=== PATIENT | female | born 1950 | race Caucasian/White ===

== ENCOUNTER → 2024-01-16 15:49 | Outpatient (REF) | payer OTHER, SELFPAY | LOC: WDC 15:49 | PROVIDERS: ATTENDING PHYSICIAN Family Medicine | DX: Z12.31 Encounter for screening mammogram for malignant neoplasm of breast (principal) | CPT/HCPCS: 77063; 77067 ==

== ENCOUNTER 2024-03-21 15:11 | Emergency (ER) | payer OTHER, SELFPAY ==
[2024-03-21 15:13] VITALS: BP 143/97
[2024-03-21 15:42] LABS: % Basophils 0.6 % (0-2); % Eosinophils 0.6 % (0-6); % Immature Granulocytes 0.9 % (0-0.5); % Lymphocytes 12.4 % (20.5-51.1); % Monocytes 6.4 % (1.7-9.3); % Neutrophils 79.1 % (42.2-75.2); Absolute Basophils 0.1 10^3/uL (0-0.2); Absolute Eosinophils 0.1 10^3/uL (0-0.7); Absolute Immature Granulocytes 0.1 10^3/uL (0-0.05); Absolute Lymphocytes 1.3 10^3/uL (1.2-3.4); Absolute Monocytes 0.7 10^3/uL (0.1-0.6); Absolute Neutrophils 8.6 10^3/uL (1.4-6.5); Hematocrit 37.9 % (37.0-47.0); Hemoglobin 12.9 g/dL (12.0-16.0); Mean Corpuscular Hgb 30.5 pg (27.0-31.0); Mean Corpuscular Volume 89.6 fL (81.0-99.0); Nucleated Red Blood Cells % 0 %; Platelet Count 239 10^3/uL (130-400); Red Blood Cell Count 4.23 10^6/uL (4.20-5.40); Red Cell Dist. Width 13.4 % (11.5-14.5); White Blood Cell Count 10.9 10^3/uL (4.8-10.8)
[2024-03-21 16:02] LABS: ALT (SGPT) 34 U/L (0-35); AST (SGOT) 37 U/L (14-36); Albumin 4.3 g/dl (3.5-5.0); Alkaline Phosphatase 62 U/L (38-126); Blood Urea Nitrogen 31 mg/dl (7-17); Calcium 10.5 mg/dl (8.4-10.2); Carbon Dioxide 31 mmol/L (22-30); Chloride 100 mmol/L (98-107); Glucose 126 mg/dl (70-99); Potassium 4.2 mmol/L (3.5-5.1); Sodium 139 mmol/L (135-145); Total Bilirubin 0.4 mg/dl (0.2-1.3); Total Protein 6.5 g/dl (6.3-8.2); eGFR > 60.00
[2024-03-21 16:05] LABS: Troponin I < 0.012 ng/ml
--- NOTE | 2024-03-21 21:06 | ED.GENMED ---
History of Present Illness
General
Chief Complaint: Abdominal Pain
Source: patient
Exam Limitations: none
Time Seen by Provider: 03/21/24 20:48
Nursing documentation reviewed up to this point in time: agreed with
Travel History
Have you had any contact with someone who has COVID-19?: No
Do you have any symptoms of coronavirus? Fever > 100 degrees, chills, cough, shortness of breath, sore throat, loss of taste or smell, muscle aches, or headache?: No
History of Present Illness
History of Present Illness:
73-year-old female presents emergency department due to bilateral epigastric pain. No aggravating relieving factors. Symptoms ongoing for 3 to 4 days.
Past History
Past History
ED Past Medical History: COPD and HTN
ED Past Surgical History: None
Social History
Tobacco: Former smoker
Alcohol: None
Personal:
Living: with family
Employment: Employed
Review of Systems
Review of Systems
Allergies reviewed?: Yes
All Other Systems: Not applicable
Constitutional: Reports no symptoms
EENT: Reports no symptoms
Respiratory: Reports no symptoms
Cardiac: Reports no symptoms
ABD/GI: Reports abdominal pain
: Reports no symptoms
Musculoskeletal: Reports no symptoms
Skin: Reports no symptoms
Neurological: Reports headache
Endocrine: Reports no symptoms
Hematologic/Lymphatic: Reports no symptoms
Psychiatric: Reports no symptoms
Phy Exam
Physical Exam
Physical Exam:
Physical Exam
Afebrile, on 4 L nasal cannula
Neck: supple. no meningeal signs. normal posterior pharynx
Heart: s1/s2 regular rate and rhythm, no murmur. equal radial
pulses.
HEENT: Pupils equal round reactive to light, EOMI
Lungs: no acute respiratory distress. clear bilaterally
Abdomen: normal bowel sounds. Bilateral epigastric tenderness no CVAT
Neuro: alert and oriented. no focal neurological deficits cranial nerves II through XII intact
Skin: no rash
Psychiatric: well kept. interactive and cooperative
Extremities: no edema. no calf tenderness. negative homans. good distal pulses
Course
Orders/Labs/Results
Orders:
Orders
03/21/24 15:15
Electrocardiogram (*1) Urgent
Reason for Study: Abdominal Pain
EKG- Treatment ONCE
03/21/24 15:22
Complete Blood Count/With Diff Urgent
Comprehensive Metabolic Panel Urgent
Lipase Urgent
Comment: ADD ON
Troponin I Urgent
03/21/24 21:05
CT Abd/pelvis W Iv Cont Urgent
Comment:
Reason For Exam: bilateral upper abdominal pain
03/21/24 21:47
Add On- LAB Urgent
Tests Added?: lipase
Acetaminophen [Tylenol] 650 mg PO NOW STA
03/21/24 23:01
Magnesium Citrate [Citroma] 300 ml PO ONCE ONE
Abnormal Lab Results
03/21/24
15:22
WBC 10.9 H 10^3/uL
(4.8-10.8)
Abs Immat Gran (auto) 0.1 H 10^3/uL
(0-0.05)
Absolute Neuts (auto) 8.6 H 10^3/uL
(1.4-6.5)
Absolute Monos (auto) 0.7 H 10^3/uL
(0.1-0.6)
Immature Gran % 0.9 H %
(0-0.5)
Neutrophils % 79.1 H %
(42.2-75.2)
Lymphocytes % 12.4 L %
(20.5-51.1)
Carbon Dioxide 31 H mmol/L
(22-30)
BUN 31 H mg/dl
(7-17)
Glucose 126 H mg/dl
(70-99)
Calcium 10.5 H mg/dl
(8.4-10.2)
AST 37 H U/L
(14-36)
03/21/24 15:22
03/21/24 15:22
Vital Signs
Initial and Last Documented VS:
Initial Vital Signs
Temp Pulse Resp BP Pulse Ox
99.1 F 115 18 143/97 92
03/21/24 15:13 03/21/24 15:13 03/21/24 15:13 03/21/24 15:13 03/21/24 15:13
Last Documented Vital Signs
Temp Pulse Resp BP Pulse Ox
99.1 F 94 18 156/79 98
03/21/24 15:13 03/21/24 21:53 03/21/24 21:53 03/21/24 22:00 03/21/24 22:15
MDM/Problems Addressed
Differential Diagnosis Includes:
Diverticulitis, pancreatitis
MDM/Problems Addressed:
73-year-old female with constipation and abdominal pain. CT scan no acute findings, stool burden. Patient stable for discharge.
*Radiology
Radiology exam reviewed: radiology read reviewed (CT abdomen pelvis no acute findings)
*Pulse Oximetry
Patient hypoxic: no
*EKG
Interpreted by ED Provider?: Yes
EKG Intrepretation Date: 03/22/24
EKG Intrepretation Time: 15:19
Interpretation: abnormal
Comparison EKG: no changes
Heart Rate: 107
Rate: tachycardiac
Rhythm: sinus tachycardia
Lisman: normal axis
Interval: normal interval
QRS Pattern: normal QRS
Ischemia: no ischemia
*Software Tools Build Engineer Interpretation
Rate: Software Tools Build Engineer- N/A
*Critical Care Note
Total Time (30-74mins, 75-104mins- exclusive of procedures): Not Applicable
Patient Management
Social determinants of health affecting care: Living situation
Escalation/DeEscalation of care consider admission/obs:
admit not indicated
ED Attending Note
-
Portions of this chart may have been created with voice recognition software.� Occasional wrong word or��sound alike� substitutions may have occurred due to the inherent limitations of voice recognition software.
Discharge Plan
Departure
Patient Disposition: Home (Routine Discharge)
Date of Disposition: 03/21/24
Time of Disposition: 23:02
Patient with high blood pressure during this ER visit?: Yes
Condition: Good
Discharge Problem:
Abdominal pain, Acute constipation
Instructions: Constipation, Adult (DC), Abdominal Pain, BLOOD PRESSURE
Prescriptions:
No Action
quixvlxxhk-qhhgjczadmygt-trdt 1 EACH tablet
1 tab PO Q4HPRN PRN (Reason: migraine)
Patient Comments:
12/26/2022: last filled 12/14/22, 30 tabs for 7 days from [id number]
ascorbic acid (vitamin C) [Vitamin C] 500 MG tablet
1,000 mg PO BID
diazepam 5 MG tablet
5 mg PO DAILYPRN PRN (Reason: anxiety)
Patient Comments:
12/26/2022: last filled 12/13/22, 30 tabs for 30 days from [id number]
Spiriva Respimat 1 PUFF mist
2 puff inhalation R DAILY@1200
sumatriptan succinate 50 MG tablet
25 mg PO DAILYPRN PRN (Reason: migraine)
fluticasone propionate 1 SPRAY spray,suspension
1 spray intranasal DAILYPRN PRN (Reason: allergies)
Refresh Classic (PF) 10 DROPS dropperette
1 drops BOTH EYES BID
calcium carbonate-vitamin D3 [Oyster Shell Calcium-Vit D3] 500 MG tablet
1 tab PO DAILY
albuterol sulfate 2.5 mg /3 mL (0.083 %) Solution For Nebulization
2.5 mg INHALATION R Q4HPRN PRN (Reason: chest tightness)
budesonide-formoterol [Symbicort] 160-4.5 mcg/actuation Hfa Aerosol Inhaler
2 puff INHALATION R BID
benzonatate 200 mg Capsule
200 mg PO BID
sodium chloride 3 % Solution For Nebulization
4 ml INHALATION R BID
sertraline 25 mg Tablet
12.5 mg PO Q48H
budesonide 0.5 mg/2 mL Suspension For Nebulization
0.5 mg INHALATION R BID
vitamin B complex Tablet
1 tab PO DAILY
diltiazem HCl 360 mg Tablet Extended Release 24 Hr
360 mg PO DAILY
rosuvastatin 10 mg Tablet
10 mg PO DAILY
hydrochlorothiazide 12.5 mg Tablet
12.5 mg PO DAILY
prednisone 10 MG tablet
10 mg PO DAILY
Hold Instructions: Please note to first take steroid taper as prescribed on discharge, then continue home regimen of prednisone.
guaifenesin [Mucus Relief ER] 600 MG tablet extended release 12hr
1,200 mg PO BID
pantoprazole 40 mg Tablet,Delayed Release (Dr/Ec)
40 mg PO DAILY 30 Days Qty: 30 0RF
prednisone 10 mg Tablet
See Rx Instructions .ROUTE .COMPLEX Qty: 30 0RF
Rx Instructions:
Take By Mouth:
40 mg daily x3 days, 30 mg daily x3 days,
20 mg daily x3 days, 10 mg daily x3 days.
Referrals:
UNKNOWN - PT DOES,NOT KNOW [Unknown Provider] -
Interventions
Interventions:
*Risk Screen - Suicide Last Done: 03/21/24 15:13
*General Assessment Last Done: 03/21/24 15:13
*Neglect/Abuse Screening Last Done: 03/21/24 15:13
ED- Fall Risk Assessment Last Done: 03/21/24 22:12
*ED COVID-19 Vaccine History Last Done: 03/21/24 15:13
*Nursing Disposition Last Done: 03/21/24 23:15
QG-Bqfsnt-Gvlvmiauqq Assessment Last Done: 03/21/24 22:10
Discharge Date and Time
Discharge Date/Time: 03/21/24 23:33
Print Language: SUDANESE
[2024-03-21 21:17] VITALS: BMI 25.6
[2024-03-21] MEDS: TYLENOL 650 MG PO (21:51)
[2024-03-21 21:53] VITALS: BP 171/81
[2024-03-21 22:00] VITALS: BP 156/79
[2024-03-21 22:20] LABS: Lipase 51 U/L (23-300)
[2024-03-21] MEDS: CITROMA 300 ML PO (23:07)
== END 2024-03-21 23:33 | disposition home or self-care (01) ==
LOC: EMR 15:11
PROVIDERS: EMERGENCY PHYSICIAN Emergency Medicine; FAMILY PHYSICIAN Family Medicine
DX: R10.13 Epigastric pain (principal); K59.00 Constipation, unspecified
CPT/HCPCS: 99285; 74177; 80053; 83690; 84484; 85025; 93005; Q9967

== ENCOUNTER 2024-03-24 16:24 | Emergency (ER) | payer OTHER, SELFPAY ==
[2024-03-24 16:32] VITALS: BP 132/82
--- NOTE | 2024-03-24 17:59 | ED.GENMED ---
History of Present Illness
General
Chief Complaint: Back Pain
Source: patient
Exam Limitations: none
Time Seen by Provider: 03/24/24 17:50
Nursing documentation reviewed up to this point in time: agreed with
Travel History
Have you had any contact with someone who has COVID-19?: No
Do you have any symptoms of coronavirus? Fever > 100 degrees, chills, cough, shortness of breath, sore throat, loss of taste or smell, muscle aches, or headache?: No
History of Present Illness
History of Present Illness:
Patient to ED wt complaint of bilateral chest pain and back pain. States she was seen in ED 3 days ago for abd. pain. Dx constipation. States she was prescribed mag citrate which she took. States she passed 'a fair amt' of liquid. Tried to
give self a fleets enema. States she passed more liquid. States she now has bilateral lateral chest pain. States it comes in waves. Brought to ED by sig/other for eval. No n/v.
Past History
Past History
ED Past Medical History: COPD and HTN
ED Past Surgical History: None
Social History
Tobacco: Former smoker
Alcohol: None
Personal:
Living: with family
Employment: Employed
Review of Systems
Review of Systems
Allergies reviewed?: Yes
All Other Systems: ROS reviewed and negative except as documented in HPI and ROS
Constitutional: Reports no symptoms
EENT: Reports no symptoms
Respiratory: Reports no symptoms
Cardiac: Reports no symptoms
ABD/GI: Reports no symptoms
: Reports no symptoms
Musculoskeletal: Reports other (Bilateral lateral chest pain. Worse with movement.)
Skin: Reports no symptoms
Neurological: Reports no symptoms
Psychiatric: Reports no symptoms
Phy Exam
General Physical Exam
General Presentation: well appearing and no apparent distress
General age: appears stated age
General Skin: warm and dry
General Habitus: normal
Cardiovascular Exam
Cardiovascular Exam: regular rate/rhythm and no edema
Pulmonary Exam
Pulmonary Exam: lungs clear, no respiratory distress and chest non tender
Gastrointestinal Exam
Gastrointestinal Exam: normal bowel sounds, non tender, soft, no organomegaly and non distended
Musculoskeletal Exam
Musculoskeletal Exam: full ROM and neuro vasc intact
Skin Exam
Skin Exam: normal color, warm/dry and no rash
Psychiatric Exam
Psychiatric Exam: normal mood/affect
Course
Orders/Labs/Results
Orders:
Orders
03/24/24 17:58
Obstruct Series W/PA Chest [CR Obstruct Series W/pa Chest] Urgent
Comment:
Reason For Exam: pain
03/24/24 17:59
Hydrocodone 5/APAP 325 [Mission 5/325] 1 tablet PO NOW STA
03/24/24 19:54
Magnesium Citrate [Citroma] 300 ml PO ONCE ONE
Sennosides [Senokot] 8.6 mg PO NOW STA
Vital Signs
Initial and Last Documented VS:
Initial Vital Signs
Temp Pulse Resp BP Pulse Ox
98.4 F 95 18 132/82 94
03/24/24 16:32 03/24/24 16:32 03/24/24 16:32 03/24/24 16:32 03/24/24 16:32
Last Documented Vital Signs
Temp Pulse Resp BP Pulse Ox
98.4 F 95 18 132/82 94
03/24/24 16:32 03/24/24 16:32 03/24/24 16:32 03/24/24 16:32 03/24/24 16:32
*Radiology
Radiology exam reviewed: radiology read reviewed
*Pulse Oximetry
Patient hypoxic: no
*Critical Care Note
Total Time (30-74mins, 75-104mins- exclusive of procedures): Not Applicable
ED Attending Note
-
Portions of this chart may have been created with voice recognition software.� Occasional wrong word or��sound alike� substitutions may have occurred due to the inherent limitations of voice recognition software.
Discharge Plan
Departure
Patient Disposition: Home (Routine Discharge)
Date of Disposition: 03/24/24
Time of Disposition: 19:55
Patient with high blood pressure during this ER visit?: No
Condition: Good
Covid-19: Not Applicable
Discharge Problem:
Constipation
Instructions: Constipation in adults
Prescriptions:
No Action
aanqsdxipp-ffjnznemswhvx-btuz 1 EACH tablet
1 tab PO Q4HPRN PRN (Reason: migraine)
Patient Comments:
12/26/2022: last filled 12/14/22, 30 tabs for 7 days from [id number]
ascorbic acid (vitamin C) [Vitamin C] 500 MG tablet
1,000 mg PO BID
diazepam 5 MG tablet
5 mg PO DAILYPRN PRN (Reason: anxiety)
Patient Comments:
12/26/2022: last filled 12/13/22, 30 tabs for 30 days from [id number]
Spiriva Respimat 1 PUFF mist
2 puff inhalation R DAILY@1200
sumatriptan succinate 50 MG tablet
25 mg PO DAILYPRN PRN (Reason: migraine)
fluticasone propionate 1 SPRAY spray,suspension
1 spray intranasal DAILYPRN PRN (Reason: allergies)
Refresh Classic (PF) 10 DROPS dropperette
1 drops BOTH EYES BID
calcium carbonate-vitamin D3 [Oyster Shell Calcium-Vit D3] 500 MG tablet
1 tab PO DAILY
albuterol sulfate 2.5 mg /3 mL (0.083 %) Solution For Nebulization
2.5 mg INHALATION R Q4HPRN PRN (Reason: chest tightness)
budesonide-formoterol [Symbicort] 160-4.5 mcg/actuation Hfa Aerosol Inhaler
2 puff INHALATION R BID
benzonatate 200 mg Capsule
200 mg PO BID
sodium chloride 3 % Solution For Nebulization
4 ml INHALATION R BID
sertraline 25 mg Tablet
12.5 mg PO Q48H
budesonide 0.5 mg/2 mL Suspension For Nebulization
0.5 mg INHALATION R BID
vitamin B complex Tablet
1 tab PO DAILY
diltiazem HCl 360 mg Tablet Extended Release 24 Hr
360 mg PO DAILY
rosuvastatin 10 mg Tablet
10 mg PO DAILY
hydrochlorothiazide 12.5 mg Tablet
12.5 mg PO DAILY
prednisone 10 MG tablet
10 mg PO DAILY
Hold Instructions: Please note to first take steroid taper as prescribed on discharge, then continue home regimen of prednisone.
guaifenesin [Mucus Relief ER] 600 MG tablet extended release 12hr
1,200 mg PO BID
pantoprazole 40 mg Tablet,Delayed Release (Dr/Ec)
40 mg PO DAILY 30 Days Qty: 30 0RF
prednisone 10 mg Tablet
See Rx Instructions .ROUTE .COMPLEX Qty: 30 0RF
Rx Instructions:
Take By Mouth:
40 mg daily x3 days, 30 mg daily x3 days,
20 mg daily x3 days, 10 mg daily x3 days.
Referrals:
Avel Soto MD [Family Provider] - Tomorrow
Interventions
Interventions:
*Risk Screen - Suicide Last Done: 03/24/24 16:32
*General Assessment Last Done: 03/24/24 16:32
*Neglect/Abuse Screening Last Done: 03/24/24 16:32
ED- Fall Risk Assessment Last Done: 03/24/24 18:03
*ED COVID-19 Vaccine History Last Done: 03/24/24 16:32
*Nursing Disposition Last Done: 03/24/24 20:33
ED-Musculoskeletal Assessment Last Done: 03/24/24 18:04
Discharge Date and Time
Discharge Date/Time: 03/24/24 20:34
Print Language: ICELANDIC
[2024-03-24] MEDS: NORCO 5/325 1 TABLET PO (18:02)
[2024-03-24] MEDS: SENOKOT 8.59999999999999964 MG PO (20:06)
[2024-03-24] MEDS: CITROMA 300 ML PO (20:06)
== END 2024-03-24 20:34 | disposition home or self-care (01) ==
LOC: EMR 16:24
PROVIDERS: EMERGENCY PHYSICIAN Emergency Medicine; FAMILY PHYSICIAN Family Medicine
DX: K59.00 Constipation, unspecified (principal); M54.9 Dorsalgia, unspecified; J44.9 Chronic obstructive pulmonary disease, unspecified; I10 Essential (primary) hypertension
CPT/HCPCS: 99283; 74022

== ENCOUNTER 2024-03-28 19:02 | Emergency (ER) | payer OTHER, SELFPAY ==
[2024-03-28 19:13] VITALS: BP 159/93; BMI 25.0
[2024-03-28 19:41] LABS: % Basophils 0.7 % (0-2); % Eosinophils 1.6 % (0-6); % Monocytes 10.6 % (1.7-9.3); % Neutrophils 60.1 % (42.2-75.2); Absolute Basophils 0.1 10^3/uL (0-0.2); Absolute Eosinophils 0.2 10^3/uL (0-0.7); Absolute Immature Granulocytes 0.1 10^3/uL (0-0.05); Absolute Lymphocytes 2.9 10^3/uL (1.2-3.4); Absolute Monocytes 1.2 10^3/uL (0.1-0.6); Absolute Neutrophils 6.6 10^3/uL (1.4-6.5); Hematocrit 38.5 % (37.0-47.0); Hemoglobin 13.1 g/dL (12.0-16.0); Mean Corpuscular Hgb 30.3 pg (27.0-31.0); Mean Corpuscular Volume 88.9 fL (81.0-99.0); Mean Platelet Volume 8.8 fL (7.4-10.4); Nucleated Red Blood Cells % 0 %; Platelet Count 213 10^3/uL (130-400); Red Blood Cell Count 4.33 10^6/uL (4.20-5.40); Red Cell Dist. Width 13.3 % (11.5-14.5)
[2024-03-28 19:46] LABS: ALT (SGPT) 38 U/L (0-35); AST (SGOT) 42 U/L (14-36); Albumin 4.4 g/dl (3.5-5.0); Alkaline Phosphatase 60 U/L (38-126); Blood Urea Nitrogen 21 mg/dl (7-17); Calcium 10.2 mg/dl (8.4-10.2); Carbon Dioxide 30 mmol/L (22-30); Chloride 98 mmol/L (98-107); Estimated Creatinine Clearance 65 ml/min; Glucose 111 mg/dl (70-99); Potassium 3.6 mmol/L (3.5-5.1); Sodium 136 mmol/L (135-145); Total Bilirubin 0.4 mg/dl (0.2-1.3); Total Protein 6.5 g/dl (6.3-8.2); eGFR > 60.00
[2024-03-28 19:54] LABS: Lipase 52 U/L (23-300)
[2024-03-28 22:12] VITALS: BP 153/88
[2024-03-29] MEDS: TORADOL 30 MG IV (01:30)
[2024-03-29] MEDS: OFIRMEV 100 IV (01:31)
[2024-03-29 01:33] VITALS: BP 184/98
--- NOTE | 2024-03-29 02:18 | ED.GENMED ---
History of Present Illness
General
Chief Complaint: Flank Pain
Source: patient
Exam Limitations: none
Time Seen by Provider: 03/29/24 00:54
Travel History
Have you had any contact with someone who has COVID-19?: No
Do you have any symptoms of coronavirus? Fever > 100 degrees, chills, cough, shortness of breath, sore throat, loss of taste or smell, muscle aches, or headache?: No
History of Present Illness
History of Present Illness:
This is a 73 year old female that comes in with c/o right and left sided abd pain. States that this started over a week ago. Patient was seen here on Monday and told that she was constipated. State that she was given Magnesium Citrate which she
took. Then on next day she had a second bottle as this was not working. States that she had a couple loose stools and on Monday she use a third bottle of Magnesium citrate as she was till having this abd pain. This did not help so the PCP told her
to use a fleets enema and again this did not help. States that the pain wraps around on both sided and this causes her to feel more SOB due to the pain. States that she was also nauseated and had a headache. Denies any fever, chills, chest pain,
vomiting, dizziness, urinary burning.
Past History
Past History
ED Past Medical History: Asthma, Cancer (Skin Cancer), COPD, HTN and Other (Headache/ Migraines)
ED Past Surgical History: Other (Cataracts)
Social History
Tobacco: Former smoker
Alcohol: Occasional
Personal: Single (Significant other)
Living: with family
Employment: Employed
Review of Systems
Review of Systems
All Other Systems: ROS reviewed and negative except as documented in HPI and ROS
Constitutional: Reports no symptoms; Denies fever or chills
EENT: Reports no symptoms
Respiratory: Reports trouble breathing; Denies cough
Cardiac: Reports no symptoms; Denies chest pain
ABD/GI: Reports abdominal pain, nausea and diarrhea (after magnesium Citrate); Denies vomiting
: Reports no symptoms; Denies dysuria, frequency or urgency
Musculoskeletal: Reports no symptoms
Skin: Reports no symptoms
Neurological: Reports headache; Denies dizzy
Psychiatric: Reports no symptoms
Phy Exam
General Physical Exam
General Presentation: no apparent distress
General age: appears stated age
General Skin: warm and dry
General Habitus: elderly
General Mental: alert
General Hydration: appears well hydrated
ENT Exam
ENT Exam: TM's normal, pharynx normal and neck supple
Eye Exam
Eye Exam: EOMI
Cardiovascular Exam
Cardiovascular Exam: regular rate/rhythm and normal peripheral pulses
Pulmonary Exam
Pulmonary Exam: no respiratory distress, no rales, chest non tender, no crackles, no rhonchi, no wheezing, no cough and decreased breath sounds
Gastrointestinal Exam
Gastrointestinal Exam: normal bowel sounds, non tender, soft, no organomegaly, no pulsatile mass and non distended
Musculoskeletal Exam
Musculoskeletal Exam: full ROM and no edema
Skin Exam
Skin Exam: normal color, warm/dry, no rash and no petechia
Psychiatric Exam
Psychiatric Exam: normal mood/affect
Course
Orders/Labs/Results
Orders:
Orders
03/28/24 19:16
Obstruct Series W/PA Chest [CR Obstruct Series W/pa Chest] Urgent
Comment:
Reason For Exam: constipation
03/28/24 19:23
Complete Blood Count/With Diff Urgent
Comprehensive Metabolic Panel Urgent
Lipase Urgent
03/28/24 23:08
Enema As Directed
Type: Milk and molasses
Amount: once
03/29/24 01:17
Acetaminophen 1000MG/100Ml [Ofirmev] 1,000 mg in 100 ml IV ONCE
Acetaminophen IV Indication:: ED Narcotic Naive Pt-ONCE
Ketorolac [Toradol] 30 mg IV NOW STA
Abnormal Lab Results
03/28/24
19:23
WBC 11.0 H 10^3/uL
(4.8-10.8)
Abs Immat Gran (auto) 0.1 H 10^3/uL
(0-0.05)
Absolute Neuts (auto) 6.6 H 10^3/uL
(1.4-6.5)
Absolute Monos (auto) 1.2 H 10^3/uL
(0.1-0.6)
Immature Gran % 1.0 H %
(0-0.5)
Monocytes % 10.6 H %
(1.7-9.3)
BUN 21 H mg/dl
(7-17)
Glucose 111 H mg/dl
(70-99)
AST 42 H U/L
(14-36)
ALT 38 H U/L
(0-35)
03/28/24 19:23
03/28/24 19:23
WBC slightly elevated. Dehydration. Glucose nonfasting. AST/ALT elevation. Lipase normal at 52
Vital Signs
Initial and Last Documented VS:
Initial Vital Signs
Temp Pulse Resp BP Pulse Ox
98.2 F 92 16 159/93 94
03/28/24 19:13 03/28/24 19:13 03/28/24 19:13 03/28/24 19:13 03/28/24 19:13
Last Documented Vital Signs
Temp Pulse Resp BP Pulse Ox
97.9 F 56 16 184/98 96
03/29/24 01:33 03/28/24 22:12 03/28/24 19:13 03/29/24 01:33 03/29/24 01:33
MDM/Problems Addressed
Differential Diagnosis Includes:
abd pain due to DDD, Constipation
MDM/Problems Addressed:
This is a 73 year old female that comes in with c/o abd pain that wraps around on both sided. States that she had been sick and was vomiting just before this started. States that she as her on Monday and told that she was constipated. State that she
has done 3 bottles of magnesium Citrate and Fleets enema and had some diarrhea. State that she is still having abd pain.
Will check labs and medication for pain.
Explained to patient that this may all be coming from her back as the nerves wrap around to the abd. Patient had been vomiting before this started and this may have irritated her back. Explained that her blood work shows slight Dehydration and that
the X-ray is negative for signs of constipation. Encouraged patient to try and eat a diet that is easily digested such as chicken, rice and potatoes. Will have patient use Tylenol 1000mg every 6 hour and Ibuprofen 600ng every 6 hours with food. Will
also give Low dose Flexeril which she has taken in the past to help relax the muscle as she feels she can't breath when she gets this spasm. Will have patient follow up with the PCP. Return with any concerns.
Chronic conditions affecting care:
NA
Acute Exacerbation and/or Progression of Chronic Illness:
NA
*Radiology
Radiology exam reviewed: radiology read reviewed (Obstruction series-NO evidence of acute cardiopulmonary disease. NO evidence for bowel obstruction or free intraperitoneal air. )
*Pulse Oximetry
Patient hypoxic: no
Comment: Wears Oxygen at 2-4 liters as needed
*EKG
Interpreted by ED Provider?: NA
*Plating Equipment Tender Interpretation
Rate: Plating Equipment Tender- N/A
*Critical Care Note
Total Time (30-74mins, 75-104mins- exclusive of procedures): Not Applicable
ED Attending Note
-
Portions of this chart may have been created with voice recognition software.� Occasional wrong word or��sound alike� substitutions may have occurred due to the inherent limitations of voice recognition software.
Discharge Plan
Departure
Patient Disposition: Home (Routine Discharge)
Date of Disposition: 03/29/24
Time of Disposition: 02:29
Patient with high blood pressure during this ER visit?: Yes
Condition: Good
Covid-19: Not Applicable
Discharge Problem:
Muscle spasm of back, Abdominal pain
Instructions: Muscle Spasm ED, Abdominal Pain, BLOOD PRESSURE
Prescriptions:
New
cyclobenzaprine 5 mg tablet
5 mg PO HS PRN (Reason: Muscle spasm) Qty: 7 0RF
No Action
pvfqbadrpi-thdxjjgbkfmrr-zizb 1 EACH tablet
1 tab PO Q4HPRN PRN (Reason: migraine)
Patient Comments:
12/26/2022: last filled 12/14/22, 30 tabs for [address] [id number]
ascorbic acid (vitamin C) [Vitamin C] 500 MG tablet
1,000 mg PO BID
diazepam 5 MG tablet
5 mg PO DAILYPRN PRN (Reason: anxiety)
Patient Comments:
12/26/2022: last filled 12/13/22, 30 tabs for 30 days from [id number]
Spiriva Respimat 1 PUFF mist
2 puff inhalation R DAILY@1200
sumatriptan succinate 50 MG tablet
25 mg PO DAILYPRN PRN (Reason: migraine)
fluticasone propionate 1 SPRAY spray,suspension
1 spray intranasal DAILYPRN PRN (Reason: allergies)
Refresh Classic (PF) 10 DROPS dropperette
1 drops BOTH EYES BID
calcium carbonate-vitamin D3 [Oyster Shell Calcium-Vit D3] 500 MG tablet
1 tab PO DAILY
albuterol sulfate 2.5 mg /3 mL (0.083 %) Solution For Nebulization
2.5 mg INHALATION R Q4HPRN PRN (Reason: chest tightness)
budesonide-formoterol [Symbicort] 160-4.5 mcg/actuation Hfa Aerosol Inhaler
2 puff INHALATION R BID
benzonatate 200 mg Capsule
200 mg PO BID
sodium chloride 3 % Solution For Nebulization
4 ml INHALATION R BID
sertraline 25 mg Tablet
12.5 mg PO Q48H
budesonide 0.5 mg/2 mL Suspension For Nebulization
0.5 mg INHALATION R BID
vitamin B complex Tablet
1 tab PO DAILY
diltiazem HCl 360 mg Tablet Extended Release 24 Hr
360 mg PO DAILY
rosuvastatin 10 mg Tablet
10 mg PO DAILY
hydrochlorothiazide 12.5 mg Tablet
12.5 mg PO DAILY
prednisone 10 MG tablet
10 mg PO DAILY
Hold Instructions: Resume on 10/03/23.
guaifenesin [Mucus Relief ER] 600 MG tablet extended release 12hr
1,200 mg PO BID
pantoprazole 40 mg Tablet,Delayed Release (Dr/Ec)
40 mg PO DAILY 30 Days Qty: 30 0RF
prednisone 10 mg Tablet
See Rx Instructions .ROUTE .COMPLEX Qty: 30 0RF
Rx Instructions:
Take By Mouth:
40 mg daily x3 days, 30 mg daily x3 days,
20 mg daily x3 days, 10 mg daily x3 days.
Referrals:
Avel Soto MD [Family Provider] - Follow up in 2-3 days
Activity Restrictions/Additional Instructions:
As discussed, your blood work shows slight dehydration. Your Liver enzymes are slightly elevated. Your X-ray is negative for sign of constipation. This is most likely coming from your back as the nerves wrap around to the abd and is causing your
pain. Please use Tylenol 1000mg every 6 hours for pain and Ibuprofen 600mg every 6 hours with food for pain. You have also been given a prescription for Flexeril that will help relax the muscles so you can breath. Your prescription has been sent to
your Pharmacy. Follow up with the family doctor for recheck. Try eating simple foods such as chicken, rice and potatoes that easily digested. IF YOU HAVE INCREASED OR CHANGING PAIN, OR YOU HAVE ANY OTHER CONCERNS PLEASE RETURN TO THE EMERGENCY
ROOM.
Interventions
Interventions:
*Risk Screen - Suicide Last Done: 03/28/24 19:13
*General Assessment Last Done: 03/28/24 22:15
*Neglect/Abuse Screening Last Done: 03/28/24 19:13
*ED COVID-19 Vaccine History Last Done: 03/28/24 22:15
DK-Yrgrkr-Lbyfjwupmp Assessment Last Done: 03/28/24 23:07
Discharge Date and Time
Print Language: CITIZEN OF [place]
[2024-03-29] MEDS: FLEXERIL 5 MG PO (02:33)
[2024-03-29 02:35] VITALS: BP 150/100
== END 2024-03-29 02:58 | disposition home or self-care (01) ==
LOC: EMR 19:02
PROVIDERS: Emergency Medicine; EMERGENCY PHYSICIAN Student in an Organized Health Care Education/Training Program; FAMILY PHYSICIAN Family Medicine
DX: M62.830 Muscle spasm of back (principal); E86.0 Dehydration; R10.9 Unspecified abdominal pain; I10 Essential (primary) hypertension; Z87.891 Personal history of nicotine dependence
CPT/HCPCS: 99284; 96374; 96375; 74022; 80053; 83690; 85025

== ENCOUNTER → 2024-04-02 17:56 | Outpatient (REF) | payer OTHER, SELFPAY | LOC: RAD 17:56 | PROVIDERS: ATTENDING PHYSICIAN Physician Assistant | DX: M54.6 Pain in thoracic spine (principal); R10.9 Unspecified abdominal pain; R07.81 Pleurodynia; M54.50 Low back pain, unspecified | CPT/HCPCS: 71111; 72072; 72110 ==

== ENCOUNTER → 2024-04-23 13:49 | Outpatient (REF) | payer OTHER, SELFPAY | LOC: RAD 13:49 | PROVIDERS: ATTENDING PHYSICIAN Student in an Organized Health Care Education/Training Program; FAMILY PHYSICIAN Family Medicine; OTHER PHYSICIAN Family Medicine; OTHER PHYSICIAN Internal Medicine Endocrinology, Diabetes & Metabolism; OTHER PHYSICIAN Orthopaedic Surgery | DX: E27.49 Other adrenocortical insufficiency (principal); Z79.52 Long term (current) use of systemic steroids; Z78.0 Asymptomatic menopausal state; E24.2 Drug-induced Cushing's syndrome; S22.060A Wedge compression fracture of T7-T8 vertebra, initial encounter for closed fracture | CPT/HCPCS: 77080 ==

== ENCOUNTER → 2024-06-06 14:47 | Outpatient (REF) | payer OTHER, SELFPAY | LOC: MRI 3T 14:47 | PROVIDERS: ATTENDING PHYSICIAN Orthopaedic Surgery | DX: S22.060A Wedge compression fracture of T7-T8 vertebra, initial encounter for closed fracture (principal) | CPT/HCPCS: 72146 ==

== ENCOUNTER 2024-06-24 12:11 | Outpatient (RCR) | payer OTHER, SELFPAY | END 2024-06-24 23:59 | disposition home or self-care (01) | LOC: RPT 12:11 | PROVIDERS: ATTENDING PHYSICIAN Orthopaedic Surgery; FAMILY PHYSICIAN Family Medicine | DX: S22.060A Wedge compression fracture of T7-T8 vertebra, initial encounter for closed fracture (principal); Z73.6 Limitation of activities due to disability | CPT/HCPCS: 97110; 97162 ==

== ENCOUNTER → 2024-07-05 11:05 | Outpatient (REF) | payer OTHER, SELFPAY | LOC: RAD 11:05 | PROVIDERS: ATTENDING PHYSICIAN Physician Assistant | DX: R74.8 Abnormal levels of other serum enzymes (principal) | CPT/HCPCS: 76700 ==

== ENCOUNTER → 2024-11-01 13:39 | Outpatient (REF) | payer OTHER, SELFPAY | LOC: RAD 13:39 | PROVIDERS: ATTENDING PHYSICIAN Family Medicine | DX: S22.068S Other fracture of T7-T8 thoracic vertebra, sequela (principal) | CPT/HCPCS: 72072 ==

== ENCOUNTER → 2024-11-07 14:48 | Outpatient (REF) | payer OTHER, SELFPAY | LOC: DHVS 14:48 | PROVIDERS: ATTENDING PHYSICIAN Physician Assistant; FAMILY PHYSICIAN Surgery Vascular Surgery | DX: I73.9 Peripheral vascular disease, unspecified (principal) | CPT/HCPCS: 93923; 93930 ==

== ENCOUNTER 2024-11-27 23:08 | Inpatient (IN) | payer OTHER, SELFPAY ==
[2024-11-27] VITALS (8 sets, daily range): BP systolic 121–172; BP diastolic 68–115
--- NOTE | 2024-11-27 15:30 | ED.GENMED ---
ED Provider Triage
<Chung Lin PA-C - Last Filed: 11/27/24 15:31>
-
Patient seen by provider in Triage?: Seen in Triage
74-year-old female with history of COPD follows with Dr. Wayne presents with increased work of breathing shortness of breath and increased oxygen demand. She is typically on 2 to 4 L of oxygen but now steadily on 4 L and still short of breath.
No fever at triage. She is 88% on her 4 L at triage and tachypneic.
EKG labs troponin chest x-ray pending.
Patient seen by healthcare provider at triage but would warrant further assessment. Notified triage nurse that patient should be placed in room
History of Present Illness
<Chung Lin PA-C - Last Filed: 11/27/24 15:31>
General
Chief Complaint: Breathing Problem
Time Seen by Provider: 11/27/24 16:10
<Dalia Dee PA-C - Last Filed: 11/27/24 22:31>
General
Source: patient
Exam Limitations: none
Nursing documentation reviewed up to this point in time: agreed with
History of Present Illness
History of Present Illness:
74-year-old female past medical history of asthma, COPD, presents to the emergency department today with concerns of shortness of breath for the past few days. Patient reports that she thought she had a virus and thought she was getting over it but
states that she has been increasingly shortness of breath especially with exertion, and she is also developed significant wheezing that does not resolve with her inhalers at home. She is also had a persistent cough. She denies any chest pain she
denies any fevers or chills. She denies any nausea or vomiting, diarrhea, abdominal pain. She denies any syncopal episodes. She states that she uses 4 L of oxygen at baseline. Patient states that she has a history of SVT and her recent syndromes
have thrown her into SVT 3 times this past week, and she has gotten herself out of it with vagal manuevers.
Past History
<Chung Lin PA-C - Last Filed: 11/27/24 15:31>
Past History
ED Past Medical History: Asthma, Cancer (Skin Cancer), COPD, HTN and Other (Headache/ Migraines)
ED Past Surgical History: Other (Cataracts)
Social History
Tobacco: Former smoker
Alcohol: Occasional
Personal: Single (Significant other)
Living: with family
Employment: Employed
Review of Systems
<Dalia Dee PA-C - Last Filed: 11/27/24 22:31>
Review of Systems
All Other Systems: ROS reviewed and negative except as documented in HPI and ROS
Phy Exam
<Dalia Dee PA-C - Last Filed: 11/27/24 22:31>
Physical Exam
Physical Exam:
General: Patient is well appearing and in no acute distress; non-toxic
Skin: Warm and dry, no rashes or lesions
Head: Normocephalic, atraumatic
Eyes: Sclera non-icteric. EOMs intact. PERRLA.
Cardiac: Patient tachycardic otherwise regular rhythm no murmurs
Peripheral Vascular: No lower extremity swelling or edema
Pulm: Increased respiratory rate, conversational dyspnea, tripoding noted, diffuse wheezing
Neuro: CN II-XII intact, no focal neurologic deficits.
Psychiatric: Appropriate mood and affect.
Scores
<Dalia Dee PA-C - Last Filed: 11/27/24 22:31>
Heart Failure Risk
Heart Failure Risk Score: Yes
History of Stroke or TIA: No
History of intubation for respiratory distress: No
Heart rate on ED arrival >/= 110: Yes
SaO2 <90% on arrival on room air: Yes
HR >/=110 during 3min walk test (or too ill to perform test): No
ECG has acute ischemic changes: No
Urea >/=12mmol/L (BUN 33.6mg/dL): No
Serum CO2>/=35mmol/L: No
Troponin I or T elevated to VT Level (0.4mg/dL): No
NT-proBNP >/=5,000ng/L (5,000pg/ml): No
HF Risk Score: 1
Admission Status: MEDIUM RISK 5.1% Consider observation or discharge to home with homecare & f/u visit to PCP/Crop Insurance Claims Adjuster, or SNF for treatment
<Farooq Hook MD - Last Filed: 11/27/24 23:22>
Heart Failure Risk
HF Risk Score: 1
Admission Status: MEDIUM RISK 5.1% Consider observation or discharge to home with homecare & f/u visit to PCP/Crop Insurance Claims Adjuster, or SNF for treatment
Course
<Chung Lin PA-C - Last Filed: 11/27/24 15:31>
Orders/Labs/Results
Orders:
Orders
11/27/24 Lunch
Cholesterol Lowering
Cholesterol Lowering: Sodium, 2 Gram
11/27/24 15:28
CR Chest - 2 Views Urgent
Comment:
Reason For Exam: sob
11/27/24 15:29
Electrocardiogram (*1) Urgent
Reason for Study: Shortness of Breath
EKG- Treatment ONCE
11/27/24 16:18
Dexamethasone Sod Phosphate [Decadron] 10 mg IV NOW STA
Ipratropium/Albuterol Sulfate [Duoneb] 3 ml INH R NOW STA
11/27/24 16:20
Complete Blood Count/With Diff Urgent
Comprehensive Metabolic Panel Urgent
NT-proBNP Urgent
Troponin I Urgent
Ipratropium/Albuterol Sulfate [Duoneb] 3 ml INH R NOW STA
Ipratropium/Albuterol Sulfate [Duoneb] 3 ml INH R NOW STA
11/27/24 16:59
COVID-19 Antigen Urgent
Source: Nasal Swab
Lactate Level [Lactic Acid] Urgent
Venous Blood Gas Urgent
%Oxygen/Room Air: 95
Blood Culture Q30M
CHRISSY Source: Blood/Venous
Specimen Description:
Blood Culture Q30M
CHRISSY Source: Blood/Venous
Specimen Description:
Influenza A+B Rapid Molecular Urgent
CHRISSY Source: Nasal Swab
Specimen Description:
11/27/24 18:01
Oseltamivir Phosphate [Tamiflu] 75 mg PO NOW STA
11/27/24 19:28
Admit/Transfer Patient As Directed
Co-Sign Provider:
Level of Care: Observation services
Assign to:: Telemetry
Physician / Group: Faye/Hospitalist
Diagnosis: COPD exac/Flu A
Reason for Telemetry: Arrhythmia
Date to Stop Telemetry: 11/30/24
Time to Stop Telemetry: 11:00
PRN Pain Medication Management As Directed
May give lesser potent ordered pain med per pt: Yes
preference::
Protocol:: Medication orders for pain may be administered in a
manner that supports deferring to patient preference
when the pt is:
- Requesting an ordered lesser potent pain medication.
Least to most potent pain medications are defined
as: acetaminophen < NSAID < tramadol < opioids
(morphine, oxycodone, hydromorphone).
- Requesting a lesser dose of the same medication IF
ORDERED.
- Requesting a less intrusive route of administration
if both routes are prescribed by the provider (PO <
IV).
11/27/24 19:31
Code Status As Directed
Resuscitation Status: Full Code
11/27/24 23:00
Benzonatate [Tessalon Perles] 200 mg PO BID
11/27/24 23:08
0.9% Sodium Chloride 1000 ml [Nss] 1,000 ml IV 80 mls/hr
Acetaminophen [Tylenol] 650 mg PO Q4HPRN PRN
Artificial Tears (Pf) [Refresh Eye Drops (Pf)] 1 drops BOTH EYES BID
Budesonide [Pulmicort] 0.5 mg INH R BID
Diazepam [Valium] 5 mg PO DAILYPRN PRN
Guaifenesin [Mucinex] 1,200 mg PO BID
Ipratropium/Albuterol Sulfate [Duoneb] 3 ml INH R Q4HPRN PRN
Ipratropium/Albuterol Sulfate [Duoneb] 3 ml INH R QID
Oseltamivir Phosphate [Tamiflu] 75 mg PO BID
Sertraline HCl [Zoloft] 12.5 mg PO Q48H
11/27/24 23:08
Level of Care Change As Directed
Level of Care: Inpatient admission
Reason for Hospitalization: COPD exacerbation, Influenza A
Expected length of stay greater than two midnights?: Yes
ELOS- Estimated Length of Stay in days: 4
I certify the patient meets the requirements for IP care: Yes
Respiratory Culture/Gram Stain Routine
CHRISSY Source: Sputum
Specimen Description:
Activity As Directed
Activity Level: As Tolerated
Intake/ Output As Directed
Frequency: Per unit guidelines
Precautions As Directed
Type of Precautions: Droplet
Comment: Influenza A
Vital Signs As Directed
Frequency: Per unit guidelines
Copd Education [RESP] Routine
O2 Therapy [RESP] Routine
Nasal Cannula Liter Flow: 4 LPM
Titrate/Wean O2 to maintain O2 sat greater than (%): 92
Special Instructions: adjust, if necessary, to avoid hyperoxia in CO2 retainers.
Use High Flow O2 if necessary
DX Deep Vein Thrombosis Video Routine
11/28/24 00:00
Dexamethasone Sod Phosphate [Decadron] 4 mg IV Q8H
11/28/24 06:00
Basic Metabolic Panel IN AM
11/28/24 08:00
Azithromycin [Zithromax] 250 mg PO DAILY
Diltiazem Extended Release [Cardizem Cd] 360 mg PO DAILY
Hydrochlorothiazide [Oretic] 25 mg PO DAILY
Pantoprazole [Protonix] 40 mg PO DAILY
Rosuvastatin Calcium [Crestor] 20 mg PO DAILY
oxybutynin chloride 5 mg PO DAILY
vitamin B complex 1 tablet PO DAILY
11/28/24 12:00
Tiotropium Limestone 2.5 Mcg [Spiriva Respimat 2.5 Mcg] DOSE puff INH R DAILY@1200
11/28/24 18:00
Enoxaparin Sodium [Lovenox] 40 mg SC QPM
11/30/24 11:00
DC Protocol for Telemetry ONCE
Abnormal Lab Results
11/27/24 11/27/24
16:20 16:59
WBC 14.7 H 10^3/uL
(4.8-10.8)
Abs Immat Gran (auto) 0.2 H 10^3/uL
(0-0.05)
Absolute Neuts (auto) 12.2 H 10^3/uL
(1.4-6.5)
Absolute Monos (auto) 0.9 H 10^3/uL
(0.1-0.6)
Immature Gran % 1.4 H %
(0-0.5)
Neutrophils % 82.9 H %
(42.2-75.2)
Lymphocytes % 9.0 L %
(20.5-51.1)
VBG pH 7.49 H
(7.32-7.43)
VBG pO2 147 H mmHg
(30-50)
VBG HCO3 36.6 H mmol/L
(22-27)
Chloride 94 L mmol/L
(98-107)
Carbon Dioxide 38 H mmol/L
(22-30)
BUN 26 H mg/dl
(7-17)
Glucose 129 H mg/dl
(70-99)
11/27/24 16:20
11/27/24 16:20
Vital Signs
Initial and Last Documented VS:
Initial Vital Signs
Temp Pulse Resp BP Pulse Ox
36.9 C 98 18 141/78 88
11/27/24 15:24 11/27/24 15:24 11/27/24 15:24 11/27/24 15:24 11/27/24 15:24
Last Documented Vital Signs
Temp Pulse Resp BP Pulse Ox
36.9 C 88 21 161/68 97
11/27/24 15:24 11/27/24 22:30 11/27/24 21:00 11/27/24 20:00 11/27/24 22:45
Sofialt;Dalia Dee PA-C - Last Filed: 11/27/24 22:31>
Orders/Labs/Results
Orders:
Orders
11/27/24 Lunch
Cholesterol Lowering
Cholesterol Lowering: Sodium, 2 Gram
11/27/24 15:28
CR Chest - 2 Views Urgent
Comment:
Reason For Exam: sob
11/27/24 15:29
Electrocardiogram (*1) Urgent
Reason for Study: Shortness of Breath
EKG- Treatment ONCE
11/27/24 16:18
Dexamethasone Sod Phosphate [Decadron] 10 mg IV NOW STA
Ipratropium/Albuterol Sulfate [Duoneb] 3 ml INH R NOW STA
11/27/24 16:20
Complete Blood Count/With Diff Urgent
Comprehensive Metabolic Panel Urgent
NT-proBNP Urgent
Troponin I Urgent
Ipratropium/Albuterol Sulfate [Duoneb] 3 ml INH R NOW STA
Ipratropium/Albuterol Sulfate [Duoneb] 3 ml INH R NOW STA
11/27/24 16:59
COVID-19 Antigen Urgent
Source: Nasal Swab
Lactate Level [Lactic Acid] Urgent
Venous Blood Gas Urgent
%Oxygen/Room Air: 95
Blood Culture Q30M
CHRISSY Source: Blood/Venous
Specimen Description:
Blood Culture Q30M
CHRISSY Source: Blood/Venous
Specimen Description:
Influenza A+B Rapid Molecular Urgent
CHRISSY Source: Nasal Swab
Specimen Description:
11/27/24 18:01
Oseltamivir Phosphate [Tamiflu] 75 mg PO NOW STA
11/27/24 19:28
Admit/Transfer Patient As Directed
Co-Sign Provider:
Level of Care: Observation services
Assign to:: Telemetry
Physician / Group: Faye/Hospitalist
Diagnosis: COPD exac/Flu A
Reason for Telemetry: Arrhythmia
Date to Stop Telemetry: 11/30/24
Time to Stop Telemetry: 11:00
PRN Pain Medication Management As Directed
May give lesser potent ordered pain med per pt: Yes
preference::
Protocol:: Medication orders for pain may be administered in a
manner that supports deferring to patient preference
when the pt is:
- Requesting an ordered lesser potent pain medication.
Least to most potent pain medications are defined
as: acetaminophen < NSAID < tramadol < opioids
(morphine, oxycodone, hydromorphone).
- Requesting a lesser dose of the same medication IF
ORDERED.
- Requesting a less intrusive route of administration
if both routes are prescribed by the provider (PO <
IV).
11/27/24 19:31
Code Status As Directed
Resuscitation Status: Full Code
11/27/24 23:00
Benzonatate [Tessalon Perles] 200 mg PO BID
11/27/24 23:08
0.9% Sodium Chloride 1000 ml [Nss] 1,000 ml IV 80 mls/hr
Acetaminophen [Tylenol] 650 mg PO Q4HPRN PRN
Artificial Tears (Pf) [Refresh Eye Drops (Pf)] 1 drops BOTH EYES BID
Budesonide [Pulmicort] 0.5 mg INH R BID
Diazepam [Valium] 5 mg PO DAILYPRN PRN
Guaifenesin [Mucinex] 1,200 mg PO BID
Ipratropium/Albuterol Sulfate [Duoneb] 3 ml INH R Q4HPRN PRN
Ipratropium/Albuterol Sulfate [Duoneb] 3 ml INH R QID
Oseltamivir Phosphate [Tamiflu] 75 mg PO BID
Sertraline HCl [Zoloft] 12.5 mg PO Q48H
11/27/24 23:08
Level of Care Change As Directed
Level of Care: Inpatient admission
Reason for Hospitalization: COPD exacerbation, Influenza A
Expected length of stay greater than two midnights?: Yes
ELOS- Estimated Length of Stay in days: 4
I certify the patient meets the requirements for IP care: Yes
Respiratory Culture/Gram Stain Routine
CHRISSY Source: Sputum
Specimen Description:
Activity As Directed
Activity Level: As Tolerated
Intake/ Output As Directed
Frequency: Per unit guidelines
Precautions As Directed
Type of Precautions: Droplet
Comment: Influenza A
Vital Signs As Directed
Frequency: Per unit guidelines
Copd Education [RESP] Routine
O2 Therapy [RESP] Routine
Nasal Cannula Liter Flow: 4 LPM
Titrate/Wean O2 to maintain O2 sat greater than (%): 92
Special Instructions: adjust, if necessary, to avoid hyperoxia in CO2 retainers.
Use High Flow O2 if necessary
DX Deep Vein Thrombosis Video Routine
11/28/24 00:00
Dexamethasone Sod Phosphate [Decadron] 4 mg IV Q8H
11/28/24 06:00
Basic Metabolic Panel IN AM
11/28/24 08:00
Azithromycin [Zithromax] 250 mg PO DAILY
Diltiazem Extended Release [Cardizem Cd] 360 mg PO DAILY
Hydrochlorothiazide [Oretic] 25 mg PO DAILY
Pantoprazole [Protonix] 40 mg PO DAILY
Rosuvastatin Calcium [Crestor] 20 mg PO DAILY
oxybutynin chloride 5 mg PO DAILY
vitamin B complex 1 tablet PO DAILY
11/28/24 12:00
Tiotropium Limestone 2.5 Mcg [Spiriva Respimat 2.5 Mcg] DOSE puff INH R DAILY@1200
11/28/24 18:00
Enoxaparin Sodium [Lovenox] 40 mg SC QPM
11/30/24 11:00
DC Protocol for Telemetry ONCE
Abnormal Lab Results
11/27/24 11/27/24
16:20 16:59
WBC 14.7 H 10^3/uL
(4.8-10.8)
Abs Immat Gran (auto) 0.2 H 10^3/uL
(0-0.05)
Absolute Neuts (auto) 12.2 H 10^3/uL
(1.4-6.5)
Absolute Monos (auto) 0.9 H 10^3/uL
(0.1-0.6)
Immature Gran % 1.4 H %
(0-0.5)
Neutrophils % 82.9 H %
(42.2-75.2)
Lymphocytes % 9.0 L %
(20.5-51.1)
VBG pH 7.49 H
(7.32-7.43)
VBG pO2 147 H mmHg
(30-50)
VBG HCO3 36.6 H mmol/L
(22-27)
Chloride 94 L mmol/L
(98-107)
Carbon Dioxide 38 H mmol/L
(22-30)
BUN 26 H mg/dl
(7-17)
Glucose 129 H mg/dl
(70-99)
11/27/24 16:20
11/27/24 16:20
Vital Signs
Initial and Last Documented VS:
Initial Vital Signs
Temp Pulse Resp BP Pulse Ox
36.9 C 98 18 141/78 88
11/27/24 15:24 11/27/24 15:24 11/27/24 15:24 11/27/24 15:24 11/27/24 15:24
Last Documented Vital Signs
Temp Pulse Resp BP Pulse Ox
36.9 C 88 21 161/68 97
11/27/24 15:24 11/27/24 22:30 11/27/24 21:00 11/27/24 20:00 11/27/24 22:45
<Farooq Hook MD - Last Filed: 11/27/24 23:22>
Orders/Labs/Results
Orders:
Orders
11/27/24 Lunch
Cholesterol Lowering
Cholesterol Lowering: Sodium, 2 Gram
11/27/24 15:28
CR Chest - 2 Views Urgent
Comment:
Reason For Exam: sob
11/27/24 15:29
Electrocardiogram (*1) Urgent
Reason for Study: Shortness of Breath
EKG- Treatment ONCE
11/27/24 16:18
Dexamethasone Sod Phosphate [Decadron] 10 mg IV NOW STA
Ipratropium/Albuterol Sulfate [Duoneb] 3 ml INH R NOW STA
11/27/24 16:20
Complete Blood Count/With Diff Urgent
Comprehensive Metabolic Panel Urgent
NT-proBNP Urgent
Troponin I Urgent
Ipratropium/Albuterol Sulfate [Duoneb] 3 ml INH R NOW STA
Ipratropium/Albuterol Sulfate [Duoneb] 3 ml INH R NOW STA
11/27/24 16:59
COVID-19 Antigen Urgent
Source: Nasal Swab
Lactate Level [Lactic Acid] Urgent
Venous Blood Gas Urgent
%Oxygen/Room Air: 95
Blood Culture Q30M
CHRISSY Source: Blood/Venous
Specimen Description:
Blood Culture Q30M
CHRISSY Source: Blood/Venous
Specimen Description:
Influenza A+B Rapid Molecular Urgent
CHRISSY Source: Nasal Swab
Specimen Description:
11/27/24 18:01
Oseltamivir Phosphate [Tamiflu] 75 mg PO NOW STA
11/27/24 19:28
Admit/Transfer Patient As Directed
Co-Sign Provider:
Level of Care: Observation services
Assign to:: Telemetry
Physician / Group: Faye/Hospitalist
Diagnosis: COPD exac/Flu A
Reason for Telemetry: Arrhythmia
Date to Stop Telemetry: 11/30/24
Time to Stop Telemetry: 11:00
PRN Pain Medication Management As Directed
May give lesser potent ordered pain med per pt: Yes
preference::
Protocol:: Medication orders for pain may be administered in a
manner that supports deferring to patient preference
when the pt is:
- Requesting an ordered lesser potent pain medication.
Least to most potent pain medications are defined
as: acetaminophen < NSAID < tramadol < opioids
(morphine, oxycodone, hydromorphone).
- Requesting a lesser dose of the same medication IF
ORDERED.
- Requesting a less intrusive route of administration
if both routes are prescribed by the provider (PO <
IV).
11/27/24 19:31
Code Status As Directed
Resuscitation Status: Full Code
11/27/24 23:00
Benzonatate [Tessalon Perles] 200 mg PO BID
11/27/24 23:08
0.9% Sodium Chloride 1000 ml [Nss] 1,000 ml IV 80 mls/hr
Acetaminophen [Tylenol] 650 mg PO Q4HPRN PRN
Artificial Tears (Pf) [Refresh Eye Drops (Pf)] 1 drops BOTH EYES BID
Budesonide [Pulmicort] 0.5 mg INH R BID
Diazepam [Valium] 5 mg PO DAILYPRN PRN
Guaifenesin [Mucinex] 1,200 mg PO BID
Ipratropium/Albuterol Sulfate [Duoneb] 3 ml INH R Q4HPRN PRN
Ipratropium/Albuterol Sulfate [Duoneb] 3 ml INH R QID
Oseltamivir Phosphate [Tamiflu] 75 mg PO BID
Sertraline HCl [Zoloft] 12.5 mg PO Q48H
11/27/24 23:08
Level of Care Change As Directed
Level of Care: Inpatient admission
Reason for Hospitalization: COPD exacerbation, Influenza A
Expected length of stay greater than two midnights?: Yes
ELOS- Estimated Length of Stay in days: 4
I certify the patient meets the requirements for IP care: Yes
Respiratory Culture/Gram Stain Routine
CHRISSY Source: Sputum
Specimen Description:
Activity As Directed
Activity Level: As Tolerated
Intake/ Output As Directed
Frequency: Per unit guidelines
Precautions As Directed
Type of Precautions: Droplet
Comment: Influenza A
Vital Signs As Directed
Frequency: Per unit guidelines
Copd Education [RESP] Routine
O2 Therapy [RESP] Routine
Nasal Cannula Liter Flow: 4 LPM
Titrate/Wean O2 to maintain O2 sat greater than (%): 92
Special Instructions: adjust, if necessary, to avoid hyperoxia in CO2 retainers.
Use High Flow O2 if necessary
DX Deep Vein Thrombosis Video Routine
11/28/24 00:00
Dexamethasone Sod Phosphate [Decadron] 4 mg IV Q8H
11/28/24 06:00
Basic Metabolic Panel IN AM
11/28/24 08:00
Azithromycin [Zithromax] 250 mg PO DAILY
Diltiazem Extended Release [Cardizem Cd] 360 mg PO DAILY
Hydrochlorothiazide [Oretic] 25 mg PO DAILY
Pantoprazole [Protonix] 40 mg PO DAILY
Rosuvastatin Calcium [Crestor] 20 mg PO DAILY
oxybutynin chloride 5 mg PO DAILY
vitamin B complex 1 tablet PO DAILY
11/28/24 12:00
Tiotropium Limestone 2.5 Mcg [Spiriva Respimat 2.5 Mcg] DOSE puff INH R DAILY@1200
11/28/24 18:00
Enoxaparin Sodium [Lovenox] 40 mg SC QPM
11/30/24 11:00
DC Protocol for Telemetry ONCE
Abnormal Lab Results
11/27/24 11/27/24
16:20 16:59
WBC 14.7 H 10^3/uL
(4.8-10.8)
Abs Immat Gran (auto) 0.2 H 10^3/uL
(0-0.05)
Absolute Neuts (auto) 12.2 H 10^3/uL
(1.4-6.5)
Absolute Monos (auto) 0.9 H 10^3/uL
(0.1-0.6)
Immature Gran % 1.4 H %
(0-0.5)
Neutrophils % 82.9 H %
(42.2-75.2)
Lymphocytes % 9.0 L %
(20.5-51.1)
VBG pH 7.49 H
(7.32-7.43)
VBG pO2 147 H mmHg
(30-50)
VBG HCO3 36.6 H mmol/L
(22-27)
Chloride 94 L mmol/L
(98-107)
Carbon Dioxide 38 H mmol/L
(22-30)
BUN 26 H mg/dl
(7-17)
Glucose 129 H mg/dl
(70-99)
11/27/24 16:20
11/27/24 16:20
Vital Signs
Initial and Last Documented VS:
Initial Vital Signs
Temp Pulse Resp BP Pulse Ox
36.9 C 98 18 141/78 88
11/27/24 15:24 11/27/24 15:24 11/27/24 15:24 11/27/24 15:24 11/27/24 15:24
Last Documented Vital Signs
Temp Pulse Resp BP Pulse Ox
36.9 C 88 21 161/68 97
11/27/24 15:24 11/27/24 22:30 11/27/24 21:00 11/27/24 20:00 11/27/24 22:45
<Dalia Dee PA-C - Last Filed: 11/27/24 22:31>
MDM/Problems Addressed
Differential Diagnosis Includes:
see below
MDM/Problems Addressed:
NUMBER AND COMPLEXITY OF PROBLEMS ADDRESSED AT THE ENCOUNTER
� Chronic conditions affecting care: COPD, HTN, anxiety
� Acute Exacerbation and/or Progression of Chronic Illness: n/a
� Differential Diagnosis includes: COPD exacerbation, viral syndrome, acute heart failure, pneumonia
AMOUNT AND/OR COMPLEXITY OF DATA TO BE REVIEWED AND ANALYZED
� I performed an independent evaluation of and my interpretation is:
EKG: Sinus tachycardia noted rate 102, no evidence of ischemic changes
X-rays: no evidence of pneumonia
Laboratory Studies: Leukocytosis noted with immature granulocytes 1.4%
Other:
� Review of other/old records: reviewed ER physician documentation from 03/29/24, patient seen for abdominal pain and discharged after unremarkable workup
� Clinical information was obtained by an independent historian: n/a
� Prescriptions/Medications Considered but not given: n/a
� Further testing considered but not performed: n/a
RISK OF COMPLICATIONS AND/OR MORBIDITY OR MORTALITY OF PATIENT MANAGEMENT
� Social determinants of health affecting care: none
� Discussion with other providers: ER attending
� Escalation of care including admission/observation vs risk of discharge considered:
74-year-old female with past medical history of COPD chronically on 4 L presents emergency department today with increasing shortness of breath. Patient states that she has been having upper respiratory symptoms recently which she feels triggered
her symptoms. Patient states that about the point where today, she had difficulty speaking without feeling very short of breath. She has been using inhalers at home without relief. She states that she gets some intermittent chest discomfort as
well. On exam, she has a lot of conversational dyspnea and she is tachypneic, she has diffuse wheezing, she is given multiple DuoNeb treatments and a dose of Decadron here in the emergency department. She tested positive for influenza. Will give
dose of Tamiflu. will admit to hospitalist for acute COPD exacerbation, case discussed.
<Dalia Dee PA-C - Last Filed: 11/27/24 22:31>
*Pulse Oximetry
Patient hypoxic: yes
*Critical Care Note
Total Time (30-74mins, 75-104mins- exclusive of procedures): Not Applicable
ED Attending Note
<Chung Lin PA-C - Last Filed: 11/27/24 15:31>
-
Portions of this chart may have been created with voice recognition software.� Occasional wrong word or��sound alike� substitutions may have occurred due to the inherent limitations of voice recognition software.
<Farooq Hook MD - Last Filed: 11/27/24 23:22>
ED Attending Note
Patient seen and examined by attending physician: Yes
ED Attending Note:
I have seen and evaluated the patient with a [id number] encounter. I have spoken to the advance practicer provider and involved in the medical history, the physical exam, medical decision making.
Evaluation and management service: agree unless noted differently below.
Results interpretation: agree unless noted differently below.
Focused HPI: 74-year-old female with history as documented presents for evaluation of increasing cough and shortness of breath. She has been sick with URI symptoms for a week, reports increasing shortness of breath over the past few days. Also
reports generalized bodyaches. No fever. No edema. No chest pain.
Physical exam: Awake alert, oriented. Mild tachypnea, saturating appropriately on 4 L nasal cannula. She has wheezing throughout all lung ferrara. No edema in extremities.
Medical Decision Makin-year-old female presents for progressive shortness of breath and cough in the setting of recent URI symptoms. She does have slight leukocytosis on CBC. CMP no clinically significant abnormalities. VBG no significant
CO2 retention. Chest x-ray showed no pneumonia. She is positive for influenza. Clinical suspicion is for acute COPD exacerbation likely triggered by influenza. Treat with steroids, nebs, Tamiflu. Admitted to hospitalist.
Discharge Plan
Departure
Patient Disposition: Admit
Date of Disposition: 11/27/24
Time of Disposition: 18:04
Admit to: Med/Surg
Presentation/result/management discussed w/ accepting MD/DO: Hospitalist
Patient with high blood pressure during this ER visit?: Yes
Condition: Fair
Discharge Problem:
COPD exacerbation, Influenza
Interventions
Interventions:
*Risk Screen - Suicide Last Done: 11/27/24 15:27
*General Assessment Last Done: 11/27/24 16:20
*Neglect/Abuse Screening Last Done: 11/27/24 15:27
*ED COVID-19 Vaccine History Last Done: 11/27/24 16:20
ED- Cardiac Assessment Last Done: 11/27/24 16:36
ED- Pulmonary Assessment Last Done: 11/27/24 16:36
[2024-11-27] MEDS: DECADRON 10 MG IV (16:23)
[2024-11-27] MEDS: DUONEB 3 ML INH ×2 (16:23)
[2024-11-27 16:47] LABS: % Basophils 0.3 % (0-2); % Eosinophils 0.1 % (0-6); % Immature Granulocytes 1.4 % (0-0.5); % Monocytes 6.3 % (1.7-9.3); % Neutrophils 82.9 % (42.2-75.2); Absolute Basophils 0.1 10^3/uL (0-0.2); Absolute Immature Granulocytes 0.2 10^3/uL (0-0.05); Absolute Lymphocytes 1.3 10^3/uL (1.2-3.4); Absolute Monocytes 0.9 10^3/uL (0.1-0.6); Absolute Neutrophils 12.2 10^3/uL (1.4-6.5); Hematocrit 42.4 % (37.0-47.0); Mean Corpuscular Hgb 30.6 pg (27.0-31.0); Mean Corpuscular Volume 92.8 fL (81.0-99.0); Mean Platelet Volume 8.7 fL (7.4-10.4); Nucleated Red Blood Cells % 0 %; Platelet Count 296 10^3/uL (130-400); Red Blood Cell Count 4.57 10^6/uL (4.20-5.40); Red Cell Dist. Width 12.7 % (11.5-14.5); White Blood Cell Count 14.7 10^3/uL (4.8-10.8)
[2024-11-27 17:08] LABS: ALT (SGPT) 32 U/L (0-35); AST (SGOT) 34 U/L (14-36); Albumin 4.3 g/dl (3.5-5.0); Alkaline Phosphatase 42 U/L (38-126); Blood Urea Nitrogen 26 mg/dl (7-17); Calcium 9.7 mg/dl (8.4-10.2); Carbon Dioxide 38 mmol/L (22-30); Chloride 94 mmol/L (98-107); Glucose 129 mg/dl (70-99); Potassium 4.1 mmol/L (3.5-5.1); Sodium 136 mmol/L (135-145); Total Bilirubin 0.4 mg/dl (0.2-1.3); Total Protein 6.6 g/dl (6.3-8.2); eGFR > 60.00
[2024-11-27 17:14] LABS: Venous Blood Gas B.E. 11.5 mmol/L (-4 to +4); Venous Blood Gas HCO3 36.6 mmol/L (22-27); Venous Blood Gas pCO2 48 mmHg (35-48); Venous Blood Gas pH 7.49 (7.32-7.43); Venous Blood Gas pO2 147 mmHg (30-50)
[2024-11-27 17:14] LABS: NT-proBNP 121 pg/ml; Troponin I < 0.012 ng/ml
[2024-11-27 17:16] LABS: Venous Blood Gas O2 Sat % 99.4 %
[2024-11-27 17:26] LABS: Lactic Acid 1.1 mmol/L (0.7-2.0)
[2024-11-27] MEDS: TAMIFLU 75 MG PO (18:10)
[2024-11-27 18:18] LABS: COVID-19 Antigen Negative (Negative)
--- NOTE | 2024-11-27 19:06 | HPS.HSE ---
Family Physician
-
Family Physician: Kun Chatterjee
Chief Complaint
-
SOB
History of Present Illness
The patient is a 74 yo woman with PMH significant for asthma, COPD, HTN, migraine headaches, who presents to the ED due to increased dyspnea on exertion and increased oxygen requirements. She is on 2-3 liters of home oxygen, and now is requiring 4
liters and still with dyspnea. Oxygen saturation is 88% on 4 liters and tachypneic in the ED. She is positive for Flu A, with URI symptoms for a weak, and has been significantly fatigued, COLLINS. She takes daily Azithromycin for the past year rx by her
PCP. She's been on daily prednisone as well, trying to wean to 5 mg twice a week, and 10 mg the other days. She's developed [place]'s from chronic prednisone. No active CP, no palpitation, no fever, no current n/v/d, no dysuria.
ED txt:
Dexa 10 IV, Duo-Neb, Tamiflu
Medical History
Past Medical History
Past Medical History: Reports Asthma, COPD, HTN, Psychiatric and Other (migraine headaches)
Past Surgical History: Reports None
Social History
Tobacco: Former Smoker
Alcohol: Occasional
Living: With Family
Family History
Family History: Not pertinent
Allergies / Home Medications
Allergies reflects when Allergies were last updated in [facility].
Home Medications with original date entered in [facility]
Allergy/Medication List:
Allergies
Allergy/AdvReac Type Severity Reaction Status Date / Time
No Known Allergies Allergy Verified 03/28/24 19:12
Home Medications
ascorbic acid (vitamin C) 500 mg tablet (Vitamin C) 1,000 mg PO BID Supplement 08/10/18
jowaihszsv-atqrczfahvrmw-famjwuvg 50 mg-325 mg-40 mg tablet 1 tab PO Q4HPRN PRN migraine 08/10/18
diazepam 5 mg tablet 5 mg PO DAILYPRN PRN anxiety 08/10/18
calcium 500 mg (as carbonate)-vitamin D3 5 mcg (200 unit) tablet (Oyster Shell Calcium-Vitamin D3) 1 tab PO DAILY Supplement 09/19/19
fluticasone propionate 50 mcg/actuation nasal spray,suspension 1 spray intranasal DAILYPRN PRN allergies 09/19/19
polyvinyl alcohol-povidone (PF) 1.4 %-0.6 % eye drops in a dropperette (Refresh Classic (PF)) 1 drops BOTH EYES BID Eye condition 09/19/19
albuterol sulfate 2.5 mg/3 mL (0.083 %) solution for nebulization 2.5 mg inhalation R Q4HPRN PRN chest tightness 08/17/22
benzonatate 200 mg capsule 200 mg PO BID Cough 08/17/22
budesonide 0.5 mg/2 mL suspension for nebulization 0.5 mg inhalation R [id number] PRN sob 08/17/22
budesonide-formoterol HFA 160 mcg-4.5 mcg/actuation aerosol inhaler (Symbicort) 2 puff inhalation R BID Lung/breathing issues 08/17/22
diltiazem HCl 360 mg tablet,extended release 24 hr 360 mg PO DAILY Blood pressure 08/17/22
guaifenesin 600 mg tablet, extended release 12 hr (Mucus Relief ER) 1,200 mg PO BID Congestion 08/17/22
prednisone 10 mg tablet 10 mg PO DAILY Lung/breathing issues 08/17/22
sertraline 25 mg tablet 12.5 mg PO Q48H Depression 08/17/22
sodium chloride 3 % for nebulization 4 ml inhalation R BID Lung/breathing issues 08/17/22
vitamin B complex 1 tab PO DAILY Supplement 08/17/22
pantoprazole 40 mg tablet,delayed release 40 mg PO DAILY 30 days #30 tabs 01/03/23
alendronate 70 mg tablet 70 mg PO FR 11/27/24
azithromycin 250 mg tablet 250 mg PO DAILY 11/27/24
hydrochlorothiazide 25 mg tablet 25 mg PO DAILY 11/27/24
ondansetron HCl 4 mg tablet 4 mg PO Q8HPRN PRN nausea 11/27/24
oxybutynin chloride 5 mg tablet,extended release 24 hr 5 mg PO DAILY 11/27/24
rosuvastatin 20 mg tablet 20 mg PO DAILY 11/27/24
sumatriptan succinate 25 mg tablet 25 mg PO DAILYPRN PRN migraine 11/27/24
tiotropium bromide 2.5 mcg/actuation mist for inhalation (Spiriva Respimat) 2 inh inhalation R DAILY@1200 11/27/24
Review of Systems
-
A 12 point ROS was completed and negative except as noted: Yes
Physical Exam
Vital Signs
Vital Signs
Temp Pulse Resp BP Pulse Ox
98.4 F 130 18 136/115 96
11/27/24 15:24 11/27/24 18:15 11/27/24 18:00 11/27/24 18:00 11/27/24 17:45
Physical Exam
General: Well Developed, Well Nourished, No Apparent Distress and Comfortable
HEENT: NormoCephalic, Anicteric and Moist mucous membranes
Respiratory: Wheezes
Cardiac: S1/S2, Regular Rhythm and Tachycardia
GI: Soft, Non Tender and Non Distended
Musculoskeletal: No Clubbing, No Cyanosis and No Edema
Skin: Warm and Dry
Neuro: AO x 3 and No Motor Deficits
Psych: Calm
Laboratory Results
-
11/27/24 16:20
11/27/24 16:20
Laboratory Results
Lactic Acid 1.1 mmol/L (0.7-2.0) 11/27/24 16:59
Total Bilirubin 0.4 mg/dl (0.2-1.3) 11/27/24 16:20
AST 34 U/L (14-36) 11/27/24 16:20
ALT 32 U/L (0-35) 11/27/24 16:20
Alkaline Phosphatase 42 U/L (38-126) 11/27/24 16:20
Troponin I < 0.012 ng/ml 11/27/24 16:20
Impression/Plan
-
IMPRESSION:The patient is a 74 yo woman with PMH significant for asthma, COPD, HTN, migraine headaches, who presents to the ED due to increased dyspnea on exertion and increased oxygen requirements. She is on 2-3 liters of home oxygen, and now is
requiring 4 liters and still with dyspnea. Oxygen saturation is 88% on 4 liters and tachypneic in the ED. She is positive for Flu A, with URI symptoms for a weak, and has been significantly fatigued, COLLINS. She takes daily Azithromycin for the past
year rx by her PCP. She's been on daily prednisone as well, trying to wean to 5 mg twice a week, and 10 mg the other days. She's developed [place]'s from chronic prednisone. No active CP, no palpitation, no fever, no current n/v/d, no dysuria.
ED txt:
Dexa 10 IV, Duo-Neb, Tamiflu
#Acute hypoxic respiratory insufficiency due to COPD exacerbation triggered by Influenza A
-droplet precautions
-O2 4 L and wean as able to baseline (home 2-3 L)
-Tamiflu 75 BID
-supportive care, scheduled Duo-Nebs, scheduled IV steroids with taper
-Pulmicort
-Pulm Cx
#Essential HTN
-home BP meds with hold parameters -diltiazem, HCTZ
#HLD
-statin Crestor
#Cont home psych meds
-Zoloft
DVT proph-SQ Lovenox
Full Code
[2024-11-28] VITALS (10 sets, daily range): BP systolic 122–164; BP diastolic 67–124; BMI 24.6; BMI 24.5
[2024-11-28] MEDS: REFRESH EYE DROPS (PF) 1 DROPS BOTH EYES ×3 (00:01→20:54)
[2024-11-28] MEDS: DECADRON 4 MG IV ×4 (00:01→23:38)
[2024-11-28] MEDS: MUCINEX 1200 MG PO ×3 (00:01→20:55)
[2024-11-28] MEDS: TESSALON PERLES 200 MG PO ×3 (00:01→20:55)
[2024-11-28] MEDS: NSS 1000 IV (00:21)
[2024-11-28] MEDS: PULMICORT 0.5 MG INH ×3 (00:42→19:30)
[2024-11-28] MEDS: DUONEB 3 ML INH ×5 (00:42→19:30)
--- NOTE | 2024-11-28 01:09 | PTCARENOTE ---
Pt received as tele hold in [facility]. AAOx3, pleasant. Telemetry = ST. Admission and assessment completed (refer to worklist). Oriented to surroundings and plan of care discussed. 96% on 4L, COLLINS, tacypneic, SOB, harsh occ prod cough. Instructed to
ring for assist when OOB, demonstrates understanding. #20 LFA w/NSS at 80 mL/hr, infusing w/o complication. Call ram w/in reach.
[2024-11-28] MEDS: TYLENOL 650 MG PO (05:26)
[2024-11-28 05:39] LABS: Blood Urea Nitrogen 23 mg/dl (7-17); Calcium 8.9 mg/dl (8.4-10.2); Carbon Dioxide 37 mmol/L (22-30); Chloride 96 mmol/L (98-107); Estimated Creatinine Clearance 55 ml/min; Glucose 154 mg/dl (70-99); Potassium 4.5 mmol/L (3.5-5.1); Sodium 138 mmol/L (135-145); eGFR > 60.00
[2024-11-28] MEDS: TAMIFLU 30 MG PO (09:23)
[2024-11-28] MEDS: CARDIZEM CD 360 MG PO (09:23)
[2024-11-28] MEDS: B COMPLEX w/VITAMIN C 1 CAPLET PO (09:23)
[2024-11-28] MEDS: ZOLOFT 12.5 MG PO (09:23)
[2024-11-28] MEDS: DITROPAN 2.5 MG PO ×2 (09:25→21:06)
[2024-11-28] MEDS: ORETIC 25 MG PO (09:28)
[2024-11-28] MEDS: PROTONIX 40 MG PO (09:28)
[2024-11-28] MEDS: CRESTOR 20 MG PO (09:28)
[2024-11-28] MEDS: ZITHROMAX 250 MG PO (09:28)
--- NOTE | 2024-11-28 11:25 | W.PN.HOSP.TC ---
Today's Communication/Plan
-
Mucinex, Acapella
Tamiflu
Continue steroids, inhalers
Assessment / Plan
Assessment / Plan
Gen-AAOx3, NAD
HEENT-NC, AT, anicteric, clear oral mm
Neck-supple
CV-reg, no M, +S1/S2
Lungs-decreased breath sounds bilaterally
Abd-soft, NT, ND
Ext-no edema
Musculoskeletal-no cyanosis, clubbing
Skin-warm and dry
Neuro-grossly non-focal
Psych-calm, cooperative
Acute on chronic hypoxic respiratory failure -due to acute COPD exacerbation due to acute influenza bronchitis. Currently on 4 L nasal cannula oxygen. Uses oxygen at home at 2 to 4 L depending on her activity.
Acute COPD exacerbation -due to acute influenza infection. Continue inhalers, steroids, add Mucinex, Acapella. On chronic azithromycin, prednisone
Sepsis due to acute influenza A bronchitis -chest x-ray clear, no evidence of pneumonia. Continue Tamiflu. Presentation with tachycardia, leukocytosis.
Essential hypertension with hypertensive urgency -resume home meds. Blood pressure improving.
Migraine headaches -currently complaining of a migraine. Fioricet resumed.
Hyperlipidemia -rosuvastatin.
Osteoporosis
Full code
Anticipated Discharge: 24 - 48 hours
Subjective/Interval History
-
Date of Service: November 28, 2024
Patient seen and examined. Complaining of cough, chest tightness.
Objective Data
-
Labs:
Laboratory Results
11/28/24
04:58
Sodium 138
Potassium 4.5
Chloride 96 L
Carbon Dioxide 37 H
BUN 23 H
Creatinine 0.8
Glucose 154 H
Calcium 8.9
Vital Signs:
Vital Signs
Temp Pulse Resp BP Pulse Ox
97.8 F 100 21 155/72 92
11/28/24 11:25 11/28/24 09:15 11/28/24 09:15 11/28/24 09:00 11/28/24 09:15
I&O
11/27/24 11/28/24 11/29/24
06:59 06:59 06:59
Intake Total 1030 / 1030
Balance 1030 / 1030
Review of Systems
-
History Source: Patient
All other systems: Reviewed and negative
[2024-11-28] MEDS: FIORICET 1 TAB PO ×2 (11:27→16:42)
[2024-11-28] MEDS: LOVENOX 40 MG SC (16:33)
[2024-11-28 20:50] LABS: Hepatitis C Antibody Negative (Negative)
[2024-11-28] MEDS: TAMIFLU 75 MG PO (20:55)
--- NOTE | 2024-11-28 21:45 | PTCARENOTE ---
Pt arrived on unit from ED via wheelchair. A&Ox3. Pt ambulated into room. Pt on 4L of O2 and placed on telemetry monitoring. Pt oriented to unit and instructed to call to get OOB. Call light within reach. Care ongoing.
[2024-11-28] MEDS: VALIUM 5 MG PO (22:28)
[2024-11-29 03:00] VITALS: BP 120/66
[2024-11-29] MEDS: DUONEB 3 ML INH ×4 (07:10→20:52)
[2024-11-29] MEDS: PULMICORT 0.5 MG INH ×2 (07:10→20:52)
[2024-11-29 07:30] VITALS: BP 147/73
[2024-11-29] MEDS: CARDIZEM CD 360 MG PO (08:45)
[2024-11-29] MEDS: MUCINEX 1200 MG PO ×2 (08:45→22:13)
[2024-11-29] MEDS: CRESTOR 20 MG PO (08:45)
[2024-11-29] MEDS: PROTONIX 40 MG PO (08:46)
[2024-11-29] MEDS: B COMPLEX w/VITAMIN C 1 CAPLET PO (08:46)
[2024-11-29] MEDS: ZITHROMAX 250 MG PO (08:46)
[2024-11-29] MEDS: TESSALON PERLES 200 MG PO ×2 (08:46→22:13)
[2024-11-29] MEDS: TAMIFLU 75 MG PO ×2 (08:46→22:15)
[2024-11-29] MEDS: DITROPAN 2.5 MG PO ×2 (08:46→22:14)
[2024-11-29] MEDS: ORETIC 25 MG PO (08:47)
[2024-11-29] MEDS: REFRESH EYE DROPS (PF) 1 DROPS BOTH EYES ×2 (08:48→22:13)
[2024-11-29] MEDS: DECADRON 4 MG IV ×3 (08:48→23:55)
--- NOTE | 2024-11-29 09:11 | PN.CDI ---
CDI
- -
CDI:
Physician Documentation Request
Admit Date: 11/27/24 23:08
Dear Doctor Ben,
Clinical Indicators:
Patient admitted with sepsis due to acute influenza A bronchitis; PMH includes COPD.
1 H & P, 'She's developed [place]'s from chronic prednisone.'
Home medications include: Prednisone 10 mg tablet 10 mg PO DAILY
Based on the above, could you clarify in the progress notes, the appropriate diagnosis, if significant, that supports the above abnormalities and additional evaluation, monitoring and/or treatment rendered:
Immunosuppression
No evidence of immunosuppression
Other
Use of terms such as suspected, likely, concern for, or probable (associated with a specific diagnosis that is being evaluated, monitored, or treated as if it exists) are acceptable and can be coded in the inpatient setting, when documented at the
time of discharge.
Thank you,
Xochilt Huber RN BSN
CDI Specialist
available via tiger text
Please use your independent medical judgment in providing your response.
--- NOTE | 2024-11-29 10:23 | W.PN.HOSP.TC ---
Addendum entered and electronically signed by Brandon Contreras DO 11/29/24 15:33:
Presumably immunosuppressed due to chronic steroids.
Original Note:
Today's Communication/Plan
-
Acapella
Incentive spirometer
[place] nasal spray
Continue current care
Assessment / Plan
Assessment / Plan
Gen-AAOx3, NAD
HEENT-NC, AT, anicteric, clear oral mm
Neck-supple
CV-reg, no M, +S1/S2
Lungs-decreased breath sounds bilaterally
Abd-soft, NT, ND
Ext-no edema
Musculoskeletal-no cyanosis, clubbing
Skin-warm and dry
Neuro-grossly non-focal
Psych-calm, cooperative
Acute on chronic hypoxic respiratory failure -due to acute COPD exacerbation due to acute influenza bronchitis. Currently on 4 L nasal cannula oxygen. Uses oxygen at home at 2 to 4 L depending on her activity. Still with significant oxygen
desaturation on exertion, in the 80s on 4 L.
Acute COPD exacerbation -due to acute influenza infection. Continue inhalers, steroids, add Mucinex, Acapella. On chronic azithromycin, prednisone
Sepsis due to acute influenza A bronchitis -chest x-ray clear, no evidence of pneumonia. Continue Tamiflu. Presentation with tachycardia, leukocytosis.
Essential hypertension with hypertensive urgency -resume home meds. Blood pressure improving.
Migraine headaches - Fioricet resumed.
Hyperlipidemia -rosuvastatin.
Osteoporosis
Full code
Anticipated Discharge: > 48 hours
Subjective/Interval History
-
Date of Service: November 29, 2024
Patient seen and examined. Still complaining of shortness of breath, worse on exertion.
Objective Data
-
Vital Signs:
Vital Signs
Temp Pulse Resp BP Pulse Ox
97.8 F 77 17 147/73 95
11/29/24 07:30 11/29/24 08:47 11/29/24 07:30 11/29/24 08:47 11/29/24 07:30
I&O
11/28/24 11/29/24 11/30/24
06:59 06:59 06:59
Intake Total 1030 / 1030 480 / 480
Balance 1030 / 1030 480 / 480
Review of Systems
-
History Source: Patient
All other systems: Reviewed and negative
[2024-11-29] MEDS: FIORICET 1 TAB PO (10:33)
[2024-11-29 11:07] VITALS: BP 146/96
[2024-11-29] MEDS: OCEAN, SALINE MIST 2 SPRAYS NASAL (13:11)
[2024-11-29 15:11] VITALS: BP 124/74
--- NOTE | 2024-11-29 16:48 | CM ---
Met with patient to obtain information for assessment. Patient stated that she lives with her significant other in a one story house with one step to enter. She described herself as independent with dressing, bathing, all ADLs and personal care. 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 She drives and can get to her appointments and does her own shopping. 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
Patient does wear o2 and is normally on 2-4 liters. She has a portable and a concentrator at home with tanks. She denied any other DME except for a neb.
Patient has never had VN.
She has not been to a SNF.
Patient has a prescription plan and she uses the, [facility] in [place] for all of her medications.
Patient's PCP is, David Mas.
Patient stated that functionally she feels she is at baseline and is anxious to feel better. She would like to return home when medically cleared for discharge.
Plan: Case management will continue to follow and assist with discharge planning. Home when stable.
[2024-11-29] MEDS: LOVENOX 40 MG SC (18:14)
[2024-11-29 19:00] VITALS: BP 154/79
[2024-11-29] MEDS: VALIUM 5 MG PO (22:15)
[2024-11-29 23:00] VITALS: BP 137/90
[2024-11-30 03:00] VITALS: BP 127/96
[2024-11-30] MEDS: PULMICORT 0.5 MG INH ×2 (07:25→20:08)
[2024-11-30] MEDS: DUONEB 3 ML INH ×4 (07:25→20:08)
[2024-11-30 07:28] VITALS: BP 146/93
[2024-11-30 07:46] LABS: % Basophils 0.2 % (0-2); % Immature Granulocytes 1.4 % (0-0.5); % Lymphocytes 3.5 % (20.5-51.1); % Monocytes 4.3 % (1.7-9.3); % Neutrophils 90.6 % (42.2-75.2); Absolute Basophils 0.1 10^3/uL (0-0.2); Absolute Immature Granulocytes 0.3 10^3/uL (0-0.05); Absolute Lymphocytes 0.8 10^3/uL (1.2-3.4); Hemoglobin 13.5 g/dL (12.0-16.0); Mean Corp Hgb Conc. 33.8 g/dL (33.0-37.0); Mean Platelet Volume 9.1 fL (7.4-10.4); Nucleated Red Blood Cells % 0 %; Platelet Count 280 10^3/uL (130-400); Red Blood Cell Count 4.35 10^6/uL (4.20-5.40); Red Cell Dist. Width 12.5 % (11.5-14.5); White Blood Cell Count 22.1 10^3/uL (4.8-10.8)
[2024-11-30] MEDS: ZOLOFT 12.5 MG PO (08:51)
[2024-11-30] MEDS: MUCINEX 1200 MG PO ×2 (08:51→22:01)
[2024-11-30] MEDS: CARDIZEM CD 360 MG PO (08:51)
[2024-11-30] MEDS: DITROPAN 2.5 MG PO ×2 (08:51→22:02)
[2024-11-30] MEDS: B COMPLEX w/VITAMIN C 1 CAPLET PO (08:51)
[2024-11-30] MEDS: TESSALON PERLES 200 MG PO ×2 (08:52→22:03)
[2024-11-30] MEDS: REFRESH EYE DROPS (PF) 1 DROPS BOTH EYES ×2 (08:52→22:02)
[2024-11-30] MEDS: PROTONIX 40 MG PO (08:52)
[2024-11-30] MEDS: ZITHROMAX 250 MG PO (08:54)
[2024-11-30] MEDS: CRESTOR 20 MG PO (08:54)
[2024-11-30] MEDS: ORETIC 25 MG PO (08:54)
[2024-11-30] MEDS: TAMIFLU 75 MG PO ×2 (08:55→22:01)
[2024-11-30] MEDS: DECADRON 4 MG IV ×2 (08:55→16:54)
[2024-11-30] MEDS: FIORICET 1 TAB PO ×2 (09:04→16:54)
--- NOTE | 2024-11-30 09:35 | W.PN.HOSP.TC ---
Today's Communication/Plan
-
Chest vest therapy
Assessment / Plan
Assessment / Plan
Gen-AAOx3, NAD
HEENT-NC, AT, anicteric, clear oral mm
Neck-supple
CV-reg, no M, +S1/S2
Lungs-decreased breath sounds bilaterally but moving more air now
Abd-soft, NT, ND
Ext-no edema
Musculoskeletal-no cyanosis, clubbing
Skin-warm and dry
Neuro-grossly non-focal
Psych-calm, cooperative
Acute on chronic hypoxic respiratory failure -due to acute COPD exacerbation due to acute influenza bronchitis. Currently on 4 L nasal cannula oxygen. Uses oxygen at home at 2 to 4 L depending on her activity. Still with significant oxygen
desaturation on exertion, in the 80s on 4 L.
Acute COPD exacerbation -due to acute influenza infection. Continue inhalers, steroids, add Mucinex, Acapella. On chronic azithromycin, prednisone. Slowly improving, moving more air on exam. Can try chest vest therapy.
Sepsis due to acute influenza A bronchitis -chest x-ray clear, no evidence of pneumonia. Continue Tamiflu. Presentation with tachycardia, leukocytosis. Rising WBC count attributed to steroids most likely. Afebrile. Sputum culture not helpful as
it is contaminated with oropharyngeal david.
Essential hypertension with hypertensive urgency -resume home meds. Blood pressure improving.
Migraine headaches - Fioricet resumed.
Hyperlipidemia -rosuvastatin.
Osteoporosis
Full code
Anticipated Discharge: > 48 hours
Subjective/Interval History
-
Date of Service: November 30, 2024
Patient seen and examined. Slightly less short of breath.
Objective Data
-
Labs:
Laboratory Results
11/30/24
07:08
WBC 22.1 H
Hgb 13.5
Hct 40.0
Plt Count 280
Vital Signs:
Vital Signs
Temp Pulse Resp BP Pulse Ox
97.4 F 92 18 146/93 97
11/30/24 07:28 11/30/24 07:30 11/30/24 07:30 11/30/24 07:28 11/30/24 07:30
I&O
11/29/24 11/30/24 12/01/24
06:59 06:59 06:59
Intake Total 480 / 480 480 / 480
Balance 480 / 480 480 / 480
Review of Systems
-
History Source: Patient
All other systems: Reviewed and negative
[2024-11-30 11:11] VITALS: BP 135/75
[2024-11-30 15:35] VITALS: BP 148/79
[2024-11-30] MEDS: LOVENOX 40 MG SC (16:54)
[2024-11-30] MEDS: VALIUM 5 MG PO (22:07)
[2024-11-30 22:19] VITALS: BP 154/87
[2024-12-01] MEDS: DECADRON 4 MG IV ×4 (00:52→23:09)
[2024-12-01 07:00] VITALS: BP 146/78
[2024-12-01] MEDS: DUONEB 3 ML INH ×4 (07:21→19:38)
[2024-12-01] MEDS: PULMICORT 0.5 MG INH ×2 (07:21→19:38)
[2024-12-01] MEDS: TESSALON PERLES 200 MG PO ×2 (09:18→20:30)
[2024-12-01] MEDS: PROTONIX 40 MG PO (09:19)
[2024-12-01] MEDS: CRESTOR 20 MG PO (09:19)
[2024-12-01] MEDS: TAMIFLU 75 MG PO ×2 (09:19→20:30)
[2024-12-01] MEDS: MUCINEX 1200 MG PO ×2 (09:19→20:30)
[2024-12-01] MEDS: B COMPLEX w/VITAMIN C 1 CAPLET PO (09:19)
[2024-12-01] MEDS: ZITHROMAX 250 MG PO (09:19)
[2024-12-01] MEDS: CARDIZEM CD 360 MG PO (09:19)
[2024-12-01] MEDS: ORETIC 25 MG PO (09:20)
[2024-12-01] MEDS: DITROPAN 2.5 MG PO ×2 (09:20→20:30)
[2024-12-01] MEDS: REFRESH EYE DROPS (PF) 1 DROPS BOTH EYES ×2 (09:21→20:30)
[2024-12-01] MEDS: FLUSH (NSS) 2 FLUSH IV ×2 (09:22→17:06)
[2024-12-01] MEDS: FIORICET 1 TAB PO ×2 (09:26→15:49)
--- NOTE | 2024-12-01 10:51 | W.PN.HOSP.TC ---
Today's Communication/Plan
-
Add Compazine as needed nausea
Continue current care
Assessment / Plan
Assessment / Plan
Gen-AAOx3, NAD
HEENT-NC, AT, anicteric, clear oral mm
Neck-supple
CV-reg, no M, +S1/S2
Lungs-decreased breath sounds bilaterally but moving more air now
Abd-soft, NT, ND
Ext-no edema
Musculoskeletal-no cyanosis, clubbing
Skin-warm and dry
Neuro-grossly non-focal
Psych-calm, cooperative
Acute on chronic hypoxic respiratory failure -due to acute COPD exacerbation due to acute influenza bronchitis. Currently on 4 L nasal cannula oxygen. Uses oxygen at home at 2 to 4 L depending on her activity. Still with significant oxygen
desaturation on exertion, in the 80s on 4 L.
Chest x-ray on admission without active cardiopulmonary disease.
Acute COPD exacerbation -due to acute influenza infection. Continue inhalers, steroids, add Mucinex, Acapella. On chronic azithromycin, prednisone. Slowly improving, moving more air on exam. Continue chest vest therapy.
Sepsis due to acute influenza A bronchitis -chest x-ray clear, no evidence of pneumonia. Continue Tamiflu. Presentation with tachycardia, leukocytosis. Rising WBC count attributed to steroids most likely. Afebrile. Sputum culture not helpful as
it is contaminated with oropharyngeal david.
Essential hypertension with hypertensive urgency -resume home meds. Blood pressure improving.
Migraine headaches - Fioricet resumed. Uses Zofran as needed at home for nausea. Will use Compazine in the hospital due to risk of QT prolongation in the setting of chronic azithromycin use.
Hyperlipidemia -rosuvastatin.
Osteoporosis
Full code
Anticipated Discharge: 24 - 48 hours
Subjective/Interval History
-
Date of Service: December 01, 2024
Patient seen and examined. Still feels tight in her chest but overall slowly improving. Still not able to bring up much phlegm.
Objective Data
-
Vital Signs:
Vital Signs
Temp Pulse Resp BP Pulse Ox
98.4 F 100 20 146/78 97
12/01/24 07:00 12/01/24 07:25 12/01/24 07:25 12/01/24 09:20 12/01/24 07:25
I&O
11/30/24 12/01/24 12/02/24
06:59 06:59 06:59
Intake Total 480 / 480 900 / 900
Balance 480 / 480 900 / 900
Review of Systems
-
History Source: Patient
All other systems: Reviewed and negative
[2024-12-01 15:00] VITALS: BP 156/89
[2024-12-01 15:09] VITALS: O2SAT 95
[2024-12-01] MEDS: LOVENOX 40 MG SC (17:05)
[2024-12-01] MEDS: VALIUM 5 MG PO (20:37)
[2024-12-01 23:15] VITALS: BP 160/90
[2024-12-02] MEDS: PULMICORT 0.5 MG INH (07:31)
[2024-12-02] MEDS: DUONEB 3 ML INH ×3 (07:31→14:52)
[2024-12-02] MEDS: TESSALON PERLES 200 MG PO ×2 (08:41→20:07)
[2024-12-02] MEDS: TYLENOL PO (08:41)
[2024-12-02] MEDS: ZOLOFT 12.5 MG PO (08:42)
[2024-12-02] MEDS: B COMPLEX w/VITAMIN C 1 CAPLET PO (08:42)
[2024-12-02] MEDS: PROTONIX 40 MG PO (08:42)
[2024-12-02] MEDS: CRESTOR 20 MG PO (08:42)
[2024-12-02] MEDS: ZITHROMAX 250 MG PO (08:42)
[2024-12-02] MEDS: CARDIZEM CD 360 MG PO (08:42)
[2024-12-02] MEDS: MUCINEX 1200 MG PO ×2 (08:42→20:06)
[2024-12-02] MEDS: ORETIC 25 MG PO (08:43)
[2024-12-02] MEDS: DECADRON 4 MG IV ×2 (08:43→17:00)
[2024-12-02] MEDS: DITROPAN 2.5 MG PO ×2 (08:43→20:06)
[2024-12-02] MEDS: REFRESH EYE DROPS (PF) 1 DROPS BOTH EYES ×2 (08:43→20:06)
[2024-12-02] MEDS: TAMIFLU 75 MG PO (08:43)
[2024-12-02] MEDS: FIORICET 1 TAB PO (09:04)
--- NOTE | 2024-12-02 12:20 | W.PN.HOSP.TC ---
Today's Communication/Plan
-
Assessment / Plan
Assessment / Plan
Acute on chronic hypoxic respiratory failure -due to acute COPD exacerbation due to acute influenza bronchitis. Currently on 4 L nasal cannula oxygen. Uses oxygen at home at 2 to 4 L depending on her activity. Still with significant oxygen
desaturation on exertion, in the 80s on 4 L.
Chest x-ray on admission without active cardiopulmonary disease.
Acute COPD exacerbation -due to acute influenza infection. Continue inhalers, steroids, add Mucinex, Acapella. On chronic azithromycin, prednisone. Slowly improving, moving more air on exam. Continue chest vest therapy.
Sepsis due to acute influenza A bronchitis -chest x-ray clear, no evidence of pneumonia. Completed Tamiflu on 12/02/2024. Presentation with tachycardia, leukocytosis. Rising WBC count attributed to steroids most likely. Afebrile. Sputum culture
not helpful as it is contaminated with oropharyngeal david.
-- Will repeat CBC in the a.m. to assess leukocytosis trend
Essential hypertension with hypertensive urgency -resume home meds. Blood pressure improving.
Migraine headaches - Fioricet resumed. Uses Zofran as needed at home for nausea. Will use Compazine in the hospital due to risk of QT prolongation in the setting of chronic azithromycin use.
Hyperlipidemia -rosuvastatin.
Osteoporosis
Anticipated Discharge: 24 - 48 hours
Subjective/Interval History
-
Date of Service: December 02, 2024
Seen and examined. No new complaints. No acute overnight events.
Feeling a little better however still has a cough short of breath with conversational dyspnea. Maintained on 4 L.
Objective Data
-
Vital Signs:
Vital Signs
Temp Pulse Resp BP Pulse Ox
97.9 F 108 18 160/90 94
12/01/24 23:15 12/02/24 10:47 12/02/24 10:47 12/01/24 23:15 12/02/24 10:47
I&O
12/01/24 12/02/24 12/03/24
06:59 06:59 06:59
Intake Total 900 / 900 1919
Balance 900 / 900 1919
Physical Exam
-
General: No Apparent Distress and Conversant; Negative Pain, Fever, Chills, Sweats, Slurred Speech or Appears Chronically Ill
HEENT: Normocephalic and Atraumatic
Respiratory: Rhonchi, Non Labored Respirations and Decreased Breath Sounds
Cardiac: Regular Rhythm and S1/S2; Negative Murmur
GI: Soft, Nontender, Nondistended and Normal Bowel Sounds
Neuro: Awake, Alert, Oriented and AO x 3
Psych: Calm
[2024-12-02 15:00] VITALS: BP 141/70
[2024-12-02] MEDS: LOVENOX 40 MG SC (17:00)
[2024-12-02] MEDS: PULMICORT INH (19:19)
[2024-12-02] MEDS: DUONEB INH (19:19)
[2024-12-02 19:40] VITALS: BP 110/78
[2024-12-02] MEDS: CARDIZEM 5 MG IV (19:58)
[2024-12-02] MEDS: VALIUM 5 MG PO (20:05)
[2024-12-02] MEDS: ELIQUIS 5 MG PO (20:51)
[2024-12-02 20:55] VITALS: BP 101/79
[2024-12-02] MEDS: CARDIZEM 125 IV (20:58)
[2024-12-02 21:13] VITALS: BP 145/78
--- NOTE | 2024-12-02 21:23 | W.PN.UPDATE ---
Update Note
Progress Note Update
1944 RN reports respiratory therapist was about to give pt scheduled duoneb when it was noted pt HR was 140-150. EKG done confirming afib with RVR. Pt on cardizem 360mg po daily, which she did receive this am.
Reviewing chart, pt does not have hx of afib. Takes cardizem for HTN and SVT hx. PT admitted for COPD exac and flu.
On eval pt states she has followed with Dr torres for palpitations and SVT found on holter. She currerntly is pretty asymptomatic with the afib with rvr. She dose feel some palpitations. Attempted 5mg cardizem iv with no change in rate. TT sent to
Dr Hill notifiying her of new consult. Last EF april 2023 65-70% so starting on cardizem gtt is ok. Fady VAsc is 4 (gender,htn,pad, age). Will start on eliquis tonight.
Did speak to pt and explained POC. She is in agreement.
[2024-12-03] VITALS (9 sets, daily range): BP systolic 118–158; BP diastolic 66–96; PULSE 100; O2SAT 95
[2024-12-03] MEDS: DECADRON 4 MG IV ×3 (00:42→19:56)
--- NOTE | 2024-12-03 01:00 | PTCARENOTE ---
Patient found to be tachycardic at beginning of shift during nebulizer tx. EKG performed, patient in Atrial Fibrillation with RVR. Rate as high as the 160's. Patient placed on tele monitor. Patient symptomatic, c/o 'not feeling well' and feeling
anxious. PRN Valium given. GABE Santiago notified. Patient takes PO Cardizem 360mg, which she received this am. BP 110/78. Order for IV Cardizem 5mg given with little effect. Patient placed on Cardizem gtt at 10mg/hr. Eliquis started.
Education given to patient by this RN regarding A.Fib. and Eliquis. BP monitored s/p gtt initiation, no drop in BP noted. Care ongoing, will continue to monitor closely.
[2024-12-03] MEDS: VALIUM 5 MG PO ×2 (01:29→21:01)
--- NOTE | 2024-12-03 02:32 | PTCARENOTE ---
Patient reports she is having difficulty sleeping and is still feeling anxious. Patient not able to receive anymore Valium at this time. GABE Santiago notified, order recieved to give one time Valium. Will continue to monitor.
[2024-12-03] MEDS: FIORICET 1 TAB PO ×3 (05:50→18:11)
[2024-12-03 07:05] LABS: Hematocrit 43.4 % (37.0-47.0); Hemoglobin 14.5 g/dL (12.0-16.0); Mean Corp Hgb Conc. 33.4 g/dL (33.0-37.0); Mean Corpuscular Hgb 30.7 pg (27.0-31.0); Mean Corpuscular Volume 91.8 fL (81.0-99.0); Mean Platelet Volume 9.5 fL (7.4-10.4); Platelet Count 294 10^3/uL (130-400); Red Blood Cell Count 4.73 10^6/uL (4.20-5.40); Red Cell Dist. Width 12.5 % (11.5-14.5); White Blood Cell Count 27.8 10^3/uL (4.8-10.8)
[2024-12-03 08:03] LABS: Blood Urea Nitrogen 34 mg/dl (7-17); Calcium 9.1 mg/dl (8.4-10.2); Carbon Dioxide 35 mmol/L (22-30); Chloride 92 mmol/L (98-107); Estimated Creatinine Clearance 63 ml/min; Glucose 193 mg/dl (70-99); Potassium 4.1 mmol/L (3.5-5.1); Sodium 135 mmol/L (135-145); eGFR > 60.00
[2024-12-03] MEDS: CARDIZEM 125 IV ×2 (08:03→18:20)
[2024-12-03] MEDS: DUONEB INH (08:03)
[2024-12-03] MEDS: PULMICORT INH (08:03)
[2024-12-03] MEDS: TESSALON PERLES 200 MG PO ×2 (08:13→19:57)
[2024-12-03] MEDS: B COMPLEX w/VITAMIN C 1 CAPLET PO (08:13)
[2024-12-03] MEDS: MUCINEX 1200 MG PO ×2 (08:14→19:57)
[2024-12-03] MEDS: PROTONIX 40 MG PO (08:14)
[2024-12-03] MEDS: ELIQUIS 5 MG PO ×2 (08:14→19:57)
[2024-12-03] MEDS: REFRESH EYE DROPS (PF) 1 DROPS BOTH EYES ×2 (08:14→19:58)
[2024-12-03] MEDS: CRESTOR 20 MG PO (08:14)
[2024-12-03] MEDS: ORETIC 25 MG PO (08:14)
[2024-12-03] MEDS: ZITHROMAX 250 MG PO (08:14)
[2024-12-03] MEDS: DITROPAN 2.5 MG PO ×2 (08:15→19:57)
--- NOTE | 2024-12-03 08:43 | W.PN.HOSP.TC ---
Today's Communication/Plan
-
Assessment / Plan
Assessment / Plan
NAD
Scleral Anicteric
MMM
No JVD
Chest tightness throughout all lung ferrara with some air movement
Irregularly irregular rate, S1/S2
Soft, NT, ND, BS+
Warm, Dry
AAOx3
Calm
Acute new onset Afib RVR
-Per cardiology will initiate p.o. Cardizem 90 mg Q6
-Start on IV Cardizem, wean as tolerated
-CHADSVASc 4
-Eliquis initiated
-Cards consulted
-2D echo ordered
-TSH
-DVT study
Acute on chronic hypoxic respiratory failure -due to acute COPD exacerbation due to acute influenza bronchitis. Currently on 4 L nasal cannula oxygen. Uses oxygen at home at 2 to 4 L depending on her activity. Still with significant oxygen
desaturation on exertion, in the 80s on 4 L.
Chest x-ray on admission without active cardiopulmonary disease.
Acute COPD exacerbation -due to acute influenza infection. Continue inhalers, steroids, add Mucinex, Acapella. On chronic azithromycin, prednisone. Slowly improving, moving more air on exam. Continue chest vest therapy.
-Stop albuterol, start levbuterol for better HR control
-Dexamethasone 4 mg Q8 will make every 12, begin taper
Sepsis due to acute influenza A bronchitis -chest x-ray clear, no evidence of pneumonia. Completed Tamiflu on 12/02/2024. Presentation with tachycardia, leukocytosis. Rising WBC count attributed to steroids most likely. Afebrile. Sputum culture
not helpful as it is contaminated with oropharyngeal david.
-- Will repeat CBC in the a.m. to assess leukocytosis trend
Essential hypertension with hypertensive urgency -resume home meds. Blood pressure improving.
Migraine headaches - Fioricet resumed. Uses Zofran as needed at home for nausea. Will use Compazine in the hospital due to risk of QT prolongation in the setting of chronic azithromycin use.
Hyperlipidemia -rosuvastatin.
Osteoporosis
Anticipated Discharge: 24 - 48 hours
Subjective/Interval History
-
Date of Service: December 03, 2024
overnight afib rvr. asymptomatic, intermittent palpitations
Objective Data
-
Labs:
Laboratory Results
12/03/24
06:33
WBC 27.8 H
Hgb 14.5
Hct 43.4
Plt Count 294
Sodium 135
Potassium 4.1
Chloride 92 L
Carbon Dioxide 35 H
BUN 34 H
Creatinine 0.7
Glucose 193 H
Calcium 9.1
Vital Signs:
Vital Signs
Temp Pulse Resp BP Pulse Ox
97.4 F 118 20 120/66 97
12/03/24 07:00 12/03/24 08:14 12/03/24 07:00 12/03/24 08:14 12/03/24 07:00
I&O
12/02/24 12/03/24 12/04/24
06:59 06:59 06:59
Intake Total 1919 720 / 720
Balance 1919 720 / 720
[2024-12-03] MEDS: DECADRON IV (09:24)
--- NOTE | 2024-12-03 09:42 | CON.CAR ---
Addendum entered and electronically signed by Ron Hill MD 12/03/24 12:51:
I saw and examined the patient.
The PAINTER [employer]'s note was reviewed and I agree with the note.
Comment:
74-year-old female (known to Dr. Estrada), with paroxysmal SVT, hypertension, dyslipidemia, COPD/asthma on supplemental oxygen who presented to the emergency department with a chief complaint of shortness of breath, found to have influenza A and
COPD exacerbation. Yesterday she was found to be tachycardic into the 140s by RT. She was then placed on telemetry and found to be in atrial fibrillation with RVR. She was started on IV diltiazem with improvement in rates from 140s to 90s. She
is on diltiazem 360 mg ER daily and got a dose yesterday. She has some chest pressure when her rates are very elevated but no palpitations. ECG from yesterday evening shows atrial fibrillation with heart rate 148. Last echocardiogram in April 2023
showed LVEF 65-70% and mild aortic stenosis. She has been started on Eliquis for anticoagulation. For her atrial fibrillation with RVR, she should continue on diltiazem 360 mg daily, however I worry this will not be enough to rate control her
given that she was in RVR last night despite getting 360 mg diltiazem that morning. We will cross titrate her diltiazem drip with p.o. resuming diltiazem 90 mg every 6 hours. We will also start digoxin 125 mcg daily. She is not a good candidate
for beta-cayla or amiodarone given her reactive airway disease requiring supplemental oxygen. Once we have achieved rate control, I recommend that she be seen in the office in 2-4 weeks. If she is still in atrial fibrillation at that time we
should consider cardioversion. We will update an echocardiogram this admission.
Original Note:
Consultation
Consultation Request
Date/Time Consultation Requested: 12/02/2024 20:30
Date/Time Consultation Performed: 12/03/2024 09:40
Requesting Provider: GABE Santiago
Performing Provider: GABE Lazo for Dr. Hill
Reason for Consultation: Atrial fibrillation with right ventricular response
Medical History
-
Chief Complaint: Shortness of breath
History of Present Illness:
Tara Engel is a 74-year-old female (known to Dr. Estrada, her primary outreach educator), with PSVT, hypertension, dyslipidemia, COPD/asthma, on supplemental oxygen managed by pulmonary, migraines, and anxiety who presented to the emergency
department with a chief complaint of shortness of breath. She was experiencing shortness of breath and increased work of breathing for several days prior to arrival. She noticed her oxygen level was low at home and she had been increasing her
supplemental oxygen. She was found to be positive for influenza A. She has been treated for acute COPD exacerbation. She was found to be in atrial fibrillation with rapid ventricular response last evening. Initially, she was not on telemetry.
Heart rates have been over 100 bpm on vital signs since 12/01/2024. Onset timing unclear. She is currently on a diltiazem drip. She was started on apixaban last evening. She denies chest pain and dizziness. She endorses a moist nonproductive
cough
Past Medical History
Past Medical History: Arrhythmias (PSVT), Asthma, COPD, HTN, Psychiatric (Anxiety) and Other (Migraines)
Social History
Tobacco: Former Smoker
Alcohol: Occasional
Drug: None
Personal:
Living: With Family
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
Family History
Family History: Reviewed & Not Pertinent
Allergies / Home Medications
Allergy/AdvReac Type Severity Reaction Status Date / Time
No Known Allergies Allergy Verified 03/28/24 19:12
�Medication �Instructions �Recorded �Confirmed �Type
ascorbic acid (vitamin C) 500 mg 1,000 mg PO BID Supplement 08/10/18 11/27/24 History
tablet (Vitamin C)
gsgsdmsvqs-jmvevbcyppfsx-pqffdsii 1 tab PO Q4HPRN PRN migraine 08/10/18 11/27/24 History
50 mg-325 mg-40 mg tablet
diazepam 5 mg tablet 5 mg PO DAILYPRN PRN anxiety 08/10/18 11/27/24 History
calcium 500 mg (as 1 tab PO DAILY Supplement 09/19/19 11/27/24 History
carbonate)-vitamin D3 5 mcg (200
unit) tablet (Oyster Shell
Calcium-Vitamin D3)
fluticasone propionate 50 1 spray intranasal DAILYPRN PRN 09/19/19 11/27/24 History
mcg/actuation nasal allergies
spray,suspension
polyvinyl alcohol-povidone (PF) 1 drops BOTH EYES BID Eye condition 09/19/19 11/27/24 History
1.4 %-0.6 % eye drops in a
dropperette (Refresh Classic (PF))
albuterol sulfate 2.5 mg/3 mL 2.5 mg inhalation R Q4HPRN PRN 08/17/22 11/27/24 History
(0.083 %) solution for nebulization chest tightness
benzonatate 200 mg capsule 200 mg PO BID Cough 08/17/22 11/27/24 History
budesonide 0.5 mg/2 mL suspension 0.5 mg inhalation R [id number] PRN sob 08/17/22 11/27/24 History
for nebulization
budesonide-formoterol HFA 160 2 puff inhalation R BID 08/17/22 11/27/24 History
mcg-4.5 mcg/actuation aerosol Lung/breathing issues
inhaler (Symbicort)
diltiazem HCl 360 mg 360 mg PO DAILY Blood pressure 08/17/22 11/27/24 History
tablet,extended release 24 hr
guaifenesin 600 mg tablet, 1,200 mg PO BID Congestion 08/17/22 11/27/24 History
extended release 12 hr (Mucus
Relief ER)
prednisone 10 mg tablet 10 mg PO DAILY Lung/breathing 08/17/22 11/27/24 History
issues
sertraline 25 mg tablet 12.5 mg PO Q48H Depression 08/17/22 11/27/24 History
sodium chloride 3 % for 4 ml inhalation R BID 08/17/22 11/27/24 History
nebulization Lung/breathing issues
vitamin B complex 1 tab PO DAILY Supplement 08/17/22 11/27/24 History
pantoprazole 40 mg tablet,delayed 40 mg PO DAILY 30 days #30 tabs 01/03/23 11/27/24 Rx
release
alendronate 70 mg tablet 70 mg PO FR Osteoporosis 11/27/24 11/27/24 History
azithromycin 250 mg tablet 250 mg PO DAILY Infection 11/27/24 11/27/24 History
hydrochlorothiazide 25 mg tablet 25 mg PO DAILY Fluid 11/27/24 11/27/24 History
Retention/Swelling
ondansetron HCl 4 mg tablet 4 mg PO Q8HPRN PRN nausea 11/27/24 11/27/24 History
oxybutynin chloride 5 mg 5 mg PO DAILY Urinary Issue 11/27/24 11/27/24 History
tablet,extended release 24 hr
rosuvastatin 20 mg tablet 20 mg PO DAILY High Cholesterol 11/27/24 11/27/24 History
sumatriptan succinate 25 mg tablet 25 mg PO DAILYPRN PRN migraine 11/27/24 11/27/24 History
tiotropium bromide 2.5 2 inh inhalation R DAILY@1200 11/27/24 11/27/24 History
mcg/actuation mist for inhalation Lung/Breathing Issues
(Spiriva Respimat)
Review of Systems
-
History Source: Patient
All other systems: Negative unless noted
Constitutional: Fatigue and Chills
EENT: No Symptoms
Respiratory: Cough and Trouble Breathing
Cardiac: No Symptoms
Abdomen/GI: No Symptoms
: No Symptoms
Musculoskeletal: Muscle Pain
Skin: No Symptoms
Neurological: No Symptoms
Endocrine: No Symptoms
Hematologic/Lymphatic: No Symptoms
Physical Exam
Vital Signs
Temp Pulse Resp BP Pulse Ox
97.4 F 114 20 142/81 97
12/03/24 07:00 12/03/24 09:20 12/03/24 07:00 12/03/24 09:20 12/03/24 07:00
Lab Results
12/03/24 06:33
12/03/24 06:33
Troponin I < 0.012 ng/ml 11/27/24 16:20
Zwd-Q-Bzyfsribyry Pept 121 pg/ml 11/27/24 16:20
Physical Exam
General: Well Developed, Well Nourished, No Apparent Distress and Comfortable
HEENT: Normocephalic, Anicteric and Moist Mucous Membranes
Respiratory: Rhonchi and Non Labored Respirations
Cardiac: S1/S2 and Irregular Rhythm; Negative Peripheral Edema
Breast: Deferred by me
GI: Soft, Non Tender, Non Distended and Normal Bowel Sounds
Rectal: Deferred by Provider
Genito-urinary: No Costovertebral Tender
Musculoskeletal: No Clubbing and No Cyanosis
Skin: Warm and Dry
Neuro: AO x 3
Hematologic/Lymphatic: No Lymphadenopathy
Psych: Calm
Impression / Plan
-
IMPRESSION/PLAN: 74F with PSVT, hypertension, dyslipidemia, COPD/asthma, on supplemental oxygen managed by pulmonary, migraines, and anxiety who presented to the emergency department with a chief complaint of shortness of breath.
Primary Lawyer [employer] Estate: Dr. Estrada
Sepsis, in the setting of influenza A and bronchitis along with COPD exacerbation - per primary
Atrial fibrillation with ventricular response
-Onset unclear, not on telemetry, arrived to the emergency room in sinus
-Rates elevated, increase to 15mg/hour
-Would not pursue rhythm control in the setting of active illness
-Oral Anticoagulation: None prior to arrival, start apixaban 5 mg twice daily, case management to jordan
-[id number]: score at least 3 (Vascular disease, age 65-74, female gender)
SVT, diltiazem 360 mg transitioned to drip
Aortic stenosis, mild
Asthma/COPD, acute exacerbation
Dyslipidemia, on rosuvastatin
PAD, moderate but not significant subclavian stenosis, followed by Dr. Chatterjee
Data Reviewed
-
EKG: Report Reviewed by me
Medical Tests (Nuc Med, Echo etc): Report Reviewed by me
Labs: Labs Reviewed by me
Old Records: Reviewed
[2024-12-03] MEDS: CARDIZEM 90 MG PO ×3 (13:12→21:01)
[2024-12-03] MEDS: LANOXIN 125 MCG PO (13:12)
[2024-12-03] MEDS: ATROVENT NEBULES INH (13:25)
[2024-12-03] MEDS: XOPENEX 1.25 MG INHALANT SOLUTION INH ×2 (13:25→19:24)
--- NOTE | 2024-12-03 15:39 | CM ---
Patient still requiring acute care, she is independent in PT. No SNF is needed per PT. Patient will return home when medically discharged.
Plan: Case management will continue to follow and assist with discharge planning. Home when stable.
[2024-12-03] MEDS: ATROVENT NEBULES 0.5 MG INH (19:20)
[2024-12-03] MEDS: PULMICORT 0.5 MG INH (19:24)
[2024-12-04 03:29] VITALS: BP 127/88
[2024-12-04] MEDS: FIORICET 1 TAB PO ×2 (04:23→11:48)
[2024-12-04] MEDS: CARDIZEM 125 IV (05:14)
[2024-12-04 06:58] LABS: Blood Urea Nitrogen 39 mg/dl (7-17); Calcium 8.8 mg/dl (8.4-10.2); Carbon Dioxide 36 mmol/L (22-30); Chloride 91 mmol/L (98-107); Estimated Creatinine Clearance 63 ml/min; Glucose 265 mg/dl (70-99); Potassium 4.2 mmol/L (3.5-5.1); Sodium 134 mmol/L (135-145); eGFR > 60.00
[2024-12-04 07:02] LABS: Hematocrit 42.7 % (37.0-47.0); Hemoglobin 14.2 g/dL (12.0-16.0); Mean Corp Hgb Conc. 33.3 g/dL (33.0-37.0); Mean Corpuscular Hgb 30.4 pg (27.0-31.0); Mean Corpuscular Volume 91.4 fL (81.0-99.0); Mean Platelet Volume 9.6 fL (7.4-10.4); Platelet Count 285 10^3/uL (130-400); Red Blood Cell Count 4.67 10^6/uL (4.20-5.40); Red Cell Dist. Width 12.4 % (11.5-14.5); White Blood Cell Count 21.2 10^3/uL (4.8-10.8)
[2024-12-04 07:28] LABS: TSH Reflex To Free T4 0.02 uIU/ml (0.47-4.68)
[2024-12-04 07:55] LABS: Free T4 0.66 ng/dl (0.78-2.19)
[2024-12-04 08:01] VITALS: BP 129/73
[2024-12-04] MEDS: PULMICORT 0.5 MG INH (08:10)
[2024-12-04] MEDS: ATROVENT NEBULES 0.5 MG INH ×2 (08:10→13:26)
[2024-12-04] MEDS: XOPENEX 1.25 MG INHALANT SOLUTION INH ×2 (08:10→13:26)
[2024-12-04] MEDS: TESSALON PERLES 200 MG PO (08:50)
[2024-12-04] MEDS: ELIQUIS 5 MG PO (08:50)
[2024-12-04] MEDS: MUCINEX 1200 MG PO (08:50)
[2024-12-04] MEDS: CARDIZEM 90 MG PO (08:50)
[2024-12-04] MEDS: CRESTOR 20 MG PO (08:50)
[2024-12-04] MEDS: ORETIC 25 MG PO (08:50)
[2024-12-04] MEDS: ZOLOFT 12.5 MG PO (08:50)
[2024-12-04] MEDS: DITROPAN 2.5 MG PO (08:50)
[2024-12-04] MEDS: ZITHROMAX 250 MG PO (08:50)
[2024-12-04] MEDS: PROTONIX 40 MG PO (08:50)
[2024-12-04] MEDS: B COMPLEX w/VITAMIN C 1 CAPLET PO (08:50)
[2024-12-04] MEDS: DECADRON 4 MG IV (08:51)
[2024-12-04] MEDS: REFRESH EYE DROPS (PF) 1 DROPS BOTH EYES (08:51)
[2024-12-04 11:16] VITALS: BP 133/77
[2024-12-04] MEDS: DELTASONE 40 MG PO (11:48)
[2024-12-04] MEDS: LANOXIN 125 MCG PO (11:48)
--- NOTE | 2024-12-04 12:20 | W.PN.CD ---
Today's Communication / Plan
-
Safe for discharge from a CV perspective
Discharge meds: Diltiazem 360 mg daily, digoxin 125 mcg daily (new), Eliquis 5 mg twice daily (new), HCTZ 25 mg daily, rosuvastatin 20 mg daily
We will ask our office to schedule follow-up in 4 weeks
Impression / Plan
-
IMPRESSION/PLAN: 74F with PSVT, hypertension, dyslipidemia, COPD/asthma, on supplemental oxygen managed by pulmonary, migraines, and anxiety who presented to the emergency department with a chief complaint of shortness of breath.
Primary Station Engineer Chief: Dr. Estrada
Sepsis, in the setting of influenza A and bronchitis along with COPD exacerbation - per primary
Atrial fibrillation with rapid ventricular response
-Onset unclear, not on telemetry, arrived to the emergency room in sinus. Echo this admission with normal BiV function and aortic sclerosis
-Converted to sinus rhythm early this morning with diltiazem drip and digoxin on board
-Oral Anticoagulation: None prior to arrival, start apixaban 5 mg twice daily, case management to jordan
-[id number]: score at least 3 (Vascular disease, age 65-74, female gender)
-Continue diltiazem 360 mg daily (home med) and digoxin 125 mcg daily
-She is not a good candidate for beta-cayla or amiodarone given her reactive airway disease requiring supplemental oxygen.
SVT, diltiazem 360 mg daily
Aortic stenosis, mild
Asthma/COPD, acute exacerbation
Dyslipidemia, on rosuvastatin
PAD, moderate but not significant subclavian stenosis, followed by Dr. Chatterjee
Subjective: Patient feels well today. No CV complaints. Telemetry reveals that she converted to normal sinus rhythm around 5 AM.
Physical Exam
Vital Signs/Labs
Vital Signs
Temp Pulse Resp BP Pulse Ox
98 F 79 16 133/77 96
12/04/24 11:16 12/04/24 11:48 12/04/24 11:16 12/04/24 11:16 12/04/24 11:16
12/04/24 05:44
12/04/24 05:44
Free T4 0.66 ng/dl (0.78-2.19) L 12/04/24 05:44
11/27/24
16:20
Oya-M-Ulryptxahvs Pept 121
Physical Exam
Constitutional: No acute distress and Comfortable
Cardiovascular: Rhythm & rate is regular, Pedal edema is absent, S1S2 is normal and Murmur/rub/gallop absent
Respiratory: Respiratory effort normal and Lungs clear to auscul.
Neuro/Psych: AO x 3
Data Reviewed
-
Date of Service: December 04, 2024
Medical Decision Making: Reviewed Test Results, Independent Historian Assessment, Test Interpretation and Review of Case with other Provider
EKG: Tracing Personally Visualized and interpreted
Echo: Tracing Personally Visualized and interpreted
Labs: Labs Reviewed by me
--- NOTE | 2024-12-04 15:03 | W.PN.HOSP.TC ---
Today's Communication/Plan
-
Discharge home
More than 30 minutes spent in discharge including
Final examination of the patient
Summarizing hospital stay
Instructions for continuing care to all relevant caregivers
Preparation of discharge records, prescriptions, and referral forms
Total time spent (in minutes): 33mins
Assessment / Plan
Assessment / Plan
NAD
Scleral Anicteric
MMM
No JVD
Improved air movement throughout all lungs ferrara, mild wheezing
Regular rate rhythm, S1/S2
Soft, NT, ND, BS+
Warm, Dry
AAOx3
Calm
Acute new onset Afib RVR
-Per cardiology will initiate p.o. Cardizem 90 mg Q6
-Converted to p.o. Cardizem 360 mg
-Daily digoxin 125 mcg
-CHADSVASc 4
-Eliquis 5 mg twice a day
-Cards following
Acute on chronic hypoxic respiratory failure -due to acute COPD exacerbation due to acute influenza bronchitis. Currently on 4 L nasal cannula oxygen. Uses oxygen at home at 2 to 4 L depending on her activity. Still with significant oxygen
desaturation on exertion, in the 80s on 4 L.
Chest x-ray on admission without active cardiopulmonary disease.
Acute COPD exacerbation -due to acute influenza infection. Continue inhalers, steroids, add Mucinex, Acapella. On chronic azithromycin, prednisone. Slowly improving, moving more air on exam. Continue chest vest therapy.
-Stop albuterol, start levbuterol for better HR control
-Dexamethasone 4 mg Q8 will make every 12, begin taper
Sepsis due to acute influenza A bronchitis -chest x-ray clear, no evidence of pneumonia. Completed Tamiflu on 12/02/2024. Presentation with tachycardia, leukocytosis. Rising WBC count attributed to steroids most likely. Afebrile. Sputum culture
not helpful as it is contaminated with oropharyngeal david.
-- Will repeat CBC in the a.m. to assess leukocytosis trend
Essential hypertension with hypertensive urgency -resume home meds. Blood pressure improving.
Migraine headaches - Fioricet resumed. Uses Zofran as needed at home for nausea. Will use Compazine in the hospital due to risk of QT prolongation in the setting of chronic azithromycin use.
Hyperlipidemia -rosuvastatin.
Osteoporosis
Anticipated Discharge: Today
Subjective/Interval History
-
Date of Service: December 04, 2024
Seen and examined. Spoke with bedside nurse. For the sinus rhythm around 5 AM. Remains in sinus rhythm with rates in the 80s.
Objective Data
-
Labs:
Laboratory Results
12/04/24
05:44
WBC 21.2 H
Hgb 14.2
Hct 42.7
Plt Count 285
Sodium 134 L
Potassium 4.2
Chloride 91 L
Carbon Dioxide 36 H
BUN 39 H
Creatinine 0.7
Glucose 265 H
Calcium 8.8
Vital Signs:
Vital Signs
Temp Pulse Resp BP Pulse Ox
98 F 84 20 133/77 96
12/04/24 11:16 12/04/24 13:30 12/04/24 13:30 12/04/24 11:16 12/04/24 11:16
I&O
12/03/24 12/04/24 12/05/24
06:59 06:59 06:59
Intake Total 720 / 720 1080 / 1080
Balance 720 / 720 1080 / 1080
--- NOTE | 2024-12-04 15:05 | W.DCSUMMARY ---
Discharge Summary
Discharge Data
Date of Admission: 11/27/24
Date of Discharge: 12/04/24
-
Pending Results: No
Hospital Course
74 yo woman with PMH significant for asthma, COPD on home o2, HTN, migraine headaches,
Presented with complaints of increased shortness of breath worse with excoriation and increased oxygen requirements. Found to have influenza A positive along with acute COPD exacerbation. Started on Tamiflu that was completed on 12/02/2024 and
steroids along with incentive spirometer Acapella and vest therapy. Now on a tapering dose of prednisone.
Hospitalization was complicated by new onset atrial fibrillation now back in sinus rhythm however did require IV Cardizem drip and started on digoxin. IV Cardizem drip was transitioned to home dose Cardizem of 360 mg daily, initiated on 125 mcg
digoxin and started on Eliquis for a CHADSVASc score of 4.
Will need outpatient cardiology pulmonary and PCP follow-up
2d echo
CONCLUSIONS
Normal biventricular size and systolic function without regional wall motion
abnormality. LVEF 65-70%.
Aortic sclerosis without stenosis.
No significant valvular disease.
No change compared to prior study in April 2023.
DVT Study
IMPRESSION:
No sonographic evidence for lower extremity venous thrombosis.
CXR
IMPRESSION:
No active cardiopulmonary disease.
Discharge Plan
-
Patient Disposition: Home with Home Care
Discharge Diagnosis/Procedures: Acute on chronic hypoxemic respiratory failure secondary to influenza A on COPD exacerbation
Atrial fibrillation RVR new onset
Diet: As tolerated
Activity: As tolerated
Activity Restrictions/Additional Instructions:
Presented with complaints of increased shortness of breath worse with excoriation and increased oxygen requirements. Found to have influenza A positive along with acute COPD exacerbation. Started on Tamiflu that was completed on 12/02/2024 and
steroids along with incentive spirometer Acapella and vest therapy. Now on a tapering dose of prednisone.
Hospitalization was complicated by new onset atrial fibrillation now back in sinus rhythm however did require IV Cardizem drip and started on digoxin. IV Cardizem drip was transitioned to home dose Cardizem of 360 mg daily, initiated on 125 mcg
digoxin and started on Eliquis for a CHADSVASc score of 4.
Will need outpatient cardiology pulmonary and PCP follow-up
2d echo
CONCLUSIONS
Normal biventricular size and systolic function without regional wall motion
abnormality. LVEF 65-70%.
Aortic sclerosis without stenosis.
No significant valvular disease.
No change compared to prior study in April 2023.
DVT Study
IMPRESSION:
No sonographic evidence for lower extremity venous thrombosis.
CXR
IMPRESSION:
No active cardiopulmonary disease.
Referrals:
Ron Hill MD [Active] - in one to two weeks
Kun Chatterjee MD [Family Provider] -
Prescriptions:
New
Eliquis 5 mg Tablet
5 mg PO BID Qty: 60 0RF
digoxin 125 mcg (0.125 mg) Tablet
125 mcg PO NOON Qty: 30 0RF
prednisone 10 mg tablet
See Rx Instructions .ROUTE .COMPLEX Qty: 26 0RF
Taper: Prednisone DC Starting at 40 mg daily
40 mg Daily for 2 Days and 0 Hour
30 mg Daily for 3 Days and 0 Hour
20 mg Daily for 3 Days and 0 Hour
10 mg Daily for 3 Days and 0 Hour
Rx Instructions:
40mg qdx2D
30mg qdx3D
20mg qdx3D
10mg qdx3D
Continued
ialeiicvpx-ldtycbepsnbwd-hhms 1 EACH tablet
1 tab PO Q4HPRN PRN (Reason: migraine)
ascorbic acid (vitamin C) [Vitamin C] 500 MG tablet
1,000 mg PO BID
diazepam 5 MG tablet
5 mg PO DAILYPRN PRN (Reason: anxiety)
fluticasone propionate 1 SPRAY spray,suspension
1 spray intranasal DAILYPRN PRN (Reason: allergies)
Refresh Classic (PF) 10 DROPS dropperette
1 drops BOTH EYES BID
calcium carbonate-vitamin D3 [Oyster Shell Calcium-Vit D3] 500 MG tablet
1 tab PO DAILY
albuterol sulfate 2.5 mg /3 mL (0.083 %) Solution For Nebulization
2.5 mg INHALATION R Q4HPRN PRN (Reason: chest tightness)
budesonide-formoterol [Symbicort] 160-4.5 mcg/actuation Hfa Aerosol Inhaler
2 puff INHALATION R BID
benzonatate 200 mg Capsule
200 mg PO BID
sodium chloride 3 % Solution For Nebulization
4 ml INHALATION R BID
sertraline 25 mg Tablet
12.5 mg PO Q48H
budesonide 0.5 mg/2 mL Suspension For Nebulization
0.5 mg INHALATION R [id number] PRN (Reason: sob)
vitamin B complex Tablet
1 tab PO DAILY
diltiazem HCl 360 mg Tablet Extended Release 24 Hr
360 mg PO DAILY
guaifenesin [Mucus Relief ER] 600 MG tablet extended release 12hr
1,200 mg PO BID
pantoprazole 40 mg Tablet,Delayed Release (Dr/Ec)
40 mg PO DAILY 30 Days Qty: 30 0RF
sumatriptan succinate 25 mg Tablet
25 mg PO DAILYPRN PRN (Reason: migraine)
ondansetron HCl 4 mg Tablet
4 mg PO Q8HPRN PRN (Reason: nausea)
alendronate 70 mg Tablet
70 mg PO FR
oxybutynin chloride 5 mg Tablet Extended Release 24hr
5 mg PO DAILY
hydrochlorothiazide 25 mg Tablet
25 mg PO DAILY
rosuvastatin 20 mg Tablet
20 mg PO DAILY
Spiriva Respimat 2.5 mcg/actuation Mist
2 inh INHALATION R DAILY@1200
Discontinued
prednisone 10 MG tablet
10 mg PO DAILY
azithromycin 250 mg Tablet
250 mg PO DAILY
Discharge Orders:
Discharge Patient (As Directed); Ordered 12/04/24
Ordered By: Sanchez Atkins
Discharge Date and Time
Print Language: LUXEMBOURGISH
[2024-12-04] MEDS: CARDIZEM CD 360 MG PO (15:18)
[2024-12-04 15:26] VITALS: BP 128/66
--- NOTE | 2024-12-04 16:08 | CM ---
Received consult for VN services. Met with patient to determine which agency she would choose. Patient denied wanting VN. She was advised that it has been indicated by medical staff however she still declined. She stated that her spouse will be in
to drive her home.
Plan: Case management will continue to follow and assist with discharge planning. Home, spouse will p/u.
== END 2024-12-04 18:21 | disposition home health service (06) | DRG 871 ==
LOC: 3 WEST ACU 23:08
PROVIDERS: Hospitalist; Physician Assistant; ADMITTING PHYSICIAN Internal Medicine; ATTENDING PHYSICIAN Hospitalist; CONSULT PHYSICIAN Student in an Organized Health Care Education/Training Program; EMERGENCY PHYSICIAN Emergency Medicine; FAMILY PHYSICIAN Surgery Vascular Surgery
DX: A41.9 Sepsis, unspecified organism (principal); J09.X1 Influenza due to identified novel influenza A virus with pneumonia; J96.21 Acute and chronic respiratory failure with hypoxia; J44.1 Chronic obstructive pulmonary disease with (acute) exacerbation; I47.19 Other supraventricular tachycardia; D84.9 Immunodeficiency, unspecified; I48.91 Unspecified atrial fibrillation; I10 Essential (primary) hypertension; Z99.81 Dependence on supplemental oxygen; G43.909 Migraine, unspecified, not intractable, without status migrainosus; I70.0 Atherosclerosis of aorta; I70.8 Atherosclerosis of other arteries; Z79.52 Long term (current) use of systemic steroids; Z87.891 Personal history of nicotine dependence; F32.A Depression, unspecified; E78.00 Pure hypercholesterolemia, unspecified; Z79.899 Other long term (current) drug therapy; F41.9 Anxiety disorder, unspecified; M81.0 Age-related osteoporosis without current pathological fracture; Z79.83 Long term (current) use of bisphosphonates; I08.0 Rheumatic disorders of both mitral and aortic valves; Z11.52 Encounter for screening for COVID-19; Z79.51 Long term (current) use of inhaled steroids; Z85.828 Personal history of other malignant neoplasm of skin
CPT/HCPCS: 71046; 80048; 80053; 82805; 83605; 83880; 84439; 84443; 84484; 85025; 85027; 86803; 87040; 87205; 87502; 87811; 93005; 93306; 93970; 94640; 94668; 94669; 96374; 97161; 97530; 99285

== ENCOUNTER 2024-12-07 13:15 | Inpatient (IN) | payer OTHER, SELFPAY ==
[2024-12-07] VITALS (22 sets, daily range): BP systolic 111–163; BP diastolic 48–94; BMI 24.5; BMI 24.0
--- NOTE | 2024-12-07 07:13 | ED.GENMED ---
History of Present Illness
General
Chief Complaint: Heart Rate Problem
Source: patient
Time Seen by Provider: 12/07/24 07:05
History of Present Illness
History of Present Illness:
74-year-old female presents for evaluation of rapid heart rate and shortness of breath worsening this morning. She was discharged from this hospital 3 days ago after COPD flare with influenza and new onset atrial fibrillation. She was started on
Eliquis during her hospital stay. She had an echocardiogram which demonstrated an ejection fraction of 65 to 70%. She has been on diltiazem. She was unable to take any of her medications today. She is chronically on 4 L of oxygen and still is.
She notes slight shortness of breath. She also notes pain in her ankles some in her chest and in her shoulder blades.
Past History
Past History
ED Past Medical History: Asthma, Cancer (Skin Cancer), COPD, HTN and Other (Headache/ Migraines)
ED Past Surgical History: Other (Cataracts)
Social History
Tobacco: Former smoker
Alcohol: Occasional
Personal: Single (Significant other)
Living: with family
Employment: Employed
Phy Exam
Physical Exam
Physical Exam:
General: Well-developed female with increased work of breathing
HEENT: Normocephalic atraumatic
: Tachycardic and irregular
Lungs: Breath sounds distant prolonged expiratory phase
Abdomen is soft nontender nondistended
Extremities: No cyanosis or edema
Vascular: 2+ dorsalis pedis pulses bilateral feet and 2+ radial pulse bilateral wrist
Course
Orders/Labs/Results
Orders:
Orders
12/07/24 06:24
EKG [Electrocardiogram (*1)] Urgent
Reason for Study: Tachycardia
EKG- Treatment ONCE
12/07/24 06:58
CR Chest Portable - 1 View Urgent
Comment:
Reason For Exam: cough
Reason Study Needs to be Portable: Unable to Transport
12/07/24 07:12
Diltiazem HCl [Cardizem] 16 mg IV NOW STA
12/07/24 07:15
Ct Chest/Abd/Pel Angio W/Wo Iv Urgent
Reason For Exam: chest and shoulder blade pain
Diltiazem 125 mg/125 ml Nss [Cardizem] 125 mg in 125 ml IV PER PROTOCOL
Initial dose in mg/hr, then titrate:: 5
Titrate to keep:: Heart rate 80-100 bpm
Titrate by mg/hr:: 5 mg/hr
Frequency of titrations (minutes):: 15
Maximum dose in mg/hr:: 15
12/07/24 07:20
Complete Blood Count/With Diff Urgent
Comprehensive Metabolic Panel Urgent
NT-proBNP Urgent
TSH Reflex To Free T4 Urgent
12/07/24 08:03
Acetaminophen [Tylenol] 650 mg PO NOW STA
12/07/24 10:47
COVID-19 Antigen Stat
Source: Nasal Swab
Influenza A+B Rapid Molecular Urgent
CHRISSY Source: Nasal Swab
Specimen Description:
Abnormal Lab Results
12/07/24
07:20
WBC 21.3 H 10^3/uL
(4.8-10.8)
Abs Immat Gran (auto) 0.5 H 10^3/uL
(0-0.05)
Absolute Neuts (auto) 17.3 H 10^3/uL
(1.4-6.5)
Absolute Monos (auto) 1.5 H 10^3/uL
(0.1-0.6)
Immature Gran % 2.2 H %
(0-0.5)
Neutrophils % 81.2 H %
(42.2-75.2)
Lymphocytes % 8.4 L %
(20.5-51.1)
Chloride 92 L mmol/L
(98-107)
Carbon Dioxide 34 H mmol/L
(22-30)
BUN 26 H mg/dl
(7-17)
Creatinine 0.5 L mg/dL
(0.6-1.0)
AST 68 H U/L
(14-36)
ALT 170 H U/L
(0-35)
Total Protein 5.8 L g/dl
(6.3-8.2)
12/07/24 07:20
12/07/24 07:20
Vital Signs
Initial and Last Documented VS:
Initial Vital Signs
Temp Pulse Resp BP Pulse Ox
99.1 F 149 22 136/94 96
12/07/24 06:28 12/07/24 06:28 12/07/24 06:28 12/07/24 06:28 12/07/24 06:28
Last Documented Vital Signs
Temp Pulse Resp BP Pulse Ox
99.1 F 100 25 111/61 99
12/07/24 06:28 12/07/24 10:15 12/07/24 10:15 12/07/24 10:00 12/07/24 10:15
MDM/Problems Addressed
Differential Diagnosis Includes:
Shortness of breath rapid heart rate. Consider reoccurrence of atrial fibrillation. Also has chest discomfort shoulder blade discomfort that radiates into the hips. Could be a product of her increased rate of breathing heart rate but also that
her dissection. CT angio of the chest and abdomen ordered. EKG reviewed and demonstrates what looks like atrial flutter or fibrillation and heart rate within the 140s. Not a candidate for cardioversion at this time as she just recently started
Eliquis. Will attempt rate control with IV Cardizem bolus and drip. Blood pressure 136/94 she is 96% on 4 L of oxygen which is her baseline.
Labs pending otherwise including BNP. I reviewed echocardiogram performed while she was here in the hospital demonstrating ejection fraction 65-70
*Critical Care Note
Total Time (30-74mins, 75-104mins- exclusive of procedures): Not Applicable
Update Note
Update Note:
Patient reevaluated. Heart rate has improved slightly but still tachycardic. Patient still short of breath. She does have other medical comorbidities including COPD. Patient uncomfortable with discharge home. She is still symptomatic. CT angio
of the chest abdomen pelvis was negative for dissection or PE.
ED Attending Note
-
Portions of this chart may have been created with voice recognition software.� Occasional wrong word or��sound alike� substitutions may have occurred due to the inherent limitations of voice recognition software.
Discharge Plan
Departure
Patient Disposition: Admit
Date of Disposition: 12/07/24
Time of Disposition: 11:01
Presentation/result/management discussed w/ accepting MD/DO: Hospitalist
Discharge Problem:
Atrial fibrillation
Prescriptions:
No Action
dygyhfhpfo-mhsvwpybegpyn-vkka 1 EACH tablet
1 tab PO Q4HPRN PRN (Reason: migraine)
ascorbic acid (vitamin C) [Vitamin C] 500 MG tablet
1,000 mg PO BID
diazepam 5 MG tablet
5 mg PO DAILYPRN PRN (Reason: anxiety)
fluticasone propionate 1 SPRAY spray,suspension
1 spray intranasal DAILYPRN PRN (Reason: allergies)
Refresh Classic (PF) 10 DROPS dropperette
1 drops BOTH EYES BID
calcium carbonate-vitamin D3 [Oyster Shell Calcium-Vit D3] 500 MG tablet
1 tab PO DAILY
albuterol sulfate 2.5 mg /3 mL (0.083 %) Solution For Nebulization
2.5 mg INHALATION R Q4HPRN PRN (Reason: chest tightness)
budesonide-formoterol [Symbicort] 160-4.5 mcg/actuation Hfa Aerosol Inhaler
2 puff INHALATION R BID
benzonatate 200 mg Capsule
200 mg PO BID
sodium chloride 3 % Solution For Nebulization
4 ml INHALATION R BID
sertraline 25 mg Tablet
12.5 mg PO Q48H
budesonide 0.5 mg/2 mL Suspension For Nebulization
0.5 mg INHALATION R [id number] PRN (Reason: sob)
vitamin B complex Tablet
1 tab PO DAILY
diltiazem HCl 360 mg Tablet Extended Release 24 Hr
360 mg PO DAILY
guaifenesin [Mucus Relief ER] 600 MG tablet extended release 12hr
1,200 mg PO BID
pantoprazole 40 mg Tablet,Delayed Release (Dr/Ec)
40 mg PO DAILY 30 Days Qty: 30 0RF
sumatriptan succinate 25 mg Tablet
25 mg PO DAILYPRN PRN (Reason: migraine)
ondansetron HCl 4 mg Tablet
4 mg PO Q8HPRN PRN (Reason: nausea)
alendronate 70 mg Tablet
70 mg PO FR
oxybutynin chloride 5 mg Tablet Extended Release 24hr
5 mg PO DAILY
hydrochlorothiazide 25 mg Tablet
25 mg PO DAILY
rosuvastatin 20 mg Tablet
20 mg PO DAILY
Spiriva Respimat 2.5 mcg/actuation Mist
2 inh INHALATION R DAILY@1200
Eliquis 5 mg Tablet
5 mg PO BID Qty: 60 0RF
digoxin 125 mcg (0.125 mg) Tablet
125 mcg PO NOON Qty: 30 0RF
prednisone 10 mg tablet
See Rx Instructions .ROUTE .COMPLEX Qty: 26 0RF
Taper: Prednisone DC Starting at 40 mg daily
40 mg Daily for 2 Days and 0 Hour
30 mg Daily for 3 Days and 0 Hour
20 mg Daily for 3 Days and 0 Hour
10 mg Daily for 3 Days and 0 Hour
Rx Instructions:
40mg qdx2D
30mg qdx3D
20mg qdx3D
10mg qdx3D
tiotropium bromide 2.5 mcg/actuation Mist
2 inh INHALATION NOON
Referrals:
Avel Soto MD [Family Provider] -
Interventions
Interventions:
*Risk Screen - Suicide Last Done: 12/07/24 06:28
*General Assessment Last Done: 12/07/24 07:13
*Neglect/Abuse Screening Last Done: 12/07/24 07:19
ED- Fall Risk Assessment Last Done: 12/07/24 07:13
*ED COVID-19 Vaccine History Last Done: 12/07/24 07:13
ED- Cardiac Assessment Last Done: 12/07/24 07:13
ED- Pulmonary Assessment Last Done: 12/07/24 07:13
Discharge Date and Time
Print Language: URDU
[2024-12-07 07:29] LABS: % Basophils 0.3 % (0-2); % Eosinophils 0.8 % (0-6); % Immature Granulocytes 2.2 % (0-0.5); % Lymphocytes 8.4 % (20.5-51.1); % Monocytes 7.1 % (1.7-9.3); % Neutrophils 81.2 % (42.2-75.2); Absolute Basophils 0.1 10^3/uL (0-0.2); Absolute Eosinophils 0.2 10^3/uL (0-0.7); Absolute Immature Granulocytes 0.5 10^3/uL (0-0.05); Absolute Lymphocytes 1.8 10^3/uL (1.2-3.4); Absolute Monocytes 1.5 10^3/uL (0.1-0.6); Absolute Neutrophils 17.3 10^3/uL (1.4-6.5); Hematocrit 45.2 % (37.0-47.0); Hemoglobin 14.9 g/dL (12.0-16.0); Mean Corpuscular Hgb 30.7 pg (27.0-31.0); Mean Corpuscular Volume 93.2 fL (81.0-99.0); Mean Platelet Volume 9.5 fL (7.4-10.4); Nucleated Red Blood Cells % 0 %; Platelet Count 251 10^3/uL (130-400); Red Blood Cell Count 4.85 10^6/uL (4.20-5.40); Red Cell Dist. Width 12.6 % (11.5-14.5); White Blood Cell Count 21.3 10^3/uL (4.8-10.8)
[2024-12-07] MEDS: CARDIZEM 16 MG IV (07:31)
[2024-12-07] MEDS: CARDIZEM 125 IV ×2 (07:32→15:14)
[2024-12-07 07:48] LABS: ALT (SGPT) 170 U/L (0-35); AST (SGOT) 68 U/L (14-36); Albumin 3.5 g/dl (3.5-5.0); Alkaline Phosphatase 92 U/L (38-126); Blood Urea Nitrogen 26 mg/dl (7-17); Calcium 8.7 mg/dl (8.4-10.2); Chloride 92 mmol/L (98-107); Estimated Creatinine Clearance 75 ml/min; Glucose 86 mg/dl (70-99); Potassium 4.1 mmol/L (3.5-5.1); Sodium 137 mmol/L (135-145); Total Bilirubin 0.4 mg/dl (0.2-1.3); Total Protein 5.8 g/dl (6.3-8.2); eGFR > 60.00
[2024-12-07 07:56] LABS: NT-proBNP 331 pg/ml
[2024-12-07 08:10] LABS: Carbon Dioxide 34 mmol/L (22-30)
[2024-12-07] MEDS: TYLENOL 650 MG PO ×2 (08:12→12:01)
[2024-12-07 08:20] LABS: TSH Reflex To Free T4 1.35 uIU/ml (0.47-4.68)
[2024-12-07 11:18] LABS: COVID-19 Antigen Negative (Negative)
--- NOTE | 2024-12-07 13:58 | CON.CAR ---
Consultation
Consultation Request
Date/Time Consultation Requested: 12/07/2024 1300
Date/Time Consultation Performed: 12/07/2024 1400
Requesting Provider: Dr. Atkins
Performing Provider: Dr. Estrada
Reason for Consultation: A-fib
Medical History
-
History of Present Illness:
74-year-old woman with recent discharge from [facility] after hospitalization with influenza A as well as new sought onset atrial fibrillation. Past medical history also notable for PSVT, hypertension hypercholesterolemia COPD/asthma.
During the previous admission patient was placed oral anticoagulation with Eliquis. Eventually patient spontaneously converted to sinus rhythm on IV Cardizem echocardiogram 12/03/2024 with normal left ventricular function ejection fraction 65 to 70%
and aortic sclerosis without stenosis. Patient was discharged from the hospital on 12/04/2024 and now presents back to the hospital and also was noted to be in atrial flutter with accelerated ventricular response. Patient is a bit vague in her
description of her symptoms. She states that after her discharge from the hospital she still did not feel quite right and yesterday got cramps in her legs and back and shoulders which she also has today along this with this she has also had some
headache and some abdominal discomfort. This morning she noticed that her heart rate was elevated and beating all over the place she came to the ER and was noted to be in atrial flutter placed on IV Cardizem she has since converted back to sinus
rhythm despite this she still does not feel well. She has baseline shortness of breath which is a bit more than baseline no complaints of chest pain denies having fevers. Tmax in the ER 99 patient's had additional labs for COVID and flu which are
negative
Past Medical History
Past Medical History: Other (As noted above)
Social History
Personal:
Living: With Family
Family History
Family History: Reviewed & Not Pertinent
Allergies / Home Medications
Allergy/AdvReac Type Severity Reaction Status Date / Time
No Known Allergies Allergy Verified 12/07/24 06:37
�Medication �Instructions �Recorded �Confirmed �Type
ascorbic acid (vitamin C) 500 mg 1,000 mg PO BID Supplement 08/10/18 12/07/24 History
tablet (Vitamin C)
plkzahhylz-oxjffvfvqwdmb-eqedinrp 1 tab PO Q4HPRN PRN migraine 08/10/18 12/07/24 History
50 mg-325 mg-40 mg tablet
diazepam 5 mg tablet 5 mg PO DAILYPRN PRN anxiety 08/10/18 12/07/24 History
calcium 500 mg (as 1 tab PO DAILY Supplement 09/19/19 12/07/24 History
carbonate)-vitamin D3 5 mcg (200
unit) tablet (Oyster Shell
Calcium-Vitamin D3)
fluticasone propionate 50 1 spray intranasal DAILYPRN PRN 09/19/19 12/07/24 History
mcg/actuation nasal allergies
spray,suspension
polyvinyl alcohol-povidone (PF) 1 drops BOTH EYES BID Eye condition 09/19/19 12/07/24 History
1.4 %-0.6 % eye drops in a
dropperette (Refresh Classic (PF))
albuterol sulfate 2.5 mg/3 mL 2.5 mg inhalation R Q4HPRN PRN 08/17/22 12/07/24 History
(0.083 %) solution for nebulization chest tightness
benzonatate 200 mg capsule 200 mg PO BID Cough 08/17/22 12/07/24 History
budesonide 0.5 mg/2 mL suspension 0.5 mg inhalation R [id number] PRN sob 08/17/22 12/07/24 History
for nebulization
budesonide-formoterol HFA 160 2 puff inhalation R BID 08/17/22 12/07/24 History
mcg-4.5 mcg/actuation aerosol Lung/breathing issues
inhaler (Symbicort)
diltiazem HCl 360 mg 360 mg PO DAILY Blood pressure 08/17/22 12/07/24 History
tablet,extended release 24 hr
guaifenesin 600 mg tablet, 1,200 mg PO BID Congestion 08/17/22 12/07/24 History
extended release 12 hr (Mucus
Relief ER)
sertraline 25 mg tablet 12.5 mg PO Q48H Depression 08/17/22 12/07/24 History
sodium chloride 3 % for 4 ml inhalation R BID 08/17/22 12/07/24 History
nebulization Lung/breathing issues
vitamin B complex 1 tab PO DAILY Supplement 08/17/22 12/07/24 History
pantoprazole 40 mg tablet,delayed 40 mg PO DAILY 30 days #30 tabs 01/03/23 12/07/24 Rx
release
alendronate 70 mg tablet 70 mg PO FR Osteoporosis 11/27/24 12/07/24 History
hydrochlorothiazide 25 mg tablet 25 mg PO DAILY Fluid 11/27/24 12/07/24 History
Retention/Swelling
ondansetron HCl 4 mg tablet 4 mg PO Q8HPRN PRN nausea 11/27/24 12/07/24 History
oxybutynin chloride 5 mg 5 mg PO DAILY Urinary Issue 11/27/24 12/07/24 History
tablet,extended release 24 hr
rosuvastatin 20 mg tablet 20 mg PO DAILY High Cholesterol 11/27/24 12/07/24 History
sumatriptan succinate 25 mg tablet 25 mg PO DAILYPRN PRN migraine 11/27/24 12/07/24 History
tiotropium bromide 2.5 2 inh inhalation R DAILY@1200 11/27/24 12/07/24 History
mcg/actuation mist for inhalation Lung/Breathing Issues
(Spiriva Respimat)
apixaban 5 mg tablet (Eliquis) 5 mg PO BID #60 tabs 12/04/24 12/07/24 Rx
digoxin 125 mcg (0.125 mg) tablet 125 mcg PO NOON #30 tabs 12/04/24 12/07/24 Rx
prednisone 10 mg tablet See Rx Instructions .Route 12/04/24 12/07/24 Rx
.COMPLEX #26 tabs
tiotropium bromide 2.5 2 inh inhalation NOON 12/07/24 12/07/24 History
mcg/actuation mist for inhalation
Review of Systems
-
All other systems: Negative unless noted
Physical Exam
Vital Signs
Temp Pulse Resp BP Pulse Ox
99.1 F 102 13 133/69 96
12/07/24 06:28 12/07/24 12:30 12/07/24 12:30 12/07/24 11:00 12/07/24 12:30
Lab Results
12/07/24 07:20
12/07/24 07:20
Hjo-M-Tpokcnfctsi Pept 331 pg/ml 12/07/24 07:20
Physical Exam
General: No Apparent Distress and Other (Just states she does not feel great)
HEENT: Other ( extraocular was intact external ear and oral exam unremarkable)
Respiratory: Other (Decreased breath sounds bilaterally without wheezes or rhonchi)
Cardiac: Regular Rhythm
GI: Soft and Non Tender
Musculoskeletal: No Clubbing, No Cyanosis, No Edema and Other (No tenderness with palpation)
Skin: Warm and Other (No edema)
Neuro: Awake and Alert
Psych: Calm (Cooperative)
Impression / Plan
-
Atrial flutter. Patient with atrial fibrillation last admission. Now presents with atrial flutter spontaneously converted back to sinus rhythm
-Continue with IV Cardizem and if she remains in sinus rhythm convert back to oral in a.m.
-Continue anticoagulation with Eliquis
-Will continue to assess additional options for rhythm control
.
Patient with general sense of not feeling well with bodyaches. Patient recently had a hospitalization with influenza A. Additional follow-up testing for influenza and COVID-negative. Unclear if patient may have infection or other viral syndrome
contributing to symptoms.
-Urinalysis with reflex to culture
-CPK
-Monitor temps
.
SVT history of SVT continue Cardizem
Aortic stenosis mild
Asthma/COPD. Treatment as directed by primary team
PAD. Moderate but not significant subclavian stenosis. Patient follows up with vascular surgery/Dr. Chatterjee
Data Reviewed
-
EKG: Tracing Personally Visualized and interpreted and Report Reviewed by me
Radiology: Report Reviewed by me
CT Scan: Other (CT 12/07/24 No aortic aneurysm or dissection. No pulmonary embolism. COPD. Numerous predominantly the right lung pulmonary nodular parenchymal opacities with irregular margination, as described. Although likely infectious in
etiology (including atypical and/or fungal etiology), follow-up would be )
Medical Tests (Nuc Med, Echo etc): Report Reviewed by me
Labs: Labs Reviewed by me
[2024-12-07] MEDS: VALIUM 5 MG PO (15:21)
--- NOTE | 2024-12-07 16:04 | HPS.HSE ---
Family Physician
-
Family Physician: Avel Soto
Chief Complaint
-
sob and palpitations
History of Present Illness
74 female history of asthma COPD on home O2, hypertension, migraines presents after waking up with chest pressure palpitations and chest discomfort along with shortness of breath. Additionally, complaints of joint pains.
In the ED found to be in A-fib with RVR and was started on a Cardizem drip. When I evaluated her she was already back in sinus rhythm however sinus tach. On 15 of Cardizem drip. White count 21 point. AST 68, ALT 170, total protein 5.8. Flu
negative. Serology negative.
Medical History
Past Medical History
Past Medical History: Reports Arrhythmia, COPD, GERD, HTN and Hypercholesterolemia
Past Surgical History: Reports Other
Social History
Alcohol: None
Family History
Family History: Other
Allergies / Home Medications
Allergies reflects when Allergies were last updated in [employer].
Home Medications with original date entered in [employer]
Allergy/Medication List:
Allergies
Allergy/AdvReac Type Severity Reaction Status Date / Time
No Known Allergies Allergy Verified 12/07/24 06:37
Home Medications
ascorbic acid (vitamin C) 500 mg tablet (Vitamin C) 1,000 mg PO BID Supplement 08/10/18
ovupwblhwl-ihpbtzkmgkuuw-xviaahac 50 mg-325 mg-40 mg tablet 1 tab PO Q4HPRN PRN migraine 08/10/18
diazepam 5 mg tablet 5 mg PO DAILYPRN PRN anxiety 08/10/18
calcium 500 mg (as carbonate)-vitamin D3 5 mcg (200 unit) tablet (Oyster Shell Calcium-Vitamin D3) 1 tab PO DAILY Supplement 09/19/19
fluticasone propionate 50 mcg/actuation nasal spray,suspension 1 spray intranasal DAILYPRN PRN allergies 09/19/19
polyvinyl alcohol-povidone (PF) 1.4 %-0.6 % eye drops in a dropperette (Refresh Classic (PF)) 1 drops BOTH EYES BID Eye condition 09/19/19
albuterol sulfate 2.5 mg/3 mL (0.083 %) solution for nebulization 2.5 mg inhalation R Q4HPRN PRN chest tightness 08/17/22
benzonatate 200 mg capsule 200 mg PO BID Cough 08/17/22
budesonide 0.5 mg/2 mL suspension for nebulization 0.5 mg inhalation R [id number] PRN sob 08/17/22
budesonide-formoterol HFA 160 mcg-4.5 mcg/actuation aerosol inhaler (Symbicort) 2 puff inhalation R BID Lung/breathing issues 08/17/22
diltiazem HCl 360 mg tablet,extended release 24 hr 360 mg PO DAILY Blood pressure 08/17/22
guaifenesin 600 mg tablet, extended release 12 hr (Mucus Relief ER) 1,200 mg PO BID Congestion 08/17/22
sertraline 25 mg tablet 12.5 mg PO Q48H Depression 08/17/22
sodium chloride 3 % for nebulization 4 ml inhalation R BID Lung/breathing issues 08/17/22
vitamin B complex 1 tab PO DAILY Supplement 08/17/22
pantoprazole 40 mg tablet,delayed release 40 mg PO DAILY 30 days #30 tabs 01/03/23
alendronate 70 mg tablet 70 mg PO FR Osteoporosis 11/27/24
hydrochlorothiazide 25 mg tablet 25 mg PO DAILY Fluid Retention/Swelling 11/27/24
ondansetron HCl 4 mg tablet 4 mg PO Q8HPRN PRN nausea 11/27/24
oxybutynin chloride 5 mg tablet,extended release 24 hr 5 mg PO DAILY Urinary Issue 11/27/24
rosuvastatin 20 mg tablet 20 mg PO DAILY High Cholesterol 11/27/24
sumatriptan succinate 25 mg tablet 25 mg PO DAILYPRN PRN migraine 11/27/24
tiotropium bromide 2.5 mcg/actuation mist for inhalation (Spiriva Respimat) 2 inh inhalation R DAILY@1200 Lung/Breathing Issues 11/27/24
apixaban 5 mg tablet (Eliquis) 5 mg PO BID #60 tabs 12/04/24
digoxin 125 mcg (0.125 mg) tablet 125 mcg PO NOON #30 tabs 12/04/24
prednisone 10 mg tablet See Rx Instructions .Route .COMPLEX #26 tabs 12/04/24
tiotropium bromide 2.5 mcg/actuation mist for inhalation 2 inh inhalation NOON 12/07/24
Review of Systems
-
A 12 point ROS was completed and negative except as noted: Yes
Physical Exam
Vital Signs
Vital Signs
Temp Pulse Resp BP Pulse Ox
98.8 F 98 18 113/48 96
12/07/24 12:05 12/07/24 15:15 12/07/24 15:15 12/07/24 14:00 12/07/24 15:15
Physical Exam
HEENT: NormoCephalic
Laboratory Results
-
12/07/24 07:20
12/07/24 07:20
Laboratory Results
Total Bilirubin 0.4 mg/dl (0.2-1.3) 12/07/24 07:20
AST 68 U/L (14-36) H 12/07/24 07:20
ALT 170 U/L (0-35) H 12/07/24 07:20
Alkaline Phosphatase 92 U/L (38-126) 12/07/24 07:20
Impression/Plan
-
NAD
Scleral Anicteric
MMM
No JVD
CTABL
Tachycardic but regular, S1/S2
Soft, NT, ND, BS+
Warm, Dry, no joint swelling nor pain with movement
AAOx3
Calm
Sepsis with tachycardia and leukocytosis that continues. CT demonstrating pulmonary nodules which could be infectious etiology.
----Granted on a steroid taper
-Start IV antibiotics
-Sputum culture
-Blood culture
-ID consult
Atrial fibrillation with RVR, converted back to sinus on Cardizem drip
-Cardiology to eval
-Continue rate control
-Continue digoxin, can check level
COPD without evidence of wheezing
-Continue steroid taper, 30mg until 12/09 then start 20mg x3days and so on
-Continue MDIs
Hypertension
-Continue antihypertensives
Hyperlipidemia
-Continue statin
--- NOTE | 2024-12-07 16:35 | CON.ID ---
Consultation
-
Date/Time Consultation Requested: 12/07/2024 1246
Date/Time Consultation Performed: 12/07/2024 1519
Requesting Provider: Dr. Atkins
Performing Provider: Dr. Castillo
Reason for Consultation: Pulmonary infiltrates versus nodules
Chief Complaint / Past History
History of Present Illness
Tara Engel is a 74-year-old female being evaluated at the request of Dr. Atkins in regards to an abnormal CAT scan with noted nodular appearance. History is obtained from chart review, along with patient interview.
The patient recently was hospitalized here at [facility] from 11/27 through 12/04, during which time she was treated for exacerbation of COPD, along with influenza. During her hospitalization she developed atrial fibrillation and was
ultimately discharged on Cardizem and Eliquis. She reports that she was well until earlier today when she developed racing heart, along with increasing shortness of breath. She notes that she has had some cough, although she is only producing
clear sputum. She denies any fevers or chills. Workup in the emergency room revealed a leukocytosis, although it is approximately where it was at discharge. CT imaging was performed earlier today, revealing nodular parenchymal opacities of
unclear etiology. Infectious Diseases is asked to comment upon necessary further workup.
At this time she denies any fevers or chills, but does admit to feeling tired.
She reports that she resides in a home shared with her long-term life partner. She has dogs for pets. No recent travel.
Past History
Additional Past Medical History:
Asthma
COPD
HTN
Migraines
A-fib
Additional Past Surgical History:
Cataract surgery
Allergy History:
No Known Allergies Allergy (Verified 12/07/24 06:37)
Medications Reviewed: Yes
Current Antibiotics:
Cefepime and vancomycin ordered (not received yet)
Social History
Tobacco: Former Smoker
Alcohol: Occasional
Drug: None
Personal: Partner
Living: With Family
Employment: Employed
Review of Systems
Vital Signs
Temp Pulse Resp BP Pulse Ox
98.8 F 98 18 113/48 96
12/07/24 12:05 12/07/24 15:15 12/07/24 15:15 12/07/24 14:00 12/07/24 15:15
Physical Exam
Physical Exam
Constitutional: No Acute Distress, Comfortable, Chronically Ill and Non-toxic
Eyes: No Conjunctival Hemorrhage and Sclera Anicteric
Oral: No Thrush and No Ulcers
Cardiovascular: Regular Rate and S1/S2; Negative S3/S4
Pulmonary: Clear and Non Labored; Negative Wheezes, Rales or Rhonchi
Gastrointestinal: Soft, Non Tender, Non Distended and Normal Bowel Sounds
Extremities: Edema; Negative Cyanosis, Erythema or Venous Insufficiency
Skin: Warm and Dry; Negative Rash
Neurological: Awake and Alert
Psychological: Calm
.
Lab / Diagnostic Study Results
12/07/24 07:20
12/07/24 07:20
Abs Immat Gran (auto) 0.5 10^3/uL (0-0.05) H 12/07/24 07:20
Absolute Neuts (auto) 17.3 10^3/uL (1.4-6.5) H 12/07/24 07:20
Absolute Lymphs (auto) 1.8 10^3/uL (1.2-3.4) 12/07/24 07:20
Absolute Monos (auto) 1.5 10^3/uL (0.1-0.6) H 12/07/24 07:20
Absolute Basos (auto) 0.1 10^3/uL (0-0.2) 12/07/24 07:20
Immature Gran % 2.2 % (0-0.5) H 12/07/24 07:20
Neutrophils % 81.2 % (42.2-75.2) H 12/07/24 07:20
Lymphocytes % 8.4 % (20.5-51.1) L 12/07/24 07:20
Monocytes % 7.1 % (1.7-9.3) 12/07/24 07:20
Eosinophils % 0.8 % (0-6) 12/07/24 07:20
Basophils % 0.3 % (0-2) 12/07/24 07:20
Microbiology Results
Micro:
12/07/24 10:47 Influenza Types A & B (SHEELA) - Final
Nasal Swab Negative for Influenza A & B, NAAT
Negative results must be combined with clinical observations
and patient history.
Nucleic Acid Amplification test (NAAT)performed on the
[employer] platform.
Imaging:
12/07/2024 CTA (chest/abdomen/pelvis):Numerous predominantly the right lung pulmonary nodular parenchymal opacities with irregular margination, as described. Although likely infectious in etiology (including atypical and/or fungal etiology),
follow-up would be necessary to assess for resolution after conservative therapy, and to exclude the possibility of neoplasm. Otherwise, consider follow-up PET/CT. Mild confluent hilar lymphoid tissue and small mediastinal lymph nodes. However, no
enlarged adenopathy. Diverticulosis. Suspect subtle acute diverticulitis related to the distal descending colon. No bowel obstruction. No obstructive uropathy. Right renal cysts. The liver, gallbladder, pancreas, spleen, and adrenal glands are
unremarkable. No bile duct dilatation. No obstructive uropathy. 2.5 cm lateral right midpole renal cyst. Right upper pole parapelvic cyst measuring 1.5 cm. Age indeterminate, though chronic-appearing sclerotic moderate superior endplate compression
deformity of T7.
Assessment / Plan
Shortness of breath
A-fib with RVR; converted to sinus on Cardizem drip
Recent Hx of COPD exacerbation; on steroid taper
Leukocytosis; suspect secondary to steroids
Abnormal CXR/CT
Asthma
COPD
HTN
Migraines
Recommendations:
I reviewed the patient's CXR and chest CT. Unfortunately, no recent prior CT to compare to, but current CT does show some nodular infiltrates. CXR performed today and compared to 11/27 shows minimal change.
Patient currently with adequate oxygenation. No recorded fevers.
Would observe off of antibiotics for the present time. Check sputum culture for possible post influenza infection.
Would repeat CXR (AP/lateral) in a.m. for better comparison to the film of 11/27/2024.
Follow-up for the development of any fevers.
Will continue to follow clinically, and initiate antibiotics if necessary.
[2024-12-07] MEDS: FIORICET 1 TAB PO ×2 (17:51→23:10)
[2024-12-07] MEDS: VENTOLIN NEBULES 2.5 MG INH (19:00)
[2024-12-07] MEDS: ELIQUIS 5 MG PO (19:40)
--- NOTE | 2024-12-07 20:04 | EDRN ---
Per outgoing shift report, cardiology had requested for pt.'s cardizem dosage to be lowered to 10mg/hr, cardizem remains at 10mg/hr per cardiology orders.
[2024-12-07] MEDS: IMITREX 25 MG PO (20:55)
[2024-12-07] MEDS: SYMBICORT 160/4.5 MCG INHALER 2 PUFF INH (21:04)
--- NOTE | 2024-12-07 21:56 | PTCARENOTE ---
Patient received from ED via stretcher, patient ambulated to bed with x1 assist. Patient on 4L NC, oxygen saturation 95%. Patient appears dyspneic on exertion, harsh/strong cough noted. Diltiazem gtt infusing at 10mg/hr. Patient normal sinus rhythm
to sinus tachycardia on the monitor. Patient denies chest pain or palpitations. Patient oriented to room and unit. Call ram within reach. U/A and respiratory sample pending, patient verbalized understanding that these still need to be collected.
Patient reports generalized weakness but uses no assistive devices at baseline and denies falls within the past three months. Patient verbalized understanding to call for assistance when getting out of bed. Assessment ongoing.
[2024-12-08] VITALS (11 sets, daily range): BP systolic 118–158; BP diastolic 48–87; PULSE 101; O2SAT 93
[2024-12-08] MEDS: CARDIZEM 125 IV ×2 (02:16→02:30)
[2024-12-08] MEDS: FIORICET 1 TAB PO ×4 (03:13→19:29)
[2024-12-08 03:33] LABS: Urine Albumin 1+ (Neg - Trace); Urine Bilirubin Negative (Negative); Urine Character Clear (Clear); Urine Color Amber; Urine Glucose Negative (Negative); Urine Ketone Negative (Negative); Urine Leukocyte 2+ (Negative); Urine Nitrite Negative (Negative); Urine Occult Blood 2+ (Negative); Urine Urobilinogen 1+ (Neg - 1+)
[2024-12-08 04:22] LABS: Urine Squamous Cell 16-20 /LPF (Few)
[2024-12-08 04:23] LABS: Urine Bacteria Moderate (Negative)
[2024-12-08 04:24] LABS: Urine Mucus Few
[2024-12-08] MEDS: DELTASONE 30 MG PO (08:04)
[2024-12-08] MEDS: CARDIZEM CD 360 MG PO (08:04)
[2024-12-08] MEDS: ZOLOFT 12.5 MG PO (08:05)
[2024-12-08] MEDS: ELIQUIS 5 MG PO ×2 (08:05→19:29)
[2024-12-08] MEDS: CRESTOR 20 MG PO (08:05)
[2024-12-08] MEDS: ORETIC 25 MG PO (08:05)
[2024-12-08] MEDS: PROTONIX 40 MG PO (08:05)
--- NOTE | 2024-12-08 08:20 | W.PN.ID1 ---
Date of Service
Date of Service: December 08, 2024
Today's Communication
Follow-up antibiotics. Await repeat culture
Assessment / Plan
Shortness of breath
A-fib with RVR; converted to sinus on Cardizem drip
Recent Hx of COPD exacerbation; on steroid taper
Leukocytosis; suspect secondary to steroids
Abnormal CXR/CT
Asthma
COPD
HTN
Migraines
Recommendations:
I reviewed the patient's CXR and chest CT. Unfortunately, no recent prior CT to compare to, but current CT does show some nodular infiltrates. CXR performed 12/07 and compared to 11/27 shows minimal change although different techniques were used.
Patient currently with adequate oxygenation. No recorded fevers.
Would observe off of antibiotics for the present time. Check sputum culture for possible post influenza infection.
Repeat CXR (AP/lateral) today for better comparison to the film of 11/27/2024.
Follow for the development of any fevers.
Will continue to follow clinically, and initiate antibiotics if necessary.
����������������������������������������������������������
Chief Complaint
-: Other (Nodular pulmonary infiltrates)
Subjective / Review of Systems
Patient seen and examined. Reports mild shortness of breath. Little cough. Reports ongoing migraine symptoms. No fevers or chills.
Vital Signs / Physical Exam
Vital Signs
Vital Signs
Temp Pulse Resp BP Pulse Ox
98.8 F 98 22 127/48 94
12/08/24 07:17 12/08/24 06:24 12/08/24 07:17 12/08/24 06:24 12/08/24 07:17
Physical Exam
Constitutional: Comfortable, Chronically Ill and Non-toxic
Eyes: No Conjunctival Hemorrhage and Sclera Anicteric
Cardiovascular: Regular Rate
Pulmonary: Clear and Non Labored
Gastrointestinal: Soft, Non Distended and Normal Bowel Sounds
Neurological: Awake and Alert
Psychological: Calm
Objective Data
Lab Data
Estimated Creat Clear 75 ml/min 12/07/24 07:20
Total Bilirubin 0.4 mg/dl (0.2-1.3) 12/07/24 07:20
AST 68 U/L (14-36) H 12/07/24 07:20
ALT 170 U/L (0-35) H 12/07/24 07:20
Alkaline Phosphatase 92 U/L (38-126) 12/07/24 07:20
Most recent labs reviewed.
Micro Results:
12/08/24 02:32 Urine Culture - Pending
Urine
12/07/24 10:47 Influenza Types A & B (SHEELA) - Final
Nasal Swab Negative for Influenza A & B, NAAT
Negative results must be combined with clinical observations
and patient history.
Nucleic Acid Amplification test (NAAT)performed on the
[employer] platform.
Imaging:
12/07/2024 CTA (chest/abdomen/pelvis):Numerous predominantly the right lung pulmonary nodular parenchymal opacities with irregular margination, as described. Although likely infectious in etiology (including atypical and/or fungal etiology),
follow-up would be necessary to assess for resolution after conservative therapy, and to exclude the possibility of neoplasm. Otherwise, consider follow-up PET/CT. Mild confluent hilar lymphoid tissue and small mediastinal lymph nodes. However, no
enlarged adenopathy. Diverticulosis. Suspect subtle acute diverticulitis related to the distal descending colon. No bowel obstruction. No obstructive uropathy. Right renal cysts. The liver, gallbladder, pancreas, spleen, and adrenal glands are
unremarkable. No bile duct dilatation. No obstructive uropathy. 2.5 cm lateral right midpole renal cyst. Right upper pole parapelvic cyst measuring 1.5 cm. Age indeterminate, though chronic-appearing sclerotic moderate superior endplate compression
deformity of T7.
[2024-12-08 08:31] LABS: Hematocrit 43.4 % (37.0-47.0); Hemoglobin 14.3 g/dL (12.0-16.0); Mean Corp Hgb Conc. 32.9 g/dL (33.0-37.0); Mean Corpuscular Hgb 31.1 pg (27.0-31.0); Mean Corpuscular Volume 94.3 fL (81.0-99.0); Mean Platelet Volume 8.9 fL (7.4-10.4); Platelet Count 222 10^3/uL (130-400); White Blood Cell Count 20.3 10^3/uL (4.8-10.8)
[2024-12-08 08:41] LABS: Blood Urea Nitrogen 28 mg/dl (7-17); Calcium 8.2 mg/dl (8.4-10.2); Chloride 93 mmol/L (98-107); Estimated Creatinine Clearance 73 ml/min; Glucose 97 mg/dl (70-99); Potassium 4.2 mmol/L (3.5-5.1); Sodium 137 mmol/L (135-145); eGFR > 60.00
[2024-12-08] MEDS: SYMBICORT 160/4.5 MCG INHALER 2 PUFF INH ×2 (08:48→21:08)
[2024-12-08 08:57] LABS: Carbon Dioxide 36 mmol/L (22-30)
--- NOTE | 2024-12-08 10:17 | W.PN.CD ---
Today's Communication / Plan
-
Transition from IV to oral Cardizem
Continue Eliquis
Impression / Plan
-
Atrial flutter. Patient with atrial fibrillation last admission. Now presents with atrial flutter spontaneously converted back to sinus rhythm
-Despite being back in rhythm patient did not feel well generalized aches and just not feeling well. Clearly a lot of the patient's symptoms are not related to A-fib.
-Transition IV Cardizem back to oral.
-Continue anticoagulation with Eliquis
-Will continue to assess additional options for rhythm control
.
Patient with general sense of not feeling well with bodyaches. Patient recently had a hospitalization with influenza A. Additional follow-up testing for influenza and COVID-negative. Unclear if patient may have infection or other viral syndrome
contributing to symptoms. nodule and infiltrates on CT. Patient seen by ID. Recommendation is to hold off on antibiotics at this time.. Patient still feels poorly headache and muscle aches.
Recent infection with influenza last admission
.
SVT history of SVT continue Cardizem
Aortic stenosis mild
Asthma/COPD. Treatment as directed by primary team
PAD. Moderate but not significant subclavian stenosis. Patient follows up with vascular surgery/Dr. Chatterjee
Physical Exam
Vital Signs/Labs
Vital Signs
Temp Pulse Resp BP Pulse Ox
98.8 F 82 16 127/48 94
12/08/24 07:17 12/08/24 08:51 12/08/24 08:51 12/08/24 06:24 12/08/24 08:51
12/07/24 12/08/24 12/09/24
06:59 06:59 06:59
Actual Weight 65 kg 63.4 kg
12/08/24 08:17
12/08/24 08:17
12/07/24
07:20
[id number] Pept 331
Physical Exam
Constitutional: Other (Still does not feel well with muscle aches and headache)
Cardiovascular: Rhythm & rate is regular
Respiratory: Wheeze Absent and Other (Decreased at bases bilaterally)
GI: Soft
Neuro/Psych: Alert
Data Reviewed
-
Date of Service: December 08, 2024
Medical Decision Making: Reviewed Test Results
Labs: Labs Reviewed by me
--- NOTE | 2024-12-08 10:46 | PTCARENOTE ---
Assumed care 0700. Patient awake and sitting on side of bed. Oxygen 4 liters NC, breath sounds, moist cough, dyspneic with activity and sometimes with rest. Complaints of general malaise and body aches. Afebrile. NSR hr in the 90's at rest,
tachycardia with activity. CXR completed, Cardizem GTT discontinued, started on PO Cardizem this morning. Complaints of a migraine, Fioricet given and ice to applied to head, lights off and call ram in reach
--- NOTE | 2024-12-08 11:05 | W.PN.HOSP.TC ---
Today's Communication/Plan
-
Assessment / Plan
Assessment / Plan
NAD resting in bed with a ice pack over her head states she had a headache that is improving with the help of her home medications that have been provided to her
Continues to complain of weakness and muscle cramping in the lower extremities just above the ankles and above the knees
Scleral Anicteric, able to track
MMM
No JVD
CTABL
Regular rate rhythm, S1/S2
Soft, NT, ND, BS+
Warm, Dry, no joint swelling nor pain with movement
AAOx3
Calm
Sepsis with tachycardia and leukocytosis that continues. CT demonstrating pulmonary nodules which could be infectious etiology. If blood culture is negative [id number] then sepsis will be ruled out
----Suspect leukocytosis secondary to steroid taper
------ does complain of some weakness/muscle aches could be part in part related to flu that was recently treated but is on steroid taper however may need to consider steroid induced myopathy. Can check ESR and CPK will order for a.m.
-Evaluated by ID, hold off on IV antibiotics, follow-up temperature curve and blood cultures if positive initiate at that time
Atrial fibrillation with RVR, converted back to sinus on Cardizem drip
-Transition Cardizem drip to oral Cardizem
-Continue rate control
-Continue digoxin
COPD without evidence of wheezing
-Continue steroid taper, 30mg until 12/09 then start 20mg x3days and so on
-Continue MDIs
Hypertension
-Continue antihypertensives
Hyperlipidemia
-Continue statin
Anticipated Discharge: 24 - 48 hours
Subjective/Interval History
-
Date of Service: December 08, 2024
Seen and examined. No new complaints. No acute overnight events.
Still having cramping and bilateral lower extremities and continues to feel weak
Objective Data
-
Labs:
Laboratory Results
12/08/24
08:17
WBC 20.3 H
Hgb 14.3
Hct 43.4
Plt Count 222
Sodium 137
Potassium 4.2
Chloride 93 L
Carbon Dioxide 36 H
BUN 28 H
Creatinine 0.5 L
Glucose 97
Calcium 8.2 L
Vital Signs:
Vital Signs
Temp Pulse Resp BP Pulse Ox
98.8 F 82 16 127/48 94
12/08/24 07:17 12/08/24 08:51 12/08/24 08:51 12/08/24 06:24 12/08/24 08:51
I&O
12/07/24 12/08/24 12/09/24
06:59 06:59 06:59
Intake Total 85 / 85 480 / 480
Output Total 150 / 150
Balance -65 / -65 480 / 480
[2024-12-08] MEDS: LANOXIN 125 MCG PO (13:28)
[2024-12-08 13:33] LABS: Creatine Phosphokinase 21 U/L (30-135)
[2024-12-08 14:01] LABS: Blood Urea Nitrogen 27 mg/dl (7-17); Calcium 8.7 mg/dl (8.4-10.2); Carbon Dioxide 36 mmol/L (22-30); Chloride 89 mmol/L (98-107); Estimated Creatinine Clearance 73 ml/min; Glucose 312 mg/dl (70-99); Potassium 4.6 mmol/L (3.5-5.1); Sodium 131 mmol/L (135-145); eGFR > 60.00
[2024-12-08 16:11] LABS: Glucose - Point of Care 277 mg/dl (70-99)
--- NOTE | 2024-12-08 20:09 | PTCARENOTE ---
pt received at change of shift, pt seen and assessed in room. pt aox3, tele reading nsr, sinus tach 90s-110s. Satting 97% on 4L NC (2-4L NC at home). complains of 4/10 migraine, prn fioricet given. This RN plan of care to pt. pt verbalizes
understanding. Call ram within reach. Continuing to monitor at this time.
[2024-12-08] MEDS: VALIUM 5 MG PO (22:20)
[2024-12-09] VITALS (10 sets, daily range): BP systolic 121–155; BP diastolic 62–79
[2024-12-09 02:40] LABS: Hematocrit 37.5 % (37.0-47.0); Hemoglobin 12.4 g/dL (12.0-16.0); Mean Corp Hgb Conc. 33.1 g/dL (33.0-37.0); Mean Corpuscular Hgb 31.1 pg (27.0-31.0); Mean Platelet Volume 9.3 fL (7.4-10.4); Platelet Count 235 10^3/uL (130-400); Red Blood Cell Count 3.99 10^6/uL (4.20-5.40); Red Cell Dist. Width 12.8 % (11.5-14.5); White Blood Cell Count 17.2 10^3/uL (4.8-10.8)
[2024-12-09 02:46] LABS: Erythrocyte Sed Rate 50 mm/hour (0-20)
[2024-12-09 03:11] LABS: Blood Urea Nitrogen 22 mg/dl (7-17); Calcium 8.6 mg/dl (8.4-10.2); Chloride 91 mmol/L (98-107); Creatine Phosphokinase < 20 U/L (30-135); Estimated Creatinine Clearance 73 ml/min; Glucose 147 mg/dl (70-99); Potassium 3.8 mmol/L (3.5-5.1); Sodium 134 mmol/L (135-145); eGFR > 60.00
[2024-12-09 03:21] LABS: Carbon Dioxide 36 mmol/L (22-30)
[2024-12-09] MEDS: FIORICET 1 TAB PO ×4 (04:19→22:21)
[2024-12-09] MEDS: PROTONIX 40 MG PO (07:26)
[2024-12-09] MEDS: DELTASONE 20 MG PO (07:26)
[2024-12-09] MEDS: ORETIC 25 MG PO (07:26)
[2024-12-09] MEDS: CARDIZEM CD 360 MG PO (07:27)
[2024-12-09] MEDS: ELIQUIS 5 MG PO ×2 (07:27→19:36)
[2024-12-09] MEDS: CRESTOR 20 MG PO (07:27)
[2024-12-09] MEDS: IMITREX 25 MG PO (07:29)
[2024-12-09] MEDS: SYMBICORT 160/4.5 MCG INHALER 2 PUFF INH ×2 (08:38→19:59)
[2024-12-09 09:26] LABS: Procalcitonin 0.11 ng/ml (0.0-0.25)
--- NOTE | 2024-12-09 09:28 | W.PN.CD ---
Addendum entered and electronically signed by Alfredo Estrada MD 12/09/24 09:52:
I saw and examined the patient.
The AUTO CLAIMS ADJUSTER's note was reviewed and I agree with the note.
Remains in sinus rhythm/sinus tachycardia without evidence of recurrent atrial fibrillation. Would continue with current dosing of Cardizem, digoxin and Eliquis. Patient still with bodyaches all over. Feels a little bit better today. CPK
unremarkable. ESR 50 chest x-ray with question of slight progression of abnormalities of right medial lung base. Predominantly right-sided interstitial infiltrate and subtle underlying parenchymal nodularity which was also demonstrated on prior
study
-Additional assessment as directed by primary team and ID.
Original Note:
Today's Communication / Plan
-
-continue diltiazem, digoxin, and Eliquis and follow telemetry
-infectious w/u and management per primary/ID
Impression / Plan
-
Atrial flutter:
-patient with atrial fibrillation last admission, then this admit presented with atrial flutter spontaneously converted back to sinus rhythm.
-she remains in SR, though is tachycardic (due to underlying illness, which is being worked up- infectious process, continued pain, etc.). She is on digoxin and diltiazem.
-continue Eliquis for OAC
-Echo 12/03/24: Normal biventricular size and systolic function without regional wall motion abnormality. LVEF 65-70%. Aortic sclerosis without stenosis. No significant valvular disease.
Body aches, weakness, SOB:
-recently had flu A
-CXR 12/08/23: Predominately right-sided interstitial infiltrate and subtle underlying parenchymal nodularity is again demonstrated involving the caudal aspect of the right upper lobe and right lower lobe. Slight progression suggested in the medial
right lung base.
-thinks breathing is a little better, but still achy all over and very weak
-pro mehul is pending
-she has sinus tachycardia in this setting as noted
SVT history: continue Cardizem
Aortic stenosis: mild
Asthma/COPD: treatment as directed by primary team
PAD: Moderate, but not significant subclavian stenosis. Patient follows up with vascular surgery/Dr. Chatterjee
Physical Exam
Vital Signs/Labs
Vital Signs
Temp Pulse Resp BP Pulse Ox
99.4 F 117 18 137/62 93
12/09/24 07:25 12/09/24 08:45 12/09/24 08:41 12/09/24 07:25 12/09/24 08:41
12/08/24 12/09/24 12/10/24
06:59 06:59 06:59
Actual Weight 63.4 kg
12/09/24 02:21
12/09/24 02:20
12/07/24
07:20
[id number]-[id number] Pept 331
Physical Exam
Constitutional: No acute distress
EENT: Anicteric
Cardiovascular: Rhythm & rate is regular (ST)
Respiratory: Respiratory effort normal and Other (diminished to b/l bases, on O2 by NC)
Neuro/Psych: AO x 3
Other: Skin (warm and dry)
Data Reviewed
-
Date of Service: December 09, 2024
EKG: Other (ST)
Echo: Report Reviewed by me (as noted above)
Labs: Labs Reviewed by me
--- NOTE | 2024-12-09 09:30 | PTCARENOTE ---
Rec'd pt at handoff. AOX3. Tele - ST 120s. Pt c/o generalized body aches and headache. PRN Imitrex administered per pt request and pt reports some relief. Pt reports breathing feels a little bit better today. Urine and blood work collected and sent.
Currently in bed; call leanna w/in reach.
[2024-12-09] MEDS: LANOXIN 125 MCG PO (11:41)
--- NOTE | 2024-12-09 11:41 | CON.PUL ---
Consultation
Consultation Request
Date/Time Consultation Requested: 12/09/24
Date/Time Consultation Performed: 12/09/24
Performing Provider: Luis Antonio
Reason for Consultation: COPD
Medical History
-
History of Present Illness:
Patient is a 74-year-old female with previous history of severe COPD on home oxygen 2-4L, hypertension, migraines presenting with chest pressure, palpitations and right sided chest discomfort. In the ER, she was notably found to be in A-fib with
RVR and started on Cardizem drip. Chest x-ray demonstrating new right sided opacity that may represent pneumonia. She recently was flu positive.
Still having ongoing right-sided chest discomfort.
Past Medical History
Past Medical History: Other (see list below)
Social History
Tobacco: Former Smoker
Alcohol: None
Drug: None
Family History
Family History: Reviewed & Not Pertinent
Allergies / Home Medications
Allergies
Allergy/AdvReac Type Severity Reaction Status Date / Time
No Known Allergies Allergy Verified 12/07/24 06:37
Home Medications
�Medication �Instructions �Recorded �Confirmed �Last Taken �Type
ascorbic acid (vitamin C) 500 mg 1,000 mg PO BID Supplement 08/10/18 12/07/24 12/06/24 History
tablet (Vitamin C)
lruqcplgst-ackzbgfzzjhil-qivhsqbg 1 tab PO Q4HPRN PRN migraine 08/10/18 12/07/24 08/09/18 History
50 mg-325 mg-40 mg tablet 0.5 tab
diazepam 5 mg tablet 5 mg PO DAILYPRN PRN anxiety 08/10/18 12/07/24 Unknown History
calcium 500 mg (as 1 tab PO DAILY Supplement 09/19/19 12/07/24 12/06/24 History
carbonate)-vitamin D3 5 mcg (200
unit) tablet (Oyster Shell
Calcium-Vitamin D3)
fluticasone propionate 50 1 spray intranasal DAILYPRN PRN 09/19/19 12/07/24 Unknown History
mcg/actuation nasal allergies
spray,suspension
polyvinyl alcohol-povidone (PF) 1 drops BOTH EYES BID Eye condition 09/19/19 12/07/24 12/06/24 History
1.4 %-0.6 % eye drops in a
dropperette (Refresh Classic (PF))
albuterol sulfate 2.5 mg/3 mL 2.5 mg inhalation R Q4HPRN PRN 08/17/22 12/07/24 12/06/24 History
(0.083 %) solution for nebulization chest tightness
benzonatate 200 mg capsule 200 mg PO BID Cough 08/17/22 12/07/24 12/06/24 History
budesonide 0.5 mg/2 mL suspension 0.5 mg inhalation R [id number] PRN sob 08/17/22 12/07/24 12/06/24 History
for nebulization
budesonide-formoterol HFA 160 2 puff inhalation R BID 08/17/22 12/07/24 12/06/24 History
mcg-4.5 mcg/actuation aerosol Lung/breathing issues
inhaler (Symbicort)
diltiazem HCl 360 mg 360 mg PO DAILY Blood pressure 08/17/22 12/07/24 12/06/24 History
tablet,extended release 24 hr
guaifenesin 600 mg tablet, 1,200 mg PO BID Congestion 08/17/22 12/07/24 12/06/24 History
extended release 12 hr (Mucus
Relief ER)
sertraline 25 mg tablet 12.5 mg PO Q48H Depression 08/17/22 12/07/24 12/06/24 History
sodium chloride 3 % for 4 ml inhalation R BID 08/17/22 12/07/24 12/06/24 History
nebulization Lung/breathing issues
vitamin B complex 1 tab PO DAILY Supplement 08/17/22 12/07/24 12/06/24 History
pantoprazole 40 mg tablet,delayed 40 mg PO DAILY 30 days #30 tabs 01/03/23 12/07/2412/06/25 Rx
release
alendronate 70 mg tablet 70 mg PO FR Osteoporosis 11/27/24 12/07/24 12/06/24 History
hydrochlorothiazide 25 mg tablet 25 mg PO DAILY Fluid 11/27/24 12/07/24 12/06/24 History
Retention/Swelling
ondansetron HCl 4 mg tablet 4 mg PO Q8HPRN PRN nausea 11/27/24 12/07/24 Unknown History
oxybutynin chloride 5 mg 5 mg PO DAILY Urinary Issue 11/27/24 12/07/24 12/06/24 History
tablet,extended release 24 hr
rosuvastatin 20 mg tablet 20 mg PO DAILY High Cholesterol 11/27/24 12/07/24 12/06/24 History
sumatriptan succinate 25 mg tablet 25 mg PO DAILYPRN PRN migraine 11/27/24 12/07/24 Unknown History
tiotropium bromide 2.5 2 inh inhalation R DAILY@1200 11/27/24 12/07/24 12/06/24 History
mcg/actuation mist for inhalation Lung/Breathing Issues
(Spiriva Respimat)
apixaban 5 mg tablet (Eliquis) 5 mg PO BID #60 tabs 12/04/24 12/07/24 12/06/24 Rx
digoxin 125 mcg (0.125 mg) tablet 125 mcg PO NOON #30 tabs 12/04/24 12/07/24 12/06/24 Rx
prednisone 10 mg tablet See Rx Instructions .Route 12/04/24 12/07/24 12/06/24 Rx
.COMPLEX #26 tabs
tiotropium bromide 2.5 2 inh inhalation NOON 12/07/24 12/07/24 12/06/24 History
mcg/actuation mist for inhalation
Review of Systems
-
History Source: Patient
All other systems: Negative unless noted
Vitals / Labs / Diagnostic Testing
Vital Signs
Temp Pulse Resp BP Pulse Ox
99.5 F 117 18 155/79 93
12/09/24 11:17 12/09/24 11:15 12/09/24 11:17 12/09/24 11:13 12/09/24 11:17
Lab Data
12/09/24 02:21
12/09/24 02:20
Microbiology
12/09/24 09:20 Urine Legionella Urinary Antigen - Final
Negative for Legionella pneumophila Serogroup 1 antigen.
A negative result does not rule out the possiblity of
Legionella infection due to other serogroups or species of
Legionella. Clinical correlation is recommended.
12/09/24 09:20 Urine Streptococcus pneumoniae Antigen (M - Final
Negative for Streptococcus pneumoniae antigen.
A negative result does not exclude infection with
Streptococcus pneumoniae. Clinical correlation is
recommended.
12/08/24 02:32 Urine Urine Culture - Final
12/07/24 10:47 Nasal Swab Influenza Types A & B (SHEELA) - Final
Negative for Influenza A & B, NAAT
Negative results must be combined with clinical observations
and patient history.
Nucleic Acid Amplification test (NAAT)performed on the
[employer] platform.
Diagnostic Testing:
Physical Exam
-
HEENT: Normocephalic, Anicteric and Moist Mucous Membranes
Cardiovascular: S1/S2 and Regular Rhythm
Respiratory: Rales (R>L) and Non-Labored Respirations
GI: Soft, Non Distended and Non Tender
Neurology: Awake, Alert, Oriented and No Motor Deficits
Skin: Warm, Dry and Good Color
General: Comfortable and Other (NAD)
Assessment
-
Patient is a 74-year-old female with previous history of severe COPD on home oxygen 2-4L, hypertension, migraines presenting with chest pressure, palpitations and right sided chest discomfort. In the ER, she was notably found to be in A-fib with
RVR and started on Cardizem drip. Chest x-ray demonstrating new right sided opacity that may represent pneumonia. She recently was flu positive.
Still having ongoing right-sided chest discomfort.
Chronic hypoxemia, currently on 4 L
New right-sided opacities on chest x-ray, possible pneumonia
Chest discomfort
Palpitations
A-fib with RVR on Cardizem drip, h/o SVT
Recent flu A positive 11/27/24
Conditions present prior to admission
Osteoporosis
Hypertension
PAD
B/l Brachial artery stenosis
Anxiety
Migraine Headache
Severe COPD on home O2/Centrilobular emphysema
Follows Dr Wayne
FVC 2.20 L or 74%; FEV1 0.71 L or 32%, ratio was 32%; TLC 5.0 or 101%, RV/TLC 54%, DLCO 17%
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
Upper airway cough syndrome, follows with ENT
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
T7 compression facture 04/12
B/L Cataract Surgery
Colonoscopy and endoscopy-polyps found
s/p Mohs Surgery 09/2024
Plan
She remains on her baseline O2 requirements, 2-4L
Prior history of lung disease is noted including severe COPD/emphysema, stage IV with severe diffusion impairment
Suspect patient has PNA given CXR and CT findings
She is placed on empiric abx
Sputum culture if able--she would be high risk from a procedural standpoint for bronchoscopy given her lung function
Check cultures as able, add MRSA screening given recent Flu
PCT negative
Afib with RVR noted, on gtt
Cards following
proBNP 300
Prior ECHO results are reviewed indicating stable function
Resume home inhalers
She is on chronic prednisone for COPD, steroid dependant
Would be reasonable to discuss GOC if she were to clinically deteriorate given her lung function
She remains full code
We will follow
Diagnostic Data
Chest X-Ray: 12/08/24- Predominately right-sided interstitial infiltrate and subtle underlying parenchymal nodularity is again demonstrated involving the caudal aspect of the right upper lobe and right lower lobe. Slight progression suggested in the
medial right lung base. The left lung remains essentially clear.
CT Scan: CT CAP 12/07/24- Numerous predominantly the right lung pulmonary nodular parenchymal opacities with irregular margination, as described. Although likely infectious in etiology (including atypical and/or fungal etiology), follow-up would be
necessary to assess for resolution after conservative therapy, and to exclude the possibility of neoplasm. Otherwise, consider follow-up PET/CT.
Mild confluent hilar lymphoid tissue and small mediastinal lymph nodes. However, no enlarged adenopathy.
Moderate emphysematous lung changes.
Echo: 12/03/24- Normal biventricular size and systolic function without regional wall motion abnormality. LVEF 65-70%. Aortic sclerosis without stenosis. No significant valvular disease.
No change compared to prior study in April 2023.
PFT's:
Reports and relevant images were personally reviewed.
Total time spent on this consultation __75__ minutes which includes review of history, physical exam, medications, laboratory data, personal review of imaging, extensive review of outpatient records, discussion with care team and respiratory therapy.
--- NOTE | 2024-12-09 12:26 | W.PN.HOSP.TC ---
Today's Communication/Plan
-
see PN
Assessment / Plan
Assessment / Plan
74yo F with PMHX of chronic hypoxic respiratory failure on 2-4L O2 2/2 COPD, HTN, migraines came with SOB and chest palpitations, managed for A.fib with RVR. SHe was recently in [facility] with Influenza A. Most likely post-viral syndrome. CHest CT showed
numerous predominantly R pulmonary nodules. ID following off Abx. ALso mild diverticulitis
A/P
#chronic hypoxic respoiratory failure 2/2 COPD without exacerbation
#Pulmonary nodules
Doubt sepsis
Procal neg
ID followed - reasonable not to treat for pneumonia
Check sputum Cx, legionella and S.pneumonia urinary Ag
Pulm consult
cont bronchodilators
taper steroids
#Afib with RVR
Eliquis
Cardio consult
Rate control
telemetry
#mild diverticulitis
unasyn reasonable
Outpatient colonoscopy in 6 weeks advised
#Renal cysts
no follow up advised
#Migraines
#Anxiety
#Essential HTN
#HLD
#Urinary retention
cont hoem meds
#UTI ruled out
Ucx neg
DVT ppx Eliquis
Full code
I have spent at least 39min reviewing chart, test results, communication with consultants and direct patient care
Anticipated Discharge: > 48 hours
Subjective/Interval History
-
Date of Service: December 09, 2024
Objective Data
-
Labs:
Laboratory Results
12/09/24 12/09/24
02:20 02:21
WBC 17.2 H
Hgb 12.4
Hct 37.5
Plt Count 235
Sodium 134 L
Potassium 3.8
Chloride 91 L
Carbon Dioxide 36 H
BUN 22 H
Creatinine 0.5 L
Glucose 147 H
Calcium 8.6
Vital Signs:
Vital Signs
Temp Pulse Resp BP Pulse Ox
99.5 F 110 18 155/79 93
12/09/24 11:17 12/09/24 11:41 12/09/24 11:17 12/09/24 11:13 12/09/24 11:17
I&O
12/08/24 12/09/24 12/10/24
06:59 06:59 06:59
Intake Total 85 / 85 580 / 580 300 / 300
Output Total 150 / 150 100 / 100 100 / 100
Balance -65 / -65 480 / 480 200 / 200
Review of Systems
-
History Source: Patient
All other systems: Reviewed and negative
Constitutional: Reports Weakness
Physical Exam
-
General: No Apparent Distress
HEENT: Normocephalic
Cardiac: Regular Rhythm
GI: Soft, Nondistended and Tender (LLQ)
Skin: Warm
Neuro: Awake, Alert, Oriented and AO x 3
Psych: Calm
[2024-12-09] MEDS: UNASYN IV ×2 (13:10→19:36)
--- NOTE | 2024-12-09 14:07 | W.PN.ID1 ---
Date of Service
Date of Service: December 09, 2024
Today's Communication
Continue to monitor closely off of antibiotics.
Assessment / Plan
Shortness of breath
A-fib with RVR; converted to sinus on Cardizem drip
Recent Hx of COPD exacerbation; on steroid taper
Leukocytosis; suspect secondary to steroids
Abnormal CXR/CT
Asthma
COPD
HTN
Migraines
Recommendations:
I reviewed the patient's CXR and chest CT. Unfortunately, no recent prior CT to compare to, but current CT does show some nodular infiltrates. CXR performed 12/07 and compared to 11/27 shows minimal change although different techniques were used.
Patient currently with adequate oxygenation. No recorded fevers.
Would observe off of antibiotics for the present time. Check sputum culture for possible post influenza infection.
Follow for the development of any fevers.
Will continue to follow clinically, and initiate antibiotics if necessary.
����������������������������������������������������������
Chief Complaint
-: Other (Nodular pulmonary infiltrates)
Subjective / Review of Systems
Review of Systems: No Fever and No Chills
Vital Signs / Physical Exam
Vital Signs
Vital Signs
Temp Pulse Resp BP Pulse Ox
99.5 F 110 18 155/79 93
12/09/24 11:17 12/09/24 11:41 12/09/24 11:17 12/09/24 11:13 12/09/24 11:17
Physical Exam
Constitutional: Comfortable, Chronically Ill and Non-toxic
Eyes: No Conjunctival Hemorrhage and Sclera Anicteric
Cardiovascular: Regular Rate
Pulmonary: Clear and Non Labored
Gastrointestinal: Soft, Non Distended and Normal Bowel Sounds
Skin: Negative Rash or Jaundice
Neurological: Awake, Alert and Oriented
Psychological: Calm
Objective Data
Lab Data
Lab Results
12/09/24 02:21
12/09/24 02:20
ESR 50 mm/hour (0-20) H 12/09/24 02:21
Estimated Creat Clear 73 ml/min 12/09/24 02:20
Total Bilirubin 0.4 mg/dl (0.2-1.3) 12/07/24 07:20
AST 68 U/L (14-36) H 12/07/24 07:20
ALT 170 U/L (0-35) H 12/07/24 07:20
Alkaline Phosphatase 92 U/L (38-126) 12/07/24 07:20
Most recent labs reviewed.
Micro Results:
12/09/24 11:57 MRSA Screen - Pending
Nose
12/09/24 09:20 Legionella Urinary Antigen - Final
Urine Negative for Legionella pneumophila Serogroup 1 antigen.
Streptococcus pneumoniae Antigen (M - Final
Negative for Streptococcus pneumoniae antigen.
12/08/24 02:32 Urine Culture - Final
Urine
12/07/24 10:47 Influenza Types A & B (SHEELA) - Final
Nasal Swab Negative for Influenza A & B, NAAT
Negative results must be combined with clinical observations
and patient history.
Nucleic Acid Amplification test (NAAT)performed on the
[employer] platform.
Imaging:
12/07/2024 CTA (chest/abdomen/pelvis):Numerous predominantly the right lung pulmonary nodular parenchymal opacities with irregular margination, as described. Although likely infectious in etiology (including atypical and/or fungal etiology),
follow-up would be necessary to assess for resolution after conservative therapy, and to exclude the possibility of neoplasm. Otherwise, consider follow-up PET/CT. Mild confluent hilar lymphoid tissue and small mediastinal lymph nodes. However, no
enlarged adenopathy. Diverticulosis. Suspect subtle acute diverticulitis related to the distal descending colon. No bowel obstruction. No obstructive uropathy. Right renal cysts. The liver, gallbladder, pancreas, spleen, and adrenal glands are
unremarkable. No bile duct dilatation. No obstructive uropathy. 2.5 cm lateral right midpole renal cyst. Right upper pole parapelvic cyst measuring 1.5 cm. Age indeterminate, though chronic-appearing sclerotic moderate superior endplate compression
deformity of T7.
--- NOTE | 2024-12-09 15:27 | PN.CDI ---
CDI
- -
CDI:
Physician Documentation Request
Admit Date: 12/07/24 13:15
Dear Doctor Latrice,
Please review the following and provide your response in the progress notes.
Clinical Indicators:
Pt admitted with tachycardia and leukocytosis.
12/09 Cardiology: 'Atrial flutter -patient with atrial fibrillation last admission, then this admit presented with atrial flutter spontaneously converted back to sinus rhythm.'
12/09 Progress note: '#Afib with RVR
Due to conflicting documentation, if possible, please clarify if rhythm was atrial flutter or atrial fibrillation and further specificity regarding atrial fibrillation, such as:
Paroxysmal atrial fibrillation - terminates spontaneously or with intervention within 7 days of onset
Persistent atrial fibrillation - episodes of continuous AF that last more than 7 days and do not self-terminate
Permanent atrial fibrillation - when a decision has been made to accept the presence of AF and there is no further attempt to restore or maintain sinus rhythm
Atrial Flutter
Other - please specify
Use of terms such as suspected, likely, concern for, or probable (associated with a specific diagnosis that is being evaluated, monitored, or treated as if it exists) are acceptable and can be coded in the inpatient setting, when documented at the
time of discharge.
Thank you,
Emily Lopez RN, BSN
CDI Specialist
Sesser Text
Please use your independent medical judgment in providing your response.
--- NOTE | 2024-12-09 15:39 | CM ---
spoke to pt in room, she is prev indep, lives with her so in a ranch home with 1 step to enter. she has hoem o2 2-4 liters with [employer]. she denies any dc plannning needs. plan is for dc to home when medically stable.
[2024-12-09 18:24] LABS: Hepatitis B Surface Antigen Negative (Negative)
[2024-12-09 18:41] LABS: Hepatitis A Antibody, Total Negative (Negative); Hepatitis C Antibody Negative (Negative)
[2024-12-09 19:49] LABS: Hepatitis B Surface Antibody Positive
[2024-12-09] MEDS: VALIUM 5 MG PO (22:22)
--- NOTE | 2024-12-09 23:15 | PTCARENOTE ---
assumed pt care at handoff, pt seen and assessed in room. Ambulating independently to bathroom without difficulty. tele reading sinus tachy in the 110s. pt still complaining of migraine pain radiating to neck, PRN fioricet given. This RN explained
POC, pt. verbalizes understanding of POC. call ram within reach, continuing to monitor at this time.
[2024-12-10] VITALS (23 sets, daily range): BP systolic 100–152; BP diastolic 61–127
[2024-12-10] MEDS: TYLENOL 650 MG PO (02:23)
[2024-12-10] MEDS: UNASYN IV ×4 (02:23→19:58)
[2024-12-10 03:22] LABS: % Basophils 0.3 % (0-2); % Eosinophils 0.5 % (0-6); % Immature Granulocytes 1.1 % (0-0.5); % Lymphocytes 6.1 % (20.5-51.1); % Monocytes 6.4 % (1.7-9.3); % Neutrophils 85.6 % (42.2-75.2); Absolute Basophils 0.1 10^3/uL (0-0.2); Absolute Eosinophils 0.1 10^3/uL (0-0.7); Absolute Immature Granulocytes 0.2 10^3/uL (0-0.05); Absolute Lymphocytes 1.2 10^3/uL (1.2-3.4); Absolute Monocytes 1.2 10^3/uL (0.1-0.6); Absolute Neutrophils 16.1 10^3/uL (1.4-6.5); Hematocrit 39.1 % (37.0-47.0); Hemoglobin 12.8 g/dL (12.0-16.0); Mean Corp Hgb Conc. 32.7 g/dL (33.0-37.0); Mean Corpuscular Hgb 30.3 pg (27.0-31.0); Mean Corpuscular Volume 92.4 fL (81.0-99.0); Nucleated Red Blood Cells % 0 %; Platelet Count 220 10^3/uL (130-400); Red Blood Cell Count 4.23 10^6/uL (4.20-5.40); Red Cell Dist. Width 12.9 % (11.5-14.5); White Blood Cell Count 18.8 10^3/uL (4.8-10.8)
[2024-12-10 03:44] LABS: ALT (SGPT) 98 U/L (0-35); AST (SGOT) 46 U/L (14-36); Albumin 2.9 g/dl (3.5-5.0); Alkaline Phosphatase 63 U/L (38-126); Blood Urea Nitrogen 17 mg/dl (7-17); Calcium 8.6 mg/dl (8.4-10.2); Chloride 91 mmol/L (98-107); Estimated Creatinine Clearance 73 ml/min; Glucose 92 mg/dl (70-99); Potassium 3.7 mmol/L (3.5-5.1); Sodium 136 mmol/L (135-145); Total Bilirubin 0.5 mg/dl (0.2-1.3); Total Protein 5.4 g/dl (6.3-8.2); eGFR > 60.00
[2024-12-10 03:55] LABS: Carbon Dioxide 34 mmol/L (22-30)
[2024-12-10] MEDS: CARDIZEM 10 MG IV (04:16)
[2024-12-10] MEDS: KCL 40 MEQ PO (04:16)
[2024-12-10 04:24] LABS: Magnesium 1.7 mg/dl (1.6-2.3)
[2024-12-10] MEDS: MAGNESIUM OXIDE 500 MG PO (04:59)
[2024-12-10] MEDS: MAGNESIUM SULFATE 50 IV (05:00)
--- NOTE | 2024-12-10 05:27 | W.PN.UPDATE ---
Update Note
Progress Note Update
Cardiology Update Note:
-Pt noted to be in a-fib with RVR (150's)
-Will resume Cardizem gtt @ 15mg/hr. BP 136/94
-Placed PO Cardizem on hold
-Will replete K 3.7 and Mg++ 1.7
-Will cont. to closely monitor
[2024-12-10] MEDS: VENTOLIN NEBULES 2.5 MG INH (05:57)
--- NOTE | 2024-12-10 06:19 | PTCARENOTE ---
overnight, pt. back into Afib RVR in the 150s-170s. Pt. asymptomatic at first, SBP 150s. House TERRAZZO SUPERVISOR made aware, gave patient 10mg IV cardizem push per protocol. Pt. HR down into the low 100s, but back into Afib RVR in the 150s, tele strip in pt chart.
Discussed HR w CT PA, resumed cardizem gtt at 15mg per order, titrating per protocol. Pt. complaining of SOB and tightness, albuterol treatment given by respiratory therapist. Continuing to monitor pt at this time.
[2024-12-10] MEDS: ZOLOFT 12.5 MG PO (07:40)
[2024-12-10] MEDS: ELIQUIS 5 MG PO ×2 (07:40→19:58)
[2024-12-10] MEDS: CRESTOR 20 MG PO (07:41)
[2024-12-10] MEDS: PROTONIX 40 MG PO (07:41)
[2024-12-10] MEDS: ORETIC 25 MG PO (07:41)
[2024-12-10] MEDS: DELTASONE 20 MG PO (07:41)
[2024-12-10] MEDS: FIORICET 1 TAB PO ×3 (07:41→19:57)
[2024-12-10] MEDS: SYMBICORT 160/4.5 MCG INHALER 2 PUFF INH ×2 (07:44→19:47)
--- NOTE | 2024-12-10 08:20 | PTCARENOTE ---
Addendum entered by Varsha Kapadia RN 12/10/24 10:18:
Gen Chen at bedside. PO Digoxin dose administered early as instructed.
Original Note:
Rec'd pt at handoff. Cardizem gtt infusing at 15 ml/hr. tele- afib. HR maintaining 140-170s. Pt reports shortness of breath and nausea. BP 101/54. Pt sating 93% on 4L O2 [place]. Earle REYES and Latrice REYES made aware. Pt currently in bed; call leanna w/in
reach.
[2024-12-10] MEDS: VIBRAMYCIN 260 MG IV ×2 (09:15→19:58)
--- NOTE | 2024-12-10 09:24 | W.PN.CD ---
Addendum entered and electronically signed by Farooq Og MD 12/10/24 12:33:
I saw and examined the patient.
The SUBSTANCE ABUSE SPECIALIST's note was reviewed and I agree with the note.
Comment: She is back to NSR
Plan:
- Will stop IV dilt
- Was fast despite dilt 360 PO and dig
- Will stop dig (at age 74 and use of dilt risk of toxicity is HIGH)
- Will add low dose metoprolol ER 25 mg daily and watch pulmonary tolerance and sinus rates with combined therapy
- Hope to see less AFib as she recovers from H Influenza A but may need to add antiarrhythmic (amio short term or can consider sotalol or dofetilide)
Original Note:
Today's Communication / Plan
-
Continue diltiazem drip
Impression / Plan
-
IMPRESSION/PLAN: 74F with PSVT, hypertension, dyslipidemia, COPD/asthma, on supplemental oxygen managed by pulmonary, migraines, anxiety and recent admission admission with discharge 12/04 with influenza A and new atrial fibrillation with rapid
ventricular response presents with a chief complaint of weakness
Primary Ammunition Storage Superintendent: Dr. Estrada
Atrial fibrillation with rapid ventricular response
Atrial flutter, type unknown
-Rates elevated, diltiazem drip restarted this morning, rate currently 120 & BP stable
-She was on diltiazem 360 mg prior to her previous admission, digoxin and apixaban were added at that time
-Anticoagulation: Apixaban 5 mg twice daily, started 12/03/2024
Body aches, weakness, SOB
-Recent admission with influenza A
-Infectious disease following
Chronic hypoxic respiratory failure, in the setting of COPD
PSVT, continue Cardizem
Aortic stenosis, mild
PAD, moderate, but not significant subclavian stenosis, follows with Dr. Chatterjee
Physical Exam
Vital Signs/Labs
Vital Signs
Temp Pulse Resp BP Pulse Ox
98.8 F 149 20 134/68 93
12/10/24 08:00 12/10/24 08:31 12/10/24 08:00 12/10/24 08:31 12/10/24 08:00
12/10/24 03:01
12/10/24 03:01
Magnesium 1.7 mg/dl (1.6-2.3) 12/10/24 03:01
12/07/24
07:20
[id number] Pept 331
Physical Exam
Constitutional: No acute distress and Comfortable
EENT: Anicteric and Moist mucous membranes
Cardiovascular: Rhythm/rate is irregular and S1S2 is normal
Respiratory: Respiratory effort normal and Other (Coarse bilateral)
GI: Soft, Distention absent, Flat and Non tender
Neuro/Psych: AO x 3
Other: Skin (Warm and dry without edema)
Data Reviewed
-
Date of Service: December 10, 2024
--- NOTE | 2024-12-10 09:29 | W.PN.PUL3 ---
Today's Communication / Plan
-
CT reviewed with numerous nodular appearance, likely mucus impaction/rule out PNA
Sputum culture sent, pending--narrow abx pending results
If negative, can focus on airway clearance and repeat CXR--vest/acapella ordered
Encouraged OOB, PT
Remains on her baseline O2 use
Follow clinically
Assessment
-
Patient is a 74-year-old female with previous history of severe COPD on home oxygen 2-4L, hypertension, migraines presenting with chest pressure, palpitations and right sided chest discomfort. In the ER, she was notably found to be in A-fib with
RVR and started on Cardizem drip. Chest x-ray demonstrating new right sided opacity that may represent pneumonia. She recently was flu positive.
Still having ongoing right-sided chest discomfort.
Chronic hypoxemia, currently on 4 L
New right-sided opacities on chest x-ray, possible pneumonia
Chest discomfort
Palpitations
A-fib with RVR on Cardizem drip, h/o SVT
Recent flu A positive 11/27/24
Conditions present prior to admission
Osteoporosis
Hypertension
PAD
B/l Brachial artery stenosis
Anxiety
Migraine Headache
Severe COPD on home O2/Centrilobular emphysema
Follows Dr Wayne
FVC 2.20 L or 74%; FEV1 0.71 L or 32%, ratio was 32%; TLC 5.0 or 101%, RV/TLC 54%, DLCO 17%
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
Upper airway cough syndrome, follows with ENT
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
T7 compression facture 04/12
B/L Cataract Surgery
Colonoscopy and endoscopy-polyps found
s/p Mohs Surgery 09/2024
Plan
She remains on her baseline O2 requirements, 2-4L
Prior history of lung disease is noted including severe COPD/emphysema, stage IV with severe diffusion impairment
Do not see a need for IV steroids as she is not wheezing or in AECOPD
Suspect patient has PNA given CXR and CT findings
She is placed on empiric abx
Sputum culture if able--she would be high risk from a procedural standpoint for bronchoscopy given her lung function
Check cultures as able, add MRSA screening given recent Flu
PCT negative
Sputum culture sent/pending
We discussed airway clearance/will add vest/nebs/acapella
If not improving, may consider more definitive therapy/diagnostic procedures
Recent chest imaging reviewed with extensive disease on R
Repeat CXR following aggressive clearance measures
Afib with RVR noted, on gtt
Cards following
proBNP 300
Prior ECHO results are reviewed indicating stable function
Resume home inhalers
She is on chronic prednisone for COPD, steroid dependant
Would be reasonable to discuss GOC if she were to clinically deteriorate given her lung function
She remains full code
Diagnostic Data
Chest X-Ray: 12/08/24- Predominately right-sided interstitial infiltrate and subtle underlying parenchymal nodularity is again demonstrated involving the caudal aspect of the right upper lobe and right lower lobe. Slight progression suggested in the
medial right lung base. The left lung remains essentially clear.
CT Scan: CT CAP 12/07/24- Numerous predominantly the right lung pulmonary nodular parenchymal opacities with irregular margination, as described. Although likely infectious in etiology (including atypical and/or fungal etiology), follow-up would be
necessary to assess for resolution after conservative therapy, and to exclude the possibility of neoplasm. Otherwise, consider follow-up PET/CT.
Mild confluent hilar lymphoid tissue and small mediastinal lymph nodes. However, no enlarged adenopathy.
Moderate emphysematous lung changes.
Echo: 12/03/24- Normal biventricular size and systolic function without regional wall motion abnormality. LVEF 65-70%. Aortic sclerosis without stenosis. No significant valvular disease.
No change compared to prior study in April 2023.
PFT's:
Reports and relevant images were personally reviewed.
Total time spent on this encounter __51__ minutes which includes review of history, physical exam, medications, laboratory data, personal review of imaging, extensive review of outpatient records, discussion with care team and respiratory therapy.
Subjective Data
-
Date of Service:
Date of Service: December 10, 2024
Chief Complaint: Pulmonary Follow Up
Subjective:
No new complaints
Coughing more but not always productive
Objective Data
Data Reviewed
Vital Signs / I&O / Oxygen:
Vital Signs
Temp Pulse Resp BP Pulse Ox
98.8 F 149 20 134/68 93
12/10/24 08:00 12/10/24 08:31 12/10/24 08:00 12/10/24 08:31 12/10/24 08:00
Intake and Output
12/09/24 12/10/24 12/11/24
06:59 06:59 06:59
Intake Total 580 / 580 520 / 520
Output Total 100 / 100 100 / 100
Balance 480 / 480 420 / 420
SaO2 93
Nasal Cannula flow liters per 4
minute
Physical Exam
General: Comfortable and Other (NAD)
HEENT: Normocephalic, Anicteric and Moist Mucous Membranes
Cardiovascular: S1-S2 and Regular Rhythm
Respiratory: Crackles and Non-Labored Respirations
GI: Soft, Non Distended and Non Tender
Neurology: Awake, Alert, Oriented and No Motor Deficits
Skin: Warm, Dry and Good Color
Labs/Micro/Reports
Lab Data
12/10/24 03:01
12/10/24 03:01
Microbiology
12/09/24 15:59 Sputum Gram Stain - Preliminary
12/09/24 09:20 Urine Legionella Urinary Antigen - Final
Negative for Legionella pneumophila Serogroup 1 antigen.
A negative result does not rule out the possiblity of
Legionella infection due to other serogroups or species of
Legionella. Clinical correlation is recommended.
12/09/24 09:20 Urine Streptococcus pneumoniae Antigen (M - Final
Negative for Streptococcus pneumoniae antigen.
A negative result does not exclude infection with
Streptococcus pneumoniae. Clinical correlation is
recommended.
12/08/24 02:32 Urine Urine Culture - Final
12/07/24 10:47 Nasal Swab Influenza Types A & B (SHEELA) - Final
Negative for Influenza A & B, NAAT
Negative results must be combined with clinical observations
and patient history.
Nucleic Acid Amplification test (NAAT)performed on the
[employer] platform.
[2024-12-10 09:36] LABS: Hepatitis B Core Ab, Total Reactive (Negative)
[2024-12-10] MEDS: LANOXIN 125 MCG PO (10:04)
--- NOTE | 2024-12-10 10:33 | PTCARENOTE ---
Pt converted from afib to SR. Ekg obtained to confirm. HR in the 90s.
--- NOTE | 2024-12-10 10:34 | PTCARENOTE ---
Pt converted from afib to SR. Ekg obtained to confirm. HR in the 90s. Gen Chen made aware.
--- NOTE | 2024-12-10 11:52 | W.PN.HOSP.TC ---
Today's Communication/Plan
-
Abx
Card for HR control
avoid Albuterol
Prednisone to 10mg daily
Assessment / Plan
Assessment / Plan
74yo F with PMHX of chronic hypoxic respiratory failure on 2-4L O2 2/2 COPD on chronic Prednisone 10mg, HTN, migraines came with SOB and chest palpitations, managed for A.fib with RVR. SHe was recently in [place] with Influenza A. Most likely post-viral
syndrome. CHest CT showed numerous predominantly R pulmonary nodules. ID following off Abx however patient feeling pain under R scapulae and generalized weakness, as per review with pulm - empiric Abx started. ALso covering mild diverticulitis seen
on CT
A/P
#chronic hypoxic respiratory failure 2/2 COPD without exacerbation
#Pulmonary nodules, concern for pneumonia
Doubt sepsis
Procal neg
sputum Cx -pending
legionella and S.pneumonia urinary Ag neg
Pulm consult: advised empirical treatment of pneumonia - doxy added
cont bronchodilators - avoid Albuterol as not in exacerbation and to prevent tachycardia
taper steroids
#Afib, unspecified with RVR with a.flutter
Eliquis
Cardio consult
Rate control
telemetry
#mild diverticulitis
unasyn reasonable
Outpatient colonoscopy in 6 weeks advised
#Renal cysts
no follow up advised
#Migraines
#Anxiety
#Essential HTN
#HLD
#Urinary retention
cont home meds
#HepB core Ab and surf Ab positive
most likely past exposure vs occult hepB (less likely)
Outpatient GI referral
#UTI ruled out
Ucx neg
DVT ppx Eliquis
Full code
I have spent at least 39min reviewing chart, test results, communication with consultants and direct patient care
Anticipated Discharge: > 48 hours
Subjective/Interval History
-
Date of Service: December 10, 2024
Objective Data
-
Labs:
Laboratory Results
12/10/24
03:01
WBC 18.8 H
Hgb 12.8
Hct 39.1
Plt Count 220
Sodium 136
Potassium 3.7
Chloride 91 L
Carbon Dioxide 34 H
BUN 17
Creatinine 0.5 L
Glucose 92
Calcium 8.6
Total Bilirubin 0.5
AST 46 H
ALT 98 H
Alkaline Phosphatase 63
Vital Signs:
Vital Signs
Temp Pulse Resp BP Pulse Ox
98.8 F 96 20 132/74 93
12/10/24 08:00 12/10/24 11:37 12/10/24 08:00 12/10/24 11:37 12/10/24 08:00
I&O
12/09/24 12/10/24 12/11/24
06:59 06:59 06:59
Intake Total 580 / 580 520 / 520
Output Total 100 / 100 100 / 100 250 / 250
Balance 480 / 480 420 / 420 -250 / -250
Review of Systems
-
Constitutional: Reports Weakness
Musculoskeletal: Reports Other (shooting pain from R foot to R scapulae)
Physical Exam
-
General: No Apparent Distress
HEENT: Normocephalic and Atraumatic
Respiratory: Clear to Auscultation
Cardiac: Irregular Rhythm and Tachycardic
GI: Soft, Nontender and Nondistended
Genito-urinary: No Costovertebral Tender
Musculoskeletal: No Clubbing, No Cyanosis and No Edema
Neuro: Awake, Alert, Oriented and AO x 3
Psych: Calm
[2024-12-10] MEDS: TOPROL XL 25 MG PO (13:08)
--- NOTE | 2024-12-10 13:48 | W.PN.ID1 ---
Date of Service
Date of Service: December 10, 2024
Today's Communication
Observe off antibiotics.
Assessment / Plan
Shortness of breath
A-fib with RVR; converted to sinus on Cardizem drip
Recent Hx of COPD exacerbation; on steroid taper
Leukocytosis; suspect secondary to steroids
Abnormal CXR/CT
Asthma
COPD
HTN
Migraines
Recommendations:
Patient currently with adequate oxygenation. No recorded fevers.
Would observe off of antibiotics for the present time. Sputum culture with normal respiratory david only.
Follow for the development of any fevers.
Will continue to follow clinically.
����������������������������������������������������������
Chief Complaint
-: Other (Nodular pulmonary infiltrates)
Subjective / Review of Systems
Review of Systems: No Fever, No Chills, Cough and No Sputum Production
Vital Signs / Physical Exam
Vital Signs
Vital Signs
Temp Pulse Resp BP Pulse Ox
98.2 F 96 20 127/78 94
12/10/24 11:38 12/10/24 11:37 12/10/24 11:38 12/10/24 13:08 12/10/24 11:38
Physical Exam
Constitutional: No Acute Distress, Comfortable, Chronically Ill and Non-toxic
Eyes: No Conjunctival Hemorrhage and Sclera Anicteric
Cardiovascular: Regular Rate and S1/S2; Negative S3/S4
Pulmonary: Clear and Non Labored
Gastrointestinal: Soft, Non Distended and Normal Bowel Sounds
Skin: Negative Rash or Jaundice
Neurological: Awake, Alert and Oriented
Psychological: Calm
Objective Data
Lab Data
Lab Results
12/10/24 03:01
12/10/24 03:01
ESR 50 mm/hour (0-20) H 12/09/24 02:21
Estimated Creat Clear 73 ml/min 12/10/24 03:01
Total Bilirubin 0.5 mg/dl (0.2-1.3) 12/10/24 03:01
AST 46 U/L (14-36) H 12/10/24 03:01
ALT 98 U/L (0-35) H 12/10/24 03:01
Alkaline Phosphatase 63 U/L (38-126) 12/10/24 03:01
Most recent labs reviewed.
Micro Results:
12/09/24 15:59 Respiratory Culture - Preliminary
Sputum Usual Respiratory David
Gram Stain - Preliminary
12/09/24 11:57 MRSA Screen - Pending
Nose
12/09/24 09:20 Legionella Urinary Antigen - Final
Urine Negative for Legionella pneumophila Serogroup 1 antigen.
A negative result does not rule out the possiblity of
Legionella infection due to other serogroups or species of
Legionella. Clinical correlation is recommended.
Streptococcus pneumoniae Antigen (M - Final
Negative for Streptococcus pneumoniae antigen.
A negative result does not exclude infection with
Streptococcus pneumoniae. Clinical correlation is
recommended.
12/08/24 02:32 Urine Culture - Final
Urine
12/07/24 10:47 Influenza Types A & B (SHEELA) - Final
Nasal Swab Negative for Influenza A & B, NAAT
Negative results must be combined with clinical observations
and patient history.
Nucleic Acid Amplification test (NAAT)performed on the
[employer] platform.
Imaging:
12/07/2024 CTA (chest/abdomen/pelvis):Numerous predominantly the right lung pulmonary nodular parenchymal opacities with irregular margination, as described. Although likely infectious in etiology (including atypical and/or fungal etiology),
follow-up would be necessary to assess for resolution after conservative therapy, and to exclude the possibility of neoplasm. Otherwise, consider follow-up PET/CT. Mild confluent hilar lymphoid tissue and small mediastinal lymph nodes. However, no
enlarged adenopathy. Diverticulosis. Suspect subtle acute diverticulitis related to the distal descending colon. No bowel obstruction. No obstructive uropathy. Right renal cysts. The liver, gallbladder, pancreas, spleen, and adrenal glands are
unremarkable. No bile duct dilatation. No obstructive uropathy. 2.5 cm lateral right midpole renal cyst. Right upper pole parapelvic cyst measuring 1.5 cm. Age indeterminate, though chronic-appearing sclerotic moderate superior endplate compression
deformity of T7.
[2024-12-11] VITALS (9 sets, daily range): BP systolic 126–156; BP diastolic 63–83; PULSE 106; O2SAT 92
--- NOTE | 2024-12-11 00:32 | PTCARENOTE ---
Received patient at change of shift. ST on the monitor, HR in the 100s. 97% on 4L. Pt complains of headache and cramps. PRN pain medication administered as per JAN. Call ram within reach.
--- NOTE | 2024-12-11 02:07 | DOWNTIME ---
There was a [employer] Downtime on 12/11/2024 from 0100 to 12/11/2023 at 0205 . Downtime documentation of patient's care, including medication administrations, has been reconciled in the electronic record per guidelines. Refer to the
patient's paper chart under the miscellaneous tab to see printed paper medication records and downtime forms.
[2024-12-11] MEDS: TYLENOL 650 MG PO ×3 (02:38→10:31)
[2024-12-11] MEDS: UNASYN IV ×2 (02:43→08:01)
[2024-12-11 03:00] LABS: % Basophils 0.2 % (0-2); % Eosinophils 0.7 % (0-6); % Immature Granulocytes 1.2 % (0-0.5); % Lymphocytes 5.3 % (20.5-51.1); % Monocytes 5.5 % (1.7-9.3); % Neutrophils 87.1 % (42.2-75.2); Absolute Eosinophils 0.1 10^3/uL (0-0.7); Absolute Immature Granulocytes 0.2 10^3/uL (0-0.05); Absolute Lymphocytes 0.9 10^3/uL (1.2-3.4); Absolute Neutrophils 15.6 10^3/uL (1.4-6.5); Hematocrit 40.5 % (37.0-47.0); Mean Corp Hgb Conc. 32.1 g/dL (33.0-37.0); Mean Corpuscular Hgb 30.9 pg (27.0-31.0); Mean Corpuscular Volume 96.2 fL (81.0-99.0); Mean Platelet Volume 8.8 fL (7.4-10.4); Nucleated Red Blood Cells % 0 %; Platelet Count 224 10^3/uL (130-400); Red Blood Cell Count 4.21 10^6/uL (4.20-5.40); Red Cell Dist. Width 13.2 % (11.5-14.5); White Blood Cell Count 17.9 10^3/uL (4.8-10.8)
[2024-12-11] MEDS: IMITREX 25 MG PO (03:22)
[2024-12-11 03:27] LABS: ALT (SGPT) 162 U/L (0-35); AST (SGOT) 107 U/L (14-36); Albumin 2.9 g/dl (3.5-5.0); Alkaline Phosphatase 118 U/L (38-126); Blood Urea Nitrogen 17 mg/dl (7-17); Calcium 8.3 mg/dl (8.4-10.2); Chloride 89 mmol/L (98-107); Estimated Creatinine Clearance 73 ml/min; Glucose 206 mg/dl (70-99); Sodium 135 mmol/L (135-145); Total Bilirubin 0.2 mg/dl (0.2-1.3); Total Protein 5.5 g/dl (6.3-8.2); eGFR > 60.00
[2024-12-11 03:37] LABS: Carbon Dioxide 37 mmol/L (22-30)
[2024-12-11] MEDS: SYMBICORT 160/4.5 MCG INHALER 2 PUFF INH ×2 (07:34→20:18)
[2024-12-11] MEDS: CARDIZEM CD 360 MG PO (07:56)
[2024-12-11] MEDS: ELIQUIS 5 MG PO ×2 (07:59→19:55)
[2024-12-11] MEDS: CRESTOR 20 MG PO (07:59)
[2024-12-11] MEDS: DELTASONE 10 MG PO (07:59)
[2024-12-11] MEDS: TOPROL XL 25 MG PO (08:00)
[2024-12-11] MEDS: PROTONIX 40 MG PO (08:00)
[2024-12-11] MEDS: VIBRAMYCIN 260 MG IV (08:02)
--- NOTE | 2024-12-11 08:16 | W.PN.CD ---
Today's Communication / Plan
-
Will digoxin was discontinued and patient now on Cardizem and low-dose metoprolol. Tolerating current medical therapy still with sinus tachycardia. Will repeat ECG.
Impression / Plan
-
IMPRESSION/PLAN: 74F with PSVT, hypertension, dyslipidemia, COPD/asthma, on supplemental oxygen managed by pulmonary, migraines, anxiety and recent admission admission with discharge 12/04 with influenza A and new atrial fibrillation with rapid
ventricular response presents with a chief complaint of weakness
Primary Drawer Fitter: Dr. Estrada
Atrial fibrillation with rapid ventricular response
Atrial flutter, type unknown
-Rates elevated, diltiazem drip restarted this morning, rate currently 120 & BP stable
-She was on diltiazem 360 mg and Digoxin. Doigxoin stopped adn low dose BB added thsi admit. Monitoring closely with lung disease.
-Anticoagulation: Apixaban 5 mg twice daily, started 12/03/2024
Body aches, weakness, SOB
-Recent admission with influenza A
-Infectious disease, pulmonary and hospitalist following. - CT findings as noted patient remains on Unasyn and Vibramycin
-
Chronic hypoxic respiratory failure, in the setting of COPD
PSVT, continue Cardizem
Aortic stenosis, mild
PAD, moderate, but not significant subclavian stenosis, follows with Dr. Chatterjee
Physical Exam
Vital Signs/Labs
Vital Signs
Temp Pulse Resp BP Pulse Ox
98.7 F 115 24 146/83 93
12/11/24 07:56 12/11/24 07:35 12/11/24 07:56 12/10/24 22:54 12/11/24 07:56
12/11/24 02:44
12/11/24 02:44
Magnesium 2.0 mg/dl (1.6-2.3) 12/11/24 02:44
12/07/24
07:20
[id number] Pept 331
Physical Exam
Constitutional: No acute distress
Cardiovascular: Rhythm & rate is regular (Tachycardic)
Respiratory: Other (Decreased breath sounds bilaterally)
GI: Soft
Neuro/Psych: Alert
Data Reviewed
-
Date of Service: December 11, 2024
Medical Decision Making: Reviewed Test Results
EKG: Report Reviewed by me
Medical Tests (PFT, Pathology etc): Report Reviewed by me
Labs: Labs Reviewed by me
--- NOTE | 2024-12-11 08:42 | W.PN.PUL3 ---
Today's Communication / Plan
-
No change in symptoms, somewhat productive cough
Sputum neg, can check AFB--if all negative, would stop abx
Airway clearance measures continued, reviewed with patent and RT
Recheck CXR in AM
Encouraged ambulation/OOB, has been sedentary
Assessment
-
Patient is a 74-year-old female with previous history of severe COPD on home oxygen 2-4L, hypertension, migraines presenting with chest pressure, palpitations and right sided chest discomfort. In the ER, she was notably found to be in A-fib with
RVR and started on Cardizem drip. Chest x-ray demonstrating new right sided opacity that may represent pneumonia. She recently was flu positive.
Still having ongoing right-sided chest discomfort.
Chronic hypoxemia, currently on 4 L
New right-sided opacities on chest x-ray, possible pneumonia
Chest discomfort
Palpitations
A-fib with RVR on Cardizem drip, h/o SVT
Recent flu A positive 11/27/24
Conditions present prior to admission
Osteoporosis
Hypertension
PAD
B/l Brachial artery stenosis
Anxiety
Migraine Headache
Severe COPD on home O2/Centrilobular emphysema
Follows Dr Wayne
FVC 2.20 L or 74%; FEV1 0.71 L or 32%, ratio was 32%; TLC 5.0 or 101%, RV/TLC 54%, DLCO 17%
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
Upper airway cough syndrome, follows with ENT
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
T7 compression facture 04/12
B/L Cataract Surgery
Colonoscopy and endoscopy-polyps found
s/p Mohs Surgery 09/2024
Plan
She remains on her baseline O2 requirements, 2-4L
Prior history of lung disease is noted including severe COPD/emphysema, stage IV with severe diffusion impairment
Do not see a need for IV steroids as she is not wheezing or in AECOPD
Suspect patient has PNA given CXR and CT findings
She is placed on empiric abx
MRSA negative
PCT negative
Sputum culture sent--neg
Will check AFB
Could likely stop abx if all negative
We discussed airway clearance vest/nebs/acapella
Will add mucinex and nebs TID
Recent chest imaging reviewed with extensive disease on R
Repeat CXR following aggressive clearance measures, repeat in AM
Afib with RVR noted, on gtt--transitioned to PO course
Cards following
proBNP 300
Prior ECHO results are reviewed indicating stable function
Resume home inhalers
She is on chronic prednisone for COPD, steroid dependant
Would be reasonable to discuss GOC if she were to clinically deteriorate given her lung function
She remains full code
Diagnostic Data
Chest X-Ray: 12/08/24- Predominately right-sided interstitial infiltrate and subtle underlying parenchymal nodularity is again demonstrated involving the caudal aspect of the right upper lobe and right lower lobe. Slight progression suggested in the
medial right lung base. The left lung remains essentially clear.
CT Scan: CT CAP 12/07/24- Numerous predominantly the right lung pulmonary nodular parenchymal opacities with irregular margination, as described. Although likely infectious in etiology (including atypical and/or fungal etiology), follow-up would be
necessary to assess for resolution after conservative therapy, and to exclude the possibility of neoplasm. Otherwise, consider follow-up PET/CT.
Mild confluent hilar lymphoid tissue and small mediastinal lymph nodes. However, no enlarged adenopathy.
Moderate emphysematous lung changes.
Echo: 12/03/24- Normal biventricular size and systolic function without regional wall motion abnormality. LVEF 65-70%. Aortic sclerosis without stenosis. No significant valvular disease.
No change compared to prior study in April 2023.
PFT's:
Reports and relevant images were personally reviewed.
Total time spent on this encounter __51__ minutes which includes review of history, physical exam, medications, laboratory data, personal review of imaging, extensive review of outpatient records, discussion with care team and respiratory therapy.
Subjective Data
-
Date of Service:
Date of Service: December 11, 2024
Chief Complaint: Pulmonary Follow Up
Subjective:
Remains the same, no changes
Has not been as productive on her airway clearance measures
Objective Data
Data Reviewed
Vital Signs / I&O / Oxygen:
Vital Signs
Temp Pulse Resp BP Pulse Ox
98.7 F 115 24 146/83 93
12/11/24 07:56 12/11/24 07:35 12/11/24 07:56 12/10/24 22:54 12/11/24 07:56
Intake and Output
12/10/24 12/11/24 12/12/24
06:59 06:59 06:59
Intake Total 520 / 520
Output Total 100 / 100 250 / 250
Balance 420 / 420 -250 / -250
SaO2 93
Nasal Cannula flow liters per 4
minute
Physical Exam
General: Comfortable and Other (NAD)
HEENT: Normocephalic, Anicteric and Moist Mucous Membranes
Cardiovascular: S1-S2 and Regular Rhythm
Respiratory: Crackles and Non-Labored Respirations
GI: Soft, Non Distended and Non Tender
Neurology: Awake, Alert, Oriented and No Motor Deficits
Skin: Warm, Dry and Good Color
Labs/Micro/Reports
Lab Data
12/11/24 02:44
12/11/24 02:44
Microbiology
12/09/24 15:59 Sputum Respiratory Culture - Final
Usual Respiratory Luzma
12/09/24 15:59 Sputum Gram Stain - Final
12/09/24 11:57 Nose MRSA Screen - Final
No Methicillin Resistant Staphylococcus aureus isolated.
12/09/24 09:20 Urine Legionella Urinary Antigen - Final
Negative for Legionella pneumophila Serogroup 1 antigen.
A negative result does not rule out the possiblity of
Legionella infection due to other serogroups or species of
Legionella. Clinical correlation is recommended.
12/09/24 09:20 Urine Streptococcus pneumoniae Antigen (M - Final
Negative for Streptococcus pneumoniae antigen.
A negative result does not exclude infection with
Streptococcus pneumoniae. Clinical correlation is
recommended.
12/08/24 02:32 Urine Urine Culture - Final
--- NOTE | 2024-12-11 08:59 | W.PN.HOSP.TC ---
Today's Communication/Plan
-
Card for HR control
follow LFT
switch to oral
Assessment / Plan
Assessment / Plan
74yo F with PMHX of chronic hypoxic respiratory failure on 2-4L O2 2/2 COPD on chronic Prednisone 10mg, HTN, migraines came with SOB and chest palpitations, managed for A.fib with RVR. SHe was recently in [place] with Influenza A. Most likely post-viral
syndrome. CHest CT showed numerous predominantly R pulmonary nodules. ID following off Abx however patient feeling pain under R scapulae and generalized weakness, as per review with pulm - empiric Abx started. Also covering mild diverticulitis seen
on CT
A/P
#chronic hypoxic respiratory failure 2/2 COPD without exacerbation
#Pulmonary nodules, concern for pneumonia
Doubt sepsis
Procal neg
sputum Cx -pending
legionella and S.pneumonia urinary Ag neg
Pulm consult: advised empirical treatment of pneumonia - doxy added for short course
cont bronchodilators - avoid Albuterol as not in exacerbation and to prevent tachycardia
taper steroids
#Afib, unspecified with RVR with a.flutter
Eliquis
Cardio consult
Rate control
telemetry
#mild diverticulitis
Augmentin short course
Outpatient colonoscopy in 6 weeks advised
#Renal cysts
no follow up advised
#Migraines
#Anxiety
#Essential HTN
#HLD
#Urinary retention
cont home meds
#HepB core Ab and surf Ab positive
#mild transaminitis
follow LFT
Liver unremarkable on CT
most likely past exposure vs occult hepB (less likely)
Outpatient GI referral
#UTI ruled out
Ucx neg
#chronic leukocytosis
2/2 steroids
DVT ppx Eliquis
Full code
I have spent at least 39min reviewing chart, test results, communication with consultants and direct patient care
Anticipated Discharge: 24 - 48 hours
Subjective/Interval History
-
Date of Service: December 11, 2024
Objective Data
-
Labs:
Laboratory Results
12/11/24
02:44
WBC 17.9 H
Hgb 13.0
Hct 40.5
Plt Count 224
Sodium 135
Potassium 4.0
Chloride 89 L
Carbon Dioxide 37 H
BUN 17
Creatinine 0.6
Glucose 206 H
Calcium 8.3 L
Total Bilirubin 0.2
AST 107 H
ALT 162 H
Alkaline Phosphatase 118
Vital Signs:
Vital Signs
Temp Pulse Resp BP Pulse Ox
98.7 F 115 24 146/83 93
12/11/24 07:56 12/11/24 07:35 12/11/24 07:56 12/10/24 22:54 12/11/24 07:56
I&O
12/10/24 12/11/24 12/12/24
06:59 06:59 06:59
Intake Total 520 / 520
Output Total 100 / 100 250 / 250
Balance 420 / 420 -250 / -250
Review of Systems
-
History Source: Patient
All other systems: Reviewed and negative
Constitutional: Reports Weakness
Physical Exam
-
General: No Apparent Distress and Comfortable
Respiratory: Clear to Auscultation
GI: Soft, Nontender and Nondistended
Skin: Warm
Neuro: Awake, Alert, Oriented and AO x 3
Psych: Calm
[2024-12-11] MEDS: MUCINEX 1200 MG PO ×2 (09:00→19:55)
--- NOTE | 2024-12-11 09:22 | PTCARENOTE ---
Assumed care of pt from night RN. Pt received awake and alert, Ox3, VSS, CM shows ST 120's, POX 94% on 4L N/c. EKG done as ordered, shows ST. IV antibiotic transitioned to po after AM doses. She denies any pain or discomfort at this time.
--- NOTE | 2024-12-11 11:53 | W.PN.ID1 ---
Date of Service
Date of Service: December 11, 2024
Today's Communication
Follow clinically. Consider D/C abx.
Assessment / Plan
Shortness of breath
A-fib with RVR; converted to sinus on Cardizem drip
Recent Hx of COPD exacerbation; on steroid taper
Leukocytosis; suspect secondary to steroids
Abnormal CXR/CT
Asthma
COPD
HTN
Migraines
Recommendations:
Patient currently with adequate oxygenation. No recorded fevers.
Sputum culture negative. AFB ordered.
Consider D/C abx.
Await sputum AFB.
Follow for the development of any fevers.
Will continue to follow clinically.
����������������������������������������������������������
Chief Complaint
-: Other (Nodular pulmonary infiltrates)
Subjective / Review of Systems
Review of Systems: No Fever, No Chills, Cough and Sputum Production
Vital Signs / Physical Exam
Vital Signs
Vital Signs
Temp Pulse Resp BP Pulse Ox
98.4 F 129 18 138/69 95
12/11/24 11:14 12/11/24 09:15 12/11/24 11:14 12/11/24 07:57 12/11/24 11:14
Physical Exam
Constitutional: No Acute Distress, Comfortable and Chronically Ill
Cardiovascular: Regular Rate and S1/S2; Negative S3/S4
Pulmonary: Non Labored; Negative Wheezes or Rales
Gastrointestinal: Soft and Non Tender
Neurological: Awake and Alert
Psychological: Calm
Objective Data
Lab Data
Lab Results
12/11/24 02:44
12/11/24 02:44
ESR 50 mm/hour (0-20) H 12/09/24 02:21
Estimated Creat Clear 73 ml/min 12/11/24 02:44
Total Bilirubin 0.2 mg/dl (0.2-1.3) 12/11/24 02:44
AST 107 U/L (14-36) H 12/11/24 02:44
ALT 162 U/L (0-35) H 12/11/24 02:44
Alkaline Phosphatase 118 U/L (38-126) 12/11/24 02:44
Most recent labs reviewed.
Micro Results:
12/09/24 15:59 Respiratory Culture - Final
Sputum Usual Respiratory Luzma
Gram Stain - Final
12/09/24 11:57 MRSA Screen - Final
Nose No Methicillin Resistant Staphylococcus aureus isolated.
12/09/24 09:20 Legionella Urinary Antigen - Final
Urine Negative for Legionella pneumophila Serogroup 1 antigen.
A negative result does not rule out the possiblity of
Legionella infection due to other serogroups or species of
Legionella. Clinical correlation is recommended.
Streptococcus pneumoniae Antigen (M - Final
Negative for Streptococcus pneumoniae antigen.
A negative result does not exclude infection with
Streptococcus pneumoniae. Clinical correlation is
recommended.
12/08/24 02:32 Urine Culture - Final
Urine
12/07/24 10:47 Influenza Types A & B (SHEELA) - Final
Nasal Swab Negative for Influenza A & B, NAAT
Negative results must be combined with clinical observations
and patient history.
Nucleic Acid Amplification test (NAAT)performed on the
[employer] platform.
Imaging:
12/07/2024 CTA (chest/abdomen/pelvis):Numerous predominantly the right lung pulmonary nodular parenchymal opacities with irregular margination, as described. Although likely infectious in etiology (including atypical and/or fungal etiology),
follow-up would be necessary to assess for resolution after conservative therapy, and to exclude the possibility of neoplasm. Otherwise, consider follow-up PET/CT. Mild confluent hilar lymphoid tissue and small mediastinal lymph nodes. However, no
enlarged adenopathy. Diverticulosis. Suspect subtle acute diverticulitis related to the distal descending colon. No bowel obstruction. No obstructive uropathy. Right renal cysts. The liver, gallbladder, pancreas, spleen, and adrenal glands are
unremarkable. No bile duct dilatation. No obstructive uropathy. 2.5 cm lateral right midpole renal cyst. Right upper pole parapelvic cyst measuring 1.5 cm. Age indeterminate, though chronic-appearing sclerotic moderate superior endplate compression
deformity of T7.
[2024-12-11] MEDS: AUGMENTIN 875 MG/125 MG 1 TABLET PO ×2 (12:08→19:55)
--- NOTE | 2024-12-11 12:25 | CM ---
Addendum entered by NALDO Aparicio 12/11/24 15:08:
Met w/ patient at bedside.
We reviewed DC plan. I offered VN to patient and she has declined at this time. She feels that she has ample support at home.
Plan is for home, no needs as patient is declining VN.
Will remain avail.
Original Note:
CM following for DC planning needs.
Attempted to meet w/ patient at bedside. Pt., however, was on her phone and asked that I return.
Reviewed initial assessment. Pt. resides in a ranch style home w/ 1 DEVEN w/ sig. other.
Prior admission, patient had declined VN. Will again offer if PT is still recommending.
Pt. has home oxygen supplied by [employer].
Antic. DC plan is for return to home w/o needs versus VN.
Will follow.
[2024-12-11] MEDS: FIORICET 1 TAB PO ×2 (12:49→18:14)
[2024-12-11] MEDS: XOPENEX 1.25 MG INHALANT SOLUTION INH ×2 (14:10→20:18)
[2024-12-11] MEDS: VIBRAMYCIN 100 MG PO (19:55)
[2024-12-11] MEDS: VALIUM 5 MG PO (20:00)
--- NOTE | 2024-12-11 20:00 | PTCARENOTE ---
assumed care of pt, walking rounds done. pt AAOx4. c/o mild headache but states it is improving. VSS. ST on monitor, HR 100s. B/L radial and DP pulses palpable. heart tones clear. POX 98% on 4LNC. B/L breath sounds present. sputum culture obtained
and sent. bowel sounds audible. pt voiding without difficulty. PIV x2 intact and patent. skin CDI. see worklist for full assessment, VS, and interventions. pt resting comfortably.
[2024-12-12] VITALS (9 sets, daily range): BP systolic 135–177; BP diastolic 61–95; PULSE 2–98
[2024-12-12] MEDS: FIORICET 1 TAB PO ×2 (00:44→05:04)
--- NOTE | 2024-12-12 03:00 | PTCARENOTE ---
no acute changes overnight, VSS. SR/ST 80s-100s. POX 93-95% on 4LNC. PRN pain medication given for ongoing migraine. AM labs drawn and sent. pt resting between care.
[2024-12-12] MEDS: IMITREX 25 MG PO ×2 (03:03→13:14)
[2024-12-12 03:25] LABS: % Basophils 0.3 % (0-2); % Eosinophils 0.8 % (0-6); % Immature Granulocytes 1.2 % (0-0.5); % Lymphocytes 5.4 % (20.5-51.1); % Monocytes 4.9 % (1.7-9.3); % Neutrophils 87.4 % (42.2-75.2); Absolute Basophils 0.1 10^3/uL (0-0.2); Absolute Eosinophils 0.2 10^3/uL (0-0.7); Absolute Immature Granulocytes 0.2 10^3/uL (0-0.05); Absolute Monocytes 0.9 10^3/uL (0.1-0.6); Absolute Neutrophils 16.7 10^3/uL (1.4-6.5); Hematocrit 37.9 % (37.0-47.0); Hemoglobin 12.2 g/dL (12.0-16.0); Mean Corp Hgb Conc. 32.2 g/dL (33.0-37.0); Mean Corpuscular Hgb 30.8 pg (27.0-31.0); Mean Corpuscular Volume 95.7 fL (81.0-99.0); Mean Platelet Volume 8.9 fL (7.4-10.4); Nucleated Red Blood Cells % 0 %; Platelet Count 204 10^3/uL (130-400); Red Blood Cell Count 3.96 10^6/uL (4.20-5.40)
[2024-12-12 03:41] LABS: ALT (SGPT) 234 U/L (0-35); AST (SGOT) 158 U/L (14-36); Albumin 2.8 g/dl (3.5-5.0); Alkaline Phosphatase 110 U/L (38-126); Blood Urea Nitrogen 15 mg/dl (7-17); Calcium 7.7 mg/dl (8.4-10.2); Chloride 93 mmol/L (98-107); Direct Bilirubin 0.3 mg/dl (0.0-0.4); Estimated Creatinine Clearance 73 ml/min; Glucose 102 mg/dl (70-99); Potassium 3.8 mmol/L (3.5-5.1); Sodium 137 mmol/L (135-145); Total Bilirubin 0.4 mg/dl (0.2-1.3); Total Protein 5.2 g/dl (6.3-8.2); eGFR > 60.00
[2024-12-12 03:51] LABS: Carbon Dioxide 38 mmol/L (22-30)
[2024-12-12 07:13] LABS: Creatine Phosphokinase 25 U/L (30-135)
[2024-12-12] MEDS: XOPENEX 1.25 MG INHALANT SOLUTION INH ×3 (07:26→19:23)
[2024-12-12] MEDS: SYMBICORT 160/4.5 MCG INHALER INH (07:26)
--- NOTE | 2024-12-12 08:03 | PTCARENOTE ---
Rec'd Pt A,A+Ox3, c/o headache rated 10/[address] Estrada and Dr Pollard rounding at same time and saw Pt. awaiting orders.
--- NOTE | 2024-12-12 08:03 | W.PN.CD ---
Today's Communication / Plan
-
remains in sinus
continue current dosing of cardizem BB. Appears to tolerated low dose BB. can titrate if needed.
patient has been having headaches this admit and it is her main complaint htis morning. Currently being assessed by hospitalist who is at bedside
Impression / Plan
-
IMPRESSION/PLAN: 74F with PSVT, hypertension, dyslipidemia, COPD/asthma, on supplemental oxygen managed by pulmonary, migraines, anxiety and recent admission admission with discharge 12/04 with influenza A and new atrial fibrillation with rapid
ventricular response presents with a chief complaint of weakness
Primary [employer]: Dr. Estrada
Atrial fibrillation with rapid ventricular response
Atrial flutter, type unknown
-Rates elevated, diltiazem drip restarted this morning, rate currently 120 & BP stable
-She was on diltiazem 360 mg and Digoxin. Doigxoin stopped adn low dose BB added this admit. Monitoring closely with lung disease.
-Anticoagulation: Apixaban 5 mg twice daily, started 12/03/2024
PNA
-Recent admission with influenza A
-Infectious disease, pulmonary and hospitalist following.
- CT findings as noted patient remains on Unasyn and Vibramycin
Headaches - daily. complaining of headache this mronign and being evaluated by hospitalists
-
Chronic hypoxic respiratory failure, in the setting of COPD
PSVT, continue Cardizem
Aortic stenosis, mild
PAD, moderate, but not significant subclavian stenosis, follows with Dr. Chatterjee
Physical Exam
Vital Signs/Labs
Vital Signs
Temp Pulse Resp BP Pulse Ox
98.6 F 109 20 148/71 93
12/12/24 07:55 12/12/24 07:54 12/12/24 07:55 12/12/24 07:54 12/12/24 07:55
12/12/24 03:01
12/12/24 03:01
Magnesium 2.0 mg/dl (1.6-2.3) 12/11/24 02:44
12/07/24
07:20
[id number] Pept 331
Physical Exam
Constitutional: Other (uncomfortable due to headache)
Cardiovascular: Rhythm & rate is regular
Respiratory: Other (decreased at bases, rare crackle)
GI: Soft
Neuro/Psych: Alert
Data Reviewed
-
Date of Service: December 12, 2024
Medical Decision Making: Reviewed Test Results
Echo: Report Reviewed by me
Medical Tests (PFT, Pathology etc): Report Reviewed by me
Labs: Labs Reviewed by me
[2024-12-12] MEDS: PEPCID 20 MG IV (08:36)
[2024-12-12] MEDS: NSS (PRESERVATIVE FREE) 8 ML IV (08:37)
[2024-12-12] MEDS: COMPAZINE 5 MG IV (08:45)
[2024-12-12] MEDS: BENADRYL 12.5 MG IV (08:52)
[2024-12-12] MEDS: TOPROL XL 25 MG PO (08:59)
[2024-12-12] MEDS: CARDIZEM CD 360 MG PO (08:59)
[2024-12-12] MEDS: PROTONIX 40 MG PO (09:00)
[2024-12-12] MEDS: DELTASONE 10 MG PO (09:00)
[2024-12-12] MEDS: ZOLOFT 12.5 MG PO (09:01)
--- NOTE | 2024-12-12 09:05 | W.PN.PUL3 ---
Addendum entered and electronically signed by Renée Salmon, DO 12/12/24 15:51:
VBG showing co2 increase, will add bipap nightly and PRN
CXR looks worsened, will increase prednisone to 50mg
Has not participated well with PT, airway clearance
She would be high risk for procedures
Discussed with care team, can start discussing GOC if she declines further
Original Note:
Today's Communication / Plan
-
Remains on baseline O2, no changes
Airway clearance measures ongoing
AFB sent, pending
Seems more sleepy, check VBG
Still awaiting CXR (ordered for AM today--not yet done)
If CXR improved and remains on baseline O2, can assess for d/c planning pending cardiac management
Assessment
-
Patient is a 74-year-old female with previous history of severe COPD on home oxygen 2-4L, hypertension, migraines presenting with chest pressure, palpitations and right sided chest discomfort. In the ER, she was notably found to be in A-fib with
RVR and started on Cardizem drip. Chest x-ray demonstrating new right sided opacity that may represent pneumonia. She recently was flu positive.
Still having ongoing right-sided chest discomfort.
Chronic hypoxemia, currently on 4 L
New right-sided opacities on chest x-ray, possible pneumonia
Chest discomfort
Palpitations
A-fib with RVR on Cardizem drip, h/o SVT
Recent flu A positive 11/27/24
Conditions present prior to admission
Osteoporosis
Hypertension
PAD
B/l Brachial artery stenosis
Anxiety
Migraine Headache
Severe COPD on home O2/Centrilobular emphysema
Follows Dr Wayne
FVC 2.20 L or 74%; FEV1 0.71 L or 32%, ratio was 32%; TLC 5.0 or 101%, RV/TLC 54%, DLCO 17%
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
Upper airway cough syndrome, follows with ENT
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
T7 compression facture 04/12
B/L Cataract Surgery
Colonoscopy and endoscopy-polyps found
s/p Mohs Surgery 09/2024
Plan
She remains on her baseline O2 requirements, 2-4L
Prior history of lung disease is noted including severe COPD/emphysema, stage IV with severe diffusion impairment
Do not see a need for IV steroids as she is not wheezing or in AECOPD
Suspect patient has PNA given CXR and CT findings
She is placed on empiric abx
MRSA negative
PCT negative
Sputum culture sent--neg
Will check AFB
Could likely stop abx if all negative
We discussed airway clearance vest/nebs/acapella
Continue mucinex and nebs TID
Recent chest imaging reviewed with extensive disease on R
Repeat CXR following aggressive clearance measures, repeat in AM
Afib with RVR noted, on gtt--transitioned to PO course
Cards following
proBNP 300
Prior ECHO results are reviewed indicating stable function
Resume home inhalers
She is on chronic prednisone for COPD, steroid dependant
Would be reasonable to discuss GOC if she were to clinically deteriorate given her lung function
She remains full code
Diagnostic Data
Chest X-Ray: 12/08/24- Predominately right-sided interstitial infiltrate and subtle underlying parenchymal nodularity is again demonstrated involving the caudal aspect of the right upper lobe and right lower lobe. Slight progression suggested in the
medial right lung base. The left lung remains essentially clear.
CT Scan: CT CAP 12/07/24- Numerous predominantly the right lung pulmonary nodular parenchymal opacities with irregular margination, as described. Although likely infectious in etiology (including atypical and/or fungal etiology), follow-up would be
necessary to assess for resolution after conservative therapy, and to exclude the possibility of neoplasm. Otherwise, consider follow-up PET/CT.
Mild confluent hilar lymphoid tissue and small mediastinal lymph nodes. However, no enlarged adenopathy.
Moderate emphysematous lung changes.
Echo: 12/03/24- Normal biventricular size and systolic function without regional wall motion abnormality. LVEF 65-70%. Aortic sclerosis without stenosis. No significant valvular disease.
No change compared to prior study in April 2023.
PFT's:
Reports and relevant images were personally reviewed.
Total time spent on this encounter __41__ minutes which includes review of history, physical exam, medications, laboratory data, personal review of imaging, extensive review of outpatient records, discussion with care team and respiratory therapy.
Subjective Data
-
Date of Service:
Date of Service: December 12, 2024
Chief Complaint: Pulmonary Follow Up
Subjective:
No events ON, no new complaints
Objective Data
Data Reviewed
Vital Signs / I&O / Oxygen:
Vital Signs
Temp Pulse Resp BP Pulse Ox
98.6 F 109 20 148/71 93
12/12/24 07:55 12/12/24 07:54 12/12/24 07:55 12/12/24 07:54 12/12/24 07:55
Intake and Output
12/11/24 12/12/24 12/13/24
06:59 06:59 06:59
Output Total 250 / 250
Balance -250 / -250
SaO2 93
Nasal Cannula flow liters per 4
minute
Physical Exam
General: Comfortable and Other (NAD)
HEENT: Normocephalic, Anicteric and Moist Mucous Membranes
Cardiovascular: S1-S2 and Regular Rhythm
Respiratory: Crackles and Non-Labored Respirations
GI: Soft, Non Distended and Non Tender
Neurology: Awake, Alert, Oriented and No Motor Deficits
Skin: Warm, Dry and Good Color
Labs/Micro/Reports
Lab Data
12/12/24 03:01
12/12/24 03:01
Microbiology
12/09/24 15:59 Sputum Respiratory Culture - Final
Usual Respiratory Luzma
12/09/24 15:59 Sputum Gram Stain - Final
12/09/24 11:57 Nose MRSA Screen - Final
No Methicillin Resistant Staphylococcus aureus isolated.
12/09/24 09:20 Urine Legionella Urinary Antigen - Final
Negative for Legionella pneumophila Serogroup 1 antigen.
A negative result does not rule out the possiblity of
Legionella infection due to other serogroups or species of
Legionella. Clinical correlation is recommended.
12/09/24 09:20 Urine Streptococcus pneumoniae Antigen (M - Final
Negative for Streptococcus pneumoniae antigen.
A negative result does not exclude infection with
Streptococcus pneumoniae. Clinical correlation is
recommended.
12/08/24 02:32 Urine Urine Culture - Final
--- NOTE | 2024-12-12 09:09 | W.PN.HOSP.TC ---
Today's Communication/Plan
-
Compazine/Benadryl
HEad CT
stop Abx
GI consult
Assessment / Plan
Assessment / Plan
74yo F with PMHX of chronic hypoxic respiratory failure on 2-4L O2 2/2 COPD on chronic Prednisone 10mg, HTN, migraines came with SOB and chest palpitations, managed for A.fib with RVR. SHe was recently in [facility] with Influenza A. Most likely post-viral
syndrome. CHest CT showed numerous predominantly R pulmonary nodules. ID following off Abx however patient feeling pain under R scapulae and generalized weakness. tollerated BB for HR control. ID and pulm recommended to stop Abx with no clear
benefit for them seen and since transaminitis worsened. AFB pending for lung findings.
A/P
#chronic hypoxic respiratory failure 2/2 COPD without exacerbation
#Pulmonary nodules, concern for pneumonia
Doubt sepsis
Procal neg
sputum Cx -pending
legionella and S.pneumonia urinary Ag neg
Pulm consult: advised empirical treatment of pneumonia - doxy added for short course
cont bronchodilators - avoid Albuterol as not in exacerbation and to prevent tachycardia
taper steroids
#Migraines
Sumatriptan
Head CT
Compazine PRN
#HepB core Ab and surf Ab positive
#transaminitis
follow LFT
most likely past exposure vs occult hepB (less likely), since transaminases increasing - GI consult
US RUQ without hepatic or biliary abnormality
Cannot exclude Abx as a reason
#Afib, unspecified with RVR with a.flutter
Eliquis
Cardio consult: switched to BB- converted to sinus and tolerating well
Rate control
telemetry
#mild diverticulitis
Augmentin completed, no LLQ pain, tolerating food well
Outpatient colonoscopy in 6 weeks advised
#Renal cysts
no follow up advised
#Anxiety
#Essential HTN
#HLD
#Urinary retention
cont home meds
#UTI ruled out
Ucx neg
#chronic leukocytosis
2/2 steroids
Outpatient hematology advised
DVT ppx Eliquis
Full code
I have spent at least 59min reviewing chart, test results, communication with consultants and direct patient care
Anticipated Discharge: > 48 hours
Subjective/Interval History
-
Date of Service: December 12, 2024
Objective Data
-
Labs:
Laboratory Results
12/12/24
03:01
WBC 19.0 H
Hgb 12.2
Hct 37.9
Plt Count 204
Sodium 137
Potassium 3.8
Chloride 93 L
Carbon Dioxide 38 H
BUN 15
Creatinine 0.5 L
Glucose 102 H
Calcium 7.7 L
Total Bilirubin 0.4
AST 158 H
ALT 234 H
Alkaline Phosphatase 110
Vital Signs:
Vital Signs
Temp Pulse Resp BP Pulse Ox
98.6 F 109 20 148/71 93
12/12/24 07:55 12/12/24 07:54 12/12/24 07:55 12/12/24 07:54 12/12/24 07:55
I&O
12/11/24 12/12/24 12/13/24
06:59 06:59 06:59
Output Total 250 / 250
Balance -250 / -250
Review of Systems
-
Neuro: Reports Headache
Physical Exam
-
General: Pain
HEENT: Normocephalic
Respiratory: Clear to Auscultation
Cardiac: Regular Rhythm
GI: Soft, Nontender and Nondistended
Skin: Warm
Neuro: Awake, Alert, Oriented and AO x 3
Psych: Calm
[2024-12-12] MEDS: MUCINEX 1200 MG PO ×2 (10:33→20:10)
[2024-12-12] MEDS: ELIQUIS 5 MG PO ×2 (10:33→20:10)
--- NOTE | 2024-12-12 10:39 | PTCARENOTE ---
Pt med with Pepcid 20 mg IV at 0836, Compazine 5 mg IV at 0845 and Benadryl 12.5 mg IV at 0[address] Pollard. Pt had relief from nausea and was able to get some rest. Her headache was gone but since has been intermittent. Pt was sent
for a CT scan of her head as ordered.
--- NOTE | 2024-12-12 10:50 | PTCARENOTE ---
Pt sent for CT head but refused CXR, will attempt to send her soon if she is agreeable.
--- NOTE | 2024-12-12 11:46 | CM ---
CM following for DC planning needs.
Met with patient today to follow up.
Pt. was c/o head pain-states that MD and RN aware.
Did not review DC plans as patient is not feeling well.
Will cont. to follow.
Goal is for home w/ VN versus no needs.
[2024-12-12 13:27] LABS: COVID-19 Antigen Negative (Negative)
--- NOTE | 2024-12-12 13:27 | W.PN.ID1 ---
Addendum entered and electronically signed by Ben Castillo DO 12/12/24 18:46:
Case discussed with Hospitalist. Patient has noted vesicular lesions that have developed on left buttock ( ~S2 and also ~L5 distribution).
Notes areas are mildly pruritic, but not painful.
Also, CXR appears progressed. Prior Sputum culture negative.
Agree with initiation of acyclovir for now.
Check HSV and VZV PCR of lesion to confirm Dx.
Given progression of pulm infiltrates, will also begin cefepime.
Check sputum silver stain.
May need bronchoscopy for sample if the possibility of VZV PNA is entertained, although would expect patient to appear much more ill than she currently appears if she had VZV pneumonia.
Original Note:
Date of Service
Date of Service: December 12, 2024
Today's Communication
Observe off antibiotics. Follow pending testing / cultures.
Assessment / Plan
Shortness of breath
A-fib with RVR; converted to sinus on Cardizem drip
Recent Hx of COPD exacerbation; on steroid taper
Leukocytosis; suspect secondary to steroids
Abnormal CXR/CT
Asthma
COPD
HTN
Migraines
Recommendations:
Patient currently with adequate oxygenation. 'Low-grade fever' reported today (100.1 degrees)
Sputum culture negative. AFB stain and culture pending.
Antibiotics discontinued today (s/p 4 days Unasyn, 3 days doxy without apparent effect on WBC / temp)
Repeat blood cultures, UA reflex, influenza : pending.
COVID-negative
Will continue to follow clinically.
Repeat CXR ordered
����������������������������������������������������������
Chief Complaint
-: Other (Nodular pulmonary infiltrates)
Subjective / Review of Systems
Patient seen and examined. Reports feeling tired. Fever reported today (100.1 degrees). Slight cough.
Review of Systems: No Chills, Headache, No Stiff Neck, Cough, Sputum Production (Slight) and No Dysuria
Vital Signs / Physical Exam
Vital Signs
Vital Signs
Temp Pulse Resp BP Pulse Ox
100.1 F 110 18 151/61 90
12/12/24 11:10 12/12/24 11:15 12/12/24 11:10 12/12/24 11:11 12/12/24 11:11
Physical Exam
Constitutional: No Acute Distress, Comfortable and Chronically Ill
Cardiovascular: Regular Rate and S1/S2; Negative S3/S4
Pulmonary: Non Labored; Negative Wheezes or Rales
Gastrointestinal: Soft, Non Tender and Non Distended
Skin: Warm and Dry; Negative Rash
Neurological: Awake and Alert
Psychological: Calm
Objective Data
Lab Data
Lab Results
12/12/24 03:01
12/12/24 03:01
ESR 50 mm/hour (0-20) H 12/09/24 02:21
Estimated Creat Clear 73 ml/min 12/12/24 03:01
Total Bilirubin 0.4 mg/dl (0.2-1.3) 12/12/24 03:01
AST 158 U/L (14-36) H 12/12/24 03:01
ALT 234 U/L (0-35) H 12/12/24 03:01
Alkaline Phosphatase 110 U/L (38-126) 12/12/24 03:01
Most recent labs reviewed.
Micro Results:
12/12/24 13:05 Blood Culture - Pending
Blood/Venous
12/12/24 12:57 Influenza Types A & B (SHEELA) - Pending
Nasal Swab
12/11/24 20:04 Acid Fast Bacilli Smear - Pending
Sputum Acid Fast Bacilli Culture - Pending
12/09/24 15:59 Respiratory Culture - Final
Sputum Usual Respiratory Luzma
Gram Stain - Final
12/09/24 11:57 MRSA Screen - Final
Nose No Methicillin Resistant Staphylococcus aureus isolated.
12/09/24 09:20 Legionella Urinary Antigen - Final
Urine Negative for Legionella pneumophila Serogroup 1 antigen.
A negative result does not rule out the possiblity of
Legionella infection due to other serogroups or species of
Legionella. Clinical correlation is recommended.
Streptococcus pneumoniae Antigen (M - Final
Negative for Streptococcus pneumoniae antigen.
A negative result does not exclude infection with
Streptococcus pneumoniae. Clinical correlation is
recommended.
12/08/24 02:32 Urine Culture - Final
Urine
12/07/24 10:47 Influenza Types A & B (SHEELA) - Final
Nasal Swab Negative for Influenza A & B, NAAT
Negative results must be combined with clinical observations
and patient history.
Nucleic Acid Amplification test (NAAT)performed on the
[employer] platform.
Laboratory Tests
12/12/24
12:57
SARS-CoV-2 Antigen Negative
Imaging:
12/07/2024 CTA (chest/abdomen/pelvis):Numerous predominantly the right lung pulmonary nodular parenchymal opacities with irregular margination, as described. Although likely infectious in etiology (including atypical and/or fungal etiology),
follow-up would be necessary to assess for resolution after conservative therapy, and to exclude the possibility of neoplasm. Otherwise, consider follow-up PET/CT. Mild confluent hilar lymphoid tissue and small mediastinal lymph nodes. However, no
enlarged adenopathy. Diverticulosis. Suspect subtle acute diverticulitis related to the distal descending colon. No bowel obstruction. No obstructive uropathy. Right renal cysts. The liver, gallbladder, pancreas, spleen, and adrenal glands are
unremarkable. No bile duct dilatation. No obstructive uropathy. 2.5 cm lateral right midpole renal cyst. Right upper pole parapelvic cyst measuring 1.5 cm. Age indeterminate, though chronic-appearing sclerotic moderate superior endplate compression
deformity of T7.
[2024-12-12 14:17] LABS: Venous Blood Gas B.E. 11.5 mmol/L (-4 to +4); Venous Blood Gas O2 Sat % 99.8 %; Venous Blood Gas pCO2 63 mmHg (35-48); Venous Blood Gas pO2 168 mmHg (30-50)
--- NOTE | 2024-12-12 14:18 | CON.GI ---
Addendum entered and electronically signed by Franko Gaxiola MD 12/12/24 16:43:
I saw and examined the patient.
The BOTTLE HOUSE CLEANERS SUPERVISOR's note was reviewed and I agree with the note.
-Elevated transaminitis with normal alkaline phosphatase/total bilirubin. Ultrasound abdomen normal liver/gallbladder/bile duct
- Hep B serology�core antibody/surface antibody positive. Likely immunity from prior infection
-Recent flu/possible pneumonia
-A-fib with RVR
plan
Elevated transaminitis likely multifactorial with recent infection/antibiotics. Admission labs 11/27 were normal
Will check hep B viral DNA
Continue monitor LFT
Avoid hepatotoxic substance
No further recommendation at this point. Will sign off. Follow-up with GI as outpatient
Original Note:
Consultation
-
Date/Time Consultation Requested: 12/12/24 0820
Date/Time Consultation Performed: 12/12/24 1415
Requesting Provider: hSai Pollard MD
Performing Provider: GABE Lin, Franko Gaxiola MD
Reason for Consultation: elevated LFT's, hep B Core reactive
Medical History
Chief Complaint / HPI
Chief Complaint: shortness of breath
History of Present Illness:
Pt is a 74yo with hx HTN, hypercholesterolemia, asthma/COPD, GERD, colon polyp with recent admission with influenza A and COPD exacerbation. she was given tamiflu and steroids with inhalers. Her admission was complicated with new Afib with
Cardizem then Digoxin use with start of Eliquis on discharge. She was discharged 12/04 and returns 12/07 with chest pressure with palpitation and shortness of breath. She was noted with Afib with RVR on return then back to sinus Rhythm. During last
admission she was noted with normal LFT's on 11/27 and mild elevation in March 2024 when she was in ER with abdominal pain after taking mag citrate for constipation. She is now noted on return with bili 0.4, AST 68, ALT 170, alk phos 92 with further
rise in LFT's since admission. US 1/18 with normal finding and 2 right renal cysts, 12/07 CT Chest/abd pelvis with lung nodular opacities, adenopathy, diverticulosis, no obstruction, The liver, gallbladder, pancreas, spleen, and adrenal glands are
unremarkable. No bile duct dilatation. She has been seen by pulm with concern for PNA. asked to see for elevated LFT's with noted hep Bs ab+ and hep B core reactive and neg hep Bs Ag.
In review with patient no hx hepatitis, IVDA, old tattoos, or multiple supplement use. No excessive Tylenol use. She denies dysphagia, GERD, nausea, vomiting, abdominal pain, diarrhea, constipation or rectal bleeding. hx EGD/colon in 2019.
Past Medical History
Past Medical History: Arrhythmias (PSVT, afib ), Asthma, COPD, GERD, Hypercholesterolemia and Other (migraines, colon polyps, osteoporosis, PAD, b/l brachial artery stenosis, anxiety,gabbie syndrome with prednisone use, T7 comp fx, )
Past Surgical History: Other (cataract surgery, mohs surgery )
Social History
Tobacco: Former Smoker
Alcohol: Occasional (rare social )
Drug: None
Personal: Other (significant other )
Living: Other (significant other )
Employment: Employed
Family History
Family History: Other (no family hx liver problems, father with ? stomach CA )
Allergies / Home Medications
Allergy/AdvReac Type Severity Reaction Status Date / Time
No Known Allergies Allergy Verified 12/07/24 06:37
�Medication �Instructions �Recorded
ascorbic acid (vitamin C) 500 mg 1,000 mg PO BID Supplement 08/10/18
tablet (Vitamin C)
cjytjapsiy-dbtftzspdzwat-pqwjawxf 1 tab PO Q4HPRN PRN migraine 08/10/18
50 mg-325 mg-40 mg tablet
diazepam 5 mg tablet 5 mg PO DAILYPRN PRN anxiety 08/10/18
calcium 500 mg (as 1 tab PO DAILY Supplement 09/19/19
carbonate)-vitamin D3 5 mcg (200
unit) tablet (Oyster Shell
Calcium-Vitamin D3)
fluticasone propionate 50 1 spray intranasal DAILYPRN PRN 09/19/19
mcg/actuation nasal allergies
spray,suspension
polyvinyl alcohol-povidone (PF) 1 drops BOTH EYES BID Eye condition 09/19/19
1.4 %-0.6 % eye drops in a
dropperette (Refresh Classic (PF))
albuterol sulfate 2.5 mg/3 mL 2.5 mg inhalation R Q4HPRN PRN 08/17/22
(0.083 %) solution for nebulization chest tightness
benzonatate 200 mg capsule 200 mg PO BID Cough 08/17/22
budesonide 0.5 mg/2 mL suspension 0.5 mg inhalation R [id number] PRN sob 08/17/22
for nebulization
budesonide-formoterol HFA 160 2 puff inhalation R BID 08/17/22
mcg-4.5 mcg/actuation aerosol Lung/breathing issues
inhaler (Symbicort)
diltiazem HCl 360 mg 360 mg PO DAILY Blood pressure 08/17/22
tablet,extended release 24 hr
guaifenesin 600 mg tablet, 1,200 mg PO BID Congestion 08/17/22
extended release 12 hr (Mucus
Relief ER)
sertraline 25 mg tablet 12.5 mg PO Q48H Depression 08/17/22
sodium chloride 3 % for 4 ml inhalation R BID 08/17/22
nebulization Lung/breathing issues
vitamin B complex 1 tab PO DAILY Supplement 08/17/22
pantoprazole 40 mg tablet,delayed 40 mg PO DAILY 30 days #30 tabs 01/03/23
release
alendronate 70 mg tablet 70 mg PO FR Osteoporosis 11/27/24
hydrochlorothiazide 25 mg tablet 25 mg PO DAILY Fluid 11/27/24
Retention/Swelling
ondansetron HCl 4 mg tablet 4 mg PO Q8HPRN PRN nausea 11/27/24
oxybutynin chloride 5 mg 5 mg PO DAILY Urinary Issue 11/27/24
tablet,extended release 24 hr
rosuvastatin 20 mg tablet 20 mg PO DAILY High Cholesterol 11/27/24
sumatriptan succinate 25 mg tablet 25 mg PO DAILYPRN PRN migraine 11/27/24
tiotropium bromide 2.5 2 inh inhalation R DAILY@1200 11/27/24
mcg/actuation mist for inhalation Lung/Breathing Issues
(Spiriva Respimat)
apixaban 5 mg tablet (Eliquis) 5 mg PO BID #60 tabs 12/04/24
digoxin 125 mcg (0.125 mg) tablet 125 mcg PO NOON #30 tabs 12/04/24
prednisone 10 mg tablet See Rx Instructions .Route 12/04/24
.COMPLEX #26 tabs
tiotropium bromide 2.5 2 inh inhalation NOON 12/07/24
mcg/actuation mist for inhalation
Review of Systems
-
History Source: Patient
Constitutional: Reports Weight Gain (some ih steroid use )
EENT: Reports No Symptoms
Respiratory: Reports Cough and Trouble Breathing
Cardiac: Reports Palpitations
Abdomen/GI: Reports No Symptoms
: Reports No Symptoms
Musculoskeletal: Reports No Symptoms
Neurological: Reports Headache and Weakness
Endocrine: Reports No Symptoms
Hematologic/Lymphatic: Reports No Symptoms
Vital Signs
Temp Pulse Resp BP Pulse Ox
100.1 F 95 18 151/61 90
12/12/24 11:10 12/12/24 14:00 12/12/24 11:10 12/12/24 11:11 12/12/24 11:11
Physical Exam
Exam
General: Other (awake and alert )
HEENT: Normocephalic and Anicteric
Respiratory: Clear and Other (course cough, short of breath in exam)
Cardiac: Regular Rhythm
GI: Soft, Non Tender and Non Distended
Musculoskeletal: No Clubbing and No Cyanosis
Skin: Warm and Dry
Neuro: Awake, Alert and AO x 3
Psych: Calm
Results
WBC 19.0 10^3/uL (4.8-10.8) H 12/12/24 03:01
Hgb 12.2 g/dL (12.0-16.0) 12/12/24 03:01
Hct 37.9 % (37.0-47.0) 12/12/24 03:01
MCV 95.7 fL (81.0-99.0) 12/12/24 03:01
Plt Count 204 10^3/uL (130-400) 12/12/24 03:01
Absolute Neuts (auto) 16.7 10^3/uL (1.4-6.5) H 12/12/24 03:01
Sodium 137 mmol/L (135-145) 12/12/24 03:01
Potassium 3.8 mmol/L (3.5-5.1) 12/12/24 03:01
Chloride 93 mmol/L (98-107) L 12/12/24 03:01
Carbon Dioxide 38 mmol/L (22-30) H 12/12/24 03:01
BUN 15 mg/dl (7-17) 12/12/24 03:01
Creatinine 0.5 mg/dL (0.6-1.0) L 12/12/24 03:01
Calcium 7.7 mg/dl (8.4-10.2) L 12/12/24 03:01
Total Bilirubin 0.4 mg/dl (0.2-1.3) 12/12/24 03:01
AST 158 U/L (14-36) H 12/12/24 03:01
ALT 234 U/L (0-35) H 12/12/24 03:01
Alkaline Phosphatase 110 U/L (38-126) 12/12/24 03:01
Hepatitis A Ab Total Negative (Negative) 12/08/24 05:31
Hep Bs Antibody Positive 12/08/24 05:31
Hep B Core Total Ab Reactive (Negative) 12/10/24 03:01
Hepatitis C Antibody Negative (Negative) 12/08/24 05:31
Diagnostic Image Results:
12/07/24 US abdomen
liver and GB normal no ductal dilatation
There are 2 right-sided renal cysts
The study is otherwise normal
12/07/24 CT Chest/abd/pelvis
Numerous predominantly the right lung pulmonary nodular parenchymal opacities with irregular margination, as described. Although likely infectious in etiology (including atypical and/or fungal etiology), follow-up would be necessary to assess for
resolution after conservative therapy, and to exclude the possibility of neoplasm. Otherwise, consider follow-up PET/CT.
Mild confluent hilar lymphoid tissue and small mediastinal lymph nodes. However, no enlarged adenopathy.
Diverticulosis. Suspect subtle acute diverticulitis related to the distal descending colon.
No bowel obstruction.
No obstructive uropathy. Right renal cysts.
. No obstructive uropathy. 2.5 cm lateral right midpole renal cyst. Right upper pole parapelvic cyst measuring 1.5 cm.
Age indeterminate, though chronic-appearing sclerotic moderate superior endplate compression deformity of T7.
08/2020 [facility] colon polyps 10mm AC, 15 mm AC, diverticulosis bx TA
08/2020 [facility] EGD - Normal examined duodenum.
- Erythematous mucosa in the antrum. Biopsied.
- Small hiatal hernia.
- Esophageal plaques were found, suspicious for
candidiasis. Brushings performed.
- No gross lesions in esophagus. Biopsied.
bx neg
Assessment / Plan
-
Pt is a 74yo with hx HTN, hypercholesterolemia, asthma/COPD, GERD, colon polyp with recent admission with influenza A and COPD exacerbation. she was given tamiflu and steroids with inhalers. Her admission was complicated with new Afib with
Cardizem then Digoxin use with start of Eliquis on discharge. She was discharged 12/04 and returns 12/07 with chest pressure with palpitation and shortness of breath. She was noted with Afib with RVR on return then back to sinus Rhythm. During last
admission she was noted with normal LFT's on 11/27 and mild elevation in March 2024 when she was in ER with abdominal pain after taking mag citrate for constipation. She is now noted on return with bili 0.4, AST 68, ALT 170, alk phos 92 with further
rise in LFT's since admission. US 12/07 with normal finding and 2 right renal cysts, 12/07 CT Chest/abd pelvis with lung nodular opacities, adenopathy, diverticulosis, no obstruction, The liver, gallbladder, pancreas, spleen, and adrenal glands are
unremarkable. No bile duct dilatation. She has been seen by pulm with concern for PNA. asked to see for elevated LFT's with noted hep Bs ab+ and hep B core reactive and neg hep Bs Ag.
-increased transaminases
-hep B Core Ab reactive/hep Bs ab +
-hypoxemia
-possible PNA
-new afib with RVR newly placed on Eliquis
-leukocytosis
-recent flu +
other med problems:
-HTN
-hypercholesterolemia
--Asthma/COPD
-GERD
-colon polyps
PLAN:
etiology of LFT elevation related to current acute resp illness,- drug induced recent tamiflu as some post marketing reported rise,also noted Azithromycin prior to last admission, vs other
no documented hypotension but was noted with afib RVR on admission
liver and biliary tract normal on recent US and CT
LFT's normal in past on 11/27 admission labs
hep B core ab reactive may be prior exposure - check hep B DNA
cont trend labs
avoid hepatotoxic medications- crestor on hold
OP follow up to ensure improved and review hep B DNA results
-
-
Thank you for consultation and allowing me to participate in the patient's care. Please call the debt collection specialist GI physician during the after hours with any questions or concerns.
--- NOTE | 2024-12-12 17:00 | PTCARENOTE ---
Pt had foam dsg on L flank and a large sacral foam dsg. Dsgs removed to check skin. Beneath L flank dsg Pt has a blistery, questionable vesicle rash with yellow tops. There was small amt of serosang drainage on dsg that was removed. L buttock has
red area of patchy pink rash that looks healed. Dr Pollard notified, wound care consulted and Pt placed on airborne precautions.
[2024-12-12 17:18] LABS: Urine Albumin Trace (Neg - Trace); Urine Bilirubin Negative (Negative); Urine Character Clear (Clear); Urine Color Yellow; Urine Glucose 3+ (Negative); Urine Ketone Negative (Negative); Urine Leukocyte Trace (Negative); Urine Nitrite Negative (Negative); Urine Occult Blood 1+ (Negative); Urine Urobilinogen Negative (Neg - 1+)
[2024-12-12 17:35] LABS: Urine Bacteria Moderate (Negative)
[2024-12-12] MEDS: ZOVIRAX INJECTION 112.6 MG IV (18:14)
[2024-12-12] MEDS: SYMBICORT 160/4.5 MCG INHALER 2 PUFF INH (19:23)
--- NOTE | 2024-12-12 19:23 | PTCARENOTE ---
Dr Castillo came to see Pt. L flank wound specimen sent. Pt started on IV acyclovir as ordered. Iv antibx ordered to start tonight.
[2024-12-12] MEDS: ROXICODONE 5 MG PO (20:24)
[2024-12-12] MEDS: MAXIPIME 1000 MG IV (20:25)
[2024-12-12] MEDS: STERILE WATER FOR INJECTION 10 ML IV (20:25)
[2024-12-12] MEDS: VALIUM 5 MG PO (22:01)
[2024-12-13] VITALS (9 sets, daily range): BP systolic 140–163; BP diastolic 62–89; PULSE 2–96
[2024-12-13] MEDS: MAXIPIME 1000 MG IV ×4 (01:29→22:18)
[2024-12-13] MEDS: ZOVIRAX INJECTION 112.6 MG IV ×3 (01:29→17:21)
[2024-12-13] MEDS: STERILE WATER FOR INJECTION 10 ML IV ×4 (01:29→22:18)
[2024-12-13] MEDS: ROXICODONE 5 MG PO ×3 (02:11→17:22)
[2024-12-13 04:07] LABS: % Basophils 0.3 % (0-2); % Eosinophils 0.7 % (0-6); % Immature Granulocytes 1.7 % (0-0.5); % Lymphocytes 6.5 % (20.5-51.1); % Monocytes 5.2 % (1.7-9.3); % Neutrophils 85.6 % (42.2-75.2); Absolute Basophils 0.1 10^3/uL (0-0.2); Absolute Eosinophils 0.2 10^3/uL (0-0.7); Absolute Immature Granulocytes 0.3 10^3/uL (0-0.05); Absolute Lymphocytes 1.3 10^3/uL (1.2-3.4); Absolute Neutrophils 17.2 10^3/uL (1.4-6.5); Hemoglobin 11.8 g/dL (12.0-16.0); Mean Corp Hgb Conc. 31.1 g/dL (33.0-37.0); Mean Corpuscular Hgb 30.1 pg (27.0-31.0); Mean Corpuscular Volume 96.9 fL (81.0-99.0); Mean Platelet Volume 8.8 fL (7.4-10.4); Nucleated Red Blood Cells % 0 %; Platelet Count 219 10^3/uL (130-400); Red Blood Cell Count 3.92 10^6/uL (4.20-5.40); Red Cell Dist. Width 13.3 % (11.5-14.5); White Blood Cell Count 20.1 10^3/uL (4.8-10.8)
[2024-12-13 04:34] LABS: ALT (SGPT) 212 U/L (0-35); AST (SGOT) 113 U/L (14-36); Albumin 2.7 g/dl (3.5-5.0); Alkaline Phosphatase 104 U/L (38-126); Blood Urea Nitrogen 22 mg/dl (7-17); Carbon Dioxide 40 mmol/L (22-30); Chloride 92 mmol/L (98-107); Estimated Creatinine Clearance 73 ml/min; Glucose 133 mg/dl (70-99); Sodium 137 mmol/L (135-145); Total Bilirubin 0.4 mg/dl (0.2-1.3); Total Protein 5.2 g/dl (6.3-8.2); eGFR > 60.00
--- NOTE | 2024-12-13 04:42 | PTCARENOTE ---
Pt NSR to SR on monitor. C/O severe neck and head pain. 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 PRN oxy given with positive result. Pt ambulates with x1 assist. C/o COLLINS with PlOx 92% on 4 L
[2024-12-13] MEDS: XOPENEX 1.25 MG INHALANT SOLUTION INH ×3 (07:41→21:13)
[2024-12-13] MEDS: SYMBICORT 160/4.5 MCG INHALER 2 PUFF INH ×2 (07:41→21:16)
[2024-12-13] MEDS: ELIQUIS 5 MG PO (08:29)
[2024-12-13] MEDS: PROTONIX 40 MG PO (08:29)
[2024-12-13] MEDS: MUCINEX 1200 MG PO (08:29)
[2024-12-13] MEDS: CARDIZEM CD 360 MG PO (08:29)
--- NOTE | 2024-12-13 08:29 | W.PN.UPDATE ---
Update Note
Progress Note Update
-Telemetry reviewed--Patient remains in sinus rhythm; mild sinus tachycardia, likely reactive to underlying infection.
-Continue Cardizem CD 36 mg daily.
-Continue Toprol-XL 25 mg once daily; can increase as needed if heart rate does not improve over the next couple of days with treatment of her infections.
-Cardiology will remain available on an as-needed basis.
[2024-12-13] MEDS: TOPROL XL 25 MG PO (08:30)
[2024-12-13] MEDS: DELTASONE 50 MG PO (08:36)
--- NOTE | 2024-12-13 09:08 | W.PN.HOSP.TC ---
Today's Communication/Plan
-
cont Cefepime, Acyclovir
repeat head CT and ordered spinal tap - patient is agreeable
with improvement in LFT - will restart Fioricet
cont droplet precautions and telemetry
Assessment / Plan
Assessment / Plan
74yo F with PMHX of chronic hypoxic respiratory failure on 2-4L O2 2/2 COPD on chronic Prednisone 10mg, HTN, migraines came with SOB and chest palpitations, managed for A.fib with RVR that later converted to sinus and managed with BB as per card.
SHe was recently in [facility] with Influenza A, CHest CT showed numerous predominantly R pulmonary nodules. ID following off Abx however patient feeling pain under R scapulae and generalized weakness. tolerated BB for HR control. ID and pulm initially
recommended to stop Abx, but with worsening R sded pneumonia - restarted empirically on 12/12/24. Found herpetic eruptions and started on Acyclovir for possible disseminated shingles. Due to intractable headaches - planned for spinal tap.
A/P
#chronic hypoxic respiratory failure 2/2 COPD without exacerbation
#Pulmonary nodules, concern for pneumonia
Doubt sepsis
Procal neg
sputum Cx - normal david
AFB sputum pending
legionella and S.pneumonia urinary Ag neg
Pulm consult
Cefepime started on 12/12/24
MRSA screen neg
cont bronchodilators - avoid Albuterol as not in exacerbation and to prevent tachycardia
taper steroids
#Vesicular rash, concern for shingles, cannot exclude disseminated
ID consult: Acyclovir started
VZV and Herpes labs
Droplet precautions
#Hx of migraines
#Intractable headache
Repeat head CT and IRAD messaged about lumbar tap - labs ordered
Head CT
Sumatriptan
Head CT
Compazine PRN
#HepB core Ab and surf Ab positive
#transaminitis
follow LFT
most likely past exposure vs occult hepB (less likely),
GI consult - HepB DNA quantitative sent
US RUQ without hepatic or biliary abnormality
Cannot exclude Abx as a reason
#Afib, unspecified with RVR with benson
Eliquis
Cardio consult: switched to BB- converted to sinus and tolerating well
Rate control
telemetry
#mild diverticulitis
Augmentin completed, no LLQ pain, tolerating food well
Outpatient colonoscopy in 6 weeks advised
#Renal cysts
no follow up advised
#Anxiety
#Essential HTN
#HLD
#Urinary retention
cont home meds
#UTI ruled out
Ucx neg
#chronic leukocytosis
2/2 steroids
Outpatient hematology advised
DVT ppx Eliquis
Full code
I have spent at least 59min reviewing chart, test results, communication with consultants and direct patient care
Anticipated Discharge: > 48 hours
Subjective/Interval History
-
Date of Service: December 13, 2024
Objective Data
-
Labs:
Laboratory Results
12/13/24
03:17
WBC 20.1 H
Hgb 11.8 L
Hct 38.0
Plt Count 219
Sodium 137
Potassium 4.0
Chloride 92 L
Carbon Dioxide 40 H
BUN 22 H
Creatinine 0.5 L
Glucose 133 H
Calcium 8.0 L
Total Bilirubin 0.4
AST 113 H
ALT 212 H
Alkaline Phosphatase 104
Vital Signs:
Vital Signs
Temp Pulse Resp BP Pulse Ox
99.0 F 104 18 156/69 94
12/13/24 07:04 12/13/24 07:45 12/13/24 07:45 12/13/24 03:04 12/13/24 07:45
I&O
12/12/24 12/13/24 12/14/24
06:59 06:59 06:59
Intake Total 400 / 400
Output Total 750 / 750
Balance -350 / -350
Review of Systems
-
History Source: Patient
Neuro: Reports Headache
Physical Exam
-
General: Pain
HEENT: Moist Mucous Membranes
Respiratory: Clear to Auscultation
Cardiac: Regular Rhythm
GI: Soft, Nontender and Nondistended
Skin: Warm and Other (L hip vesicular lesions, L buttocks vesicular lesions)
Neuro: Awake, Alert, Oriented and AO x 3
Psych: Calm
--- NOTE | 2024-12-13 09:26 | W.PN.ID1 ---
Date of Service
Date of Service: December 13, 2024
Today's Communication
Add empiric Vancomycin.
See below.
Assessment / Plan
Shortness of breath
Recent influenza A infection (11/27/24) s/p oeltamivir
Left hip herpes zoster
A-fib with RVR; converted to sinus on Cardizem drip
Recent Hx of COPD exacerbation; on steroid taper
Leukocytosis; suspect secondary to steroids
Abnormal CXR/CT
Asthma
Severe COPD on home O2 2-4L, chronic prednisone 10mg qd
HTN
Migraines
Recommendations:
Patient currently with adequate oxygenation.
Sputum culture negative. AFB stain and culture pending.
(s/p 4 days Unasyn, 3 days doxy: dc'd 12/12)
12/12/24 CXR: worsening severe right lung opacities/PNA.
Repeat COVID/influenza negative.
Currently on cefepime (d2).
Sputum silver stain pending.
At risk for post-influenza MRSA pneumonia. Add Vancomycin.
Repeat blood cultures, UA reflex pending
Acute Headache. For LP per hospitalist.
Herpes zoster left hip
Continue IV acyclovir.
Follow renal function closely while on IV acyclovir.
on Airborne isolation due to immunosuppressed host and skipped dermatome
����������������������������������������������������������
Chief Complaint
-: Pneumonia and Other (Nodular pulmonary infiltrates)
Subjective / Review of Systems
Lethargic today. 2 days of FERNANDEZ back of neck.
Vital Signs / Physical Exam
Vital Signs
Vital Signs
Temp Pulse Resp BP Pulse Ox
99.0 F 104 18 156/69 94
12/13/24 07:04 12/13/24 07:45 12/13/24 07:45 12/13/24 03:04 12/13/24 07:45
Physical Exam
Constitutional: Acutely Ill
Head: Other (no frontal or maxillary sinus tenderness)
Cardiovascular: Regular Rate and S1/S2
Pulmonary: Rales (few crackles right lung)
Gastrointestinal: Soft, Non Tender, Non Distended and Normal Bowel Sounds
Genito-Urinary: Negative CVA Tenderness
Skin: Other (left hip clusters of vesicular lesions)
Neurological: Negative Meningeal Signs
Objective Data
Lab Data
Lab Results
12/13/24 03:17
12/13/24 03:17
ESR 50 mm/hour (0-20) H 12/09/24 02:21
Estimated Creat Clear 73 ml/min 12/13/24 03:17
Total Bilirubin 0.4 mg/dl (0.2-1.3) 12/13/24 03:17
AST 113 U/L (14-36) H 12/13/24 03:17
ALT 212 U/L (0-35) H 12/13/24 03:17
Alkaline Phosphatase 104 U/L (38-126) 12/13/24 03:17
Most recent labs reviewed.
Micro Results:
12/12/24 16:20 Urine Culture - Pending
Urine
12/12/24 13:54 Blood Culture - Pending
Blood/Venous
12/12/24 12:57 Influenza Types A & B (SHEELA) - Final
Nasal Swab Negative for Influenza A & B, NAAT
Negative results must be combined with clinical observations
and patient history.
Nucleic Acid Amplification test (NAAT)performed on the
[employer] platform.
12/12/24 13:05 Blood Culture - Pending
Blood/Venous
12/11/24 20:04 Acid Fast Bacilli Smear - Pending
Sputum Acid Fast Bacilli Culture - Pending
12/09/24 15:59 Respiratory Culture - Final
Sputum Usual Respiratory Luzma
Gram Stain - Final
12/09/24 11:57 MRSA Screen - Final
Nose No Methicillin Resistant Staphylococcus aureus isolated.
12/09/24 09:20 Legionella Urinary Antigen - Final
Urine Negative for Legionella pneumophila Serogroup 1 antigen.
A negative result does not rule out the possiblity of
Legionella infection due to other serogroups or species of
Legionella. Clinical correlation is recommended.
Streptococcus pneumoniae Antigen (M - Final
Negative for Streptococcus pneumoniae antigen.
A negative result does not exclude infection with
Streptococcus pneumoniae. Clinical correlation is
recommended.
12/08/24 02:32 Urine Culture - Final
Urine
12/07/24 10:47 Influenza Types A & B (SHEELA) - Final
Nasal Swab Negative for Influenza A & B, NAAT
Negative results must be combined with clinical observations
and patient history.
Nucleic Acid Amplification test (NAAT)performed on the
[employer] platform.
Laboratory Tests
12/12/24
12:57
SARS-CoV-2 Antigen Negative
Imaging:
12/07/2024 CTA (chest/abdomen/pelvis):Numerous predominantly the right lung pulmonary nodular parenchymal opacities with irregular margination, as described. Although likely infectious in etiology (including atypical and/or fungal etiology),
follow-up would be necessary to assess for resolution after conservative therapy, and to exclude the possibility of neoplasm. Otherwise, consider follow-up PET/CT. Mild confluent hilar lymphoid tissue and small mediastinal lymph nodes. However, no
enlarged adenopathy. Diverticulosis. Suspect subtle acute diverticulitis related to the distal descending colon. No bowel obstruction. No obstructive uropathy. Right renal cysts. The liver, gallbladder, pancreas, spleen, and adrenal glands are
unremarkable. No bile duct dilatation. No obstructive uropathy. 2.5 cm lateral right midpole renal cyst. Right upper pole parapelvic cyst measuring 1.5 cm. Age indeterminate, though chronic-appearing sclerotic moderate superior endplate compression
deformity of T7.
Care Review
Plan reviewed with: Physician (Dr. Pollard)
--- NOTE | 2024-12-13 09:34 | W.PN.PUL3 ---
Today's Communication / Plan
-
Appears clinically worsened this AM, lethargic/minimally arousable
She had tolerated BIPAP overnight, repeat VBG today
Prednisone dose increased to 50mg daily
Would begin discussions of code status with family, attempted to call Dewey-no answer
She is high risk given her lung function, COPD severity
Assessment
-
Patient is a 74-year-old female with previous history of severe COPD on home oxygen 2-4L, hypertension, migraines presenting with chest pressure, palpitations and right sided chest discomfort. In the ER, she was notably found to be in A-fib with
RVR and started on Cardizem drip. Chest x-ray demonstrating new right sided opacity that may represent pneumonia. She recently was flu positive.
Still having ongoing right-sided chest discomfort.
Chronic hypoxemia, currently on 4 L
New right-sided opacities on chest x-ray, possible pneumonia
Chest discomfort
Palpitations
A-fib with RVR on Cardizem drip, h/o SVT
Recent flu A positive 11/27/24
Chronic hypercarbic respiratory failure
Conditions present prior to admission
Osteoporosis
Hypertension
PAD
B/l Brachial artery stenosis
Anxiety
Migraine Headache
Severe COPD on home O2/Centrilobular emphysema
Follows Dr Wayne
FVC 2.20 L or 74%; FEV1 0.71 L or 32%, ratio was 32%; TLC 5.0 or 101%, RV/TLC 54%, DLCO 17%
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
Upper airway cough syndrome, follows with ENT
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
T7 compression facture 04/12
B/L Cataract Surgery
Colonoscopy and endoscopy-polyps found
s/p Mohs Surgery 09/2024
Plan
She remains on her baseline O2 requirements, 2-4L
Prior history of lung disease is noted including severe COPD/emphysema, stage IV with severe diffusion impairment
Suspect patient has PNA given CXR and CT findings
She is placed on empiric abx
MRSA negative
PCT negative
Sputum culture sent--neg
AFB pending
Could likely stop abx if all negative
We discussed airway clearance vest/nebs/acapella
Continue mucinex and nebs TID
Recent chest imaging reviewed with extensive disease on R
Repeat CXR following aggressive clearance measures, repeat 12/12--worsened
Due to worsening overall, I increased her prednisone to 50mg daily
VBG showing chronic Co2 retention
BIPAP added for nightly and PRN use
Lethargic this AM, repeat VBG
Afib with RVR noted, on gtt--transitioned to PO course
Cards following
proBNP 300
Prior ECHO results are reviewed indicating stable function
Resume home inhalers
She is on chronic prednisone for COPD, steroid dependant
Would be reasonable to discuss GOC if she were to clinically deteriorate given her lung function
She remains full code
Diagnostic Data
Chest X-Ray: 12/08/24- Predominately right-sided interstitial infiltrate and subtle underlying parenchymal nodularity is again demonstrated involving the caudal aspect of the right upper lobe and right lower lobe. Slight progression suggested in the
medial right lung base. The left lung remains essentially clear.
CT Scan: CT CAP 12/07/24- Numerous predominantly the right lung pulmonary nodular parenchymal opacities with irregular margination, as described. Although likely infectious in etiology (including atypical and/or fungal etiology), follow-up would be
necessary to assess for resolution after conservative therapy, and to exclude the possibility of neoplasm. Otherwise, consider follow-up PET/CT.
Mild confluent hilar lymphoid tissue and small mediastinal lymph nodes. However, no enlarged adenopathy.
Moderate emphysematous lung changes.
Echo: 12/03/24- Normal biventricular size and systolic function without regional wall motion abnormality. LVEF 65-70%. Aortic sclerosis without stenosis. No significant valvular disease.
No change compared to prior study in April 2023.
PFT's:
Reports and relevant images were personally reviewed.
Total time spent on this encounter __51__ minutes which includes review of history, physical exam, medications, laboratory data, personal review of imaging, extensive review of outpatient records, discussion with care team and respiratory therapy.
Subjective Data
-
Date of Service:
Date of Service: December 13, 2024
Chief Complaint: Pulmonary Follow Up
Subjective:
Unresponsive this AM
Tolerated BIPAP but does not seem improved
Objective Data
Data Reviewed
Vital Signs / I&O / Oxygen:
Vital Signs
Temp Pulse Resp BP Pulse Ox
99.0 F 104 18 156/69 94
12/13/24 07:04 12/13/24 07:45 12/13/24 07:45 12/13/24 03:04 12/13/24 07:45
Intake and Output
12/12/24 12/13/24 12/14/24
06:59 06:59 06:59
Intake Total 400 / 400
Output Total 750 / 750
Balance -350 / -350
SaO2 94
Nasal Cannula flow liters per 4
minute
Physical Exam
General: Comfortable and Poor Appetite
HEENT: Normocephalic, Anicteric and Moist Mucous Membranes
Cardiovascular: S1-S2 and Regular Rhythm
Respiratory: Crackles and Non-Labored Respirations
GI: Soft, Non Distended and Non Tender
Neurology: No Motor Deficits, Unresponsive (minimally responsive) and Lethargic
Skin: Warm, Dry and Good Color
Labs/Micro/Reports
Lab Data
12/13/24 03:17
12/13/24 03:17
Microbiology
12/12/24 12:57 Nasal Swab Influenza Types A & B (SHEELA) - Final
Negative for Influenza A & B, NAAT
Negative results must be combined with clinical observations
and patient history.
Nucleic Acid Amplification test (NAAT)performed on the
[employer] platform.
12/09/24 15:59 Sputum Respiratory Culture - Final
Usual Respiratory Luzma
12/09/24 15:59 Sputum Gram Stain - Final
12/09/24 11:57 Nose MRSA Screen - Final
No Methicillin Resistant Staphylococcus aureus isolated.
[2024-12-13] MEDS: BENADRYL 25 MG IV (09:40)
[2024-12-13] MEDS: COMPAZINE 10 MG IV (09:42)
--- NOTE | 2024-12-13 12:04 | CM ---
CM following for DC planning needs.
Did not meet with patient at this time as pt. is unable to engage in meaningful conversation per review w/ RN.
DC needs are uncertain at this time.
In prior conversation w/ patient, she feels that she will have no needs at DC. Will need to follow closely with patient's status and ability to return home independently.
She does reside in a ranch style home w/ sig. other. She is functionally indep. at baseline.
[2024-12-13 13:10] LABS: INR 1.45; PT 17.9 Sec (11.4-14.6)
--- NOTE | 2024-12-13 13:26 | W.PN.UPDATE ---
Update Note
Progress Note Update
Eliquis to be held for LP, will start heparin drip at 8pm, plan for LP in 2 days as currently risk of hemorrhage with procedure will overweight benefit. IRAD informed
--- NOTE | 2024-12-13 13:40 | PHA.VAN.IN ---
Assessment
- Assessment
Renal Function: Appears similar to baseline
Concomitant Antimicrobials: acyclovir, cefepime
AUC Dosing Plan
- Dosing Variables
Dosing Weight (kg): 63
Dosing CrCl (ml/min): 73
Vd coefficient (L/kg): 0.7
- Empiric Dosing
Initial / Loading Dose: 1500mg - administration pending
Maintenance Regimen: Vanc 750mg Q12H starting 12/14 06
Estimated AUC (mcg*h/mL): 540
Estimated Peak (mcg*h/mL): 31.4
Estimated Trough (mcg/ml): 15.4
Estimated Half Life (H): 10.7
- Monitoring
No levels ordered at this time: consider levels in next few days
Pharmacokinetics Vancomycin I
- -
Patient Age: 74
Patient Sex: Female
Vancomycin Day #: 1
Indication: Pulmonary/Respiratory
Requesting Provider: Dr. Mcdaniel
Pertinent Antimicrobial Allergies:
NKDA
Height / Weight:
Height 5 ft 4 in
Actual Weight 63.4 kg
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
- Vital Signs / Lab Results
Temp Pulse Resp BP Pulse Ox
99.2 F 96 18 148/62 91
12/13/24 11:44 12/13/24 11:45 12/13/24 11:44 12/13/24 11:44 12/13/24 11:44
Lab Results - Hematology
12/11/24 12/12/24 12/13/24
02:44 03:01 03:17
WBC 17.9 H 19.0 H 20.1 H
Lab Results - Chemistry
12/11/24 12/12/24 12/13/24
02:44 03:01 03:17
BUN 17 15 22 H
Creatinine 0.6 0.5 L 0.5 L
Estimated Creat Clear 73 73 73
Albumin 2.9 L 2.8 L 2.7 L
Lab Results - Urine
12/12/24
16:20
Urine Nitrite (Reflex) Negative
Leukocyte Esterase Rfl Trace A
Urine WBC (Reflex) 6-10
Ur Squamous Epith Cells 11-15
Urine Bacteria (Reflex) Moderate A
Microbiology Results
12/12/24 13:05 Blood Culture - Preliminary
Blood/Venous No Growth in 24 hours- Final report to follow
12/12/24 16:20 Urine Culture - Final
Urine NO GROWTH
12/12/24 12:57 Influenza Types A & B (SHEELA) - Final
Nasal Swab Negative for Influenza A & B, NAAT
Negative results must be combined with clinical observations
and patient history.
Nucleic Acid Amplification test (NAAT)performed on the
[employer] platform.
[2024-12-13] MEDS: VANCOCIN 530 MG IV (14:15)
--- NOTE | 2024-12-13 14:53 | PTCARENOTE ---
Pt received this am on 4LNC, sat 92%. C/o of 9/10 headache pain at back of the head and back of neck. Medicated with oxycodone as ordered with relief obtained. Pt to CT of the head this am. LP rescheduled and to be done Monday. Pt lethargic but
answers appropriately.
--- NOTE | 2024-12-13 15:01 | W.PN.UPDATE ---
Update Note
Progress Note Update
Dewey Rodríguez # [phone] (home) no cell phone as per him
--- NOTE | 2024-12-13 16:30 | PTCARENOTE ---
Pt assisted oob to the BSC with 1 assist and a walker. Pt transferred to room 320. Report called to nurse receiving pt.
[2024-12-13 18:17] LABS: Venous Blood Gas B.E. 13.1 mmol/L (-4 to +4); Venous Blood Gas HCO3 42.1 mmol/L (22-27); Venous Blood Gas O2 Sat % 99.7 %; Venous Blood Gas pH 7.34 (7.32-7.43); Venous Blood Gas pO2 139 mmHg (30-50)
[2024-12-13 18:20] LABS: Venous Blood Gas pCO2 78 mmHg (35-48)
[2024-12-13 18:25] LABS: Procalcitonin 0.11 ng/ml (0.0-0.25)
--- NOTE | 2024-12-13 19:41 | PTCARENOTE ---
Received pt. from the IVU from nurse Mello at 1600. Pt. was a stand and pivot from the stretcher to the commode back to the bed. Pt. very drowsy and complaining of 10/10 pain due to headache. STAT labs ordered at 1500, pt. came to unit at 1600 with
labs not drawn. Venous blood gas and procalcitonin drawn by IV team. Critical CO2 called from the lab at 78, provider notified and new orders for BIPAP received. Report given to new RN for night shift supervisor. BiPAP started by respiratory.
[2024-12-13 21:03] LABS: B.E. 11.7 mmol/L; O2 Saturation % 91.4 % (94-98); pH 7.34 (7.35-7.45)
[2024-12-13 21:06] LABS: HCO3 40.5 mmol/L (21-28); PCO2 75 mmHg (32-35); PO2 58 mmHg (83-108)
[2024-12-13] MEDS: MUCINEX PO (21:55)
--- NOTE | 2024-12-13 23:50 | PTCARENOTE ---
Patient received on BiPAP d/t elevated CO2 in VBG. Patient lethargic, opens eyes to name then falls back asleep. Answers simple questions appropriately. Repeat ABG done after 1 hour of BiPAP use. CO2 NOW 75, HCO3 40.5, PO2 58. Results reported to
GABE Campbell. RT reported that patient had BiPAP pulled off when he went in to draw ABG. Patient on airborne precautions so room door shut. Patient with a 1:1 at bedside to ensure she keeps BiPAP on. Repeat ABG ordered for 0600. Per
Latrice's note from today, patient will need to be started on Heparin gtt r/t Eliquis being placed on hold for LP scheduled for Monday. No order entered for Heparin gtt. GABE Campbell notified, per GABE do not start Heparin gtt at this time.
Eliquis will be in system for 2 days s/p last dose. Hospitalist to clarify in am. This RN spoke with patient's spouse Dewey and gave a full update. Will continue to monitor.
[2024-12-14] VITALS (9 sets, daily range): BP systolic 142–172; BP diastolic 80–110; PULSE 2–111
[2024-12-14] MEDS: MAXIPIME 1000 MG IV ×4 (01:16→20:26)
[2024-12-14] MEDS: STERILE WATER FOR INJECTION 10 ML IV ×4 (01:16→20:26)
[2024-12-14] MEDS: ZOVIRAX INJECTION 112.6 MG IV ×3 (01:16→18:14)
[2024-12-14 04:37] LABS: B.E. 13.3 mmol/L; O2 Saturation % 98.3 % (94-98); PO2 78 mmHg (83-108); pH 7.37 (7.35-7.45)
[2024-12-14 04:50] LABS: HCO3 41.6 mmol/L (21-28); PCO2 72 mmHg (32-35)
--- NOTE | 2024-12-14 05:22 | PTCARENOTE ---
Critical ABG results reported to GABE Campbell. ABG improved from previous blood gas drawn earlier in the shift. Patient remains on BiPAP, more alert. 1:1 maintained at bedside and reminding patient to keep BiPAP mask on. Care ongoing, will
continue to monitor.
[2024-12-14] MEDS: VANCOCIN 150 IV ×2 (06:28→20:25)
[2024-12-14] MEDS: XOPENEX 1.25 MG INHALANT SOLUTION INH ×3 (07:15→20:45)
[2024-12-14] MEDS: SYMBICORT 160/4.5 MCG INHALER 2 PUFF INH ×2 (07:16→20:45)
--- NOTE | 2024-12-14 09:07 | PHA.VAN.FU ---
Vancomycin Assessment / Plan
- Assessment
Renal Function: Stable
WBC's are: Trending Up
In the past 24 hrs, patient has been: Afebrile
Concomitant Antimicrobials: CEFEPIME
- Dosing Plan
Continue: 750MG Q12H
- Monitoring Plan
Peak Level: 12/15 @2030
Trough Level: 12/16 @0530
- Follow Up
Pharmacy will continue to follow.
Vancomycin Follow UP
- -
Patient Age: 74
Patient Sex: Female
Vancomycin Day #: 2
Indication: Pulmonary/Respiratory
Requesting Provider: Dr. Mcdaniel
Pertinent Antimicrobial Allergies:
NKDA
Height / Weight:
Height 5 ft 4 in
Actual Weight 63.4 kg
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
- Vital Signs / Lab Results
Temp Pulse Resp BP Pulse Ox
98 F 106 22 166/90 94
12/14/24 07:45 12/14/24 07:45 12/14/24 07:45 12/14/24 07:45 12/14/24 07:45
Lab Results - Hematology
12/12/24 12/13/24
03:01 03:17
WBC 19.0 H 20.1 H
Lab Results - Chemistry
12/12/24 12/13/24
03:01 03:17
BUN 15 22 H
Creatinine 0.5 L 0.5 L
Estimated Creat Clear 73 73
Albumin 2.8 L 2.7 L
Microbiology Results
12/11/24 20:04 Acid Fast Bacilli Smear - Preliminary
Sputum Acid Fast Bacilli Culture - Preliminary
12/12/24 13:54 Blood Culture - Preliminary
Blood/Venous No Growth in 24 hours- Final report to follow
12/12/24 13:05 Blood Culture - Preliminary
Blood/Venous No Growth in 24 hours- Final report to follow
12/12/24 16:20 Urine Culture - Final
Urine NO GROWTH
12/12/24 12:57 Influenza Types A & B (SHEELA) - Final
Nasal Swab Negative for Influenza A & B, NAAT
Negative results must be combined with clinical observations
and patient history.
Nucleic Acid Amplification test (NAAT)performed on the
[employer] platform.
[2024-12-14 09:14] LABS: % Basophils 0.3 % (0-2); % Eosinophils 0.3 % (0-6); % Immature Granulocytes 1.6 % (0-0.5); % Lymphocytes 4.8 % (20.5-51.1); % Monocytes 4.2 % (1.7-9.3); % Neutrophils 88.8 % (42.2-75.2); Absolute Basophils 0.1 10^3/uL (0-0.2); Absolute Eosinophils 0.1 10^3/uL (0-0.7); Absolute Immature Granulocytes 0.2 10^3/uL (0-0.05); Absolute Lymphocytes 0.7 10^3/uL (1.2-3.4); Absolute Monocytes 0.6 10^3/uL (0.1-0.6); Absolute Neutrophils 13.5 10^3/uL (1.4-6.5); Hematocrit 40.2 % (37.0-47.0); Hemoglobin 12.1 g/dL (12.0-16.0); Mean Corp Hgb Conc. 30.1 g/dL (33.0-37.0); Mean Corpuscular Volume 99.5 fL (81.0-99.0); Mean Platelet Volume 8.7 fL (7.4-10.4); Nucleated Red Blood Cells % 0 %; Platelet Count 209 10^3/uL (130-400); Red Blood Cell Count 4.04 10^6/uL (4.20-5.40); Red Cell Dist. Width 13.4 % (11.5-14.5); White Blood Cell Count 15.3 10^3/uL (4.8-10.8)
[2024-12-14 09:28] LABS: ALT (SGPT) 158 U/L (0-35); AST (SGOT) 61 U/L (14-36); Albumin 2.9 g/dl (3.5-5.0); Alkaline Phosphatase 89 U/L (38-126); Blood Urea Nitrogen 32 mg/dl (7-17); Calcium 8.4 mg/dl (8.4-10.2); Chloride 92 mmol/L (98-107); Estimated Creatinine Clearance 73 ml/min; Glucose 183 mg/dl (70-99); Potassium 4.2 mmol/L (3.5-5.1); Sodium 139 mmol/L (135-145); Total Bilirubin 0.3 mg/dl (0.2-1.3); Total Protein 5.7 g/dl (6.3-8.2); eGFR > 60.00
--- NOTE | 2024-12-14 09:32 | W.PN.PUL3 ---
Today's Communication / Plan
-
Remains lethargic although arousable to voice and tactile stimulation
Continue with BiPAP and trend blood gas to ensure pH + pCO2 remained stable
Prednisone dose increased to 50mg daily on 12/13/2024 - continue at this time
If she is unable to take PO meds, then transition all meds to IV if applicable
She is high risk given her lung function, COPD severity
Currently no indication for bronchoscopy - this would be an outpatient discussion as she would need to be intubated for a bronchoscopy at this point which would lead to prolonged mechanical ventilation given her current clinical status
Assessment
-
Patient is a 74-year-old female with previous history of severe COPD on home oxygen 2-4L, hypertension, migraines presenting with chest pressure, palpitations and right sided chest discomfort. In the ER, she was notably found to be in A-fib with
RVR and started on Cardizem drip. Chest x-ray demonstrating new right sided opacity that may represent pneumonia. She recently was flu positive.
Still having ongoing right-sided chest discomfort.
Impression:
Acute on chronic respiratory failure with hypercapnia now on continuous BiPAP
Chronic hypoxic respiratory failure on home O2 on 4 L
New right-sided scattered opacities on CT Chest, possible pneumonia vs metastatic lesion
Chest discomfort
Palpitations
A-fib with RVR s/p Cardizem drip, h/o SVT
Recent flu A positive 11/27/24
Conditions present prior to admission
Osteoporosis
Hypertension
PAD
B/l Brachial artery stenosis
Anxiety
Migraine Headache
Severe COPD on home O2/Centrilobular emphysema
Follows Dr Wayne
FVC 2.20 L or 74%; FEV1 0.71 L or 32%, ratio was 32%; TLC 5.0 or 101%, RV/TLC 54%, DLCO 17%
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
Upper airway cough syndrome, follows with ENT
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
T7 compression facture 04/12
B/L Cataract Surgery
Colonoscopy and endoscopy-polyps found
s/p Mohs Surgery 09/2024
Plan
Pt became increasingly drowsy overnight on 12/13 - 12/14/2024 with blood gas showing acute hypercapnia with pCO2 of of 78
She was placed onto BiPAP which she is continued on
Continue to trend blood gas to ensure pH + pCO2 remained stable
If she awakens then can give her a break on the BiPAP and continue using it with sleep and prn during the day
Of note she is on chronic oxygen at 4 L/min at home
Prior history of lung disease is noted including severe COPD/emphysema, stage IV with severe diffusion impairment
I updated the patient's boyfriend, Dewey, at bedside and answered all of his questions
Suspect patient has PNA given CXR and CT findings
She is placed on empiric abx -currently on IV vancomycin/cefepime
ID consulted and recs appreciated
MRSA negative
PCT negative
Sputum culture sent (12/09/2024)--usual luzma
AFB pending from 12/11/2024
We discussed airway clearance vest/nebs/acapella
Unfortunately unable to use any PO meds while is continued on BiPAP
When able, we will continue mucinex; continue Xopenex TID; start Atrovent TID
Recent chest imaging reviewed with extensive disease on R
Repeat CXR following aggressive clearance measures, repeat 12/12--worsened
Due to worsening overall, Dr. Salmon increased her prednisone to 50mg daily on 12/13/2024 - wean as she clinically improves
Afib with RVR noted requiring Cardizem drip - -transitioned to PO
Also on heparin drip
Cards following
proBNP 331 from 12/07/2024
Prior ECHO results are reviewed indicating stable function (last echo 12/03/2024)
Continue home inhaler with Symbicort; uses Spiriva at home, and I added Atrovent today
She is on chronic prednisone for COPD, steroid dependant
Would be reasonable to discuss GOC if she were to clinically deteriorate given her lung function
She remains full code
Pulmonary service will continue to follow along
Diagnostic Data
Chest X-Ray: 12/08/24- Predominately right-sided interstitial infiltrate and subtle underlying parenchymal nodularity is again demonstrated involving the caudal aspect of the right upper lobe and right lower lobe. Slight progression suggested in the
medial right lung base. The left lung remains essentially clear.
CT Scan: CT CAP 12/07/24- Numerous predominantly the right lung pulmonary nodular parenchymal opacities with irregular margination, as described. Although likely infectious in etiology (including atypical and/or fungal etiology), follow-up would be
necessary to assess for resolution after conservative therapy, and to exclude the possibility of neoplasm. Otherwise, consider follow-up PET/CT.
Mild confluent hilar lymphoid tissue and small mediastinal lymph nodes. However, no enlarged adenopathy.
Moderate emphysematous lung changes.
Echo: 12/03/24- Normal biventricular size and systolic function without regional wall motion abnormality. LVEF 65-70%. Aortic sclerosis without stenosis. No significant valvular disease.
No change compared to prior study in April 2023.
PFT's:
Reports and relevant images were personally reviewed.
Total time spent today was 53 minutes for this encounter. Time includes reviewing laboratory test/imaging results, reviewing pertinent medical records, obtaining and reviewing medical history, performing an appropriate exam, ordering medications,
tests and procedures. Time also includes documentation of this encounter, coordinating patient care and communicating with other healthcare professionals. Total time does not include separately billed tests performed on this date of service.
Subjective Data
-
Date of Service:
Date of Service: December 14, 2024
Chief Complaint: Pulmonary Follow Up
Subjective:
Patient seen and evaluated today at bedside. Currently on BiPAP at 17/7cmH2O bled with 5 L/min with peak pressure of 20 cmH2O and VTe approx 300cc. She is lethargic but arousable to voice and answering questions appropriately. Her boyfriend,
Dewey, is at bedside and all questions were answered.
Review of Systems
General: Other (Unable to obtain given patient's acute clinical status/on BiPAP)
Objective Data
Data Reviewed
Vital Signs / I&O / Oxygen:
Vital Signs
Temp Pulse Resp BP Pulse Ox
98.6 F 102 26 163/80 94
12/14/24 04:15 12/14/24 07:25 12/14/24 07:25 12/14/24 04:15 12/14/24 07:25
Intake and Output
12/13/24 12/14/24 12/15/24
06:59 06:59 06:59
Intake Total 400 / 400 220 / 220
Output Total 750 / 750 300 / 300
Balance -350 / -350 -80 / -80
SaO2 94
Nasal Cannula flow liters per 7
minute
Physical Exam
General: Respiratory Distress (negative), Comfortable and Sweats (negative)
HEENT: Normocephalic, Anicteric and Moist Mucous Membranes
Cardiovascular: S1-S2, Peripheral Edema (negative) and Other (Tachycardic)
Respiratory: Wheeze (negative), Crackles, Rhonchi (negative), Non-Labored Respirations and Other (Coarse breath sounds heard bilaterally)
GI: Soft, Non Distended and Non Tender
Neurology: No Motor Deficits, Unresponsive (minimally responsive but answering questions appropriately and arousable to voice and tactile stimulation), Lethargic and Other (Pupils 3 mm bilaterally and equal)
Skin: Warm, Dry, Good Color, Cyanosis (negative) and Jaundice (negative)
Labs/Micro/Reports
Laboratory Results
12/13/24 12/13/24 12/14/24
12:47 20:57 04:25
PT 17.9 H
INR 1.45
pH 7.34 L 7.37
pCO2 75 H* 72 H*
pO2 58 L* 78 L
HCO3 40.5 H* 41.6 H*
O2 Delivery Level
Microbiology
12/11/24 20:04 Sputum Acid Fast Bacilli Smear - Preliminary
12/11/24 20:04 Sputum Acid Fast Bacilli Culture - Preliminary
12/12/24 13:54 Blood/Venous Blood Culture - Preliminary
No Growth in 24 hours- Final report to follow
12/12/24 13:05 Blood/Venous Blood Culture - Preliminary
No Growth in 24 hours- Final report to follow
12/12/24 16:20 Urine Urine Culture - Final
NO GROWTH
12/12/24 12:57 Nasal Swab Influenza Types A & B (SHEELA) - Final
Negative for Influenza A & B, NAAT
Negative results must be combined with clinical observations
and patient history.
Nucleic Acid Amplification test (NAAT)performed on the
[employer] platform.
12/09/24 15:59 Sputum Respiratory Culture - Final
Usual Respiratory Luzma
12/09/24 15:59 Sputum Gram Stain - Final
[2024-12-14 09:38] LABS: Carbon Dioxide 38 mmol/L (22-30)
[2024-12-14] MEDS: CARDIZEM CD PO (09:54)
[2024-12-14] MEDS: PROTONIX PO (09:54)
[2024-12-14] MEDS: DELTASONE PO (09:54)
[2024-12-14] MEDS: MUCINEX PO (09:54)
[2024-12-14] MEDS: ZOLOFT PO (09:55)
[2024-12-14] MEDS: TOPROL XL PO (09:55)
--- NOTE | 2024-12-14 12:10 | W.PN.ID1 ---
Date of Service
Date of Service: December 14, 2024
Today's Communication
Continue Vanco, cefepime, and acyclovir.
Assessment / Plan
Shortness of breath
Acute on chronic respiratory failure. On BiPAP
Recent influenza A infection (11/27/24) s/p oseltamivir
Left hip herpes zoster
A-fib with RVR; converted to sinus on Cardizem drip
Recent Hx of COPD exacerbation; on steroid taper
Leukocytosis; suspect secondary to steroids
Abnormal CXR/CT
Asthma
Severe COPD on home O2 2-4L, chronic prednisone 10mg qd
HTN
Migraines
Recommendations:
Patient currently with adequate oxygenation.
Sputum culture negative. AFB stain and culture pending.
(s/p 4 days Unasyn, 3 days doxy: dc'd 12/12)
12/12/24 CXR: worsening severe right lung opacities/PNA.
Repeat COVID/influenza negative.
Sputum silver stain pending.
Currently on cefepime (d3).
At risk for post-influenza MRSA pneumonia. Continue Vancomycin (d2)
Leukocytosis improved today.
Follow oxygen status.
Repeat blood cultures neg to date.
Ucx neg
Herpes zoster left hip
Continue IV acyclovir (d3)
Follow renal function closely while on IV acyclovir.
on Airborne isolation due to immunosuppressed host and skipped dermatome
����������������������������������������������������������
Chief Complaint
-: Pneumonia and Other (Nodular pulmonary infiltrates)
Subjective / Review of Systems
at bedside.
Pt on BIPAP. No cough. + SOB.
FERNANDEZ (back of head) better. Different from her migraine FERNANDEZ.
Vital Signs / Physical Exam
Vital Signs
Vital Signs
Temp Pulse Resp BP Pulse Ox
99.2 F 119 24 172/105 94
01/25/25 10:50 12/14/24 10:50 12/14/24 10:50 12/14/24 10:50 12/14/24 10:50
Physical Exam
Constitutional: Acutely Ill
Head: Other (No frontal or maxillary sinus tenderenss)
Eyes: No Conjunctival Hemorrhage and Sclera Anicteric
Cardiovascular: S1/S2 and Other
Pulmonary: Rales (right)
Gastrointestinal: Soft, Non Tender and Non Distended
Skin: Other (left hip/buttock vesicular lesions. )
Neurological: Awake and Other (lethargic); Negative Meningeal Signs (neck supple)
Objective Data
Lab Data
Lab Results
12/14/24 08:39
12/14/24 08:39
ESR 50 mm/hour (0-20) H 12/09/24 02:21
PT 17.9 Sec (11.4-14.6) H 12/13/24 12:47
INR 1.45 12/13/24 12:47
Estimated Creat Clear 73 ml/min 12/14/24 08:39
Total Bilirubin 0.3 mg/dl (0.2-1.3) 12/14/24 08:39
AST 61 U/L (14-36) H 12/14/24 08:39
ALT 158 U/L (0-35) H 12/14/24 08:39
Alkaline Phosphatase 89 U/L (38-126) 12/14/24 08:39
Most recent labs reviewed.
Micro Results:
12/11/24 20:04 Acid Fast Bacilli Smear - Preliminary
Sputum Acid Fast Bacilli Culture - Preliminary
12/12/24 13:54 Blood Culture - Preliminary
Blood/Venous No Growth in 24 hours- Final report to follow
12/12/24 13:05 Blood Culture - Preliminary
Blood/Venous No Growth in 24 hours- Final report to follow
12/12/24 16:20 Urine Culture - Final
Urine NO GROWTH
12/12/24 12:57 Influenza Types A & B (SHEELA) - Final
Nasal Swab Negative for Influenza A & B, NAAT
Negative results must be combined with clinical observations
and patient history.
Nucleic Acid Amplification test (NAAT)performed on the
hint NOW platform.
12/09/24 15:59 Respiratory Culture - Final
Sputum Usual Respiratory Luzma
Gram Stain - Final
12/09/24 11:57 MRSA Screen - Final
Nose No Methicillin Resistant Staphylococcus aureus isolated.
12/09/24 09:20 Legionella Urinary Antigen - Final
Urine Negative for Legionella pneumophila Serogroup 1 antigen.
A negative result does not rule out the possiblity of
Legionella infection due to other serogroups or species of
Legionella. Clinical correlation is recommended.
Streptococcus pneumoniae Antigen (M - Final
Negative for Streptococcus pneumoniae antigen.
A negative result does not exclude infection with
Streptococcus pneumoniae. Clinical correlation is
recommended.
12/08/24 02:32 Urine Culture - Final
Urine
12/07/24 10:47 Influenza Types A & B (SHEELA) - Final
Nasal Swab Negative for Influenza A & B, NAAT
Negative results must be combined with clinical observations
and patient history.
Nucleic Acid Amplification test (NAAT)performed on the
[employer] NOW platform.
Laboratory Tests
12/12/24
12:57
SARS-CoV-2 Antigen Negative
Imaging:
12/07/2024 CTA (chest/abdomen/pelvis):Numerous predominantly the right lung pulmonary nodular parenchymal opacities with irregular margination, as described. Although likely infectious in etiology (including atypical and/or fungal etiology),
follow-up would be necessary to assess for resolution after conservative therapy, and to exclude the possibility of neoplasm. Otherwise, consider follow-up PET/CT. Mild confluent hilar lymphoid tissue and small mediastinal lymph nodes. However, no
enlarged adenopathy. Diverticulosis. Suspect subtle acute diverticulitis related to the distal descending colon. No bowel obstruction. No obstructive uropathy. Right renal cysts. The liver, gallbladder, pancreas, spleen, and adrenal glands are
unremarkable. No bile duct dilatation. No obstructive uropathy. 2.5 cm lateral right midpole renal cyst. Right upper pole parapelvic cyst measuring 1.5 cm. Age indeterminate, though chronic-appearing sclerotic moderate superior endplate compression
deformity of T7.
--- NOTE | 2024-12-14 13:34 | W.PN.HOSP.TC ---
Today's Communication/Plan
-
patient more somnolent today, but arousable
Discussed risk of bronch
start hep while awaiting Eliquis washout
cont Abx and Acyclovir
BiPAP
XR chest in AM
Assessment / Plan
Assessment / Plan
74yo F with PMHX of chronic hypoxic respiratory failure on 2-4L O2 2/2 COPD on chronic Prednisone 10mg, HTN, migraines came with SOB and chest palpitations, managed for A.fib with RVR that later converted to sinus and managed with BB as per card.
SHe was recently in [facility] with Influenza A, CHest CT showed numerous predominantly R pulmonary nodules. ID following off Abx however patient feeling pain under R scapulae and generalized weakness. tolerated BB for HR control. ID and pulm initially
recommended to stop Abx, but with worsening R sded pneumonia - restarted empirically on 12/12/24. Found herpetic eruptions and started on Acyclovir for possible disseminated shingles. Due to intractable headaches - planned for spinal tap, however
awaiting Eliquis washout
A/P
#chronic hypoxic hypercapnic respiratory failure 2/2 COPD without exacerbation
#Pulmonary nodules, concern for pneumonia
Procal neg
sputum Cx - normal david
AFB sputum pending
legionella and S.pneumonia urinary Ag neg
Pulm consult
Cefepime started on 12/12/24, Vanco added on 12/13/24
cont bronchodilators - avoid Albuterol as not in exacerbation and to prevent tachycardia
steroids as per pulm
#Vesicular rash, concern for shingles, cannot exclude disseminated
ID consult: Acyclovir started
VZV and Herpes labs pending
Droplet precautions
#Hx of migraines
#Intractable headache
Repeat head CT and IRAD messaged about lumbar tap - labs ordered, will need Eliquis washout
Head CT
Sumatriptan
Head CT
Compazine PRN
#HepB core Ab and surf Ab positive
#transaminitis
follow LFT
most likely past exposure vs occult hepB (less likely),
GI consult - HepB DNA quantitative sent
US RUQ without hepatic or biliary abnormality
Cannot exclude Abx as a reason
#Afib, unspecified with RVR with benson
Eliquis
Cardio consult: switched to BB- converted to sinus and tolerating well
Rate control
telemetry
#mild diverticulitis
Augmentin completed, no LLQ pain, tolerating food well
Outpatient colonoscopy in 6 weeks advised
#Renal cysts
no follow up advised
#Anxiety
#Essential HTN
#HLD
#Urinary retention
cont home meds
#UTI ruled out
Ucx neg
#chronic leukocytosis
2/2 steroids
Outpatient hematology advised
DVT ppx Eliquis
Full code
I have spent at least 59min reviewing chart, test results, communication with consultants and direct patient care
Anticipated Discharge: > 48 hours
Subjective/Interval History
-
Date of Service: December 14, 2024
Objective Data
-
Labs:
Laboratory Results
12/14/24 12/14/24
04:25 08:39
WBC 15.3 H
Hgb 12.1
Hct 40.2
Plt Count 209
HCO3 41.6 H*
Sodium 139
Potassium 4.2
Chloride 92 L
Carbon Dioxide 38 H
BUN 32 H
Creatinine 0.5 L
Glucose 183 H
Calcium 8.4
Total Bilirubin 0.3
AST 61 H
ALT 158 H
Alkaline Phosphatase 89
Vital Signs:
Vital Signs
Temp Pulse Resp BP Pulse Ox
99.2 F 119 24 172/105 94
12/14/24 10:50 12/14/24 10:50 12/14/24 10:50 12/14/24 10:50 12/14/24 10:50
I&O
12/13/24 12/14/24 12/15/24
06:59 06:59 06:59
Intake Total 400 / 400 220 / 220
Output Total 750 / 750 300 / 300
Balance -350 / -350 -80 / -80
Review of Systems
-
Unable to obtain full review of systems at this time due to: Acuity
History Source: Patient
Constitutional: Reports Weakness
Respiratory: Reports Trouble Breathing; Denies Wheezing
Neuro: Reports Headache
Physical Exam
-
General: Respiratory Distress
HEENT: Normocephalic
Respiratory: Wheezes and Crackles
Cardiac: Regular Rhythm and Tachycardic
GI: Soft, Nontender and Nondistended
Musculoskeletal: No Clubbing, No Cyanosis and No Edema
Neuro: Awake and Alert
Psych: Calm
[2024-12-14] MEDS: MUCINEX 1200 MG PO ×2 (13:49→20:26)
[2024-12-14] MEDS: TOPROL XL 25 MG PO (13:49)
[2024-12-14] MEDS: DELTASONE 50 MG PO (13:49)
[2024-12-14] MEDS: CARDIZEM CD 360 MG PO (13:49)
[2024-12-14] MEDS: PROTONIX 40 MG PO (13:49)
[2024-12-14] MEDS: ZOLOFT 12.5 MG PO (13:49)
--- NOTE | 2024-12-14 13:49 | PTCARENOTE ---
Addendum entered by Radha Garza RN 12/14/24 19:56:
Discussed patient status with Dr. Pollard and he spoke with patient's boyfriend Dewey. patient more alert and able to answer simple questions and able to take oral medications and some sips of water. patient c/o posterior headache. reports
different from usual migraines she gets at home.+SOB at rest and with exertion. turns with assist x2, vss, 1:1 maintained to prevent pulling off of BIPAP mask and to be able to be alerted, if alarm of BIPAP sounds as patient in private room and
their is risk nursing will not be able to hear if alarm sounds with door being closed due to isolation precautions. will continue to monitor.
Original Note:
Discussed patient status with Dr. Pollard and he spoke with patient's boyfriend Dewey. patient more alert and able to answer simple questions and able to take oral medications and some sips of water. patient c/o posterior headache. reports
different from usual migraines she gets at home.+SOB at rest and with exertion. turns with assist x2, vss, 1:1 maintained to prevent pulling off of BIPAP mask and to be able to be alerted by PCT if alarm of BIPAP sounds as patient in private room
and their is risk nursing will not be able to hear if alarm sounds with door being closed due to isolation precautions. will continue to monitor.
[2024-12-14] MEDS: HEPARIN 25000 UNITS/250 ML IV (15:36)
--- NOTE | 2024-12-14 15:36 | PTCARENOTE ---
patient started on heparin drip per MD order, PTT to be drawn in 6 hours per protocol, will continue to monitor.
[2024-12-14 15:51] LABS: APTT 30.2 Sec (23.4-35.0)
--- NOTE | 2024-12-14 16:00 | PTCARENOTE ---
Notified nursing operation shift supervisor Janie with my concerns regarding patient staying on unit. Dr. Pollard still not wanting to transfer patient off unit. patient still requiring continuous BIPAP and not being able to wean patient from BIPAP. Janie
(nursing operation shift supervisor) verbalized that she would find out what setting max BIPAP can be on our unit. I informed her continuous BIPAP patient are not supposed to be on [facility] voiced by safety concerns as trying to keep patient off 1:1 and the
risk of safety concerns of not being able to hear BIPAP alarms if it sounds. Janie verbalized that she would investigate but thinks that [facility] can take up to 10L on continuous BIPAP, will continue to monitor.
--- NOTE | 2024-12-14 17:00 | PTCARENOTE ---
respiratory therapist made aware to draw VBG lab, will continue to monitor.
[2024-12-14] MEDS: LASIX 40 MG IV (18:10)
--- NOTE | 2024-12-14 18:30 | PTCARENOTE ---
Continuous pulse ox applied.
--- NOTE | 2024-12-14 18:49 | PTCARENOTE ---
After speaking with respiratory therapist, who spoke with emergency crew supervisor Crow and hothouse worker Janie, continuous BIPAP patients should not be on [facility]. Also, concerns if patient pulls off mask or alarm sounds, nursing may not hear
it. Dr. Caceres notified and requested transfer to IMU. He agreed. Continuous pulse ox applied, will continue to monitor.
--- NOTE | 2024-12-14 19:05 | RESPNOTE ---
nursing gang supervisor and nurse is notified that patient needs to be one on one on continuous bipap and that patient should be moved to imu per policy, notified at 1800
--- NOTE | 2024-12-14 19:40 | PTCARENOTE ---
Assumed care of patient from daysmaddie RN. Heparin drip running at 750 units/hour and maintained - no active bleeding noted. Patient maintained on bipap with current settings of 05/06 - respiratory therapist in room during rounds on patient. Reported
that patient was only able to tolerate being off of bipap for short periods of time throughout the day, unable to tolerate weaning bipap today. campus monitor #1 verified and maintained on patient -- sinus tach with HR 112. Dr. Caceres notified by
daysmaddie RN of safety concerns for patient being on this current unit - orders placed for patient to be transferred to IMU. Patient appears to be resting comfortably at this time, sleeping. Call ram in reach and resting in patients hand, patient
has been ringing appropriately when needed. Awaiting room assignment for IMU at this time.
--- NOTE | 2024-12-14 20:05 | TRANSFER ---
Report called and given to FERNANDO Be from IMU. Patient new to this zohra KING RN still present on unit when report began. 18:00pm/20:00pm medications outstanding and due to be given to patient -- will provide to patient prior to transfer to unit.
VBG ordered at 15:21pm and stat pro-BNP ordered at 16:48pm - still outstanding, will also obtain labs and send off prior to transfer. Respiratory therapist on unit and alerted and aware of pending transfer of patient to IMU.
[2024-12-14] MEDS: TOPROL XL 50 MG PO (20:26)
--- NOTE | 2024-12-14 20:39 | PTCARENOTE ---
Labs for VBG and pro-BNP collected and sent to lab at 20:39pm. Results pending.
[2024-12-14 20:45] LABS: Venous Blood Gas B.E. 16.5 mmol/L (-4 to +4); Venous Blood Gas HCO3 45.6 mmol/L (22-27); Venous Blood Gas O2 Sat % 99.5 %; Venous Blood Gas pH 7.38 (7.32-7.43); Venous Blood Gas pO2 125 mmHg (30-50)
[2024-12-14] MEDS: ATROVENT NEBULES 0.5 MG INH (20:45)
[2024-12-14 20:53] LABS: Venous Blood Gas pCO2 77 mmHg (35-48)
--- NOTE | 2024-12-14 21:00 | PTCARENOTE ---
Prepared patient for transfer to IMU. 18:00pm and 20:00pm medications administered, see MAR. Outstanding labs collected and resulted. Per respiratory therapist, VBG looks consistent with prior results, no concern at this time. Patient incontinent of
urine and saturated in bed -- linens and gown changed. Replaced ABD dressings to open/draining shingles areas to left buttock/left back and gluteal crease. Connected to portable cardiac cath rn. Received call at this time that the room patient was
to be transferred to was not clean as they needed to move patients around to open a negative air pressure room. Transfer on hold at this time, RT present and also aware. Patient is stable, resting comfortable. Will continue to monitor.
[2024-12-14 21:05] LABS: NT-proBNP 1070 pg/ml
--- NOTE | 2024-12-14 21:55 | TRANSFER ---
Nurse/PCT from IMU arrived to transport patient to unit. meter changes records clerk informed this RN that IMU room is still marked dirty in bed board, UC called to inquire on status of room. Informed that room is still being cleaned and could not be rushed, would
let us know when it is ready. IMU nurse and PCT remained in room with patient during this time, awaiting transfer. RN aware of pending PTT draw. Once room marked clean, RT and IMU nurse and PCT transported patient to IMU room 3352. Belongings
transported with patient.
[2024-12-15] VITALS (16 sets, daily range): BP systolic 110–151; BP diastolic 48–79; PULSE 2–109
[2024-12-15] MEDS: ZOVIRAX INJECTION 112.6 MG IV ×3 (01:09→17:25)
[2024-12-15] MEDS: MAXIPIME 1000 MG IV ×4 (01:10→19:53)
[2024-12-15] MEDS: STERILE WATER FOR INJECTION 10 ML IV ×4 (01:11→19:53)
--- NOTE | 2024-12-15 01:23 | PTCARENOTE ---
Pt transported from [facility] to IMU on BIPAP pox 100%. Pt lethargic, arousable after sternal rub. Opened eyes and nodded head to yes no answers. Denied pain. Fell right back to sleep. Appears to be resting comfortably. In no acute distress. VSS.
Afebrile. ST on CM rate 102. Rest of assessment as documented. Unable to orient pt to room and surroundings at this time. Continues on Heparin gtt at 750 units on arrival to floor. Upon assessment of labs obtained pt had PTT obtained at approx 2045
resulted 24.0. Based on that result Heparin gtt increased by 2 to 950 units/hr. Increased occurred at 2220. Next PTT at 0420. Call ram within reach. Will continue to monitor.
[2024-12-15 04:28] LABS: Venous Blood Gas B.E. 18.9 mmol/L (-4 to +4); Venous Blood Gas HCO3 45.2 mmol/L (22-27); Venous Blood Gas O2 Sat % 99.8 %; Venous Blood Gas pCO2 58 mmHg (35-48); Venous Blood Gas pO2 209 mmHg (30-50)
[2024-12-15 04:39] LABS: APTT 34.2 Sec (23.4-35.0)
[2024-12-15 04:48] LABS: % Basophils 0.2 % (0-2); % Immature Granulocytes 1.7 % (0-0.5); % Lymphocytes 4.9 % (20.5-51.1); % Monocytes 4.1 % (1.7-9.3); % Neutrophils 89.1 % (42.2-75.2); Absolute Immature Granulocytes 0.2 10^3/uL (0-0.05); Absolute Lymphocytes 0.7 10^3/uL (1.2-3.4); Absolute Monocytes 0.6 10^3/uL (0.1-0.6); Absolute Neutrophils 12.3 10^3/uL (1.4-6.5); Hematocrit 37.3 % (37.0-47.0); Hemoglobin 11.9 g/dL (12.0-16.0); Mean Corp Hgb Conc. 31.9 g/dL (33.0-37.0); Mean Corpuscular Hgb 30.8 pg (27.0-31.0); Mean Corpuscular Volume 96.6 fL (81.0-99.0); Mean Platelet Volume 8.8 fL (7.4-10.4); Nucleated Red Blood Cells % 0 %; Platelet Count 222 10^3/uL (130-400); Red Blood Cell Count 3.86 10^6/uL (4.20-5.40); Red Cell Dist. Width 13.3 % (11.5-14.5); White Blood Cell Count 13.8 10^3/uL (4.8-10.8)
[2024-12-15 04:54] LABS: ALT (SGPT) 122 U/L (0-35); AST (SGOT) 42 U/L (14-36); Albumin 2.8 g/dl (3.5-5.0); Alkaline Phosphatase 77 U/L (38-126); Blood Urea Nitrogen 47 mg/dl (7-17); Calcium 8.4 mg/dl (8.4-10.2); Chloride 93 mmol/L (98-107); Estimated Creatinine Clearance 63 ml/min; Glucose 160 mg/dl (70-99); Sodium 140 mmol/L (135-145); Total Bilirubin 0.4 mg/dl (0.2-1.3); Total Protein 5.5 g/dl (6.3-8.2); eGFR > 60.00
[2024-12-15] MEDS: VANCOCIN 150 IV ×2 (05:03→18:29)
[2024-12-15] MEDS: VASOTEC PO (05:05)
[2024-12-15 05:14] LABS: Carbon Dioxide 37 mmol/L (22-30)
--- NOTE | 2024-12-15 08:12 | PHA.VAN.FU ---
Vancomycin Assessment / Plan
- Assessment
Renal Function: Stable
WBC's are: Trending Down
In the past 24 hrs, patient has been: Afebrile
- Dosing Plan
Continue: 750MG Q12H
- Monitoring Plan
Peak Level: 12/15 @2030
Trough Level: 12/16 @0530
- Follow Up
Pharmacy will continue to follow.
Vancomycin Follow UP
- -
Patient Age: 74
Patient Sex: Female
Vancomycin Day #: 3
Indication: Pulmonary/Respiratory
Requesting Provider: Dr. Mcdaniel
Pertinent Antimicrobial Allergies:
NKDA
Height / Weight:
Height 5 ft 4 in
Actual Weight 63.4 kg
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
- Vital Signs / Lab Results
Temp Pulse Resp BP Pulse Ox
99.3 F 67 24 144/74 88
12/15/24 03:20 12/15/24 07:30 12/15/24 07:30 12/15/24 06:00 12/15/24 07:30
Lab Results - Hematology
12/13/24 12/14/24 12/14/24
03:17 08:39 14:13
WBC 20.1 H 15.3 H Cancelled
12/15/24
04:12
WBC 13.8 H
Lab Results - Chemistry
12/13/24 12/14/24 12/15/24
03:17 08:39 04:12
BUN 22 H 32 H 47 H
Creatinine 0.5 L 0.5 L 0.7
Estimated Creat Clear 73 73 63
Albumin 2.7 L 2.9 L 2.8 L
Microbiology Results
12/12/24 13:54 Blood Culture - Preliminary
Blood/Venous No Growth in 48 hours- Final report to follow
12/12/24 13:05 Blood Culture - Preliminary
Blood/Venous No Growth in 48 hours- Final report to follow
12/11/24 20:04 Acid Fast Bacilli Smear - Preliminary
Sputum Acid Fast Bacilli Culture - Preliminary
12/12/24 16:20 Urine Culture - Final
Urine NO GROWTH
[2024-12-15] MEDS: SYMBICORT 160/4.5 MCG INHALER 2 PUFF INH ×2 (08:23→19:30)
[2024-12-15] MEDS: ATROVENT NEBULES 0.5 MG INH ×3 (08:23→19:30)
[2024-12-15] MEDS: XOPENEX 1.25 MG INHALANT SOLUTION INH ×3 (08:23→19:30)
[2024-12-15] MEDS: CARDIZEM CD 360 MG PO (08:35)
[2024-12-15] MEDS: MUCINEX 1200 MG PO ×2 (08:35→19:52)
[2024-12-15] MEDS: TOPROL XL 50 MG PO ×2 (08:36→19:52)
[2024-12-15] MEDS: DELTASONE 50 MG PO (08:36)
[2024-12-15] MEDS: PROTONIX 40 MG PO (08:36)
--- NOTE | 2024-12-15 08:53 | PTCARENOTE ---
Pt now on 4l nc POX at 91% pt AAOx3 took pills wholemwithout incident
[2024-12-15] MEDS: VASOTEC 5 MG PO ×2 (10:00→19:52)
--- NOTE | 2024-12-15 10:03 | W.PN.PUL3 ---
Today's Communication / Plan
-
Markedly improved mental status today s/p continuous BiPAP on 12/14
Continue with BiPAP with sleep and prn during the day
Trend blood gas to ensure pH + pCO2 remain stable
Prednisone dose increased to 50mg daily on 12/13/2024 - continue at this time
CT today shows worsening multifocal pneumonia � recommend repeat imaging in 4 to 6 weeks to follow pneumonia resolution
Currently no indication for bronchoscopy - this would be an outpatient discussion as she would need to be intubated for a bronchoscopy at this point which would lead to prolonged mechanical ventilation given her current clinical status
Recommend outpatient follow-up with our office with Dr. Wayne (last visit on 08/07/2024)
Pulmonary service will continue to follow along
Assessment
-
Patient is a 74-year-old female with previous history of severe COPD on home oxygen 2-4L, hypertension, migraines presenting with chest pressure, palpitations and right sided chest discomfort. In the ER, she was notably found to be in A-fib with
RVR and started on Cardizem drip. Chest x-ray demonstrating new right sided opacity that may represent pneumonia. She recently was flu positive.
Still having ongoing right-sided chest discomfort.
Impression:
Acute on chronic respiratory failure with hypercapnia requiring continuous BiPAP, now on midflow nasal cannula with BiPAP with sleep and prn during the day
Chronic hypoxic respiratory failure on home O2 on 4 L
New right-sided scattered opacities on CT Chest, possible pneumonia vs metastatic lesion
Chest discomfort
Palpitations
A-fib with RVR s/p Cardizem drip, h/o SVT
Recent flu A positive 11/27/24
Conditions present prior to admission
Osteoporosis
Hypertension
PAD
B/l Brachial artery stenosis
Anxiety
Migraine Headache
Severe COPD on home O2/Centrilobular emphysema
Follows Dr Wayne
FVC 2.20 L or 74%; FEV1 0.71 L or 32%, ratio was 32%; TLC 5.0 or 101%, RV/TLC 54%, DLCO 17%
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
Upper airway cough syndrome, follows with ENT
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
T7 compression facture 04/12
B/L Cataract Surgery
Colonoscopy and endoscopy-polyps found
s/p Mohs Surgery 09/2024
Plan
Pt became increasingly drowsy overnight on 12/13 - 12/14/2024 with blood gas showing acute hypercapnia with pCO2 of of 78
She was placed onto BiPAP and as of 12/15/2024 she is markedly improved, awake, alert and answering questions appropriately with blood gas improved with pH 7.5, pCO2 50
Continue to trend blood gas to ensure pH + pCO2 remained stable
Continue BiPAP with sleep and prn during the day
Of note she is on chronic oxygen at 4 L/min at home
Prior history of lung disease is noted including severe COPD/emphysema, stage IV with severe diffusion impairment
Suspect patient has PNA given CXR and CT findings
She is placed on empiric abx -currently on IV vancomycin/cefepime
ID consulted and recs appreciated
MRSA negative
PCT negative
Sputum culture sent (12/09/2024)--usual david
AFB pending from 12/11/2024
We discussed airway clearance vest/nebs/acapella
Continue mucinex; continue Xopenex TID + Atrovent TID
Recent chest imaging reviewed with extensive disease on R
Repeat CXR following aggressive clearance measures, repeat 12/12--worsened
Due to worsening overall, Dr. Salmon increased her prednisone to 50mg daily on 12/13/2024 - wean as she clinically improves
Afib with RVR noted requiring Cardizem drip - -transitioned to PO
Also on toprol XL BID
Also on heparin drip
Cards following
proBNP 331 from 12/07/2024
Prior ECHO results are reviewed indicating stable function (last echo 12/03/2024)
Continue home inhaler with Symbicort; uses Spiriva at home, and I added Atrovent on 12/14
She is on chronic prednisone for COPD, steroid dependant
Would be reasonable to discuss GOC if she were to clinically deteriorate given her lung function
She remains full code
Dr. Phan updated the patient's boyfriend, Dewey, at bedside and answered all of his questions
Recommend outpatient follow-up with our office with Dr. Wayne (last visit on 08/07/2024)
Pulmonary service will continue to follow along
Diagnostic Data
Chest X-Ray: 12/08/24- Predominately right-sided interstitial infiltrate and subtle underlying parenchymal nodularity is again demonstrated involving the caudal aspect of the right upper lobe and right lower lobe. Slight progression suggested in the
medial right lung base. The left lung remains essentially clear.
CT Scan: CT [facility] 12/07/24- Numerous predominantly the right lung pulmonary nodular parenchymal opacities with irregular margination, as described. Although likely infectious in etiology (including atypical and/or fungal etiology), follow-up would be
necessary to assess for resolution after conservative therapy, and to exclude the possibility of neoplasm. Otherwise, consider follow-up PET/CT.
Mild confluent hilar lymphoid tissue and small mediastinal lymph nodes. However, no enlarged adenopathy.
Moderate emphysematous lung changes.
Echo: 12/03/24- Normal biventricular size and systolic function without regional wall motion abnormality. LVEF 65-70%. Aortic sclerosis without stenosis. No significant valvular disease.
No change compared to prior study in April 2023.
PFT's:
Reports and relevant images were personally reviewed.
Total time spent today was 36 minutes for this encounter. Time includes reviewing laboratory test/imaging results, reviewing pertinent medical records, obtaining and reviewing medical history, performing an appropriate exam, ordering medications,
tests and procedures. Time also includes documentation of this encounter, coordinating patient care and communicating with other healthcare professionals. Total time does not include separately billed tests performed on this date of service.
Subjective Data
-
Date of Service:
Date of Service: December 15, 2024
Chief Complaint: Pulmonary Follow Up
Subjective:
Patient was seen and evaluated this morning (late note entry). She is much more awake today, answering questions appropriately, and her boyfriend, Dewey, is at bedside. All questions were answered. Blood gas this morning is improved with pH 7.5
and pCO2 58. She wore BiPAP overnight on 17/7 cmH2O, bled with 7 L/min. She is currently on 8 L/min nasal cannula, saturating 91% with heart rate 100 and BP 120/60. She complains of a cough with yellow/brown phlegm. Denies chest pain, FERNANDEZ,
nausea, fevers or chills.
Review of Systems
General: Other (Negative unless mentioned above)
Objective Data
Data Reviewed
Vital Signs / I&O / Oxygen:
Vital Signs
Temp Pulse Resp BP Pulse Ox
97.9 F 87 24 139/68 91
12/15/24 07:55 12/15/24 10:00 12/15/24 08:34 12/15/24 10:00 12/15/24 09:09
Intake and Output
12/14/24 12/15/24 12/16/24
06:59 06:59 06:59
Intake Total 220 / 220 517.2 / 517.2
Output Total 300 / 300
Balance -80 / -80 517.2 / 517.2
SaO2 91
Nasal Cannula flow liters per 4
minute
Physical Exam
General: Respiratory Distress (negative), Comfortable, Chills (negative) and Sweats (negative)
HEENT: Normocephalic, Anicteric and Moist Mucous Membranes
Cardiovascular: Irregular Rhythm, Peripheral Edema (negative) and Other (Tachycardic)
Respiratory: Wheeze (negative), Crackles (Bilateral), Rhonchi (Bilateral) and Non-Labored Respirations
GI: Soft, Non Distended and Non Tender
Neurology: AO x 3 and No Motor Deficits
Skin: Warm, Dry, Cyanosis (negative) and Jaundice (negative)
Labs/Micro/Reports
Lab Data
12/15/24 04:12
12/15/24 04:12
Laboratory Results
12/14/24 12/14/24 12/15/24
14:42 20:39 02:20
APTT 30.2 24.0 Cancelled
12/15/24 12/15/24
04:12 04:20
APTT 34.2 Cancelled
Microbiology
12/12/24 13:54 Blood/Venous Blood Culture - Preliminary
No Growth in 48 hours- Final report to follow
12/12/24 13:05 Blood/Venous Blood Culture - Preliminary
No Growth in 48 hours- Final report to follow
12/11/24 20:04 Sputum Acid Fast Bacilli Smear - Preliminary
12/11/24 20:04 Sputum Acid Fast Bacilli Culture - Preliminary
12/12/24 16:20 Urine Urine Culture - Final
NO GROWTH
12/12/24 12:57 Nasal Swab Influenza Types A & B (SHEELA) - Final
Negative for Influenza A & B, NAAT
Negative results must be combined with clinical observations
and patient history.
Nucleic Acid Amplification test (NAAT)performed on the
[employer] platform.
--- NOTE | 2024-12-15 11:26 | W.PN.ID1 ---
Date of Service
Date of Service: December 15, 2024
Today's Communication
Continue Vanco/cefepime/acyclovir.
Assessment / Plan
Shortness of breath
- improving
Acute on chronic respiratory failure
- improving, off BiPAP
Recent influenza A infection (11/27/24) s/p oseltamivir
Left hip herpes zoster
A-fib with RVR; converted to sinus on Cardizem drip
Recent Hx of COPD exacerbation; on steroid taper
Leukocytosis
-Trending down
Abnormal CXR/CT
Asthma
Severe COPD on home O2 2-4L, chronic prednisone 10mg qd
HTN
Migraines
Recommendations:
Sputum culture negative. AFB stain and culture pending.
(s/p 4 days Unasyn, 3 days doxy: dc'd 12/12)
12/12/24 CXR: worsening severe right lung opacities/PNA.
Repeat COVID/influenza negative.
Sputum silver stain pending.
Currently on cefepime (d4).
At risk for post-influenza MRSA pneumonia. Continue Vancomycin (d3)
Leukocytosis continues to improve
Decreasing oxygen requirement, off BiPAP
Pt clinically improved today
Repeat blood cultures neg to date.
Ucx neg
Herpes zoster left hip
Continue IV acyclovir (d4)
Vesicle fluid HSV, VZV PCR pending
Follow renal function closely while on IV acyclovir.
on Airborne isolation due to immunosuppressed host and skipped dermatome
����������������������������������������������������������
Chief Complaint
-: Pneumonia and Other (Nodular pulmonary infiltrates)
Subjective / Review of Systems
She feels improved today, not as SOB. Voice is stronger.
FERNANDEZ resolving.
Vital Signs / Physical Exam
Vital Signs
Vital Signs
Temp Pulse Resp BP Pulse Ox
97.9 F 87 24 139/68 91
12/15/24 07:55 12/15/24 10:00 12/15/24 08:34 12/15/24 10:00 12/15/24 09:09
Physical Exam
Constitutional: Comfortable
Eyes: No Conjunctival Hemorrhage and Sclera Anicteric
Cardiovascular: Regular Rate and S1/S2
Pulmonary: Rales (right crackles)
Gastrointestinal: Soft, Non Tender, Non Distended and Normal Bowel Sounds
Extremities: Negative Edema
Neurological: Alert (More alert) and AO x 3; Negative Meningeal Signs (neck supple)
Objective Data
Lab Data
Lab Results
12/15/24 04:12
12/15/24 04:12
ESR 50 mm/hour (0-20) H 12/09/24 02:21
PT 17.9 Sec (11.4-14.6) H 12/13/24 12:47
INR 1.45 12/13/24 12:47
APTT Cancelled 12/15/24 04:20
Estimated Creat Clear 63 ml/min 12/15/24 04:12
Total Bilirubin 0.4 mg/dl (0.2-1.3) 12/15/24 04:12
AST 42 U/L (14-36) H 12/15/24 04:12
ALT 122 U/L (0-35) H 12/15/24 04:12
Alkaline Phosphatase 77 U/L (38-126) 12/15/24 04:12
Most recent labs reviewed.
Micro Results:
12/12/24 13:54 Blood Culture - Preliminary
Blood/Venous No Growth in 48 hours- Final report to follow
12/12/24 13:05 Blood Culture - Preliminary
Blood/Venous No Growth in 48 hours- Final report to follow
12/11/24 20:04 Acid Fast Bacilli Smear - Preliminary
Sputum Acid Fast Bacilli Culture - Preliminary
12/12/24 16:20 Urine Culture - Final
Urine NO GROWTH
12/12/24 12:57 Influenza Types A & B (SHEELA) - Final
Nasal Swab Negative for Influenza A & B, NAAT
Negative results must be combined with clinical observations
and patient history.
Nucleic Acid Amplification test (NAAT)performed on the
[employer] platform.
12/09/24 15:59 Respiratory Culture - Final
Sputum Usual Respiratory Luzma
Gram Stain - Final
12/09/24 11:57 MRSA Screen - Final
Nose No Methicillin Resistant Staphylococcus aureus isolated.
12/09/24 09:20 Legionella Urinary Antigen - Final
Urine Negative for Legionella pneumophila Serogroup 1 antigen.
A negative result does not rule out the possiblity of
Legionella infection due to other serogroups or species of
Legionella. Clinical correlation is recommended.
Streptococcus pneumoniae Antigen (M - Final
Negative for Streptococcus pneumoniae antigen.
A negative result does not exclude infection with
Streptococcus pneumoniae. Clinical correlation is
recommended.
12/08/24 02:32 Urine Culture - Final
Urine
12/07/24 10:47 Influenza Types A & B (SHEELA) - Final
Nasal Swab Negative for Influenza A & B, NAAT
Negative results must be combined with clinical observations
and patient history.
Nucleic Acid Amplification test (NAAT)performed on the
[employer] platform.
Laboratory Tests
12/12/24
12:57
SARS-CoV-2 Antigen Negative
Imaging:
12/07/2024 CTA (chest/abdomen/pelvis):Numerous predominantly the right lung pulmonary nodular parenchymal opacities with irregular margination, as described. Although likely infectious in etiology (including atypical and/or fungal etiology),
follow-up would be necessary to assess for resolution after conservative therapy, and to exclude the possibility of neoplasm. Otherwise, consider follow-up PET/CT. Mild confluent hilar lymphoid tissue and small mediastinal lymph nodes. However, no
enlarged adenopathy. Diverticulosis. Suspect subtle acute diverticulitis related to the distal descending colon. No bowel obstruction. No obstructive uropathy. Right renal cysts. The liver, gallbladder, pancreas, spleen, and adrenal glands are
unremarkable. No bile duct dilatation. No obstructive uropathy. 2.5 cm lateral right midpole renal cyst. Right upper pole parapelvic cyst measuring 1.5 cm. Age indeterminate, though chronic-appearing sclerotic moderate superior endplate compression
deformity of T7.
12/15/24 CTA chest: Multifocal pneumonia, severe throughout the right lung and mild throughout the left lung, overall significantly progressed from prior exam 12/07/2024. No pulmonary embolism.
Care Review
Plan reviewed with: Nurse (Dickson)
--- NOTE | 2024-12-15 11:30 | PTCARENOTE ---
Pt to CVT scan of chest without incident
--- NOTE | 2024-12-15 11:49 | W.PN.HOSP.TC ---
Today's Communication/Plan
-
mentation better today, remove BiPAP when awake
cont Abx and Acyclovir
Headaches resolved, most likely 2/2 CO2 retention - no plan for lumbar tap at this time
Assessment / Plan
Assessment / Plan
74yo F with PMHX of chronic hypoxic respiratory failure on 2-4L O2 2/2 COPD on chronic Prednisone 10mg, HTN, migraines came with SOB and chest palpitations, managed for A.fib with RVR that later converted to sinus and managed with BB as per card.
SHe was recently in [facility] with Influenza A, CHest CT showed numerous predominantly R pulmonary nodules. ID following off Abx however patient feeling pain under R scapulae and generalized weakness. tolerated BB for HR control. ID and pulm initially
recommended to stop Abx, but with worsening R sided pneumonia - restarted empirically on 12/12/24. Found herpetic eruptions and started on Acyclovir for possible disseminated shingles -Acyclovir. Due to intractable headaches - planned for spinal
tap, was awaiting Eliquis washout, but headache resolved, so questionable benefit from procedure
A/P
#chronic hypoxic hypercapnic respiratory failure 2/2 COPD without exacerbation
#Pulmonary nodules, concern for pneumonia
Procal neg
sputum Cx - normal david
AFB sputum pending
legionella and S.pneumonia urinary Ag neg
Pulm consult
Cefepime started on 12/12/24, Vanco added on 12/13/24
cont bronchodilators - avoid Albuterol as not in exacerbation and to prevent tachycardia
steroids as per pulm
Repeated CT on 12/15/24 - worsening pneumonia
#Vesicular rash, concern for shingles, cannot exclude disseminated
ID consult: Acyclovir started
VZV and Herpes labs pending
Droplet precautions
#Hx of migraines
#Intractable headache - resolved
possibly 2/2 CO2 retention and acute pneumonia, will not plan for spinal tap at this time, but continue heparin for one more day
Head CT
Sumatriptan
Head CT
Compazine PRN
#HepB core Ab and surf Ab positive
#transaminitis
follow LFT
most likely past exposure vs occult hepB (less likely),
GI consult - HepB DNA quantitative sent
US RUQ without hepatic or biliary abnormality
Cannot exclude Abx as a reason
#Afib, unspecified with RVR with benson
Eliquis
Cardio consult: switched to BB- converted to sinus and tolerating well
Rate control
telemetry
#mild diverticulitis
Augmentin completed, no LLQ pain, tolerating food well
Outpatient colonoscopy in 6 weeks advised
#Renal cysts
no follow up advised
#Anxiety
#Essential HTN
#HLD
#Urinary retention
cont home meds
#UTI ruled out
Ucx neg
#chronic leukocytosis
2/2 steroids
Outpatient hematology advised
DVT ppx Eliquis
Full code
I have spent at least 59min reviewing chart, test results, communication with consultants and direct patient care
Anticipated Discharge: > 48 hours
Subjective/Interval History
-
Date of Service: December 15, 2024
Objective Data
-
Labs:
Laboratory Results
12/15/24 12/15/24 12/15/24
02:20 04:12 04:20
WBC 13.8 H
Hgb 11.9 L
Hct 37.3
Plt Count 222
APTT Cancelled 34.2 Cancelled
Sodium 140
Potassium 4.0
Chloride 93 L
Carbon Dioxide 37 H
BUN 47 H
Creatinine 0.7
Glucose 160 H
Calcium 8.4
Total Bilirubin 0.4
AST 42 H
ALT 122 H
Alkaline Phosphatase 77
12/15/24
11:16
WBC
Hgb
Hct
Plt Count
APTT Pending
Sodium
Potassium
Chloride
Carbon Dioxide
BUN
Creatinine
Glucose
Calcium
Total Bilirubin
AST
ALT
Alkaline Phosphatase
Vital Signs:
Vital Signs
Temp Pulse Resp BP Pulse Ox
97.9 F 87 24 139/68 91
12/15/24 07:55 12/15/24 10:00 12/15/24 08:34 12/15/24 10:00 12/15/24 09:09
I&O
12/14/24 12/15/24 12/16/24
06:59 06:59 06:59
Intake Total 220 / 220 517.2 / 517.2
Output Total 300 / 300
Balance -80 / -80 517.2 / 517.2
Review of Systems
-
History Source: Patient
All other systems: Reviewed and negative
Respiratory: Reports Cough and Trouble Breathing
Physical Exam
-
General: No Apparent Distress
Respiratory: Clear to Auscultation
Cardiac: Regular Rhythm
GI: Soft
Neuro: Awake, Alert, Oriented and AO x 3
Psych: Calm
[2024-12-15 11:50] LABS: APTT 80.7 Sec (23.4-35.0)
[2024-12-15] MEDS: HEPARIN 25000 UNITS/250 ML IV (17:26)
[2024-12-15 18:36] LABS: APTT 95.7 Sec (23.4-35.0)
[2024-12-16] VITALS (16 sets, daily range): BP systolic 89–122; BP diastolic 46–61; PULSE 2–87
[2024-12-16] MEDS: MAXIPIME 1000 MG IV ×4 (01:39→20:16)
[2024-12-16] MEDS: STERILE WATER FOR INJECTION 10 ML IV ×4 (01:39→20:14)
[2024-12-16] MEDS: ZOVIRAX INJECTION 112.6 MG IV ×2 (01:46→09:15)
[2024-12-16 04:10] LABS: HSV 1 Subtype by PCR Not Detected; HSV 2 Subtype by PCR Detected; Herpes Simplex Source Vesicle
[2024-12-16 05:27] LABS: Venous Blood Gas B.E. 18.5 mmol/L (-4 to +4); Venous Blood Gas HCO3 45.2 mmol/L (22-27); Venous Blood Gas O2 Sat % 95.1 %; Venous Blood Gas pCO2 65 mmHg (35-48); Venous Blood Gas pH 7.45 (7.32-7.43); Venous Blood Gas pO2 66 mmHg (30-50)
[2024-12-16 05:52] LABS: APTT 71.3 Sec (23.4-35.0)
[2024-12-16 05:59] LABS: Vancomycin Trough 11.3 ug/ml (5-20)
[2024-12-16 06:01] LABS: ALT (SGPT) 89 U/L (0-35); AST (SGOT) 43 U/L (14-36); Albumin 2.5 g/dl (3.5-5.0); Alkaline Phosphatase 52 U/L (38-126); Blood Urea Nitrogen 46 mg/dl (7-17); Calcium 8.1 mg/dl (8.4-10.2); Chloride 94 mmol/L (98-107); Estimated Creatinine Clearance 73 ml/min; Glucose 135 mg/dl (70-99); Potassium 3.9 mmol/L (3.5-5.1); Sodium 138 mmol/L (135-145); Total Bilirubin 0.3 mg/dl (0.2-1.3); Total Protein 4.8 g/dl (6.3-8.2); eGFR > 60.00
[2024-12-16 06:04] LABS: % Basophils 0.3 % (0-2); % Eosinophils 0.8 % (0-6); % Immature Granulocytes 2.7 % (0-0.5); % Lymphocytes 9.9 % (20.5-51.1); % Monocytes 5.1 % (1.7-9.3); % Neutrophils 81.2 % (42.2-75.2); Absolute Basophils 0.1 10^3/uL (0-0.2); Absolute Eosinophils 0.1 10^3/uL (0-0.7); Absolute Immature Granulocytes 0.4 10^3/uL (0-0.05); Absolute Lymphocytes 1.5 10^3/uL (1.2-3.4); Absolute Monocytes 0.8 10^3/uL (0.1-0.6); Absolute Neutrophils 11.8 10^3/uL (1.4-6.5); Hematocrit 28.9 % (37.0-47.0); Hemoglobin 9.2 g/dL (12.0-16.0); Mean Corp Hgb Conc. 31.8 g/dL (33.0-37.0); Mean Corpuscular Hgb 30.6 pg (27.0-31.0); Mean Platelet Volume 9.1 fL (7.4-10.4); Nucleated Red Blood Cells % 0 %; Platelet Count 212 10^3/uL (130-400); Red Blood Cell Count 3.01 10^6/uL (4.20-5.40); Red Cell Dist. Width 13.4 % (11.5-14.5); White Blood Cell Count 14.6 10^3/uL (4.8-10.8)
[2024-12-16] MEDS: VANCOCIN 150 IV ×2 (06:09→17:35)
[2024-12-16 06:22] LABS: Carbon Dioxide 37 mmol/L (22-30)
[2024-12-16 06:23] LABS: Varicella-Zoster Source Vesicle; Varicella-Zoster Virus by PCR Not Detected
--- NOTE | 2024-12-16 06:44 | PTCARENOTE ---
Pt grossly incontinent, dressings saturated in urine. Pads changed, wound dressings changed, hygiene care performed. PW in place to contain urine/keep dressings dry. Q2T schedule in place to prevent further skin breakdown. Pt denies complaints at
this time. Wore bipap until 5am when pt requested to be placed back on NC. Bed alarm in place for pt safety. Call ram within reach.
[2024-12-16] MEDS: MUCINEX 1200 MG PO ×2 (07:29→20:14)
[2024-12-16] MEDS: DELTASONE 50 MG PO (07:30)
[2024-12-16] MEDS: CARDIZEM CD 360 MG PO (07:30)
[2024-12-16] MEDS: ZOLOFT 12.5 MG PO (07:31)
[2024-12-16] MEDS: PROTONIX 40 MG PO (07:31)
[2024-12-16] MEDS: TOPROL XL 50 MG PO ×2 (07:32→20:16)
--- NOTE | 2024-12-16 07:45 | PTCARENOTE ---
Pt AAOx3, states she slept and wore her Bipap. Purewick in place, taking pills whole with water. No co of pain. continues on 5 l O2. Airborne precautions in place.
[2024-12-16] MEDS: XOPENEX 1.25 MG INHALANT SOLUTION INH ×3 (08:16→20:00)
[2024-12-16] MEDS: ATROVENT NEBULES 0.5 MG INH ×3 (08:16→20:00)
[2024-12-16] MEDS: SYMBICORT 160/4.5 MCG INHALER 2 PUFF INH ×2 (08:17→20:00)
--- NOTE | 2024-12-16 08:19 | W.PN.HOSP.TC ---
Addendum entered and electronically signed by Sanchez Atkins MD 12/16/24 18:42:
bipap hs/prn
steroid taper
acapella/incentive kunal
antivirals
antibiotics
pulm following
id following
Original Note:
Today's Communication/Plan
-
Continue antibiotics cefepime day 5 and vancomycin day 4
Continue BiPAP at night
Continue oxygen supplementation
Assessment / Plan
Assessment / Plan
A/P
#Chronic hypoxic hypercapnic respiratory failure secondary to suspected pneumonia versus COPD without exacerbation
Pro-Shelton negative
MRSA, PCT, sputum negative
Currently on empiric antibiotics�vancomycin and cefepime per infectious disease
Pulmonary following, appreciate input
Continue BiPAP with sleep and as needed during the day at current settings. Uses chronic oxygen at 4 L/min at home
AFB sputum pending
Continue airway clearance vest, nebs, Acapella
Continue Mucinex and Xopenex 3 times daily with Atrovent 3 times daily
Taper prednisone to 40 mg today
Continue home inhaler with Symbicort
#Vesicular rash, concern for shingles, cannot exclude disseminated
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
Continue acyclovir per ID
#Migraine
Currently resolved so will not plan for spinal tap
Head CT showed no acute abnormalities, edema or defect. Showed a 7 mm dystrophic calcification right cerebellar hemisphere. Mild diffuse cortical and cerebral atrophy on 12/13
continue sumatriptan and Compazine as needed
# Transaminitis
HepB core Ab and surf Ab positive
Continue to follow LFT
GI on board, appreciate input
Right upper quadrant ultrasound showed no hepatic or biliary abnormalities
#Afib with RVR
Continue Eliquis
Cardio following, appreciate input
Switch to beta-cayla and converted to sinus rhythm
Continue telemetry
#mild diverticulitis
Patient previously on Augmentin, now completed
Tolerating food well
Outpatient colonoscopy in 6 weeks
#Renal cysts
no follow up advised
#Anxiety
#Essential HTN
#HLD
#Urinary retention
cont home meds
# Potential UTI
Urine culture negative
#chronic leukocytosis
Secondary to steroids
Follow-up with hematology outpatient
DVT ppx Eliquis
Full code
Anticipated Discharge: > 48 hours
Subjective/Interval History
-
Date of Service: December 16, 2024
74-year-old female with past medical history of chronic hypoxic respiratory failure on 2 to 4 L, COPD on chronic prednisone, hypertension, migraines who came to [facility] with shortness of breath and chest palpitations. She was managed for
A-fib with RVR that later converted to sinus rhythm and was managed with beta-blockers per protocol. Overnight she reports no acute events has continued mild lower back pain. She has intermittent mild migraines but no shortness of breath.
Objective Data
-
Labs:
Laboratory Results
12/16/24 12/16/24
05:12 12:00
WBC 14.6 H
Hgb 9.2 L D
Hct 28.9 L
Plt Count 212
APTT 71.3 H Pending
Sodium 138
Potassium 3.9
Chloride 94 L
Carbon Dioxide 37 H
BUN 46 H
Creatinine 0.6
Glucose 135 H
Calcium 8.1 L
Total Bilirubin 0.3
AST 43 H
ALT 89 H
Alkaline Phosphatase 52
Vital Signs:
Vital Signs
Temp Pulse Resp BP Pulse Ox
97.6 F 79 24 109/58 90
12/16/24 07:30 12/16/24 07:32 12/16/24 06:00 12/16/24 07:32 12/16/24 06:00
I&O
12/15/24 12/16/24 12/17/24
06:59 06:59 06:59
Intake Total 517.2 / 517.2 250 / 250
Balance 517.2 / 517.2 250 / 250
Review of Systems
-
History Source: Patient
Constitutional: Reports No Symptoms
EENT: Reports No Symptoms Reported
Respiratory: Reports Cough
Cardiac: Reports No Symptoms
Abdomen/GI: Reports No Symptoms
Genitourinary: Reports No Symptoms
Musculoskeletal: Reports Myalgias
Skin: Reports No Symptoms
Physical Exam
-
General: Well Developed, Well Nourished, No Apparent Distress and Conversant
HEENT: Normocephalic and Atraumatic
Respiratory: Rhonchi and Crackles
Cardiac: S1/S2, Irregular Rhythm and Tachycardic
GI: Soft and Nontender
Musculoskeletal: No Clubbing and No Cyanosis
Skin: Warm and Dry
Neuro: AO x 3
Psych: Calm
Data Reviewed
-
CT Scan: Report Reviewed by me
Labs: Labs Reviewed by me and Discussed with Physician
Old Records: Reviewed
[2024-12-16 09:26] LABS: Vancomycin Peak 20.7 ug/ml (18-26)
--- NOTE | 2024-12-16 09:57 | W.PN.PUL3 ---
Today's Communication / Plan
-
Cont. ABX
Cont. BIpap HS and PRN while in hospital.
Cont. nebs
Decreased prednisone to 40mg, slow taper.
IS
acapella encouraged
minimize sedation
Assessment
-
Patient is a 74-year-old female with previous history of severe COPD on home oxygen 2-4L, hypertension, migraines presenting with chest pressure, palpitations and right sided chest discomfort. In the ER, she was notably found to be in A-fib with
RVR and started on Cardizem drip. Chest x-ray demonstrating new right sided opacity that may represent pneumonia. She recently was flu positive.
Still having ongoing right-sided chest discomfort.
Impression:
Acute on chronic respiratory failure with hypercapnia requiring continuous BiPAP, now on midflow nasal cannula with BiPAP with sleep and prn during the day
Chronic hypoxic respiratory failure on home O2 on 4 L
New right-sided scattered opacities on CT Chest, pneumonia bacterial vs Viral
Left hip Herpes II
AECOPD
Chest discomfort
Palpitations
A-fib with RVR s/p Cardizem drip, h/o SVT
Recent flu A positive 11/27/24
Conditions present prior to admission
Osteoporosis
Hypertension
PAD
B/l Brachial artery stenosis
Anxiety
Migraine Headache
Severe COPD on home O2/Centrilobular emphysema
Follows Dr Wayne
FVC 2.20 L or 74%; FEV1 0.71 L or 32%, ratio was 32%; TLC 5.0 or 101%, RV/TLC 54%, DLCO 17%
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
Upper airway cough syndrome, follows with ENT
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
T7 compression facture 04/12
B/L Cataract Surgery
Colonoscopy and endoscopy-polyps found
s/p Mohs Surgery 09/2024
Plan
Pt became increasingly drowsy overnight on 12/13 - 12/14/2024 with blood gas showing acute hypercapnia with pCO2 of of 78
-
She was placed onto BiPAP and as of 12/15/2024 she is markedly improved, awake, alert and answering questions appropriately with blood gas improved with pH 7.5, pCO2 50
Continue to trend blood gas to ensure pH + pCO2 remained stable.
Continue BiPAP with sleep and prn during the day at current settings, may benefit from NIV at discharge.
Of note she is on chronic oxygen at 4 L/min at home
Prior history of lung disease is noted including severe COPD/emphysema, stage IV with severe diffusion impairment
-
Suspected Pneumonia, severe, R>L
She is placed on empiric abx -currently on IV vancomycin/cefepime per ID
MRSA negative
PCT negative
Sputum culture sent (12/09/2024)--usual david
AFB pending from 12/11/2024
With left hip herpes II- cant rule out herpes PNA
Not a candidate for bronchoscopy, high risk for intubation/tracheostomy based on very poor pulmonary reserve. On Acycovir, discussed with Dr. Castillo.
Continue airway clearance vest/nebs/acapella
Continue mucinex; continue Xopenex TID + Atrovent TID
Recent chest imaging -with extensive disease on R
Repeat CXR following aggressive clearance measures, repeat 12/12--worsened
CT chest 12/15/2024: reviewed, showed extensive R sided consolidation mild on left. No pleural effusion. Severe emphysema. LIkely will be very slow recovery
Cont. prednisone to 50mg daily on 12/13/2024 - wean to 40mg today 12/16/2024.
Continue home inhaler with Symbicort; uses Spiriva at home.
She is on chronic prednisone for COPD, steroid dependant
Afib with RVR noted requiring Cardizem drip - -transitioned to PO
Also on toprol XL BID
Also on heparin drip
Cards following
proBNP 331 from 12/07/2024
Prior ECHO results are reviewed indicating stable function (last echo 12/03/2024)
Would be reasonable to discuss GOC if she were to clinically deteriorate given her lung function
She remains full code
Dr. Phan updated the patient's boyfriend, Dewey, at bedside and answered all of his questions
Recommend outpatient follow-up with our office with Dr. Wayne (last visit on 08/07/2024)
Pulmonary service will continue to follow along

Diagnostic Data
Chest X-Ray: 12/08/24- Predominately right-sided interstitial infiltrate and subtle underlying parenchymal nodularity is again demonstrated involving the caudal aspect of the right upper lobe and right lower lobe. Slight progression suggested in the
medial right lung base. The left lung remains essentially clear.
CT Scan: CT [facility] 12/07/24- Numerous predominantly the right lung pulmonary nodular parenchymal opacities with irregular margination, as described. Although likely infectious in etiology (including atypical and/or fungal etiology), follow-up would be
necessary to assess for resolution after conservative therapy, and to exclude the possibility of neoplasm. Otherwise, consider follow-up PET/CT.
Mild confluent hilar lymphoid tissue and small mediastinal lymph nodes. However, no enlarged adenopathy.
Moderate emphysematous lung changes.
Echo: 12/03/24- Normal biventricular size and systolic function without regional wall motion abnormality. LVEF 65-70%. Aortic sclerosis without stenosis. No significant valvular disease.
No change compared to prior study in April 2023.
PFT's:
Reports and relevant images were personally reviewed.
Total time spent today was 40 minutes for this encounter. Time includes reviewing laboratory test/imaging results, reviewing pertinent medical records, obtaining and reviewing medical history, performing an appropriate exam, ordering medications,
tests and procedures. Time also includes documentation of this encounter, coordinating patient care and communicating with other healthcare professionals. Total time does not include separately billed tests performed on this date of service.
Subjective Data
-
Date of Service:
Date of Service: December 16, 2024
Chief Complaint: Pulmonary Follow Up
Objective Data
Data Reviewed
Vital Signs / I&O / Oxygen:
Vital Signs
Temp Pulse Resp BP Pulse Ox
97.6 F 75 22 109/58 93
12/16/24 07:30 12/16/24 08:23 12/16/24 08:23 12/16/24 07:32 12/16/24 08:23
Intake and Output
12/15/24 12/16/24 12/17/24
06:59 06:59 06:59
Intake Total 517.2 / 517.2 250 / 250
Balance 517.2 / 517.2 250 / 250
SaO2 93
Nasal Cannula flow liters per 5
minute
Physical Exam
General: Respiratory Distress (at rest with conversation.), Chills (negative) and Sweats (negative)
HEENT: Normocephalic, Anicteric and Moist Mucous Membranes
Cardiovascular: Irregular Rhythm, Peripheral Edema (negative) and Other (Tachycardic)
Respiratory: Wheeze (negative), Crackles (Bilateral), Rhonchi (Bilateral) and Non-Labored Respirations
GI: Soft, Non Distended and Non Tender
Neurology: AO x 3 and No Motor Deficits
Skin: Warm, Dry, Cyanosis (negative) and Jaundice (negative)
Labs/Micro/Reports
Lab Data
12/16/24 05:12
12/16/24 05:12
Laboratory Results
12/15/24 12/15/24 12/16/24
11:16 18:17 05:12
APTT 80.7 H 95.7 H 71.3 H
Microbiology
12/12/24 13:54 Blood/Venous Blood Culture - Preliminary
No Growth in 72 hours- Final report to follow
12/12/24 13:05 Blood/Venous Blood Culture - Preliminary
No Growth in 72 hours- Final report to follow
12/11/24 20:04 Sputum Acid Fast Bacilli Smear - Preliminary
12/11/24 20:04 Sputum Acid Fast Bacilli Culture - Preliminary
12/12/24 16:20 Urine Urine Culture - Final
NO GROWTH
--- NOTE | 2024-12-16 09:59 | PHA.VAN.FU ---
Vancomycin Assessment / Plan
- Assessment
Renal Function: Stable
In the past 24 hrs, patient has been: Afebrile
Concomitant Antimicrobials: cefepime, acyclovir
- Assessment - Therapeutic Drug Monitoring
Extrapolated Cmax (mcg/mL): 23.2
Peak level was drawn: Appropriately (drawn ~1.5H after end of previous infusion)
Extrapolated Cmin (mcg/mL): 10.3
Trough Drawn: Appropriately
Levels were drawn: At steady state (levels drawn around 5th maintenance dose)
Calculated AUC (mcg*h/mL): 383
Calculated ke: 0.0741
Calculated half life (H): 9.3
Calculated Vd (L): 52.8 (~0.8 L/kg)
Calculated Vanc CL (ml/min): 65
Levels were not drawn in the same dosing interval; therefore, accuracy of above calculations may be reduced
Peak was not drawn last night as ordered and was re-timed to be after 0600 dose this AM
Calculations were extrapolated
- Dosing Plan
Continue: Vanc 750mg Q12H
Patient may require dose increase
Vanc 1000mg Q12H predicts AUC 530, peak 32, trough 14.2 using above patient-specific PK
However, BUN elevated, trough appropriate and accuracy of AUC calculations may be reduced as discussed above.
Will continue with present dosing for today and follow renal function and clinical status trend.
May consider increasing in next few days vs repeating levels to be drawn within the same dosing interval.
- Monitoring Plan
No level(s) ordered at this time: consider repeat level(s) in next few days
- Follow Up
Pharmacy will continue to follow.
Vancomycin Follow UP
- -
Patient Age: 74
Patient Sex: Female
Vancomycin Day #: 4
Indication: Pulmonary/Respiratory
Requesting Provider: Dr. Mcdaniel
Pertinent Antimicrobial Allergies:
NKDA
Height / Weight:
Height 5 ft 4 in
Actual Weight 63.4 kg
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
- Vital Signs / Lab Results
Temp Pulse Resp BP Pulse Ox
97.6 F 75 22 109/58 93
12/16/24 07:30 12/16/24 08:23 12/16/24 08:23 12/16/24 07:32 12/16/24 08:23
Lab Results - Hematology
12/14/24 12/14/24 12/15/24
08:39 14:13 04:12
WBC 15.3 H Cancelled 13.8 H
12/16/24
05:12
WBC 14.6 H
Lab Results - Chemistry
12/14/24 12/15/24 12/16/24
08:39 04:12 05:12
BUN 32 H 47 H 46 H
Creatinine 0.5 L 0.7 0.6
Estimated Creat Clear 73 63 73
Albumin 2.9 L 2.8 L 2.5 L
Microbiology Results
12/12/24 13:54 Blood Culture - Preliminary
Blood/Venous No Growth in 72 hours- Final report to follow
12/12/24 13:05 Blood Culture - Preliminary
Blood/Venous No Growth in 72 hours- Final report to follow
Therapeutic Drug Monitoring
Vancomycin Peak 20.7 ug/ml (18-26) 12/16/24 08:42
Vancomycin Trough 11.3 ug/ml (5-20) 12/16/24 05:12
--- NOTE | 2024-12-16 10:29 | W.PN.ID1 ---
Date of Service
Date of Service: December 16, 2024
Today's Communication
Continue antibiotics. See below�
Assessment / Plan
Shortness of breath
- improving
Acute on chronic respiratory failure
- improving, off BiPAP
Recent influenza A infection (11/27/24) s/p oseltamivir
Left hip herpes simplex (confirmed via PCR)
A-fib with RVR; converted to sinus on Cardizem drip
Recent Hx of COPD exacerbation; on steroid taper
Leukocytosis
Abnormal CXR/CT
Asthma
Severe COPD on home O2 2-4L, chronic prednisone 10mg qd
HTN
Migraines
Recommendations:
Sputum culture negative. AFB stain and culture pending.
(s/p 4 days Unasyn, 3 days doxy: dc'd 12/12)
12/12/24 CXR: worsening severe right lung opacities/PNA.
Repeat COVID/influenza negative.
Sputum silver stain pending.
Currently on cefepime (d#5).
At risk for post-influenza MRSA pneumonia.
- Continue Vancomycin (d#4)
-Follow Vanco levels closely to prevent nephrotoxicity
Leukocytosis stable
Decreasing oxygen requirement, off BiPAP
Pt clinically improved today
Repeat blood cultures neg to date.
Ucx neg
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
Change IV acyclovir to Valtrex p.o.
����������������������������������������������������������
Chief Complaint
-: Pneumonia and Other (Nodular pulmonary infiltrates)
Subjective / Review of Systems
Patient seen and examined. Reports breathing is comfortable. Remains on 6 L at this time. Denies pain
Vital Signs / Physical Exam
Vital Signs
Vital Signs
Temp Pulse Resp BP Pulse Ox
97.6 F 67 24 102/48 93
12/16/24 07:30 12/16/24 10:00 12/16/24 10:00 12/16/24 10:00 12/16/24 10:00
Physical Exam
Constitutional: Comfortable and Non-toxic
Eyes: No Conjunctival Hemorrhage and Sclera Anicteric
Cardiovascular: Regular Rate and S1/S2; Negative S3/S4
Pulmonary: Rales (right crackles), Coarse and Non Labored
Gastrointestinal: Soft, Non Tender, Non Distended and Normal Bowel Sounds
Extremities: Negative Edema
Neurological: Alert (More alert) and AO x 3; Negative Meningeal Signs (neck supple)
Objective Data
Lab Data
Lab Results
12/16/24 05:12
12/16/24 05:12
ESR 50 mm/hour (0-20) H 12/09/24 02:21
PT 17.9 Sec (11.4-14.6) H 12/13/24 12:47
INR 1.45 12/13/24 12:47
APTT 71.3 Sec (23.4-35.0) H 12/16/24 05:12
Estimated Creat Clear 73 ml/min 12/16/24 05:12
Total Bilirubin 0.3 mg/dl (0.2-1.3) 12/16/24 05:12
AST 43 U/L (14-36) H 12/16/24 05:12
ALT 89 U/L (0-35) H 12/16/24 05:12
Alkaline Phosphatase 52 U/L (38-126) 12/16/24 05:12
Most recent labs reviewed.
CT Scan: Image Reviewed and Report Reviewed
Micro Results:
12/12/24 13:54 Blood Culture - Preliminary
Blood/Venous No Growth in 72 hours- Final report to follow
12/12/24 13:05 Blood Culture - Preliminary
Blood/Venous No Growth in 72 hours- Final report to follow
12/11/24 20:04 Acid Fast Bacilli Smear - Preliminary
Sputum Acid Fast Bacilli Culture - Preliminary
12/12/24 16:20 Urine Culture - Final
Urine NO GROWTH
12/12/24 12:57 Influenza Types A & B (SHEELA) - Final
Nasal Swab Negative for Influenza A & B, NAAT
Negative results must be combined with clinical observations
and patient history.
Nucleic Acid Amplification test (NAAT)performed on the
[employer] ([employer]) platform.
12/09/24 15:59 Respiratory Culture - Final
Sputum Usual Respiratory Luzma
Gram Stain - Final
12/09/24 11:57 MRSA Screen - Final
Nose No Methicillin Resistant Staphylococcus aureus isolated.
12/09/24 09:20 Legionella Urinary Antigen - Final
Urine Negative for Legionella pneumophila Serogroup 1 antigen.
A negative result does not rule out the possiblity of
Legionella infection due to other serogroups or species of
Legionella. Clinical correlation is recommended.
Streptococcus pneumoniae Antigen (M - Final
Negative for Streptococcus pneumoniae antigen.
A negative result does not exclude infection with
Streptococcus pneumoniae. Clinical correlation is
recommended.
12/08/24 02:32 Urine Culture - Final
Urine
12/07/24 10:47 Influenza Types A & B (SHEELA) - Final
Nasal Swab Negative for Influenza A & B, NAAT
Negative results must be combined with clinical observations
and patient history.
Nucleic Acid Amplification test (NAAT)performed on the
[employer] ([employer]) platform.
Laboratory Tests
12/12/24
12:57
SARS-CoV-2 Antigen Negative
Left gluteal lesions 12/12/24
18:41
HSV I (PCR) Not detected
HSV II (PCR) Detected A
VZV (PCR) Source Vesicle
VZV DNA (PCR) Not detected
Imaging:
12/15/2024 CT chest with IV contrast: Multifocal pneumonia severe throughout the right lung and mild throughout the left lung, overall significantly progressed from a prior exam of 12/07/2024. No pulmonary embolism noted.
12/07/2024 CTA (chest/abdomen/pelvis):Numerous predominantly the right lung pulmonary nodular parenchymal opacities with irregular margination, as described. Although likely infectious in etiology (including atypical and/or fungal etiology),
follow-up would be necessary to assess for resolution after conservative therapy, and to exclude the possibility of neoplasm. Otherwise, consider follow-up PET/CT. Mild confluent hilar lymphoid tissue and small mediastinal lymph nodes. However, no
enlarged adenopathy. Diverticulosis. Suspect subtle acute diverticulitis related to the distal descending colon. No bowel obstruction. No obstructive uropathy. Right renal cysts. The liver, gallbladder, pancreas, spleen, and adrenal glands are
unremarkable. No bile duct dilatation. No obstructive uropathy. 2.5 cm lateral right midpole renal cyst. Right upper pole parapelvic cyst measuring 1.5 cm. Age indeterminate, though chronic-appearing sclerotic moderate superior endplate compression
deformity of T7.
12/15/24 CTA chest: Multifocal pneumonia, severe throughout the right lung and mild throughout the left lung, overall significantly progressed from prior exam 12/07/2024. No pulmonary embolism.
Care Review
Plan reviewed with: Physician (Pulmonary)
--- NOTE | 2024-12-16 10:38 | PTCARENOTE ---
Pt now on standard precautions
[2024-12-16 12:48] LABS: APTT 52.2 Sec (23.4-35.0)
[2024-12-16] MEDS: HEPARIN 25000 UNITS/250 ML IV (13:05)
[2024-12-16] MEDS: VALTREX 1000 MG PO ×2 (14:00→20:16)
[2024-12-16 20:28] LABS: APTT 110.8 Sec (23.4-35.0)
[2024-12-17] VITALS (22 sets, daily range): BP systolic 96–140; BP diastolic 53–77; PULSE 2–89; O2SAT 93
[2024-12-17] MEDS: MAXIPIME 1000 MG IV ×4 (02:38→19:51)
[2024-12-17] MEDS: STERILE WATER FOR INJECTION 10 ML IV ×4 (02:38→19:51)
[2024-12-17 02:55] LABS: Hematocrit 29.9 % (37.0-47.0); Hemoglobin 9.8 g/dL (12.0-16.0); Mean Corp Hgb Conc. 32.8 g/dL (33.0-37.0); Mean Corpuscular Volume 94.6 fL (81.0-99.0); Mean Platelet Volume 9.1 fL (7.4-10.4); Platelet Count 195 10^3/uL (130-400); Red Blood Cell Count 3.16 10^6/uL (4.20-5.40); Red Cell Dist. Width 13.2 % (11.5-14.5)
[2024-12-17] MEDS: HEPARIN 25000 UNITS/250 ML IV (02:59)
[2024-12-17 03:25] LABS: Blood Urea Nitrogen 38 mg/dl (7-17); Calcium 8.2 mg/dl (8.4-10.2); Chloride 96 mmol/L (98-107); Estimated Creatinine Clearance 73 ml/min; Glucose 148 mg/dl (70-99); Potassium 4.1 mmol/L (3.5-5.1); Sodium 137 mmol/L (135-145); eGFR > 60.00
[2024-12-17 03:34] LABS: APTT 165.7 Sec (23.4-35.0)
[2024-12-17 04:44] LABS: Carbon Dioxide 34 mmol/L (22-30)
--- NOTE | 2024-12-17 05:52 | PTCARENOTE ---
Caring for patient overnight. aaox3, pleasant. NSR on monitor. 5LNC bipap HS, no issues. COLLINS & SOB at rest when talking. C/o lower back pain occasionally. this morning pt called nurse in for CP, tightness, 03/29, pt unsure if its gas pain or not. EKG
done NSR, [employer] TT. Trop ordered, still pending. A couple hours later when reassessed pain pt said it was gone & was relieved by passing gas. Will monitor. BA on. NO other issues at this time.
[2024-12-17 05:54] LABS: Troponin I 0.015 ng/ml
[2024-12-17] MEDS: VANCOCIN 150 IV ×2 (07:17→17:55)
[2024-12-17] MEDS: XOPENEX 1.25 MG INHALANT SOLUTION INH ×3 (07:26→19:19)
[2024-12-17] MEDS: SYMBICORT 160/4.5 MCG INHALER 2 PUFF INH ×2 (07:26→19:10)
[2024-12-17] MEDS: ATROVENT NEBULES 0.5 MG INH ×3 (07:26→19:10)
--- NOTE | 2024-12-17 07:54 | W.PN.HOSP.TC ---
Addendum entered and electronically signed by Sanchez Atkins MD 12/17/24 16:40:
bipap hs/prn
steroid taper
acapella/incentive kunal
antivirals
antibiotics
pulm following
id following
will begin dc planning, start to have pt eval
Original Note:
Today's Communication/Plan
-
Pending PT evaluation for discharge planning
Assessment / Plan
Assessment / Plan
A/P
#Chronic hypoxic hypercapnic respiratory failure secondary to suspected pneumonia versus COPD without exacerbation
Pro-[place] negative
MRSA, PCT, sputum negative
Currently on empiric antibiotics�vancomycin and cefepime per infectious disease
Pulmonary following, appreciate input
Continue BiPAP with sleep and as needed during the day at current settings. Uses chronic oxygen at 4 L/min at home
AFB sputum pending
Continue airway clearance vest, nebs, Acapella
Continue Mucinex and Xopenex 3 times daily with Atrovent 3 times daily
Taper prednisone to 40 mg today
Continue home inhaler with Symbicort
PT OT evaluation today
#Vesicular rash, concern for shingles, cannot exclude disseminated
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
Continue acyclovir per ID
#Migraine
Currently resolved so will not plan for spinal tap
Head CT showed no acute abnormalities, edema or defect. Showed a 7 mm dystrophic calcification right cerebellar hemisphere. Mild diffuse cortical and cerebral atrophy on 12/13
continue sumatriptan and Compazine as needed
# Transaminitis
HepB core Ab and surf Ab positive
Continue to follow LFT
GI on board, appreciate input
Right upper quadrant ultrasound showed no hepatic or biliary abnormalities
#Afib with RVR
Continue Eliquis
Cardio following, appreciate input
Switch to beta-cayla and converted to sinus rhythm
Continue telemetry
#mild diverticulitis
Patient previously on Augmentin, now completed
Tolerating food well
Outpatient colonoscopy in 6 weeks
#Renal cysts
no follow up advised
#Anxiety
#Essential HTN
#HLD
#Urinary retention
cont home meds
# Potential UTI
Urine culture negative
#chronic leukocytosis
Secondary to steroids
Follow-up with hematology outpatient
DVT ppx Eliquis
Full code
Anticipated Discharge: > 48 hours
Subjective/Interval History
-
Date of Service: December 17, 2024
Overnight patient reported acute chest pain. EKG showed normal sinus rhythm. In conversation, patient states that she thinks it was just reflux. She has had no repeat episodes of chest pain. She reports no nausea, vomiting, shortness of breath
or abdominal pain
Objective Data
-
Labs:
Laboratory Results
12/16/24 12/17/24 12/17/24
20:04 02:45 10:30
WBC 13.0 H
Hgb 9.8 L
Hct 29.9 L
Plt Count 195
APTT 110.8 H 165.7 H* Pending
Sodium 137
Potassium 4.1
Chloride 96 L
Carbon Dioxide 34 H
BUN 38 H
Creatinine 0.6
Glucose 148 H
Calcium 8.2 L
Vital Signs:
Vital Signs
Temp Pulse Resp BP Pulse Ox
98 F 78 18 113/54 91
12/17/24 07:48 12/17/24 07:29 12/17/24 07:29 12/17/24 06:00 12/17/24 07:29
I&O
12/16/24 12/17/24 12/18/24
06:59 06:59 06:59
Intake Total 250 / 250 150 / 150
Output Total 450 / 450
Balance 250 / 250 -300 / -300
Review of Systems
-
History Source: Patient
Constitutional: Reports No Symptoms
EENT: Reports No Symptoms Reported
Respiratory: Reports No Symptoms
Cardiac: Reports No Symptoms
Abdomen/GI: Reports No Symptoms
Breast: Reports No Symptoms
Genitourinary: Reports No Symptoms
Musculoskeletal: Reports No Symptoms
Physical Exam
-
General: No Apparent Distress, Comfortable and Conversant
HEENT: Normocephalic and Atraumatic
Respiratory: Rhonchi and Crackles
Cardiac: S1/S2 and Tachycardic
GI: Soft, Nontender, Nondistended and Normal Bowel Sounds
Musculoskeletal: No Clubbing, No Cyanosis and No Edema
Skin: Warm and Dry
Neuro: AO x 3
Psych: Calm
Data Reviewed
-
Labs: Labs Reviewed by me and Discussed with Physician
Old Records: Reviewed
[2024-12-17] MEDS: CARDIZEM CD 360 MG PO (08:47)
[2024-12-17] MEDS: MUCINEX 1200 MG PO ×2 (08:47→19:52)
[2024-12-17] MEDS: PROTONIX 40 MG PO (08:47)
[2024-12-17] MEDS: VALTREX 1000 MG PO ×3 (08:47→21:46)
[2024-12-17] MEDS: TOPROL XL 50 MG PO ×2 (08:47→19:52)
--- NOTE | 2024-12-17 09:41 | PHA.VAN.FU ---
Vancomycin Assessment / Plan
- Assessment
Renal Function: Stable
WBC's are: Trending Down
In the past 24 hrs, patient has been: Afebrile
Concomitant Antimicrobials: Cefepime, Valacyclovir
- Dosing Plan
Continue: 750mg Q12H
- Monitoring Plan
No level(s) ordered at this time: Consider level(s) in next few days
- Follow Up
Pharmacy will continue to follow.
Vancomycin Follow UP
- -
Patient Age: 74
Patient Sex: Female
Vancomycin Day #: 5
Indication: Pulmonary/Respiratory
Requesting Provider: Dr. Mcdaniel
Pertinent Antimicrobial Allergies:
NKDA
Height / Weight:
Height 5 ft 4 in
Actual Weight 63.4 kg
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
- Vital Signs / Lab Results
Temp Pulse Resp BP Pulse Ox
98 F 90 18 128/61 91
12/17/24 07:48 12/17/24 08:47 12/17/24 07:29 12/17/24 08:47 12/17/24 07:29
Lab Results - Hematology
12/14/24 12/15/24 12/16/24
14:13 04:12 05:12
WBC Cancelled 13.8 H 14.6 H
12/17/24
02:45
WBC 13.0 H
Lab Results - Chemistry
12/15/24 12/16/24 12/17/24
04:12 05:12 02:45
BUN 47 H 46 H 38 H
Creatinine 0.7 0.6 0.6
Estimated Creat Clear 63 73 73
Albumin 2.8 L 2.5 L
Microbiology Results
12/12/24 13:54 Blood Culture - Preliminary
Blood/Venous No Growth in 4 days- Final report to follow
12/12/24 13:05 Blood Culture - Preliminary
Blood/Venous No Growth in 4 days- Final report to follow
Therapeutic Drug Monitoring
Vancomycin Peak 20.7 ug/ml (18-26) 12/16/24 08:42
Vancomycin Trough 11.3 ug/ml (5-20) 12/16/24 05:12
[2024-12-17] MEDS: DELTASONE 40 MG PO (10:03)
--- NOTE | 2024-12-17 10:12 | W.PN.PUL3 ---
Today's Communication / Plan
-
Continue antibiotics
Continue Valtrex
Continue nocturnal BiPAP and as needed
Continue nebulizer therapy
Continue secretion clearance intervention
Prednisone taper
Continue oxygen therapy to maintain pulse ox above 80%
Increase activity as able
Prognosis is guarded
Assessment
-
Patient is a 74-year-old female with previous history of severe COPD on home oxygen 2-4L, hypertension, migraines presenting with chest pressure, palpitations and right sided chest discomfort. In the ER, she was notably found to be in A-fib with
RVR and started on Cardizem drip. Chest x-ray demonstrating new right sided opacity that may represent pneumonia. She recently was flu positive.
Still having ongoing right-sided chest discomfort.
Impression:
Acute on chronic respiratory failure with hypercapnia requiring continuous BiPAP, now on midflow nasal cannula with BiPAP with sleep and prn during the day
Chronic hypoxic respiratory failure on home O2 on 4 L
New right-sided scattered opacities on CT Chest, pneumonia bacterial vs Viral
Left hip Herpes II
AECOPD
Chest discomfort
Palpitations
A-fib with RVR s/p Cardizem drip, h/o SVT
Recent flu A positive 11/27/24
Conditions present prior to admission
Osteoporosis
Hypertension
PAD
B/l Brachial artery stenosis
Anxiety
Migraine Headache
Severe COPD on home O2/Centrilobular emphysema
Follows Dr Wayne
FVC 2.20 L or 74%; FEV1 0.71 L or 32%, ratio was 32%; TLC 5.0 or 101%, RV/TLC 54%, DLCO 17%
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
Upper airway cough syndrome, follows with ENT
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
T7 compression facture 04/12
B/L Cataract Surgery
Colonoscopy and endoscopy-polyps found
s/p Mohs Surgery 09/2024
Plan
Pt became increasingly drowsy 12/13 - 12/14/2024 with blood gas showing acute hypercapnia with pCO2 of of 78. Likely due to severe pneumonia on top of severe emphysema.
Prior history of lung disease is noted including severe COPD/emphysema, stage IV with severe diffusion impairment.
-
Mental status improved
Continue BiPAP at night and as needed, no change in settings -. Likely will need BiPAP at discharge.
Will replete ABG in the next 24 to 48 hours. Or as needed depending on mental status.
oxygenation at baseline 4 L/min at home
-
Suspected Pneumonia, severe, R>L
Leukocytosis trending lower
Afebrile
she is placed on empiric abx -currently on IV vancomycin/cefepime per ID
At risk for staph pneumonia given recent influenza A.
MRSA negative
PCT negative
Sputum culture sent (12/09/2024)--usual david
AFB pending from 12/11/2024
With left hip herpes II- cant rule out herpes PNA
Not a candidate for bronchoscopy, high risk for intubation/tracheostomy based on very poor pulmonary reserve. I have discussed this with patient and she agrees.
She is thinking about advanced directives, DNR status etc.
On Valtrex, discussed with Dr. Castillo on 12/16/2024.
Continue airway clearance vest/nebs/acapella
Continue mucinex; continue Xopenex TID + Atrovent TID
CT chest 12/15/2024: reviewed, showed extensive R sided consolidation mild on left. No pleural effusion. Severe emphysema. LIkely will be very slow recovery
Cont. prednisone- 40mg decreased on 12/16/2024. Will continue to decrease by 10 mg every 72 hours to baseline. She is on chronic prednisone for COPD, steroid dependant
Continue home inhaler with Symbicort; uses Spiriva at home.
She will need eventual radiographic follow-up.
Afib with RVR-heart rate has improved.
On oral Cardizem
Also on toprol XL BID
Also on heparin drip-follow PTT. Monitor for bleeding.
Cards following
proBNP 331 from 12/07/2024
Prior ECHO results are reviewed indicating stable function (last echo 12/03/2024)
Dr. Ponce discussed with patient goals of care, DNR status etc 12/16/2024. with underlying advanced COPD with hypercapnic respiratory failure. She will think about it.
She remains full code
Dr. Phan updated the patient's boyfriend, Dewey, at bedside and answered all of his questions
Recommend outpatient follow-up with our office with Dr. Wayne (last visit on 08/07/2024)
Pulmonary service will continue to follow along

Diagnostic Data
Chest X-Ray: 12/08/24- Predominately right-sided interstitial infiltrate and subtle underlying parenchymal nodularity is again demonstrated involving the caudal aspect of the right upper lobe and right lower lobe. Slight progression suggested in the
medial right lung base. The left lung remains essentially clear.
CT Scan: CT CAP 12/07/24- Numerous predominantly the right lung pulmonary nodular parenchymal opacities with irregular margination, as described. Although likely infectious in etiology (including atypical and/or fungal etiology), follow-up would be
necessary to assess for resolution after conservative therapy, and to exclude the possibility of neoplasm. Otherwise, consider follow-up PET/CT.
Mild confluent hilar lymphoid tissue and small mediastinal lymph nodes. However, no enlarged adenopathy.
Moderate emphysematous lung changes.
Echo: 12/03/24- Normal biventricular size and systolic function without regional wall motion abnormality. LVEF 65-70%. Aortic sclerosis without stenosis. No significant valvular disease.
No change compared to prior study in April 2023.
PFT's:
Reports and relevant images were personally reviewed.
Total time spent today was 40 minutes for this encounter. Time includes reviewing laboratory test/imaging results, reviewing pertinent medical records, obtaining and reviewing medical history, performing an appropriate exam, ordering medications,
tests and procedures. Time also includes documentation of this encounter, coordinating patient care and communicating with other healthcare professionals. Total time does not include separately billed tests performed on this date of service.
Subjective Data
-
Date of Service:
Date of Service: December 17, 2024
Chief Complaint: Pulmonary Follow Up
Subjective:
No new complaints
Continues to report dyspnea with activity
Denies increased phlegm production or hemoptysis
Afebrile
Review of Systems
Cardiopulmonary: Dyspnea, Dyspnea on Exertion and Cough
GI: Abdominal Pain (n) and Nausea (n)
Objective Data
Data Reviewed
Vital Signs / I&O / Oxygen:
Vital Signs
Temp Pulse Resp BP Pulse Ox
98 F 90 18 128/61 91
12/17/24 07:48 12/17/24 08:47 12/17/24 07:29 12/17/24 08:47 12/17/24 07:29
Intake and Output
12/16/24 12/17/24 12/18/24
06:59 06:59 06:59
Intake Total 250 / 250 150 / 150
Output Total 450 / 450 550 / 550
Balance 250 / 250 -300 / -300 -550 / -550
SaO2 91
Nasal Cannula flow liters per 5
minute
Physical Exam
General: Respiratory Distress (at rest with conversation.), Chills (negative) and Sweats (negative)
HEENT: Normocephalic, Anicteric and Moist Mucous Membranes
Cardiovascular: Irregular Rhythm, Peripheral Edema (negative) and Other (Tachycardic)
Respiratory: Wheeze (negative), Crackles (Bilateral), Rhonchi (Bilateral) and Non-Labored Respirations
GI: Soft, Non Distended and Non Tender
Neurology: AO x 3 and No Motor Deficits
Skin: Warm, Dry, Cyanosis (negative) and Jaundice (negative)
Labs/Micro/Reports
Lab Data
12/17/24 02:45
12/17/24 02:45
Laboratory Results
12/16/24 12/16/24 12/17/24
12:16 20:04 02:45
APTT 52.2 H 110.8 H 165.7 H*
Microbiology
12/12/24 13:54 Blood/Venous Blood Culture - Preliminary
No Growth in 4 days- Final report to follow
12/12/24 13:05 Blood/Venous Blood Culture - Preliminary
No Growth in 4 days- Final report to follow
[2024-12-17 10:53] LABS: APTT 77.9 Sec (23.4-35.0)
[2024-12-17 11:06] LABS: Lyme Antibody Screen, EIA Negative (Negative)
--- NOTE | 2024-12-17 13:25 | W.PN.ID1 ---
Date of Service
Date of Service: December 17, 2024
Today's Communication
Continue antibiotics.
Assessment / Plan
Shortness of breath
- improving
Acute on chronic respiratory failure
- improving, off BiPAP
Recent influenza A infection (11/27/24) s/p oseltamivir
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
A-fib with RVR; converted to sinus on Cardizem drip
Recent Hx of COPD exacerbation; on steroid taper
Leukocytosis
Abnormal CXR/CT
Asthma
Severe COPD on home O2 2-4L, chronic prednisone 10mg qd
HTN
Migraines
Recommendations:
Sputum culture negative. AFB stain and culture pending.
(s/p 4 days Unasyn, 3 days doxy: dc'd 12/12)
12/12/24 CXR: worsening severe right lung opacities/PNA.
Repeat COVID/influenza negative.
Sputum silver stain negative for PJP
Currently on cefepime (d#6).
At risk for post-influenza MRSA pneumonia.
- Continue Vancomycin (d#5)
-Follow Vanco levels closely to prevent nephrotoxicity
White count elevated but stable
Decreasing oxygen requirement, off BiPAP
Pt clinically improved today
Repeat blood cultures neg to date.
Ucx neg
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
- Continue Valtrex p.o.
����������������������������������������������������������
Chief Complaint
-: Pneumonia and Other (Nodular pulmonary infiltrates. HSV.)
Subjective / Review of Systems
Review of Systems: No Fever and No Chills
Vital Signs / Physical Exam
Vital Signs
Vital Signs
Temp Pulse Resp BP Pulse Ox
98.2 F 76 22 140/77 93
12/17/24 11:49 12/17/24 13:16 12/17/24 13:16 12/17/24 10:00 12/17/24 13:16
Physical Exam
Constitutional: Comfortable and Non-toxic
Eyes: No Conjunctival Hemorrhage and Sclera Anicteric
Cardiovascular: Regular Rate and S1/S2; Negative S3/S4
Pulmonary: Rales (right crackles), Coarse and Non Labored
Gastrointestinal: Soft, Non Tender, Non Distended and Normal Bowel Sounds
Extremities: Negative Edema
Skin: Other (Left buttock lesions dressed.)
Neurological: Alert (More alert) and AO x 3; Negative Meningeal Signs (neck supple)
Objective Data
Lab Data
Lab Results
12/17/24 02:45
12/17/24 02:45
ESR 50 mm/hour (0-20) H 12/09/24 02:21
PT 17.9 Sec (11.4-14.6) H 12/13/24 12:47
INR 1.45 12/13/24 12:47
APTT 77.9 Sec (23.4-35.0) H 12/17/24 10:27
Estimated Creat Clear 73 ml/min 12/17/24 02:45
Total Bilirubin 0.3 mg/dl (0.2-1.3) 12/16/24 05:12
AST 43 U/L (14-36) H 12/16/24 05:12
ALT 89 U/L (0-35) H 12/16/24 05:12
Alkaline Phosphatase 52 U/L (38-126) 12/16/24 05:12
Most recent labs reviewed.
Micro Results:
12/12/24 13:05 Blood Culture - Final
Blood/Venous No Growth - Final Report
12/12/24 13:54 Blood Culture - Preliminary
Blood/Venous No Growth in 4 days- Final report to follow
12/11/24 20:04 Acid Fast Bacilli Smear - Preliminary
Sputum Acid Fast Bacilli Culture - Preliminary
12/12/24 16:20 Urine Culture - Final
Urine NO GROWTH
12/12/24 12:57 Influenza Types A & B (SHEELA) - Final
Nasal Swab Negative for Influenza A & B, NAAT
Negative results must be combined with clinical observations
and patient history.
Nucleic Acid Amplification test (NAAT)performed on the
[employer] platform.
12/09/24 15:59 Respiratory Culture - Final
Sputum Usual Respiratory Luzma
Gram Stain - Final
12/09/24 11:57 MRSA Screen - Final
Nose No Methicillin Resistant Staphylococcus aureus isolated.
12/09/24 09:20 Legionella Urinary Antigen - Final
Urine Negative for Legionella pneumophila Serogroup 1 antigen.
A negative result does not rule out the possiblity of
Legionella infection due to other serogroups or species of
Legionella. Clinical correlation is recommended.
Streptococcus pneumoniae Antigen (M - Final
Negative for Streptococcus pneumoniae antigen.
A negative result does not exclude infection with
Streptococcus pneumoniae. Clinical correlation is
recommended.
12/08/24 02:32 Urine Culture - Final
Urine
12/07/24 10:47 Influenza Types A & B (SHEELA) - Final
Nasal Swab Negative for Influenza A & B, NAAT
Negative results must be combined with clinical observations
and patient history.
Nucleic Acid Amplification test (NAAT)performed on the
[employer] platform.
Laboratory Tests
12/12/24
12:57
SARS-CoV-2 Antigen Negative
Left gluteal lesions 12/12/24
18:41
HSV I (PCR) Not detected
HSV II (PCR) Detected A
VZV (PCR) Source Vesicle
VZV DNA (PCR) Not detected
Imaging:
12/15/2024 CT chest with IV contrast: Multifocal pneumonia severe throughout the right lung and mild throughout the left lung, overall significantly progressed from a prior exam of 12/07/2024. No pulmonary embolism noted.
12/07/2024 CTA (chest/abdomen/pelvis):Numerous predominantly the right lung pulmonary nodular parenchymal opacities with irregular margination, as described. Although likely infectious in etiology (including atypical and/or fungal etiology),
follow-up would be necessary to assess for resolution after conservative therapy, and to exclude the possibility of neoplasm. Otherwise, consider follow-up PET/CT. Mild confluent hilar lymphoid tissue and small mediastinal lymph nodes. However, no
enlarged adenopathy. Diverticulosis. Suspect subtle acute diverticulitis related to the distal descending colon. No bowel obstruction. No obstructive uropathy. Right renal cysts. The liver, gallbladder, pancreas, spleen, and adrenal glands are
unremarkable. No bile duct dilatation. No obstructive uropathy. 2.5 cm lateral right midpole renal cyst. Right upper pole parapelvic cyst measuring 1.5 cm. Age indeterminate, though chronic-appearing sclerotic moderate superior endplate compression
deformity of T7.
12/15/24 CTA chest: Multifocal pneumonia, severe throughout the right lung and mild throughout the left lung, overall significantly progressed from prior exam 12/07/2024. No pulmonary embolism.
--- NOTE | 2024-12-17 14:01 | PTCARENOTE ---
Assumed care of patient at beginning of this shift from previous RN. Patient was on Bipap while sleeping and transitioned to 5L n/c by respiratory therapist. O2 needed to be increased to 6L n/c when working with PT/OT and transferred OOB to chair;
POx had maintained 88% on 5L. POx 91-93% on 6L n/c. Lungs diminished and coarse t/o; she wore Bipap when taking a nap.
--- NOTE | 2024-12-17 17:25 | PTCARENOTE ---
Heparin drip not renewed; TT sent to Dr Atkins and Dr Teixeira for renewal as order cancelled. Heparin drip renewed and eliquis ordered for 20:00. Confirmed that 16:30 PTT does not need to be drawn; continue heparin until eliquis given. TT sent for
placement of d/c heparin order once eliquis given.
[2024-12-17] MEDS: ELIQUIS 5 MG PO (19:52)
[2024-12-17 23:25] LABS: HBV Quant by NAAT IU/mL Not Detected; HBV Quant by NAAT Interp Not Detected (Not Detected); HBV Quant by NAAT Log IU/mL Not Detected log IU/mL
--- NOTE | 2024-12-17 23:52 | PTCARENOTE ---
Assumed care for patient overnight, received report from zohra KING. Heparin gtt d/c'd and shut off @ 1999, administered PO eliquis see JAN. Pt NS on tele. Pt placed on BiPAP O2 sat 95%. Fine crackles at the bases of the lungs and coarse
throughout. Pt dyspneic with exertion. Pt originally refusing oral care, but with encouragement and education pt brushed teeth and did a mouth wash rinse before being placed on BiPAP. Encouraging patient to turn and reposition in the bed frequently.
Replaced purewick and performed perineal care. Call ram is within reach.
[2024-12-18] VITALS (14 sets, daily range): BP systolic 103–134; BP diastolic 53–66; PULSE 2–82; O2SAT 92
[2024-12-18] MEDS: MAXIPIME 1000 MG IV ×2 (02:06→08:20)
[2024-12-18] MEDS: STERILE WATER FOR INJECTION 10 ML IV ×2 (02:06→08:20)
[2024-12-18] MEDS: VANCOCIN 150 IV (05:32)
[2024-12-18 06:27] LABS: Hematocrit 30.7 % (37.0-47.0); Hemoglobin 10.1 g/dL (12.0-16.0); Mean Corp Hgb Conc. 32.9 g/dL (33.0-37.0); Mean Corpuscular Hgb 30.9 pg (27.0-31.0); Mean Corpuscular Volume 93.9 fL (81.0-99.0); Mean Platelet Volume 9.5 fL (7.4-10.4); Platelet Count 207 10^3/uL (130-400); Red Blood Cell Count 3.27 10^6/uL (4.20-5.40); Red Cell Dist. Width 13.2 % (11.5-14.5); White Blood Cell Count 11.4 10^3/uL (4.8-10.8)
--- NOTE | 2024-12-18 08:09 | W.PN.HOSP.TC ---
Addendum entered and electronically signed by Dane Teixeira DO, Resident 12/18/24 15:01:
Lethargy only
Addendum entered and electronically signed by Sanchez Atkins MD 12/18/24 14:31:
bipap hs/prn
steroid taper
acapella/incentive kunal
antivirals
antibiotics
pulm following
id following
will begin dc planning, start to have pt eval
Original Note:
Today's Communication/Plan
-
Discussed SNF placement with case management
Assessment / Plan
Assessment / Plan
A/P
#Chronic hypoxic hypercapnic respiratory failure secondary to suspected pneumonia versus COPD without exacerbation
Pro-[place] negative
MRSA, PCT, sputum negative
Currently on empiric antibiotics�vancomycin and cefepime per infectious disease. Transition patient to cefdinir for 14 days
Pulmonary following, appreciate input
Continue BiPAP with sleep and as needed during the day at current settings. Uses chronic oxygen at 4 L/min at home
AFB sputum pending
Continue airway clearance vest, nebs, Acapella
Continue Mucinex and Xopenex 3 times daily with Atrovent 3 times daily
Taper prednisone to 40 mg today
Continue home inhaler with Symbicort
PT OT evaluation today
#Vesicular rash, concern for shingles, cannot exclude disseminated
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
Continue acyclovir per ID
#Migraine
Currently resolved so will not plan for spinal tap
Head CT showed no acute abnormalities, edema or defect. Showed a 7 mm dystrophic calcification right cerebellar hemisphere. Mild diffuse cortical and cerebral atrophy on 12/13
continue sumatriptan and Compazine as needed
# Transaminitis
HepB core Ab and surf Ab positive
Continue to follow LFT
GI on board, appreciate input
Right upper quadrant ultrasound showed no hepatic or biliary abnormalities
#Afib with RVR
Continue Eliquis
Cardio following, appreciate input
Switch to beta-cayla and converted to sinus rhythm
Continue telemetry
#mild diverticulitis
Patient previously on Augmentin, now completed
Tolerating food well
Outpatient colonoscopy in 6 weeks
#Renal cysts
no follow up advised
#Anxiety
#Essential HTN
#HLD
#Urinary retention
cont home meds
# Potential UTI
Urine culture negative
#chronic leukocytosis
Secondary to steroids
Follow-up with hematology outpatient
DVT ppx Eliquis
Full code
Per PT, patient would benefit from skilled rehab. DC planning in motion
Anticipated Discharge: 24 - 48 hours
Subjective/Interval History
-
Date of Service: December 18, 2024
74-year-old female with past medical history of chronic hypoxic respiratory failure on 2 to 4 L, COPD on chronic prednisone, hypertension, migraines who came to [facility] with shortness of breath and chest palpitations.
Objective Data
-
Labs:
Laboratory Results
12/17/24 12/18/24 12/18/24
16:30 05:43 07:35
WBC 11.4 H
Hgb 10.1 L
Hct 30.7 L
Plt Count 207
APTT Cancelled
Sodium Pending
Potassium Pending
Chloride Pending
Carbon Dioxide Pending
BUN Pending
Creatinine Pending
Glucose Pending
Calcium Pending
Total Bilirubin Pending
AST Pending
ALT Pending
Alkaline Phosphatase Pending
Vital Signs:
Vital Signs
Temp Pulse Resp BP Pulse Ox
98.1 F 73 19 115/53 94
12/17/24 23:58 12/18/24 06:00 12/18/24 06:00 12/18/24 06:00 12/18/24 06:00
I&O
12/17/24 12/18/24 12/19/24
06:59 06:59 06:59
Intake Total 150 / 150 540 / 540
Output Total 450 / 450 1100 / 1100
Balance -300 / -300 -560 / -560
Review of Systems
-
History Source: Patient
Constitutional: Reports No Symptoms
EENT: Reports No Symptoms Reported
Respiratory: Reports No Symptoms
Cardiac: Reports No Symptoms
Abdomen/GI: Reports No Symptoms
Genitourinary: Reports No Symptoms
Musculoskeletal: Reports Muscle Pain
Skin: Reports Rash
Physical Exam
-
General: Well Developed, Well Nourished, No Apparent Distress, Comfortable and Conversant
HEENT: Normocephalic and Atraumatic
Respiratory: Crackles
Cardiac: S1/S2
Skin: Warm, Dry and Rash
Neuro: AO x 3
Psych: Anxious
Data Reviewed
-
Labs: Labs Reviewed by me and Discussed with Physician
Old Records: Reviewed
[2024-12-18] MEDS: MUCINEX 1200 MG PO ×2 (08:19→19:43)
[2024-12-18] MEDS: VALTREX 1000 MG PO ×3 (08:19→21:07)
[2024-12-18] MEDS: ZOLOFT 12.5 MG PO (08:19)
[2024-12-18] MEDS: ELIQUIS 5 MG PO ×2 (08:19→19:43)
[2024-12-18] MEDS: CARDIZEM CD 360 MG PO (08:19)
[2024-12-18] MEDS: TOPROL XL 50 MG PO ×2 (08:19→19:43)
[2024-12-18] MEDS: PROTONIX 40 MG PO (08:19)
[2024-12-18] MEDS: DELTASONE 40 MG PO (08:20)
[2024-12-18] MEDS: ATROVENT NEBULES 0.5 MG INH ×3 (08:55→19:18)
[2024-12-18] MEDS: XOPENEX 1.25 MG INHALANT SOLUTION INH ×3 (08:55→19:18)
[2024-12-18 09:06] LABS: ALT (SGPT) 73 U/L (0-35); AST (SGOT) 36 U/L (14-36); Albumin 2.7 g/dl (3.5-5.0); Alkaline Phosphatase 59 U/L (38-126); Blood Urea Nitrogen 27 mg/dl (7-17); Calcium 8.4 mg/dl (8.4-10.2); Carbon Dioxide 37 mmol/L (22-30); Chloride 95 mmol/L (98-107); Estimated Creatinine Clearance 73 ml/min; Glucose 149 mg/dl (70-99); Sodium 133 mmol/L (135-145); Total Bilirubin 0.3 mg/dl (0.2-1.3); Total Protein 5.1 g/dl (6.3-8.2); eGFR > 60.00
[2024-12-18] MEDS: SYMBICORT 160/4.5 MCG INHALER 2 PUFF INH ×2 (09:10→19:18)
--- NOTE | 2024-12-18 09:10 | PN.CDI ---
CDI
- -
CDI:
Physician Documentation Request
Admit Date: 12/07/24 13:15
Dear Doctor,
Please review the following and provide your response in the progress notes.
Clinical Indicators:
Pt admitted with Afib with RVR with A flutter
12/13 RN note: 'Patient received on BiPAP d/t elevated CO2 in VBG. Patient lethargic, opens eyes to name then falls back asleep.'
12/13 Pulmonary Note: ' Appears clinically worsened this AM, lethargic/minimally arousable.'
12/14 RN Note: ' 1:1 maintained to prevent pulling off of BIPAP mask and to be able to be alerted,'
Please specify the known or suspected change in mental status
Metabolic Encephalopathy
Lethargy only
Other
Use of terms such as suspected, likely, concern for, or probable (associated with a specific diagnosis that is being evaluated, monitored, or treated as if it exists) are acceptable and can be coded in the inpatient setting, when documented at the
time of discharge.
Thank you,
Emily Lopez RN, BSN
CDI Specialist
Available via [place] [employer]
Please use your independent medical judgment in providing your response.
--- NOTE | 2024-12-18 09:14 | PHA.VAN.FU ---
Vancomycin Assessment / Plan
- Assessment
Renal Function: Stable
WBC's are: Trending Down
In the past 24 hrs, patient has been: Afebrile
Concomitant Antimicrobials: cefepime, valacyclovir
- Dosing Plan
Continue: vancomycin 750 mg q12h
- Monitoring Plan
Peak Level: 1.29 @ 2030
Trough Level: 1.30 @0600
- Follow Up
Pharmacy will continue to follow.
Vancomycin Follow UP
- -
Patient Age: 74
Patient Sex: Female
Vancomycin Day #: 6
Indication: Pulmonary/Respiratory
Requesting Provider: Dr. Mcdaniel
Pertinent Antimicrobial Allergies:
NKDA
Height / Weight:
Height 5 ft 4 in
Actual Weight 63.4 kg
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
- Vital Signs / Lab Results
Temp Pulse Resp BP Pulse Ox
98.1 F 81 18 115/53 94
12/17/24 23:58 12/18/24 09:10 12/18/24 09:10 12/18/24 06:00 12/18/24 09:10
Lab Results - Hematology
12/16/24 12/17/24 12/18/24
05:12 02:45 05:43
WBC 14.6 H 13.0 H 11.4 H
Lab Results - Chemistry
12/16/24 12/17/24 12/18/24
05:12 02:45 08:39
BUN 46 H 38 H 27 H
Creatinine 0.6 0.6 0.6
Estimated Creat Clear 73 73 73
Albumin 2.5 L 2.7 L
Microbiology Results
12/12/24 13:54 Blood Culture - Final
Blood/Venous No Growth - Final Report
12/12/24 13:05 Blood Culture - Final
Blood/Venous No Growth - Final Report
Therapeutic Drug Monitoring
Vancomycin Peak 20.7 ug/ml (18-26) 12/16/24 08:42
Vancomycin Trough 11.3 ug/ml (5-20) 12/16/24 05:12
--- NOTE | 2024-12-18 09:22 | W.PN.ID1 ---
Date of Service
Date of Service: December 18, 2024
Today's Communication
Continue antibiotics. See below�
Assessment / Plan
Shortness of breath
- improving
Acute on chronic respiratory failure
- improving, off BiPAP
Recent influenza A infection (11/27/24) s/p oseltamivir
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
A-fib with RVR; converted to sinus on Cardizem drip
Recent Hx of COPD exacerbation; on steroid taper
Leukocytosis
Abnormal CXR/CT
Asthma
Severe COPD on home O2 2-4L, chronic prednisone 10mg qd
HTN
Migraines
Recommendations:
Sputum culture negative. AFB stain and culture pending.
(s/p 4 days Unasyn, 3 days doxy: dc'd 12/12)
12/12/24 CXR: worsening severe right lung opacities/PNA.
- Repeat COVID/influenza negative.
- Sputum silver stain negative for PJP
Currently on cefepime (d#7).
Transition to oral cefdinir, to complete a 14-day course.
White count improved.
Decreasing oxygen requirement, off BiPAP
Pt clinically improved today
Repeat blood cultures neg to date.
Ucx neg
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
- Continue Valtrex p.o.
����������������������������������������������������������
Chief Complaint
-: Pneumonia and Other (Nodular pulmonary infiltrates. Left buttock HSV.)
Subjective / Review of Systems
Review of Systems: No Fever, No Chills, Cough, Sputum Production (Scant) and No Abdominal Pain
Vital Signs / Physical Exam
Vital Signs
Vital Signs
Temp Pulse Resp BP Pulse Ox
98.3 F 81 18 115/53 94
12/18/24 07:05 12/18/24 09:10 12/18/24 09:10 12/18/24 06:00 12/18/24 09:10
Physical Exam
Constitutional: No Acute Distress, Comfortable and Non-toxic
Cardiovascular: Regular Rate and S1/S2; Negative S3/S4
Pulmonary: Coarse and Non Labored
Gastrointestinal: Soft, Non Tender, Non Distended and Normal Bowel Sounds
Extremities: Negative Edema
Skin: Other (Left buttock lesions dressed.)
Neurological: Alert (More alert) and AO x 3; Negative Meningeal Signs (neck supple)
Objective Data
Lab Data
Lab Results
12/18/24 05:43
12/18/24 08:39
ESR 50 mm/hour (0-20) H 12/09/24 02:21
PT 17.9 Sec (11.4-14.6) H 12/13/24 12:47
INR 1.45 12/13/24 12:47
APTT Cancelled 12/17/24 16:30
Estimated Creat Clear 73 ml/min 12/18/24 08:39
Total Bilirubin 0.3 mg/dl (0.2-1.3) 12/18/24 08:39
AST 36 U/L (14-36) 12/18/24 08:39
ALT 73 U/L (0-35) H 12/18/24 08:39
Alkaline Phosphatase 59 U/L (38-126) 12/18/24 08:39
Most recent labs reviewed.
Micro Results:
12/12/24 13:54 Blood Culture - Final
Blood/Venous No Growth - Final Report
12/12/24 13:05 Blood Culture - Final
Blood/Venous No Growth - Final Report
12/11/24 20:04 Acid Fast Bacilli Smear - Preliminary
Sputum Acid Fast Bacilli Culture - Preliminary
12/12/24 16:20 Urine Culture - Final
Urine NO GROWTH
12/12/24 12:57 Influenza Types A & B (SHEELA) - Final
Nasal Swab Negative for Influenza A & B, NAAT
Negative results must be combined with clinical observations
and patient history.
Nucleic Acid Amplification test (NAAT)performed on the
[employer] platform.
12/09/24 15:59 Respiratory Culture - Final
Sputum Usual Respiratory Luzma
Gram Stain - Final
12/09/24 11:57 MRSA Screen - Final
Nose No Methicillin Resistant Staphylococcus aureus isolated.
12/09/24 09:20 Legionella Urinary Antigen - Final
Urine Negative for Legionella pneumophila Serogroup 1 antigen.
A negative result does not rule out the possiblity of
Legionella infection due to other serogroups or species of
Legionella. Clinical correlation is recommended.
Streptococcus pneumoniae Antigen (M - Final
Negative for Streptococcus pneumoniae antigen.
A negative result does not exclude infection with
Streptococcus pneumoniae. Clinical correlation is
recommended.
12/08/24 02:32 Urine Culture - Final
Urine
12/07/24 10:47 Influenza Types A & B (SHEELA) - Final
Nasal Swab Negative for Influenza A & B, NAAT
Negative results must be combined with clinical observations
and patient history.
Nucleic Acid Amplification test (NAAT)performed on the
[employer] platform.
Laboratory Tests
12/12/24
12:57
SARS-CoV-2 Antigen Negative
Left gluteal lesions 12/12/24
18:41
HSV I (PCR) Not detected
HSV II (PCR) Detected A
VZV (PCR) Source Vesicle
VZV DNA (PCR) Not detected
Imaging:
12/15/2024 CT chest with IV contrast: Multifocal pneumonia severe throughout the right lung and mild throughout the left lung, overall significantly progressed from a prior exam of 12/07/2024. No pulmonary embolism noted.
12/07/2024 CTA (chest/abdomen/pelvis):Numerous predominantly the right lung pulmonary nodular parenchymal opacities with irregular margination, as described. Although likely infectious in etiology (including atypical and/or fungal etiology),
follow-up would be necessary to assess for resolution after conservative therapy, and to exclude the possibility of neoplasm. Otherwise, consider follow-up PET/CT. Mild confluent hilar lymphoid tissue and small mediastinal lymph nodes. However, no
enlarged adenopathy. Diverticulosis. Suspect subtle acute diverticulitis related to the distal descending colon. No bowel obstruction. No obstructive uropathy. Right renal cysts. The liver, gallbladder, pancreas, spleen, and adrenal glands are
unremarkable. No bile duct dilatation. No obstructive uropathy. 2.5 cm lateral right midpole renal cyst. Right upper pole parapelvic cyst measuring 1.5 cm. Age indeterminate, though chronic-appearing sclerotic moderate superior endplate compression
deformity of T7.
12/15/24 CTA chest: Multifocal pneumonia, severe throughout the right lung and mild throughout the left lung, overall significantly progressed from prior exam 12/07/2024. No pulmonary embolism.
Care Review
Plan reviewed with: Physician (Hospitalist)
--- NOTE | 2024-12-18 10:22 | CM ---
Addendum entered by Halima Sweeney RN 12/18/24 18:01:
SNF list emailed to patient's SO Dewey at [facility] [email or web address] at patient's request.
Original Note:
O2 5L. BiPAP. Received IV Abx today that were switched to PO. PT recommends skilled rehab. OT recommends HH.
Message from Dr Atkins patient is ready for d/c today.
Met with patient for d/c planning. Patient looks fatigued and washed out and states she does not feel ready for d/c. She expressed that she is concerned about her respiratory status and wants to talk with the buyer. She expressed concern
that she is a readmission and doesn't want to be discharged before she is stable.
Discussed with patient her current rehab needs as per PT/OT, and patient is amenable to going to SNF short term for rehab. Provided SNF list and reviewed local SNFs near [place] with [facility] ratings. Denise would like to discuss SNF choices
with her sister who works as a nurse in a local doctors office and formerly worked at [employer] [place]. She also wishes to discuss d/c plans with her SO Dewey, who is busy today with work - she will talk with him this evening. Patient asked if
her sister could contact CM for d/c planning - provided card with my #.
Plan follow up with patient for SNF preferences.
--- NOTE | 2024-12-18 10:58 | W.PN.PUL3 ---
Today's Communication / Plan
-
Upon discharge to a penitentiary facility should continue:
BiPAP at bedtime and with naps. 12/5 cm of water.
Continue oxygen supplementation to maintain pulse ox above 90% 4 L at rest-up to 6 L with ambulation so far. Will obtain home oxygen assessment tomorrow 12/19/2024.
Maintain Xopenex/Atrovent 3 times a day for secretion clearance.
Okay to continue Symbicort
Prednisone taper, decrease by 10 mg every 72 hours to baseline
Acapella device
Mucinex twice a day until symptoms clear
Will need radiographic follow-up in the outpatient setting
Placement ongoing
She will follow-up with Dr. Wayne in the outpatient setting after discharge hopefully in the next 2 weeks.
Assessment
-
Patient is a 74-year-old female with previous history of severe COPD on home oxygen 2-4L, hypertension, migraines presenting with chest pressure, palpitations and right sided chest discomfort. In the ER, she was notably found to be in A-fib with
RVR and started on Cardizem drip. Chest x-ray demonstrating new right sided opacity that may represent pneumonia. She recently was flu positive.
Still having ongoing right-sided chest discomfort.
Impression:
Acute on chronic respiratory failure with hypercapnia requiring continuous BiPAP, now on midflow nasal cannula with BiPAP with sleep and prn during the day
Chronic hypoxic respiratory failure on home O2 on 4 L
New right-sided scattered opacities on CT Chest, pneumonia bacterial vs Viral
Left hip Herpes II
AECOPD
Chest discomfort
Palpitations
A-fib with RVR s/p Cardizem drip, h/o SVT
Recent flu A positive 11/27/24
Conditions present prior to admission
Osteoporosis
Hypertension
PAD
B/l Brachial artery stenosis
Anxiety
Migraine Headache
Severe COPD on home O2/Centrilobular emphysema
Follows Dr Wayne
FVC 2.20 L or 74%; FEV1 0.71 L or 32%, ratio was 32%; TLC 5.0 or 101%, RV/TLC 54%, DLCO 17%
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
Upper airway cough syndrome, follows with ENT
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
T7 compression facture 04/12
B/L Cataract Surgery
Colonoscopy and endoscopy-polyps found
s/p Mohs Surgery 09/2024
Plan
Pt became increasingly drowsy 12/13 - 12/14/2024 with blood gas showing acute hypercapnia with pCO2 of of 78. Likely due to severe pneumonia on top of severe emphysema.
Prior history of lung disease is noted including severe COPD/emphysema, stage IV with severe diffusion impairment.
-
Mental status improved-back to baseline.
Recommend patient continue BiPAP at the current settings at discharge. Should be used with naps and at bedtime.
ABG 12/14/2024: 7.37/72/78.
VBG 12/16/2024: 7.45/65/66
oxygenation at baseline 4 L/min at home-at rest but needs up to 6 L with activity and physical therapy. Home oxygen assessment on 12/19/2024
-
Pneumonia, severe, R>L
Leukocytosis trending lower
Afebrile
Antibiotics per infectious disease recommendations noted
At risk for staph pneumonia given recent influenza A.
MRSA negative
PCT negative
Sputum culture sent (12/09/2024)--usual david
AFB pending from 12/11/2024
With left hip herpes II- cant rule out herpes PNA
Not a candidate for bronchoscopy, high risk for intubation/tracheostomy based on very poor pulmonary reserve. I have discussed this with patient and she agrees.
She is thinking about advanced directives, DNR status etc.
On Valtrex, discussed with Dr. Castillo on 12/16/2024.
-
Ideally should continue with secretion clearance interventions upon discharge:
Continue airway clearance vest/nebs/acapella
Continue mucinex; continue Xopenex TID + Atrovent TID
CT chest 12/15/2024:showed extensive R sided consolidation mild on left. No pleural effusion. Severe emphysema. LIkely will be very slow recovery
Cont. prednisone- 40mg decreased on 12/16/2024. Will continue to decrease by 10 mg every 72 hours to baseline. She is on chronic prednisone for COPD, steroid dependant
Continue home inhaler with Symbicort;
uses Spiriva at home-on hold while on Atrovent.
She will need eventual radiographic follow-up in the outpatient setting.
-
Afib with RVR-heart rate has improved.
On oral Cardizem
Also on toprol XL BID
Also on heparin drip-follow PTT. Monitor for bleeding.
Cards following
proBNP 331 from 12/07/2024
Prior ECHO results are reviewed indicating stable function (last echo 12/03/2024)
-
Agree with discharge planning. Likely will need at least penitentiary facility. Doubt that this patient will be able to maintain above regimen to keep out of the hospital
Also she is significantly debilitated. Agree with a penitentiary facility at least
-
Dr. Ponce updated patient in detail on 12/18/2024. Recovery is going to be slow. She will need physical therapy and rehabilitation.
Dr. Ponce discussed with patient goals of care, DNR status etc 12/16/2024. with underlying advanced COPD with hypercapnic respiratory failure. She will think about it.
She remains full code
Dr. Phan updated the patient's boyfriend, Dewey, at bedside and answered all of his questions
Recommend outpatient follow-up with our office with Dr. Wayne (last visit on 08/07/2024)
-

Diagnostic Data
Chest X-Ray: 12/08/24- Predominately right-sided interstitial infiltrate and subtle underlying parenchymal nodularity is again demonstrated involving the caudal aspect of the right upper lobe and right lower lobe. Slight progression suggested in the
medial right lung base. The left lung remains essentially clear.
CT Scan: CT CAP 12/07/24- Numerous predominantly the right lung pulmonary nodular parenchymal opacities with irregular margination, as described. Although likely infectious in etiology (including atypical and/or fungal etiology), follow-up would be
necessary to assess for resolution after conservative therapy, and to exclude the possibility of neoplasm. Otherwise, consider follow-up PET/CT.
Mild confluent hilar lymphoid tissue and small mediastinal lymph nodes. However, no enlarged adenopathy.
Moderate emphysematous lung changes.
Echo: 12/03/24- Normal biventricular size and systolic function without regional wall motion abnormality. LVEF 65-70%. Aortic sclerosis without stenosis. No significant valvular disease.
No change compared to prior study in April 2023.
PFT's:
Reports and relevant images were personally reviewed.
Subjective Data
-
Date of Service:
Date of Service: December 18, 2024
Chief Complaint: Pulmonary Follow Up
Subjective:
Continues to feel debilitated
Denies hemoptysis
Denies chest pain
Review of Systems
General: Fever (n)
Cardiopulmonary: Dyspnea (none at rest) and Dyspnea on Exertion
GI: Abdominal Pain (n) and Nausea (n)
Neuro: Headache (n)
Objective Data
Data Reviewed
Vital Signs / I&O / Oxygen:
Vital Signs
Temp Pulse Resp BP Pulse Ox
98.3 F 81 18 115/53 94
12/18/24 07:05 12/18/24 09:10 12/18/24 09:10 12/18/24 06:00 12/18/24 09:10
Intake and Output
12/17/24 12/18/24 12/19/24
06:59 06:59 06:59
Intake Total 150 / 150 540 / 540
Output Total 450 / 450 1100 / 1100
Balance -300 / -300 -560 / -560
SaO2 94
Nasal Cannula flow liters per 5
minute
Physical Exam
General: Respiratory Distress (at rest with conversation.), Chills (negative) and Sweats (negative)
HEENT: Normocephalic, Anicteric and Moist Mucous Membranes
Cardiovascular: Irregular Rhythm, Peripheral Edema (negative) and Other (Tachycardic)
Respiratory: Wheeze (negative), Crackles (Bilateral), Rhonchi (Bilateral) and Non-Labored Respirations
GI: Soft, Non Distended and Non Tender
Neurology: AO x 3 and No Motor Deficits
Skin: Warm, Dry, Cyanosis (negative) and Jaundice (negative)
Labs/Micro/Reports
Lab Data
12/18/24 05:43
12/18/24 08:39
Laboratory Results
12/17/24
16:30
APTT Cancelled
Microbiology
12/12/24 13:54 Blood/Venous Blood Culture - Final
No Growth - Final Report
12/12/24 13:05 Blood/Venous Blood Culture - Final
No Growth - Final Report
--- NOTE | 2024-12-18 12:26 | PN.CDI ---
CDI
- -
CDI:
Physician Documentation Request
Admit Date: 12/07/24 13:15
Dear Doctor Puneet,
Please review the following and provide your response in the progress notes.
Clinical Indicators:
Pt admitted with atrial fibrillation with RVR
12/07 CXR: Faint nodular opacities are suggested in the right mid to lower lung zone.
12/07 CT chest/abd/pelvis: ...Numerous predominantly the right lung pulmonary nodular parenchymal opacities with irregular margination, as described. Although likely infectious in etiology (including atypical and/or fungal etiology), follow-up would
be necessary to assess for resolution after conservative therapy)...
12/09 ID: 'Continue to monitor closely off of antibiotics....Leukocytosis; suspect secondary to steroids.'
12/09 Pulmonary: ' Chest x-ray demonstrating new right sided opacity that may represent pneumonia. She recently was flu positive.
Still having ongoing right-sided chest discomfort.'
12/10 Pulmonary: 'New right-sided opacities on chest x-ray, possible pneumonia....Suspect patient has PNA given CXR and CT findings
She is placed on empiric abx
Sputum culture if able--she would be high risk from a procedural standpoint for bronchoscopy given her lung function.'
Please clarify the following:
Pneumonia was present on admission
Pneumonia was not present on admission
Other
Use of terms such as suspected, likely, concern for, or probable (associated with a specific diagnosis that is being evaluated, monitored, or treated as if it exists) are acceptable and can be coded in the inpatient setting, when documented at the
time of discharge.
Thank you,
Emily Lopez RN, BSN
CDI Specialist
[facility] [employer]
Please use your independent medical judgment in providing your response.
[2024-12-18] MEDS: OMNICEF 300 MG PO (19:43)
[2024-12-19] VITALS (13 sets, daily range): BP systolic 93–127; BP diastolic 49–69; PULSE 2–71
--- NOTE | 2024-12-19 03:57 | PTCARENOTE ---
Received patient on 5L NC. RT bedside to place pt on BiPAP. Pt tolerating the BiPAP. O2 sat 93%. Pt complaining of 'sores' in her mouth, upon assessment the mouth is slightly reddened but no noted sores. Reached out to [facility] Starks for Mystatin.
Educated on the importance of oral care and rinsing after respiratory treatments. Oral care done after inhaler and before being placed on BiPAP. NS on tele. Pt encouraged to turn and reposition frequently. Call ram is within reach.
[2024-12-19 05:51] LABS: ALT (SGPT) 84 U/L (0-35); AST (SGOT) 38 U/L (14-36); Albumin 2.7 g/dl (3.5-5.0); Alkaline Phosphatase 55 U/L (38-126); Blood Urea Nitrogen 24 mg/dl (7-17); Calcium 8.2 mg/dl (8.4-10.2); Carbon Dioxide 36 mmol/L (22-30); Chloride 97 mmol/L (98-107); Estimated Creatinine Clearance 73 ml/min; Glucose 83 mg/dl (70-99); Potassium 4.3 mmol/L (3.5-5.1); Sodium 136 mmol/L (135-145); Total Bilirubin 0.6 mg/dl (0.2-1.3); eGFR > 60.00
[2024-12-19 06:24] LABS: Hematocrit 32.5 % (37.0-47.0); Hemoglobin 10.8 g/dL (12.0-16.0); Mean Corp Hgb Conc. 33.2 g/dL (33.0-37.0); Mean Corpuscular Hgb 31.1 pg (27.0-31.0); Mean Corpuscular Volume 93.7 fL (81.0-99.0); Mean Platelet Volume 9.5 fL (7.4-10.4); Platelet Count 277 10^3/uL (130-400); Red Blood Cell Count 3.47 10^6/uL (4.20-5.40); Red Cell Dist. Width 13.4 % (11.5-14.5); White Blood Cell Count 12.6 10^3/uL (4.8-10.8)
[2024-12-19] MEDS: SYMBICORT 160/4.5 MCG INHALER 2 PUFF INH (07:11)
[2024-12-19] MEDS: ATROVENT NEBULES 0.5 MG INH ×2 (07:11→13:28)
[2024-12-19] MEDS: XOPENEX 1.25 MG INHALANT SOLUTION INH ×2 (07:11→13:28)
[2024-12-19 08:01] LABS: % Basophils 0.5 % (0-2); % Eosinophils 0.7 % (0-6); % Immature Granulocytes 8.3 % (0-0.5); % Lymphocytes 13.6 % (20.5-51.1); % Monocytes 4.5 % (1.7-9.3); % Neutrophils 72.4 % (42.2-75.2); Absolute Basophils 0.1 10^3/uL (0-0.2); Absolute Eosinophils 0.1 10^3/uL (0-0.7); Absolute Lymphocytes 1.7 10^3/uL (1.2-3.4); Absolute Monocytes 0.6 10^3/uL (0.1-0.6); Absolute Neutrophils 9.1 10^3/uL (1.4-6.5); Nucleated Red Blood Cells % 0.2 %
--- NOTE | 2024-12-19 08:02 | W.PN.HOSP.TC ---
Addendum entered and electronically signed by Sanchez Atkins MD 12/19/24 15:36:
For SNF
Finish cefdinir course
Outpatient PCP follow-up
BiPAP at bedtime as needed
Outpatient pulmonary follow-up
Continue nebulizer/MDIs
Oxycodone prescription placed on chart x 3 days
Original Note:
Today's Communication/Plan
-
pending discharge planning
Assessment / Plan
Assessment / Plan
A/P
#Chronic hypoxic hypercapnic respiratory failure secondary to suspected pneumonia versus COPD without exacerbation
Pro-Shelton negative
MRSA, PCT, sputum negative
Currently on empiric antibiotics�vancomycin and cefepime per infectious disease. Transition patient to cefdinir for 14 days
Pulmonary following, appreciate input
Continue BiPAP with sleep and as needed during the day at current settings. Uses chronic oxygen at 4 L/min at home
AFB sputum pending
Continue airway clearance vest, nebs, Acapella
Continue Mucinex and Xopenex 3 times daily with Atrovent 3 times daily
Taper prednisone to 40 mg today
Continue home inhaler with Symbicort
Home O2 eval today
#anxiety
continue 5 mg diazepam Q6 PRN
#Vesicular rash, concern for shingles, cannot exclude disseminated
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
Continue acyclovir per ID
#Migraine
Currently resolved so will not plan for spinal tap
Head CT showed no acute abnormalities, edema or defect. Showed a 7 mm dystrophic calcification right cerebellar hemisphere. Mild diffuse cortical and cerebral atrophy on 12/13
continue sumatriptan and Compazine as needed
# Transaminitis
HepB core Ab and surf Ab positive
Continue to follow LFT
GI on board, appreciate input
Right upper quadrant ultrasound showed no hepatic or biliary abnormalities
#Afib with RVR
Continue Eliquis
Cardio following, appreciate input
Switch to beta-cayla and converted to sinus rhythm
Continue telemetry
#mild diverticulitis
Patient previously on Augmentin, now completed
Tolerating food well
Outpatient colonoscopy in 6 weeks
#Renal cysts
no follow up advised
#Anxiety
#Essential HTN
#HLD
#Urinary retention
cont home meds
# Potential UTI
Urine culture negative
#chronic leukocytosis
Secondary to steroids
Follow-up with hematology outpatient
DVT ppx Eliquis
Full code
Per PT, patient would benefit from skilled rehab. DC planning in motion
Anticipated Discharge: Within 24 hours
Subjective/Interval History
-
Date of Service: December 19, 2024
Patient states she is nervous to leave the hospital and is concerned she will be readmitted today. Counseled patient on SNF vs home and how she will be continuing therapy at SNF. No other acute complaints
Objective Data
-
Labs:
Laboratory Results
12/19/24
05:10
WBC 12.6 H
Hgb 10.8 L
Hct 32.5 L
Plt Count 277 D
Sodium 136
Potassium 4.3
Chloride 97 L
Carbon Dioxide 36 H
BUN 24 H
Creatinine 0.6
Glucose 83
Calcium 8.2 L
Total Bilirubin 0.6
AST 38 H
ALT 84 H
Alkaline Phosphatase 55
Vital Signs:
Vital Signs
Temp Pulse Resp BP Pulse Ox
98.2 F 80 17 123/59 94
12/19/24 07:00 12/19/24 07:30 12/19/24 07:30 12/19/24 07:30 12/19/24 07:30
I&O
12/18/24 12/19/24 12/20/24
06:59 06:59 06:59
Intake Total 540 / 540
Output Total 1100 / 1100 1375 / 1375
Balance -560 / -560 -1375 / -1375
Review of Systems
-
History Source: Patient
Constitutional: Reports No Symptoms
EENT: Reports No Symptoms Reported
Respiratory: Reports Trouble Breathing (improved)
Abdomen/GI: Reports No Symptoms
Genitourinary: Reports No Symptoms
Musculoskeletal: Reports No Symptoms
Psych: Reports Anxious
Physical Exam
-
General: Well Developed, Well Nourished, No Apparent Distress, Comfortable and Conversant
HEENT: Normocephalic and Atraumatic
Respiratory: Crackles
Cardiac: Regular Rhythm and S1/S2
GI: Soft, Nontender and Nondistended
Skin: Warm, Dry and Rash
Neuro: AO x 3
Psych: Anxious
Data Reviewed
-
Labs: Labs Reviewed by me and Discussed with Physician
Old Records: Reviewed
[2024-12-19] MEDS: MUCINEX 1200 MG PO (08:59)
[2024-12-19] MEDS: MYCOSTATIN ORAL SUSPENSION 5 ML PO ×2 (08:59→13:31)
[2024-12-19] MEDS: OMNICEF 300 MG PO (08:59)
[2024-12-19] MEDS: CARDIZEM CD 360 MG PO (08:59)
[2024-12-19] MEDS: TOPROL XL 50 MG PO (08:59)
[2024-12-19] MEDS: ELIQUIS 5 MG PO (08:59)
[2024-12-19] MEDS: DELTASONE 40 MG PO (08:59)
[2024-12-19] MEDS: VALTREX 1000 MG PO (09:00)
[2024-12-19] MEDS: PROTONIX 40 MG PO (09:00)
--- NOTE | 2024-12-19 10:40 | PTCARENOTE ---
Assumed care of patient at beginning of this shift from previous RN with O2 5l n/c in use; POx 93-94%. No c/o SOB. SR on monitor. Nystatin given as ordered for thrush; tongue mildly red but patient c/o feeling 'bumps.' See worklist for full
assessment and vital signs.
--- NOTE | 2024-12-19 10:47 | W.PN.PUL3 ---
Today's Communication / Plan
-
Continue with current plan
Agree with discharge planning
Should be discharged on BiPAP therapy with naps and at bedtime
Continue nebulizer therapy
Acapella device
Oxygen supplementation at baseline 5 L
Eventual radiographic follow-up
Physical therapy as tolerated
prednisone taper as noted
Sleep please call with any further questions, patient waiting for discharge planning to senior living facility.
Assessment
-
Patient is a 74-year-old female with previous history of severe COPD on home oxygen 2-4L, hypertension, migraines presenting with chest pressure, palpitations and right sided chest discomfort. In the ER, she was notably found to be in A-fib with
RVR and started on Cardizem drip. Chest x-ray demonstrating new right sided opacity that may represent pneumonia. She recently was flu positive.
Still having ongoing right-sided chest discomfort.
Impression:
Acute on chronic respiratory failure with hypercapnia requiring continuous BiPAP, now on midflow nasal cannula with BiPAP with sleep and prn during the day
Chronic hypoxic respiratory failure on home O2 on 4 L
New right-sided scattered opacities on CT Chest, pneumonia bacterial vs Viral
Left hip Herpes II
AECOPD
Chest discomfort
Palpitations
A-fib with RVR s/p Cardizem drip, h/o SVT
Recent flu A positive 11/27/24
Conditions present prior to admission
Osteoporosis
Hypertension
PAD
B/l Brachial artery stenosis
Anxiety
Migraine Headache
Severe COPD on home O2/Centrilobular emphysema
Follows Dr Wayne
FVC 2.20 L or 74%; FEV1 0.71 L or 32%, ratio was 32%; TLC 5.0 or 101%, RV/TLC 54%, DLCO 17%
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
Upper airway cough syndrome, follows with ENT
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
T7 compression facture 04/12
B/L Cataract Surgery
Colonoscopy and endoscopy-polyps found
s/p Mohs Surgery 09/2024
Plan
Pt became increasingly drowsy 12/13 - 12/14/2024 with blood gas showing acute hypercapnia with pCO2 of of 78. Likely due to severe pneumonia on top of severe emphysema.
Prior history of lung disease is noted including severe COPD/emphysema, stage IV with severe diffusion impairment.
-
Mental status improved-back to baseline.
Recommend patient continue BiPAP at the current settings at discharge. Should be used with naps and at bedtime.
ABG 12/14/2024: 7.37/72/78.
VBG 12/16/2024: 7.45/65/66
oxygenation at baseline 4 L/min at home-at rest but needs up to 6 L with activity and physical therapy.
Home oxygen assessment 12/18/2024: Patient required 5 L of supplemental oxygen with ambulation and pulse ox was 89%.(Baseline oxygen requirement)
-
Pneumonia, severe, R>L
Leukocytosis trending lower
Afebrile
Antibiotics per infectious disease recommendations noted
At risk for staph pneumonia given recent influenza A.
MRSA negative
PCT negative
Sputum culture sent (12/09/2024)--usual david
AFB pending from 12/11/2024
With left hip herpes II- cant rule out herpes PNA
Not a candidate for bronchoscopy, high risk for intubation/tracheostomy based on very poor pulmonary reserve. I have discussed this with patient and she agrees.
She is thinking about advanced directives, DNR status etc.
On Valtrex, discussed with Dr. Castillo on 12/16/2024.
-
Ideally should continue with secretion clearance interventions upon discharge:
Continue airway clearance vest/nebs/acapella
Continue mucinex; continue Xopenex TID + Atrovent TID
CT chest 12/15/2024:showed extensive R sided consolidation mild on left. No pleural effusion. Severe emphysema. LIkely will be very slow recovery
Cont. prednisone- 40mg decreased on 12/16/2024. Will continue to decrease by 10 mg every 72 hours to baseline. She is on chronic prednisone for COPD, steroid dependant
Continue home inhaler with Symbicort;
uses Spiriva at home-on hold while on Atrovent.
She will need eventual radiographic follow-up in the outpatient setting.
-
Afib with RVR-heart rate has improved.
On oral Cardizem
Also on toprol XL BID
Also on heparin drip-follow PTT. Monitor for bleeding.
Cards following
proBNP 331 from 12/07/2024
Prior ECHO results are reviewed indicating stable function (last echo 12/03/2024)
-
Agree with discharge planning. Likely will need at least senior living facility. Doubt that this patient will be able to maintain above regimen to keep out of the hospital
Also she is significantly debilitated. Agree with a senior living facility at least
-
Dr. Ponce updated patient in detail on 12/18/2024. Recovery is going to be slow. She will need physical therapy and rehabilitation.
Dr. Ponce discussed with patient goals of care, DNR status etc 12/16/2024. with underlying advanced COPD with hypercapnic respiratory failure. She will think about it.
She remains full code
Dr. Phan updated the patient's boyfriend, Dewey, at bedside and answered all of his questions
Recommend outpatient follow-up with our office with Dr. Wayne (last visit on 08/07/2024)
-

Diagnostic Data
Chest X-Ray: 12/08/24- Predominately right-sided interstitial infiltrate and subtle underlying parenchymal nodularity is again demonstrated involving the caudal aspect of the right upper lobe and right lower lobe. Slight progression suggested in the
medial right lung base. The left lung remains essentially clear.
CT Scan: CT CAP 12/07/24- Numerous predominantly the right lung pulmonary nodular parenchymal opacities with irregular margination, as described. Although likely infectious in etiology (including atypical and/or fungal etiology), follow-up would be
necessary to assess for resolution after conservative therapy, and to exclude the possibility of neoplasm. Otherwise, consider follow-up PET/CT.
Mild confluent hilar lymphoid tissue and small mediastinal lymph nodes. However, no enlarged adenopathy.
Moderate emphysematous lung changes.
Echo: 12/03/24- Normal biventricular size and systolic function without regional wall motion abnormality. LVEF 65-70%. Aortic sclerosis without stenosis. No significant valvular disease.
No change compared to prior study in April 2023.
PFT's:
Reports and relevant images were personally reviewed.
Subjective Data
-
Date of Service:
Date of Service: December 19, 2024
Chief Complaint: Pulmonary Follow Up
Subjective:
No new complaints
Denies hemoptysis
Denies increased phlegm production
Tolerating BiPAP
Review of Systems
Cardiopulmonary: Dyspnea, Dyspnea on Exertion and Cough
Objective Data
Data Reviewed
Vital Signs / I&O / Oxygen:
Vital Signs
Temp Pulse Resp BP Pulse Ox
98.2 F 93 21 126/60 90
12/19/24 07:00 12/19/24 09:23 12/19/24 09:23 12/19/24 09:23 12/19/24 09:23
Intake and Output
12/18/24 12/19/24 12/20/24
06:59 06:59 06:59
Intake Total 540 / 540
Output Total 1100 / 1100 1375 / 1375
Balance -560 / -560 -1375 / -1375
SaO2 90
Nasal Cannula flow liters per 5
minute
Physical Exam
General: Respiratory Distress (at rest with conversation.), Chills (negative) and Sweats (negative)
HEENT: Normocephalic, Anicteric and Moist Mucous Membranes
Cardiovascular: Irregular Rhythm, Peripheral Edema (negative) and Other (Tachycardic)
Respiratory: Wheeze (negative), Crackles (Bilateral), Rhonchi (Bilateral) and Non-Labored Respirations
GI: Soft, Non Distended and Non Tender
Neurology: AO x 3 and No Motor Deficits
Skin: Warm, Dry, Cyanosis (negative) and Jaundice (negative)
Labs/Micro/Reports
Lab Data
12/19/24 05:10
12/19/24 05:10
Microbiology
12/12/24 13:54 Blood/Venous Blood Culture - Final
No Growth - Final Report
12/12/24 13:05 Blood/Venous Blood Culture - Final
No Growth - Final Report
--- NOTE | 2024-12-19 11:45 | CM ---
Addendum entered by Halima Sweeney RN 12/19/24 12:48:
Messages with [facility]; they are able to accept the patient today and have arranged BiPAP. The phone for report [phone], fax [phone].
Met with patient again and spoke with her SO Dewey by phone; they are aware that insurance has approved SNF and ambulance transport and agree to d/c today to [facility]. IMM completed.
Plan [facility] today by ambulance.
Original Note:
Patient with Hx COPD. O2 5L. BiPAP HS. Home O2 Assessment yesterday noted. PT recommends skilled rehab. OT recommends HH.
Met with patient and spoke with her SO Dewey by phone; they asked for referrals to [facility] and were made aware that both SNFs accepted for today - patient and her SO chose [facility], and agree to d/c today.
Spoke with BILLY Mock; request for [facility] SNF is approved, for 5 days, auth # [id number], NR 12/23 to phone [phone].
Ambulance auth [facility] transport, auth #[id number].
Messages with [facility]; they are able to accept the patient today and will arrange BiPAP. Await callback from [facility] confirming BiPAP is in place, and will need phone for report/fax.
Plan [facility] today by ambulance once [facility] confirms.
--- NOTE | 2024-12-19 12:06 | W.PN.ID1 ---
Date of Service
Date of Service: December 19, 2024
Today's Communication
Continue antibiotics. See below�
Assessment / Plan
Shortness of breath
- improving
Acute on chronic respiratory failure
- improving, off BiPAP
Recent influenza A infection (11/27/24) s/p oseltamivir
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
A-fib with RVR; converted to sinus on Cardizem drip
Recent Hx of COPD exacerbation; on steroid taper
Leukocytosis
Abnormal CXR/CT
Asthma
Severe COPD on home O2 2-4L, chronic prednisone 10mg qd
HTN
Migraines
Recommendations:
Sputum culture negative. AFB stain and culture pending.
(s/p 4 days Unasyn, 3 days doxy: dc'd 12/12)
12/12/24 CXR: worsening severe right lung opacities/PNA.
- Repeat COVID/influenza negative.
- Sputum silver stain negative for PJP
Continue cefdinir, to complete a 14-day course (through 12/25/2024)
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
- Continue Valtrex p.o., to complete a 7-day course in total
����������������������������������������������������������
Chief Complaint
-: Pneumonia and Other (Nodular pulmonary infiltrates. Left buttock HSV.)
Subjective / Review of Systems
Patient seen and examined. Reports breathing is comfortable.
Review of Systems: No Fever and No Chills
Vital Signs / Physical Exam
Vital Signs
Vital Signs
Temp Pulse Resp BP Pulse Ox
98.2 F 93 21 126/60 93
12/19/24 07:00 12/19/24 09:23 12/19/24 09:23 12/19/24 09:23 12/19/24 12:05
Physical Exam
Constitutional: No Acute Distress, Comfortable and Non-toxic
Cardiovascular: Regular Rate and S1/S2; Negative S3/S4
Pulmonary: Coarse and Non Labored
Gastrointestinal: Soft, Non Tender, Non Distended and Normal Bowel Sounds
Extremities: Negative Edema
Skin: Other (Left buttock lesions dressed.)
Neurological: Alert (More alert) and AO x 3; Negative Meningeal Signs (neck supple)
Objective Data
Lab Data
Lab Results
12/19/24 05:10
12/19/24 05:10
ESR 50 mm/hour (0-20) H 12/09/24 02:21
PT 17.9 Sec (11.4-14.6) H 12/13/24 12:47
INR 1.45 12/13/24 12:47
APTT Cancelled 12/17/24 16:30
Estimated Creat Clear 73 ml/min 12/19/24 05:10
Total Bilirubin 0.6 mg/dl (0.2-1.3) 12/19/24 05:10
AST 38 U/L (14-36) H 12/19/24 05:10
ALT 84 U/L (0-35) H 12/19/24 05:10
Alkaline Phosphatase 55 U/L (38-126) 12/19/24 05:10
Most recent labs reviewed.
Micro Results:
12/12/24 13:54 Blood Culture - Final
Blood/Venous No Growth - Final Report
12/12/24 13:05 Blood Culture - Final
Blood/Venous No Growth - Final Report
12/11/24 20:04 Acid Fast Bacilli Smear - Preliminary
Sputum Acid Fast Bacilli Culture - Preliminary
12/12/24 16:20 Urine Culture - Final
Urine NO GROWTH
12/12/24 12:57 Influenza Types A & B (SHEELA) - Final
Nasal Swab Negative for Influenza A & B, NAAT
Negative results must be combined with clinical observations
and patient history.
Nucleic Acid Amplification test (NAAT)performed on the
[employer] NOW platform.
12/09/24 15:59 Respiratory Culture - Final
Sputum Usual Respiratory Luzma
Gram Stain - Final
12/09/24 11:57 MRSA Screen - Final
Nose No Methicillin Resistant Staphylococcus aureus isolated.
12/09/24 09:20 Legionella Urinary Antigen - Final
Urine Negative for Legionella pneumophila Serogroup 1 antigen.
A negative result does not rule out the possiblity of
Legionella infection due to other serogroups or species of
Legionella. Clinical correlation is recommended.
Streptococcus pneumoniae Antigen (M - Final
Negative for Streptococcus pneumoniae antigen.
A negative result does not exclude infection with
Streptococcus pneumoniae. Clinical correlation is
recommended.
12/08/24 02:32 Urine Culture - Final
Urine
12/07/24 10:47 Influenza Types A & B (SHEELA) - Final
Nasal Swab Negative for Influenza A & B, NAAT
Negative results must be combined with clinical observations
and patient history.
Nucleic Acid Amplification test (NAAT)performed on the
[employer] platform.
Laboratory Tests
12/12/24
12:57
SARS-CoV-2 Antigen Negative
Left gluteal lesions 12/12/24
18:41
HSV I (PCR) Not detected
HSV II (PCR) Detected A
VZV (PCR) Source Vesicle
VZV DNA (PCR) Not detected
Imaging:
12/15/2024 CT chest with IV contrast: Multifocal pneumonia severe throughout the right lung and mild throughout the left lung, overall significantly progressed from a prior exam of 12/07/2024. No pulmonary embolism noted.
12/07/2024 CTA (chest/abdomen/pelvis):Numerous predominantly the right lung pulmonary nodular parenchymal opacities with irregular margination, as described. Although likely infectious in etiology (including atypical and/or fungal etiology),
follow-up would be necessary to assess for resolution after conservative therapy, and to exclude the possibility of neoplasm. Otherwise, consider follow-up PET/CT. Mild confluent hilar lymphoid tissue and small mediastinal lymph nodes. However, no
enlarged adenopathy. Diverticulosis. Suspect subtle acute diverticulitis related to the distal descending colon. No bowel obstruction. No obstructive uropathy. Right renal cysts. The liver, gallbladder, pancreas, spleen, and adrenal glands are
unremarkable. No bile duct dilatation. No obstructive uropathy. 2.5 cm lateral right midpole renal cyst. Right upper pole parapelvic cyst measuring 1.5 cm. Age indeterminate, though chronic-appearing sclerotic moderate superior endplate compression
deformity of T7.
12/15/24 CTA chest: Multifocal pneumonia, severe throughout the right lung and mild throughout the left lung, overall significantly progressed from prior exam 12/07/2024. No pulmonary embolism.
--- NOTE | 2024-12-19 14:41 | W.DCSUMMARY ---
Discharge Summary
Discharge Data
Date of Admission: 12/07/24
Date of Discharge: 12/19/24
Total time spent discharging patient (in min): 35
-
Pending Results: No
Hospital Course
Discharging Physician : Sanjuanita Atkins MD
Disposition : SNF
Primary care physician : Avel Soto
Principal Discharge diagnosis : AFib
Hospital Course : 74-year-old female with history of asthma, COPD on home 2, hypertension, migraines, GERD, hypercholesterolemia presented to [facility] after sensations of chest palpitations and pressure with dyspnea. In the ED she was
found to be in A-fib with RVR and was started on a Cardizem drip. She converted to sinus rhythm on her own however remained in sinus tachycardia. Patient continued on steroid taper due to recent history of COPD exacerbation CT of the chest
demonstrated pulmonary nodules, without any CT to compare to, ID recommended no antibiotics at this time. Sputum cultures were ordered for possible influenza infection and chest x-ray. Cardiology transition patient from IV Cardizem to oral
Cardizem. Patient experiencing chronic hypoxemia on 12/09, manage throughout stay on 4 L resting and 6 L ambulating. 12/10, patient was noted to be in A-fib with RVR in the 150s and IV Cardizem was restarted until she went back into normal sinus
rhythm. Digoxin was discontinued. Potassium and magnesium were repleted. At this point there was significant consideration that A-fib and dyspnea symptoms were secondary to post influenza syndrome. Patient was told to avoid albuterol and
prednisone 10 mg was started daily. Legionella and strep pneumo antigens were negative. On 12/12, patient started complaining of headaches. Sumatriptan, head CT and Compazine were ordered. Lumbar puncture was considered, however headaches
resolved prior to procedure and procedure was canceled. For mild diverticulitis, Augmentin course was completed and outpatient colonoscopy in 6 weeks is advised. Additionally, on this day vesicular lesions had dependent on the left buttock,
positive for HSV-2. Patient started on acyclovir. Since VBG was showing CO2 increase, nightly BiPAP and as needed were added. Chest x-ray was worsening so prednisone was increased to 50 mg. Due to pulmonary infiltrates, cefepime was started as
well. On 12/13, due to sustained elevated heart rates, Toprol 25 mg once daily was started. Over the weekend, patient was lethargic and only minimally arousable. After continuous BiPAP, patient improved by 12/15. Recommendations made to continue
BiPAP at night and as needed while in hospital, nebulizer therapy, secretion clearance intervention, prednisone taper, oxygen therapy and to follow-up with Dr. Diaz outpatient. Home O2 evaluation was completed and patient was deemed to require 4
L at rest and up to 6 L with ambulation. Patient stable and ready for discharge to SNF.
#Chronic hypoxic hypercapnic respiratory failure secondary to suspected pneumonia versus COPD without exacerbation
BiPAP at bedtime and with naps. 12/5 cm of water.
Continue oxygen supplementation to maintain pulse ox above 90% 4 L at rest-up to 6 L with ambulation so far. Will obtain home oxygen assessment tomorrow 12/19/2024.
Maintain Xopenex/Atrovent 3 times a day for secretion clearance, symbicort, acapella device and mucinex
Prednisone taper, decrease by 10 mg every 72 hours to baseline
complete cefdinir course
#anxiety
continue 5 mg diazepam Q6 PRN
#HSV2+ vesicular rash
Continue acyclovir
#Migraine
resolved
# Transaminitis
HepB core Ab and surf Ab positive. Continue to follow LFT
#Afib with RVR
Continue Eliquis, cardizem, toprol
#mild diverticulitis
Patient previously on Augmentin, now completed. Outpatient colonoscopy in 6 weeks
#Renal cysts
no follow up advised
#Essential HTN
#HLD
#Urinary retention
cont home meds
#chronic leukocytosis
Secondary to steroids
Follow-up with hematology outpatient
Important imaging findings :
CXR 12/07:
FINDINGS/impression:
Hyperinflation. Pulmonary hyperlucency. Subtle generalized prominence of bronchovascular markings. Findings suggesting COPD.
Faint nodular opacities are suggested in the right mid to lower lung zone. However, otherwise no focal dense consolidation appreciated. No radiographically demonstrable pleural effusion. The heart is normal in size. No pneumothorax.
CAP CTA 12/07:
IMPRESSION:
No aortic aneurysm or dissection.
No pulmonary embolism.
COPD.
Numerous predominantly the right lung pulmonary nodular parenchymal opacities with irregular margination, as described. Although likely infectious in etiology (including atypical and/or fungal etiology), follow-up would be necessary to assess for
resolution after conservative therapy, and to exclude the possibility of neoplasm. Otherwise, consider follow-up PET/CT.
Mild confluent hilar lymphoid tissue and small mediastinal lymph nodes. However, no enlarged adenopathy.
Diverticulosis. Suspect subtle acute diverticulitis related to the distal descending colon.
No bowel obstruction.
No obstructive uropathy. Right renal cysts.
The liver, gallbladder, pancreas, spleen, and adrenal glands are unremarkable. No bile duct dilatation. No obstructive uropathy. 2.5 cm lateral right midpole renal cyst. Right upper pole parapelvic cyst measuring 1.5 cm.
Age indeterminate, though chronic-appearing sclerotic moderate superior endplate compression deformity of T7.
Abd US 12/07:
IMPRESSION:
There are 2 right-sided renal cysts
The study is otherwise normal
CXR 12/08:
FINDINGS/impression:
Predominately right-sided interstitial infiltrate and subtle underlying parenchymal nodularity is again demonstrated involving the caudal aspect of the right upper lobe and right lower lobe. Slight progression suggested in the medial right lung base.
The left lung remains essentially clear.
CXR 12/12:
IMPRESSION:
1. SEVERE PNEUMONIA in the RIGHT UPPER, LOWER, and MIDDLE LOBES which has increased since 12/08/2024.
2. SEVERE BILATERAL UPPER LOBE EMPHYSEMA.
3. Severe calcific atherosclerotic plaque in the thoracic aorta and coronary arteries.
4. Chronic superior endplate fracture of T7 with moderate loss of vertebral body height.
Head CT 12/12:
IMPRESSION:
There are no acute intracranial abnormalities.
There is mild diffuse cortical and cerebellar atrophy.
There is a 6 mm dystrophic calcification in the right cerebellar hemisphere which is of doubtful clinical significance
Head CT 12/13:
IMPRESSION:
There are no acute abnormalities and there is no edema or defect to suggest increased intracranial pressure
There is a 7 mm dystrophic calcification in the right cerebellar hemisphere which is of doubtful clinical significance
There is mild diffuse cortical and cerebellar atrophy
Chest CT 12/15:
IMPRESSION:
1. Multifocal pneumonia, severe throughout the right lung and mild throughout the left lung, overall significantly progressed from prior exam 12/07/2024.
2. No pulmonary embolism.
Discharge Plan
-
Patient Disposition: Retirement/SNF
Discharge Diagnosis/Procedures: Atrial Fibrillation, Acute hypoxemic Respiratory Failure
Condition: Fair
Diet: No restrictions and As tolerated
Activity: As tolerated
Driving Restrictions: As prior to admission
Bathing Restrictions: None
Referrals:
Abiodun Root DO [Active] - in one to two months (chronic leukocytosis)
Avel Soto MD [Family Provider] - in one to two weeks
Eugene Wayne MD [Active] - in two to four weeks
Franko Gaxiola MD [Active] - in three to four weeks (positive HepB Ab -follow up for hepatitis further testing to ensure prior infection and elevated liver functions during admission.)
Prescriptions:
New
ipratropium bromide 0.02 % Solution
0.5 mg inhalation R TID 30 Days Qty: 225 0RF
nystatin 100,000 unit/mL Suspension
5 ml PO QID 10 Days Qty: 200 0RF
prednisone 20 mg Tablet
40 mg PO DAILY Qty: 60 0RF
valacyclovir 500 mg Tablet
1,000 mg PO TID 15 Days Qty: 90 0RF
cefdinir 300 mg Capsule
300 mg PO Q12 7 Days Qty: 14 0RF
metoprolol succinate 25 mg Tablet Extended Release 24 Hr
50 mg PO BID 30 Days Qty: 120 0RF
levalbuterol HCl 1.25 mg/3 mL Solution For Nebulization
1.25 mg inhalation R TID 30 Days Qty: 270 0RF
Continued
[id number]-chlpcjaohsvob-kiyj 1 EACH tablet
1 tab PO Q4HPRN PRN (Reason: migraine)
ascorbic acid (vitamin C) [Vitamin C] 500 MG tablet
1,000 mg PO BID
diazepam 5 MG tablet
5 mg PO DAILYPRN PRN (Reason: anxiety)
fluticasone propionate 1 SPRAY spray,suspension
1 spray intranasal DAILYPRN PRN (Reason: allergies)
Refresh Classic (PF) 10 DROPS dropperette
1 drops BOTH EYES BID
calcium carbonate-vitamin D3 [Oyster Shell Calcium-Vit D3] 500 MG tablet
1 tab PO DAILY
albuterol sulfate 2.5 mg /3 mL (0.083 %) Solution For Nebulization
2.5 mg INHALATION R Q4HPRN PRN (Reason: chest tightness)
budesonide-formoterol [Symbicort] 160-4.5 mcg/actuation Hfa Aerosol Inhaler
2 puff INHALATION R BID
benzonatate 200 mg Capsule
200 mg PO BID
sodium chloride 3 % Solution For Nebulization
4 ml INHALATION R BID
sertraline 25 mg Tablet
12.5 mg PO Q48H
budesonide 0.5 mg/2 mL Suspension For Nebulization
0.5 mg INHALATION R [id number] PRN (Reason: sob)
vitamin B complex Tablet
1 tab PO DAILY
diltiazem HCl 360 mg Tablet Extended Release 24 Hr
360 mg PO DAILY
guaifenesin [Mucus Relief ER] 600 MG tablet extended release 12hr
1,200 mg PO BID
pantoprazole 40 mg Tablet,Delayed Release (Dr/Ec)
40 mg PO DAILY 30 Days Qty: 30 0RF
sumatriptan succinate 25 mg Tablet
25 mg PO DAILYPRN PRN (Reason: migraine)
ondansetron HCl 4 mg Tablet
4 mg PO Q8HPRN PRN (Reason: nausea)
alendronate 70 mg Tablet
70 mg PO FR
oxybutynin chloride 5 mg Tablet Extended Release 24hr
5 mg PO DAILY
hydrochlorothiazide 25 mg Tablet
25 mg PO DAILY
rosuvastatin 20 mg Tablet
20 mg PO DAILY
Spiriva Respimat 2.5 mcg/actuation Mist
2 inh INHALATION R DAILY@1200
Eliquis 5 mg Tablet
5 mg PO BID Qty: 60 0RF
tiotropium bromide 2.5 mcg/actuation Mist
2 inh INHALATION NOON
prednisone 10 mg tablet
See Rx Instructions .ROUTE .COMPLEX
Taper: Prednisone DC Starting at 40 mg daily
40 mg Daily for 2 Days and 0 Hour
30 mg Daily for 3 Days and 0 Hour
20 mg Daily for 3 Days and 0 Hour
10 mg Daily for 3 Days and 0 Hour
Rx Instructions:
40mg qdx2D
30mg qdx3D
20mg qdx3D
10mg qdx3D
Held
digoxin 125 mcg (0.125 mg) Tablet
125 mcg PO NOON Qty: 30 0RF
Hold Instructions: until cleared by PCP
Discharge Orders:
Discharge Patient (As Directed); Ordered 12/19/24
Ordered By: Dane Teixeira
Care Plan Goals
Care Plan Goals:
Problem: Readiness for enhanced knowledge related to diagnosis and treatment plan
Goal: Understand your diagnosis and treatment plan needs, including medications if applicable.
Instructions: Know your diagnosis, underlying causes and treatment plan options, including medications if applicable. Consult with your health care team to learn about your diagnosis and treatment plan, including medications if applicable.
Discharge Date and Time
Print Language: CZECH
--- NOTE | 2024-12-19 16:42 | PTCARENOTE ---
Patient discharged to [facility]; report called and given to Deja at [phone]. Patient left via ambulance/stretcher with all belongings; chart/continuum of care faxed by apartment community manager. Unable to enter d/c documentation in worklist.
--- NOTE | 2024-12-19 17:13 | PTCARENOTE ---
[facility]ycodone but the instructions are for patient to receive Valium. TT sent to Dr Sanchez Atkins with this information, including phone number to reach Naz [phone] and fax #
[phone].
--- NOTE | 2024-12-19 17:57 | PTCARENOTE ---
Nurse Naz called again from [facility] questioning duplicate respiratory meds: albuterol and levalbuterol as well as duplicate spiriva. TT sent to Dr Sanchez Atkins. Naz stated that a female resident spoke with their pharmacist regarding valuim.
== END 2024-12-19 16:30 | DRG 308 ==
LOC: IMU 13:15
PROVIDERS: Emergency Medicine; Internal Medicine; Internal Medicine Critical Care Medicine; Internal Medicine Infectious Disease; Nurse Practitioner Adult Health; Nurse Practitioner Family; Physician Assistant; Radiology Vascular & Interventional Radiology; Registered Nurse; ADMITTING PHYSICIAN Hospitalist; CONSULT PHYSICIAN Internal Medicine; CONSULT PHYSICIAN Internal Medicine Cardiovascular Disease; CONSULT PHYSICIAN Internal Medicine Gastroenterology; CONSULT PHYSICIAN Internal Medicine Infectious Disease; EMERGENCY PHYSICIAN Student in an Organized Health Care Education/Training Program; FAMILY PHYSICIAN Family Medicine
PROC: 5A09357 Assistance with Respiratory Ventilation, Less than 24 Consecutive Hours, Continuous Positive Airway Pressure (ICD-10-PCS; 2024-12-12)
DX: I48.92 Unspecified atrial flutter (principal); J18.9 Pneumonia, unspecified organism; J96.22 Acute and chronic respiratory failure with hypercapnia; K57.32 Diverticulitis of large intestine without perforation or abscess without bleeding; E24.2 Drug-induced Cushing's syndrome; J43.2 Centrilobular emphysema; I48.91 Unspecified atrial fibrillation; I10 Essential (primary) hypertension; G43.909 Migraine, unspecified, not intractable, without status migrainosus; R91.8 Other nonspecific abnormal finding of lung field; I73.9 Peripheral vascular disease, unspecified; F41.9 Anxiety disorder, unspecified; R74.01 Elevation of levels of liver transaminase levels; N28.1 Cyst of kidney, acquired; K44.9 Diaphragmatic hernia without obstruction or gangrene; B02.9 Zoster without complications; M81.0 Age-related osteoporosis without current pathological fracture; E78.00 Pure hypercholesterolemia, unspecified; K21.9 Gastro-esophageal reflux disease without esophagitis; R33.9 Retention of urine, unspecified; R21 Rash and other nonspecific skin eruption; D72.829 Elevated white blood cell count, unspecified; T38.0X5A Adverse effect of glucocorticoids and synthetic analogues, initial encounter; Y92.9 Unspecified place or not applicable; Z99.81 Dependence on supplemental oxygen; Z87.891 Personal history of nicotine dependence; Z79.01 Long term (current) use of anticoagulants; Z79.51 Long term (current) use of inhaled steroids; Z79.52 Long term (current) use of systemic steroids; Z11.52 Encounter for screening for COVID-19; Z86.79 Personal history of other diseases of the circulatory system; Z79.83 Long term (current) use of bisphosphonates; Z86.0100 Personal history of colon polyps, unspecified
CPT/HCPCS: 88312; 36600; 70450; 71045; 71046; 71260; 71275; 74174; 76700; 80048; 80053; 80202; 81003; 81015; 82248; 82550; 82805; 82962; 83735; 83880; 84145; 84443; 84484; 85025; 85027; 85610; 85652; 85730; 86618; 86704; 86706; 86708; 86803; 87015; 87040; 87070; 87086; 87116; 87205; 87340; 87449; 87502; 87517; 87529; 87798; 87811; 87899; 88112; 93005; 94640; 94660; 94669; 96365; 96366; 97116; 97163; 97166; 97530; 97535; 99285; Q9967

== ENCOUNTER → 2024-12-25 11:40 | Outpatient (REF) | payer OTHER, SELFPAY ==
[2024-12-25 12:25] LABS: % Basophils 0.3 % (0-2); % Eosinophils 0.3 % (0-6); % Immature Granulocytes 3.6 % (0-0.5); % Lymphocytes 9.5 % (20.5-51.1); % Monocytes 9.2 % (1.7-9.3); % Neutrophils 77.1 % (42.2-75.2); Absolute Immature Granulocytes 0.4 10^3/uL (0-0.05); Absolute Lymphocytes 1.1 10^3/uL (1.2-3.4); Absolute Monocytes 1.1 10^3/uL (0.1-0.6); Absolute Neutrophils 9.1 10^3/uL (1.4-6.5); Hematocrit 36.1 % (37.0-47.0); Hemoglobin 11.6 g/dL (12.0-16.0); Mean Corp Hgb Conc. 32.1 g/dL (33.0-37.0); Mean Corpuscular Hgb 30.5 pg (27.0-31.0); Mean Platelet Volume 9.7 fL (7.4-10.4); Nucleated Red Blood Cells % 0 %; Platelet Count 420 10^3/uL (130-400); Red Cell Dist. Width 15.1 % (11.5-14.5); White Blood Cell Count 11.8 10^3/uL (4.8-10.8)
[2024-12-25 14:10] LABS: Blood Urea Nitrogen 25 mg/dl (7-17); Carbon Dioxide 33 mmol/L (22-30); Chloride 93 mmol/L (98-107); Glucose 97 mg/dl (70-99); Potassium 3.8 mmol/L (3.5-5.1); Sodium 133 mmol/L (135-145); eGFR > 60.00
== END ==
LOC: OLABP 11:40
PROVIDERS: ATTENDING PHYSICIAN Family Medicine
DX: J96.21 Acute and chronic respiratory failure with hypoxia (principal); J44.9 Chronic obstructive pulmonary disease, unspecified; J45.909 Unspecified asthma, uncomplicated; E24.2 Drug-induced Cushing's syndrome; I48.92 Unspecified atrial flutter; I10 Essential (primary) hypertension; K57.92 Diverticulitis of intestine, part unspecified, without perforation or abscess without bleeding; I48.91 Unspecified atrial fibrillation; I73.9 Peripheral vascular disease, unspecified; B02.9 Zoster without complications
CPT/HCPCS: 36415; 80048; 85025

== ENCOUNTER → 2025-02-07 12:45 | Outpatient (REF) | payer OTHER, SELFPAY | LOC: HWRAD 12:45 | PROVIDERS: ATTENDING PHYSICIAN Internal Medicine Critical Care Medicine; FAMILY PHYSICIAN Family Medicine | DX: J18.9 Pneumonia, unspecified organism (principal) | CPT/HCPCS: 71250 ==

== ENCOUNTER → 2025-02-21 13:46 | Outpatient (REF) | payer OTHER, SELFPAY | LOC: WDC 13:46 | PROVIDERS: ATTENDING PHYSICIAN Nurse Practitioner Family | DX: Z12.31 Encounter for screening mammogram for malignant neoplasm of breast (principal) | CPT/HCPCS: 77063; 77067 ==

== ENCOUNTER → 2025-02-27 12:21 | Outpatient (REF) | payer OTHER, SELFPAY | LOC: PET 12:21 | PROVIDERS: ATTENDING PHYSICIAN Internal Medicine Critical Care Medicine | DX: R91.1 Solitary pulmonary nodule (principal) | CPT/HCPCS: 78815; A9552 ==

== ENCOUNTER → 2025-06-14 10:56 | Outpatient (REF) | payer OTHER, SELFPAY | LOC: RAD 10:56 | PROVIDERS: ATTENDING PHYSICIAN Internal Medicine Critical Care Medicine; FAMILY PHYSICIAN Nurse Practitioner Family | DX: R91.8 Other nonspecific abnormal finding of lung field (principal); R22.31 Localized swelling, mass and lump, right upper limb | CPT/HCPCS: 73090 ==

== ENCOUNTER → 2025-07-22 15:52 | Outpatient (REF) | payer OTHER, SELFPAY | LOC: RAD 15:52 | PROVIDERS: ATTENDING PHYSICIAN Family Medicine | DX: M25.552 Pain in left hip (principal); M54.50 Low back pain, unspecified | CPT/HCPCS: 72110; 73502 ==

== ENCOUNTER 2025-11-17 14:03 | Emergency (ER) | payer OTHER, SELFPAY ==
[2025-11-17 14:17] VITALS: BP 132/79
[2025-11-17 14:46] LABS: Hematocrit 35.8 % (37.0-47.0); Hemoglobin 11.2 g/dL (12.0-16.0); Mean Corp Hgb Conc. 31.3 g/dL (33.0-37.0); Mean Corpuscular Volume 91.3 fL (81.0-99.0); Nucleated Red Blood Cells % 0 %; Platelet Count 180 10^3/uL (130-400); Red Cell Dist. Width 13.5 % (11.5-14.5)
[2025-11-17 14:52] LABS: COVID-19 Antigen Negative (Negative)
[2025-11-17 14:53] LABS: ALT (SGPT) 56 U/L (0-35); AST (SGOT) 52 U/L (14-36); Albumin 4.3 g/dl (3.5-5.0); Alkaline Phosphatase 41 U/L (38-126); Blood Urea Nitrogen 23 mg/dl (7-17); Calcium 9.2 mg/dl (8.4-10.2); Carbon Dioxide 34 mmol/L (22-30); Chloride 95 mmol/L (98-107); Glucose 170 mg/dl (70-99); Potassium 4.3 mmol/L (3.5-5.1); Sodium 135 mmol/L (135-145); Total Protein 6.3 g/dl (6.3-8.2); eGFR > 60.00
--- NOTE | 2025-11-17 17:33 | ED.GENMED ---
History of Present Illness
General
Chief Complaint: Cold/Flu/URI Symptoms
Source: patient
Time Seen by Provider: 11/17/25 17:22
History of Present Illness
History of Present Illness:
75-year-old female presents to the emergency room complaining of cough, increased shortness of breath and sensation that she is mucous plugging. Patient has a history of severe COPD. She is on 3 to 5 L of nasal cannula oxygen at baseline. She
takes 10 mg of prednisone a day at baseline. She developed an increased cough over the past 48 hours. Over the past 24 hours she feels as if she has mucus it is difficult to clear and it sometimes get 'clogged' in her windpipe making it difficult
for her to breathe. She has not measured her temperature but has felt like she might have a fever. Her was ill with a cold but this cleared pretty rapidly for him. Patient has been compliant with her multiple respiratory treatments.
Past History
Past History
ED Past Medical History: Asthma, Cancer (Skin Cancer), COPD, HTN and Other (Headache/ Migraines)
ED Past Surgical History: Other (Cataracts)
Social History
Tobacco: Former smoker
Alcohol: Occasional
Personal: Single (Significant other)
Living: with family
Employment: Employed
Phy Exam
Physical Exam
Physical Exam:
General: Awake, Alert, Oriented X3. Increased work of breathing, stigmata of COPD
Vitals: unremarkable
Head: Atraumatic
Eyes: Pupils equal, EOMI
Throat: Airway intact, no exudates, dry mucosa
Neck: Trachea midline
Lungs: Markedly decreased breath sounds, faint expiratory wheezing
Heart: Regular rate, no murmurs
Abd: Soft, Nontender, No pulsatile mass
Neuro: Nonfocal
Skin: Warm, dry, no rash
Extremities: pulses equal b/l, no edema
Sepsis
Sepsis Screening
Sepsis Assessment: Sepsis Ruled Out
Sepsis Screen
Sepsis Screen: Sepsis Ruled Out
Date: 11/17/25
Time: 23:09
Course
Orders/Labs/Results
Orders:
Orders
11/17/25 14:28
COVID-19 Antigen Urgent
Source: Nasal Swab
Complete Blood Count/With Diff Urgent
Comprehensive Metabolic Panel Urgent
Influenza A+B Rapid Molecular Urgent
CHRISSY Source: Nasal Swab
Specimen Description:
11/17/25 17:32
Dexamethasone Sod Phosphate [Decadron] 10 mg IV NOW STA
Ipratropium/Albuterol Sulfate [Duoneb] 3 ml INH R NOW ONE
CR Chest - 2 Views Urgent
Comment:
Reason For Exam: cough, sob
11/17/25 19:42
Acetaminophen [Tylenol] 1,000 mg PO NOW STA
Doxycycline [Vibramycin] 100 mg PO NOW STA
Abnormal Lab Results
11/17/25
14:28
RBC 3.92 L 10^6/uL
(4.20-5.40)
Hgb 11.2 L g/dL
(12.0-16.0)
Hct 35.8 L %
(37.0-47.0)
MCHC 31.3 L g/dL
(33.0-37.0)
Abs Immat Gran (auto) 0.1 H 10^3/uL
(0-0.05)
Absolute Neuts (auto) 7.5 H 10^3/uL
(1.4-6.5)
Absolute Lymphs (auto) 0.6 L 10^3/uL
(1.2-3.4)
Absolute Monos (auto) 0.8 H 10^3/uL
(0.1-0.6)
Immature Gran % 0.7 H %
(0-0.5)
Neutrophils % 83.0 H %
(42.2-75.2)
Lymphocytes % 6.5 L %
(20.5-51.1)
Chloride 95 L mmol/L
(98-107)
Carbon Dioxide 34 H mmol/L
(22-30)
BUN 23 H mg/dl
(7-17)
Glucose 170 H mg/dl
(70-99)
AST 52 H U/L
(14-36)
ALT 56 H U/L
(0-35)
11/17/25 14:28
11/17/25 14:28
Vital Signs
Initial and Last Documented VS:
Initial Vital Signs
Temp Pulse Resp BP Pulse Ox
99.8 F 95 24 132/79 98
11/17/25 14:17 11/17/25 14:17 11/17/25 14:17 11/17/25 14:17 11/17/25 14:17
Last Documented Vital Signs
Temp Pulse Resp BP Pulse Ox
99.8 F 90 20 135/72 97
11/17/25 14:17 11/17/25 19:30 11/17/25 19:30 11/17/25 19:00 11/17/25 19:15
MDM/Problems Addressed
Differential Diagnosis Includes:
Pneumonia, acute bronchitis, pneumothorax
MDM/Problems Addressed:
Patient presents complaining of cough, upper respiratory congestion, sensation of mucus plugging at times. Chest x-ray here shows no acute pneumonia. She does have significant changes of COPD. Patient is oxygenating well on her baseline oxygen.
She was treated with DuoNebs here. She had decreased breath sounds with summarily change with DuoNebs. Will treat with doxycycline. I think patient has severe COPD and says she looks short of breath but probably is not far from her baseline. Do
not believe there is benefit from hospitalization. She is already on 10 mg of prednisone a day at without there being significant wheezing I would not change that at this point. Recommend follow-up with her primary care provider and her
wire preparation worker. Return if she feels worse.
*Radiology
Radiology exam reviewed: preliminary read by ED provider (Hyperinflation but no acute abnormality on my review)
*Pulse Oximetry
SaO2: 98
Nasal Cannula flow liters per minute: 3
Patient hypoxic: yes
*Critical Care Note
Total Time (30-74mins, 75-104mins- exclusive of procedures): Not Applicable
ED Attending Note
-
Portions of this chart may have been created with voice recognition software.� Occasional wrong word or��sound alike� substitutions may have occurred due to the inherent limitations of voice recognition software.
Discharge Plan
Departure
Patient Disposition: Home (Routine Discharge)
Date of Disposition: 11/17/25
Time of Disposition: 19:40
Patient with high blood pressure during this ER visit?: No
Condition: Good
Discharge Problem:
COPD (chronic obstructive pulmonary disease), Acute bronchitis
Instructions: Acute Bronchitis, Adult (DC)
Prescriptions:
New
doxycycline hyclate 100 mg tablet
100 mg PO BID 7 Days Qty: 14 0RF
No Action
atwremcwlg-wbcwczynqxshi-akbf 1 EACH tablet
1 tab PO Q4HPRN PRN (Reason: migraine)
ascorbic acid (vitamin C) [Vitamin C] 500 MG tablet
1,000 mg PO BID
diazepam 5 MG tablet
5 mg PO DAILYPRN PRN (Reason: anxiety)
fluticasone propionate 1 SPRAY spray,suspension
1 spray intranasal DAILYPRN PRN (Reason: allergies)
Refresh Classic (PF) 10 DROPS dropperette
1 drops BOTH EYES BID
calcium carbonate-vitamin D3 [Oyster Shell Calcium-Vit D3] 500 MG tablet
1 tab PO DAILY
albuterol sulfate 2.5 mg /3 mL (0.083 %) Solution For Nebulization
2.5 mg INHALATION R Q4HPRN PRN (Reason: chest tightness)
budesonide-formoterol [Symbicort] 160-4.5 mcg/actuation Hfa Aerosol Inhaler
2 puff INHALATION R BID
benzonatate 200 mg Capsule
200 mg PO BID
sodium chloride 3 % Solution For Nebulization
4 ml INHALATION R BID
sertraline 25 mg Tablet
12.5 mg PO Q48H
budesonide 0.5 mg/2 mL Suspension For Nebulization
0.5 mg INHALATION R [id number] PRN (Reason: sob)
vitamin B complex Tablet
1 tab PO DAILY
diltiazem HCl 360 mg Tablet Extended Release 24 Hr
360 mg PO DAILY
guaifenesin [Mucus Relief ER] 600 MG tablet extended release 12hr
1,200 mg PO BID
pantoprazole 40 mg Tablet,Delayed Release (Dr/Ec)
40 mg PO DAILY 30 Days Qty: 30 0RF
sumatriptan succinate 25 mg Tablet
25 mg PO DAILYPRN PRN (Reason: migraine)
ondansetron HCl 4 mg Tablet
4 mg PO Q8HPRN PRN (Reason: nausea)
alendronate 70 mg Tablet
70 mg PO FR
oxybutynin chloride 5 mg Tablet Extended Release 24hr
5 mg PO DAILY
hydrochlorothiazide 25 mg Tablet
25 mg PO DAILY
rosuvastatin 20 mg Tablet
20 mg PO DAILY
Spiriva Respimat 2.5 mcg/actuation Mist
2 inh INHALATION R DAILY@1200
Eliquis 5 mg Tablet
5 mg PO BID Qty: 60 0RF
digoxin 125 mcg (0.125 mg) Tablet
125 mcg PO NOON Qty: 30 0RF
tiotropium bromide 2.5 mcg/actuation Mist
2 inh INHALATION NOON
prednisone 10 mg tablet
See Rx Instructions .ROUTE .COMPLEX
Taper: Prednisone DC Starting at 40 mg daily
40 mg Daily for 2 Days and 0 Hour
30 mg Daily for 3 Days and 0 Hour
20 mg Daily for 3 Days and 0 Hour
10 mg Daily for 3 Days and 0 Hour
Rx Instructions:
40mg qdx2D
30mg qdx3D
20mg qdx3D
10mg qdx3D
ipratropium bromide 0.02 % Solution
0.5 mg inhalation R TID 30 Days Qty: 225 0RF
nystatin 100,000 unit/mL Suspension
5 ml PO QID 10 Days Qty: 200 0RF
prednisone 20 mg Tablet
40 mg PO DAILY Qty: 60 0RF
valacyclovir 500 mg Tablet
1,000 mg PO TID 15 Days Qty: 90 0RF
cefdinir 300 mg Capsule
300 mg PO Q12 7 Days Qty: 14 0RF
metoprolol succinate 25 mg Tablet Extended Release 24 Hr
50 mg PO BID 30 Days Qty: 120 0RF
levalbuterol HCl 1.25 mg/3 mL Solution For Nebulization
1.25 mg inhalation R TID 30 Days Qty: 270 0RF
oxycodone 5 mg tablet
5 mg PO Q4H PRN (Reason: Pain) 5 Days Qty: 10 0RF
Referrals:
UNKNOWN - PT DOES,NOT KNOW [Family Provider]
Interventions
Interventions:
*General Assessment Last Done: 11/17/25 14:17
*Neglect/Abuse Screening Last Done: 11/17/25 14:17
*ED COVID-19 Vaccine History Last Done: 11/17/25 17:39
*ED Influenza Vaccine History Last Done: 11/17/25 17:39
[facility] Fall Risk Assessment Tool Last Done: 11/17/25 17:39
*Risk Screen - Suicide (C-SSRS) Last Done: 11/17/25 14:17
*Nursing Disposition Last Done: 11/17/25 20:00
ED- Pulmonary Assessment Last Done: 11/17/25 17:39
Discharge Date and Time
Discharge Date/Time: 11/17/25 20:59
Print Language: FIJIAN
[2025-11-17] MEDS: DUONEB 3 ML INH (17:35)
[2025-11-17 17:38] VITALS: BP 121/81; BMI 25.8
[2025-11-17] MEDS: DECADRON 10 MG IV (17:47)
[2025-11-17 19:00] VITALS: BP 135/72
[2025-11-17] MEDS: TYLENOL 1000 MG PO (19:46)
[2025-11-17] MEDS: VIBRAMYCIN 100 MG PO (19:47)
== END 2025-11-17 20:59 | disposition home or self-care (01) ==
LOC: EMR 14:03
PROVIDERS: Emergency Medicine; EMERGENCY PHYSICIAN Emergency Medicine
DX: J20.9 Acute bronchitis, unspecified (principal); J44.0 Chronic obstructive pulmonary disease with (acute) lower respiratory infection; Z11.52 Encounter for screening for COVID-19; Z87.891 Personal history of nicotine dependence; Z99.81 Dependence on supplemental oxygen
CPT/HCPCS: 99284; 96374; 94640; 71046; 80053; 85025; 87502; 87811